=== PATIENT | male | born 1960 | race Caucasian/White ===

== ENCOUNTER 2016-04-15 02:55 | Observation (INO) | payer MEDICARE ==
[2016-04-14] MEDS: ATORVASTATIN 20 MG TAB PO SCH (21:00)
[2016-04-15] VITALS (9 sets, daily range): BP systolic 106–133; BP diastolic 61–86
[~2016-04-15] VITALS: Ht 170.2 cm; Wt 101.5 kg
[~2016-04-15 02:55] MED LIST: /ESCI20TA OR; /GLIP10TAB OR; /INSULEV; /INSULEV SQ; ALPR0.25 OR; ASPI81TA83 OR; BACL-67 PO; CARV6.25 OR; COLA100C2 OR; FURO20TA2 OR; GLUC1000 OR; INSUHUMDS SC; MORPHINE IR PO; MS C15TA5 OR; NOVOLOG100 MG/ML SC; OMEP20TA7 OR; PERC5TAB8 OR; PRAV20TA2 OR; SENN8.6T5 OR; VITA200015 PO; fiber gummies PO
[2016-04-15 03:20] LABS: BASO # 0.1 K/mm3 (0.0-0.2); BASO % 0.8 % (0.0-1.0); EOS # 0.2 K/mm3 (0.0-0.50); EOS % 2.2 % (0.0-3.0); LARGE UNSTAINED CELL # 0.3 K/mm3 (0.0-0.4); LARGE UNSTAINED CELL % 2.4 % (0.0-4.0); LYMPH # 2.7 K/mm3 (1.5-4.5); LYMPH % 26.2 % (24.0-44.0); MEAN CORPUSCULAR HEMOGLOBIN 29.6 pg (27.0-33.0); MEAN CORPUSCULAR HGB CONC 33.8 g/dl (32.0-36.5); MEAN CORPUSCULAR VOLUME 87.6 fl (80.0-96.0); MONO # 0.7 K/mm3 (0.0-0.8); MONO % 6.6 % (0.0-5.0); NEUTROPHILS # 6.4 K/mm3 (1.8-7.7); NEUTROPHILS % 61.8 % (36.0-66.0); PLATELET COUNT, AUTOMATED 242 k/mm3 (150-450); RED CELL DISTRIBUTION WIDTH 13.1 % (11.5-14.5); WHITE BLOOD COUNT 10.3 K/mm3 (4.0-10.0)
[2016-04-15 03:28] LABS: INR 0.93
[2016-04-15] MEDS ORDERED: ISOVUE-370 76% 100ML VIAL (Q9967) As Ordered ONE (03:37)
[2016-04-15 03:43] LABS: ANION GAP 10 MEQ/L (8-16); BLOOD UREA NITROGEN 17 MG/DL (7-18); CALCIUM LEVEL 9.1 MG/DL (8.5-10.1); CARBON DIOXIDE LEVEL 27 MEQ/L (21-32); CHLORIDE LEVEL 102 MEQ/L (98-107); CREATININE FOR GFR 1.02 MG/DL (0.70-1.30); GLOMERULAR FILTRATION RATE > 60.0 (>56); GLUCOSE, FASTING 293 MG/DL (70-105); POTASSIUM SERUM 4.1 MEQ/L (3.5-5.1); SODIUM LEVEL 139 MEQ/L (136-145)
[2016-04-15] MEDS ORDERED: INSUHUMDS SC (04:19)
[2016-04-15] MEDS ORDERED: FURO20TA2 PO (04:19)
[2016-04-15] MEDS ORDERED: ASPI81TAEC PO (04:19)
[2016-04-15] MEDS ORDERED: ADV250INH INH (04:19)
[2016-04-15] MEDS ORDERED: PROA1AER INH (04:19)
[2016-04-15] MEDS ORDERED: INSUDET SC (04:19)
[2016-04-15] MEDS ORDERED: CARV6.25 PO (04:19)
[2016-04-15] MEDS ORDERED: GLIP10TA6 PO (04:19)
[2016-04-15] MEDS ORDERED: BYDU1INJ SC (04:19)
[2016-04-15] MEDS ORDERED: METF1000 PO (04:19)
[2016-04-15] MEDS ORDERED: NAPR500T2 PO (04:19)
[2016-04-15] MEDS ORDERED: OMEP20CA3 PO (04:19)
--- NOTE | 2016-04-15 05:00 | REPUSA ---
HISTORY: Trauma. COMPARISON: None. TECHNIQUE: Multiple thin section helically-acquired axially-displayed and helically acquired coronall y displayed computed tomographic images of the face are obtained from the mandible through the fronta l sinuses, with images obtained at soft tissue and bone window. 2D reformatted images were performed. FINDINGS: Normal bony mineralization. No fractures. Normal orbits. Normal, clear paranasal sinuses. Normal oral and nasal cavities. Normal infratemporal fossa and deep parapharyngeal spaces with normal muscles of mastication. Normal parotid and submandibular glands. IMPRESSION: Normal examination of the face. Thank you for your kind referral of this patient
--- NOTE | 2016-04-15 05:10 | REPUSA ---
CLINICAL HISTORY: Pain. TECHNIQUE: Multiple incremental axial, coronal and oblique images are obtained from the thoracic inle t to the upper abdomen. Intravenous contrast material was administered as per pulmonary embolism prot ocol. COMMENTS: There is excellent opacification of pulmonary arterial system without evidence for pulmonary embolism . Aorta is of normal caliber without evidence for dissection or aneurysm. There is no evidence of pleural or parenchymal mass. There are no pleural effusions. There is no evid ence of hilar or mediastinal lymphadenopathy. The heart and great vessels are within normal limits. Images of the upper abdomen demonstrate no evidence of adrenal mass. The bony structures are free of lytic or blastic lesions. Significant food residue in the distended stomach suggestive of gastroparesis. IMPRESSION: No evidence for pulmonary embolism. Thank you for your kind referral of this patient.
[2016-04-15] MEDS ORDERED: ALBUTEROL 90 MCG/ACT 8GM HFA INHALER INH PRN (05:45)
[2016-04-15] MEDS ORDERED: DEXTROSE 50% 50 ML SYRINGE IV PRN (05:45)
[2016-04-15] MEDS ORDERED: ACETAMINOPHEN TAB 650MG DOSE (2X325MG) PO PRN (05:45)
[2016-04-15] MEDS ORDERED: GLUCAGON FOR INJ 1 MG VIAL (J1610) SC PRN (05:45)
[2016-04-15] MEDS ORDERED: GLUCOSE 4 GM CHEW TABLET PO PRN (05:45)
[2016-04-15] MEDS ORDERED: ONDANSETRON 4 MG TAB (S0181) PO PRN (05:45)
[2016-04-15] MEDS ORDERED: IPRATROPIUM 0.5MG/ALBUTEROL 2.5MG INH SOL UD 3ML (DUONEB)(J7620) NEB PRN (06:00)
--- NOTE | 2016-04-15 06:28 | HPE ---
DATE OF ADMISSION: 04/15/2016 PRIMARY CARE PROVIDER: Ramila Stewart. CHIEF COMPLAINT: Chest pressure and syncope. HISTORY OF PRESENT ILLNESS: This is a 55-year-old male patient with underlying medical history of chronic obstructive pulmonary disease (COPD), insulin dependent type 2 diabetes, gastroesophageal reflux disease (GERD), dyslipidemia, obesity, hypertension, history of herniated disc, osteoarthritis, chronic back pain and also obstructive sleep apnea not on CPAP as per patient because he lost some weight, he therefore does not need CPAP anymore, presented around 1:30 a.m. The patient was trying to get up to go to the bathroom, reported having left sided chest pain, pressure and subsequently syncopized on the floor, was found by his . As per , patient was syncopized for about 30 seconds, looked pale and reported lightheadedness and a little bit shaky but no tonic colonic movement, no tongue biting, no fecal or bowel incontinence. Finger stick at the time is 178 as per . Patient reported the chest discomfort at its worse 10 out of 10, non-radiating, relief was relaxation, no exacerbating factor. Went away in about 30 minutes. Subsequently EMS arrived and given the patient 325 mg of aspirin and some Zofran. Patient also reported nausea and vomiting, nonbloody, nonbilious for two episodes, given some Zofran and presented to the emergency room. In the emergency room around 4 a.m. in the morning, patient had another episode, was given some morphine. EKG was done at the time with no significant change and patient was given some morphine and subsequently the pain improved as well lasting about 20-15 minutes in the emergency room. Patient denies any fevers, chills, coughing, shortness of breath. Denies any abdominal pain, diarrhea, constipation. Denies any vision change. Denies any neurological deficits. Patient reported many years ago, patient had a similar episode and the workup has been negative. Denies history of seizures or stroke. ALLERGIES: Patient reported anaphylaxis to BEE VENOM, ERYTHROMYCIN with hives, FENTANYL with hives and PREGABALIN with itching. PAST MEDICAL HISTORY: Chronic obstructive pulmonary disease (COPD). Obstructive sleep apnea. Type 2 insulin dependent diabetes. Gastroesophageal reflux disease (GERD). Dyslipidemia. Hypertension. Degenerative disc disease. Osteoarthritis. PAST SURGICAL HISTORY: Bilateral wrist surgery. Bilateral elbow surgery. Morphine pump as per patient, back pain pump like possibly morphine was installed and removed. SOCIAL HISTORY: Patient quit smoking 9 years ago, 1 pack per day smoking history for 15 years. Drinks alcoholic beverages twice a month. Denies any elicit drug use. FAMILY HISTORY: Noncontributory. REVIEW OF SYSTEMS: 11 point review of system negative except for those mentioned in HPI. HOME MEDICATION: - glipizide 10 mg by mouth twice daily - Humalog insulin pre-meals via scale - metformin 1000 mg by mouth twice daily - Naproxen 500 mg by mouth twice daily - Bydureon 2 mg subcutaneous once a week - Pro Air inhalation every 4 hours as needed - aspirin 81 mg by mouth daily - Coreg 6.25 mg by mouth twice daily - Lasix 20 mg by mouth daily - Levemir insulin 75 units subcutaneous twice daily - omeprazole 20 mg by mouth daily - Advair discus 250/50 mcg inhalation twice daily PHYSICAL EXAMINATION: Vital signs: Blood pressure 133/77, pulse 93, respiration 18, temperature 97.2, pulse ox 96% on room air. General: Patient obese, alert and oriented times three, no acute distress. HEENT: Normocephalic, atraumatic. Pulmonary: Bilateral clear to auscultation. Minimal expiratory wheeze. Cardiac: Regular rate and rhythm, normal S1, S2. Abdomen: Soft, nontender, obese, positive bowel sounds. Extremities: No edema bilateral lower extremity. Neurologic: Cranial nerves II-XII grossly intact. Right upper extremity is slightly weaker than the left, as per patient has been chronic. Equal strength bilateral lower extremities. Sensation to light touch bilateral upper and lower intact. EKG sinus rhythm at 77. Right bundle branch block. WBC 10.3, hemoglobin and hematocrit 17.3/15.3, platelets 242. Chemistry: Sodium 139, potassium 4.1 chloride 102, bicarbonate 27, BUN 17, creatinine 1.02. Cardiac enzymes are negative times one. B natriuretic peptide 11. CT angio negative for pulmonary embolism (PE). CT head within normal limits. No acute intracranial pathology. CT maxillofacial: No fractures detected. ASSESSMENT AND PLAN: This is a 55-year-old male patient with underlying medical history of chronic obstructive pulmonary disease (COPD), insulin dependent diabetes type 2, gastroesophageal reflux disease (GERD), dyslipidemia, hypertension, degenerative disc disease, obstructive sleep apnea, admitted for chest pain and syncope. PROBLEMS: 1. Chest pain. EKG is appreciated. Telemetry monitoring. Continue aspirin, statin and beta blockers. Trend cardiac enzymes. Serial EKGs. 2. Syncope. Will follow orthostatic vital signs, echocardiograms, physical therapy, telemetry monitoring, neuro checks, MRI of the brain. Trend cardiac enzymes. CT angio negative for pulmonary embolism (PE). 3. Insulin dependent type 2 diabetes. Continue insulin Levemir along with mealtime protocol, holding oral meds. Adjust as needed. Followup A1c. 4. Chronic obstructive pulmonary disease (COPD). Continue home medication, nebulizer treatment as needed. 5. Gastroesophageal reflux disease, continue PPI. 6. Dyslipidemia, continue statin. Followup lipid panel. 7. Hypertension, continue home medication. Monitor blood pressure. 8. Degenerative disc disease. Will give pain medication as needed. Outpatient followup, physical therapy, deep venous thrombosis (DVT) prophylaxis, heparin subcutaneous. DISPOSITION PLANNING: Pending further work for syncope and chest pain.
[2016-04-15] MEDS ORDERED: HumaLOG INSULIN (NovoLOG) PER UNIT SC SCH ×2 (07:30→21:00)
--- NOTE | 2016-04-15 08:16 | REP ---
Portable chest x-ray: Single view. History: Chest pain. Comparison chest x-ray November 28, 2014. Findings: EKG monitoring electrodes overlie the chest. Right hemidiaphragm remains somewhat elevated. Lungs are otherwise well inflated and clear. Pleural angles are sharp. Pulmonary vasculature is not increased. Heart size is normal. Impression: No active disease. Signed by Rusty Mckee MD 04/15/2016 08:07 A
[2016-04-15] MEDS ORDERED: HEPARIN SOD (PORCINE) 5000 UNITS/ML VIAL As Ordered ONE ×2 (08:28→13:32)
[2016-04-15] MEDS ORDERED: ONDANSETRON 4 MG TAB (S0181) As Ordered ONE (08:28)
--- NOTE | 2016-04-15 08:39 | ECGEPIP ---
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
--- NOTE | 2016-04-15 08:39 | ECGEPIP ---
Stationary ECG Study 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
[2016-04-15] MEDS: HEPARIN SOD (PORCINE) 5000 UNITS/ML VIAL SC SCH ×3 (08:40→21:10)
[2016-04-15 08:52] LABS: T UPTAKE 34 % (33-40); THYROXINE (T4) 7.7 UG/DL (4.5-12.0)
[2016-04-15] MEDS ORDERED: CARVedilol 6.25 MG TAB As Ordered ONE (09:47)
[2016-04-15] MEDS ORDERED: OMEPRAZOLE 20 MG CAP As Ordered ONE (09:47)
[2016-04-15] MEDS ORDERED: FUROSEMIDE 20 MG TAB As Ordered ONE (09:48)
[2016-04-15] MEDS: ASPIRIN 81 MG ENTERIC TAB PO SCH (09:50)
[2016-04-15] MEDS: SENOKOT S TAB PO SCH ×2 (09:50→21:10)
[2016-04-15] MEDS: CARVedilol 6.25 MG TAB PO SCH ×2 (09:51→21:10)
[2016-04-15] MEDS: OMEPRAZOLE 20 MG CAP PO SCH (09:51)
[2016-04-15] MEDS: FUROSEMIDE 20 MG TAB PO SCH (09:51)
[2016-04-15] MEDS ORDERED: LEVEMIR (INSULIN DETEMIR) 1 UNITS/0.01ML As Ordered ONE (09:56)
[2016-04-15] MEDS ORDERED: HumaLOG INSULIN (NovoLOG) PER UNIT As Ordered ONE ×2 (09:56→13:32)
[2016-04-15] MEDS: HumaLOG INSULIN (NovoLOG) PER UNIT SC SCH ×3 (09:59→17:12)
[2016-04-15] MEDS: ADVAIR DISKUS 250/50 INH PWD INH SCH ×2 (09:59→21:29)
[2016-04-15] MEDS: LEVEMIR (INSULIN DETEMIR) 1 UNITS/0.01ML SC SCH ×2 (09:59→21:11)
[2016-04-15] MEDS ORDERED: ALPRAZolam 0.25 MG TAB PO ONE (10:45)
[2016-04-15] MEDS ORDERED: ALPRAZolam 0.25 MG TAB As Ordered ONE (11:36)
--- NOTE | 2016-04-15 14:01 | REP ---
MRI BRAIN WITHOUT CONTRAST: 04/15/2016 CLINICAL HISTORY: Evaluate for CVA. COMPARISON: CT brain 04/15/2016. TECHNIQUE: Noncontrast T1, T2, FLAIR, gradient echo, diffusion-weighted images with ADC mapping axial sequences and a T1 sagittal sequence performed. FINDINGS: Lateral ventricles are midline symmetric and without displacement. The third and fourth ventricles are unremarkable. The basal ganglia are symmetric and normal. I see no periventricular, deep central or subcortical white matter hyperintense foci of significance in either hemisphere. Cortical stripe is preserved. There is no vascular territory infarct, intracranial hemorrhage, mass or mass effect. The diffusion images and ADC mapping sequence show no evidence of acute ischemia or restricted water diffusion. Brainstem and cerebellum are unremarkable. Seventh/eighth cranial nerve complexes symmetric and normal. Some minor bilateral mastoid air cell opacification that may reflect some mild mastoiditis. The maxillary sinuses and sphenoids are clear. There is some minor ethmoid sinus mucosal thickening. Frontal sinuses clear. Corpus callosum, optic chiasm and pituitary were unremarkable. There is no cerebellar tonsillar ectopia on the sagittal images. IMPRESSION: 1. No MR evidence of acute infarct, hemorrhage, mass or mass effect. 2. No ventriculomegaly, atrophy or posterior fossa abnormality. 3. Midline structures unremarkable with only minor ethmoid sinus mucosal thickening. Signed by Albert Lo MD 04/15/2016 04:45 P
--- NOTE | 2016-04-15 14:18 | REP ---
MR ANGIOGRAM BRAIN WITHOUT CONTRAST: 04/15/2016 COMPARISON: MRI brain, CT brain today. CLINICAL HISTORY: Possible CVA. TECHNIQUE: 3D [id number] gradient-echo imaging with MIP reformatting and rotational display of the volume reconstructions about the horizontal and longitudinal axis of the brain. All source images are reviewed. FINDINGS. There is fairly symmetric supply of the vertebral arteries to form the basilar artery. No basilar stenosis or aneurysm. The basilar tip gives rise to the right and left posterior cerebral arteries without stenosis or aneurysm and symmetric supply to the posterior fossa. The right internal carotid at the skull base to the carotid siphon was without stenosis or aneurysm. I see no significant stenosis of the cavernous carotid, and the supraclinoid carotid is intact. The M1 segment is unremarkable. The A1 segment is diminutive on the right compared to the left, that left A1 segment essentially supplies both anterior cerebral arteries. The right M2 segments and trifurcation vessels are grossly intact with no stenosis or aneurysm. The left internal carotid at the skull base to the carotid siphon was also unremarkable. I do not see any significant stenosis in the cavernous portion, and the supraclinoid internal carotid is grossly intact. The A1 segment is asymmetrically larger on the left and providing most supply for both anterior cerebral arteries. The M1 segment and the M2 segments with trifurcation vessels grossly intact. Source images confirm these findings and show no evidence of aneurysm. There is no vascular lesion. IMPRESSION: 1. Dominant left A1 segment supplying both anterior cerebral arteries with very diminutive right A1 segment. 2. The M1 and M2 segments, internal carotids, and the posterior circulation are all unremarkable. Nothing acute. Signed by Albert Lo MD 04/15/2016 04:45 P
--- NOTE | 2016-04-15 14:23 | REP ---
MR ANGIOGRAM OF THE CAROTIDS WITHOUT AND WITH CONTRAST: 04/15/2016 CLINICAL HISTORY: Possible CVA. TECHNIQUE: 2D [id number] axial images with coronal 3D [id number] images performed after infusion of 25 mL of ProHance. MIP reformatting and rotational display of the carotid and vertebral arteries performed along the long axis of the neck. All source images are reviewed. FINDINGS: There were no comparison studies. The origin of the right internal carotid from the innominate artery is seen without significant stenosis. The common carotid on the right side of the neck is without significant stenosis or aneurysm. Less than that 30% stenosis with smooth slight narrowing at the bulb and proximal ICA on the right side. The course of the internal carotid in the neck is tortuous in its proximal to midportion and then unremarkable to the skull base and carotid siphon. The left common carotid artery shows no stenosis in the neck. Its origin is poorly depicted on these images. There is quite tortuous left internal carotid with minimal stenosis at its origin. Its mid to distal course is also slightly tortuous at the skull base to the carotid siphon unremarkable. No definite significant stenosis in the neck. The bilateral vertebral arteries are fairly symmetric in the neck and their origins from the respective subclavian arteries. Fairly symmetric contribution to the basilar artery is noted but better seen on the MRA of the brain. IMPRESSION: 1. Both carotids demonstrate minimal stenosis at the bulb and proximal ICAs with tortuosity of the course of the mid ICA on the right and the proximal and mid ICA on the left. However, there is no hemodynamically significant lesion or stenosis. 2. Symmetric supply of vertebral arteries to form the basilar artery. Signed by Albert Lo MD 04/15/2016 04:46 P
--- NOTE | 2016-04-15 16:40 | EDDOCDS ---
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 Pt has noted bloody nose, 18 gauge IV to left forearm, last blood pressure 141/93, blood glucose 203. Pt received 4 of zofran wit relief and 324 of aspirin. Suicide/Homicide risk assessment- the patient denies having any suicidal and/or homicidal ideations and does not present with any other emotional, behavioral or mental health complaints. 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 Transition of care: patient was not received from another setting of care. Care prior to arrival: See EMS report. Medications administered prior to arrival: ASA, NTG, IV initiated. Glucose check. 203 Oxygen administered by EMS. 02:58 Acuity: ESTRELLA Level 2 sls1 02:58 Method Of Arrival: Ambulance sls1 03:15 Adult Sepsis Screening: The patient does not have new or worsening altered mentation. ko2 Patient's respiratory rate is less than 22. Systolic blood pressure is greater than 100. Patient has a qSOFA score of 0- Negative Sepsis Screen. Triage Assessment: 03:05 General: Appears uncomfortable, Behavior is appropriate for age, cooperative. Pain: sls1 Denies pain. Pt Declines HIV testing. The patient is triaged at the bedside. See Assessment in Nurses Notes section of ED record. Neurological: Level of Consciousness is awake, alert. Neurological: Reports dizziness. EENT: bloody nose. Cardiovascular: Rhythm is sinus rhythm No ectopy. Chest pain is denied. Respiratory: Airway is patent Respiratory effort is even, unlabored, Respiratory pattern is regular, symmetrical. GI: Reports nausea, vomiting. Derm: diaphoretic. Historical: - Allergies: Bees; Erythromycin; Lyrica; - Home Meds: 1. Advair Diskus 250-50 mcg/dose Inhl dsdv 1 puff 2 times per day 2. aspirin 81 mg Oral tab once daily 3. carvedilol 6.25 mg oral tab 1 tab 2 times per day 4. Fiber Gummies (with chromium) 2-100 gram-mcg oral chew 5. furosemide 20 mg Oral tab 1 tab once daily 6. glipizide 10 mg Oral tab 1 tab 2 times per day 7. metformin 1,000 mg Oral tab 1 tab 2 times per day 8. Levemir 100 unit/mL subcutaneous soln Unknown after meals 9. Invokana 300 mg oral tab 1 tab once daily 10. Lantus 100 unit/mL Sub-Q soln 75 unit twice a day 11. omeprazole 20 mg Oral cpDR 1 cap once daily 12. pravastatin 20 mg oral tab 1 tab once daily 13. ProAir HFA 90 mcg/actuation inhalation HFAA 2 puffs every 4 hours 14. Vitamin D Oral 2000 unit daily - PMHx: COPD; Diabetes - NIDDM: controlled; GERD; Hypercholesterolemia; Hypertension; - PSHx: Bilateral Wrists; BIlateral Shoulders; morphine pump insertion and removal; - Social history: Smoking status: Patient states former smoker of tobacco. No barriers to communication noted, The patient speaks fluent [place], Speaks appropriately for age. - Family history: Not pertinent. - : The pt / caregiver states he / she is not on anticoagulants. Home medication list is obtained from the patient. - Exposure Risk Screening:: None identified. Screenin:15 Screening information is obtained from the patient. Fall risk: No risks identified. ko2 Assistance ADL's: requires no assistance with activities of daily living. Abuse/DV Screen: The patient / caregiver reports he/she is: not in a situation that causes fear, pain or injury. Nutritional screening: No deficits noted. Advance Directives: Currently, there is no health care proxy. There is no active DNR order. There is no living will. There is no Power of Paper Grader. home support is adequate. Assessment: 03:14 General: Appears in no apparent distress, Behavior is appropriate for age, cooperative. ko2 Pain: Denies pain. Neurological: Level of Consciousness is awake, alert, Oriented to person, place, time, Pupils are PERRLA. Cardiovascular: Heart tones S1 S2 present Rhythm is sinus rhythm. Respiratory: Airway is patent Respiratory effort is even, unlabored, Respiratory pattern is regular, symmetrical. GI: Abdomen is obese, Bowel sounds present X 4 quads. Derm: Skin is normal. 03:40 General: pt having chest pressure again and dizziness. Dr Martínez notified and new orders ko2 obtained. Pt states the pain is like an elephant sitting on his chest. . 04:38 General: Appears in no apparent distress, Behavior is appropriate for age, cooperative. ko2 Neurological: Level of Consciousness is awake, alert, Oriented to person, place, time. Cardiovascular: Rhythm is sinus rhythm No ectopy. Respiratory: Airway is patent Respiratory effort is even, unlabored, Respiratory pattern is regular, symmetrical. Derm: Skin is normal. 06:07 General: Appears in no apparent distress, comfortable, Behavior is appropriate for age, ko2 cooperative. Neurological: Level of Consciousness is awake, alert, Oriented to person, place, time. Respiratory: Airway is patent Respiratory effort is even, unlabored, Respiratory pattern is regular, symmetrical. Derm: Skin is normal. 07:15 General: Appears in no apparent distress, comfortable, Behavior is appropriate for age, ead cooperative. Neurological: Level of Consciousness is awake, alert, Oriented to person, place, time. Cardiovascular: Rhythm is sinus rhythm No ectopy. Respiratory: Airway is patent Respiratory effort is even, unlabored. Derm: Skin is pink, warm & dry. 08:15 General: Appears in no apparent distress, comfortable, Behavior is appropriate for age, ead cooperative. Pain: Denies pain. Neurological: Level of Consciousness is awake, alert, Oriented to person, place, time. Cardiovascular: Rhythm is sinus rhythm No ectopy. Respiratory: Airway is patent Respiratory effort is even, unlabored. Derm: Skin is pink, warm & dry. Vital Signs: 03:05 BP 133 / 75; Pulse 93; Resp 18; Temp 97.2; Pulse Ox 96% on R/A; Weight 96.16 kg (R); sls1 Height 5 ft. 7 in. (170.18 cm); Pain 0/10; 03:15 BP 151 / 95 (auto/); ko2 03:15 Pulse 87 MON; Pulse Ox 96% ; ko2 03:29 Pulse 81 MON; Pulse Ox 94% ; ko2 03:30 BP 166 / 96 (auto/); ko2 03:42 BP 166 / 98 (auto/); ko2 03:42 Pulse 88 MON; Pulse Ox 96% ; ko2 03:45 BP 166 / 100 (auto/); ko2 03:45 Pulse 81 MON; Pulse Ox 96% ; ko2 03:49 Pulse 78 MON; Pulse Ox 96% ; ko2 04:07 BP 145 / 78 (auto/); ko2 04:21 Pulse 84 MON; Pulse Ox 96% ; ko2 04:22 BP 138 / 77 (auto/); ko2 04:36 Pulse 80 MON; Pulse Ox 95% ; ko2 04:37 BP 133 / 75 (auto/); ko2 04:52 Pulse 79 MON; Pulse Ox 95% ; mlc 04:52 BP 133 / 75 (auto/); mlc 05:07 BP 138 / 85 (auto/); mlc 05:07 Pulse 79 MON; Pulse Ox 94% ; mlc 05:19 Pulse 74 MON; Pulse Ox 94% ; mlc 05:21 Pulse 73 MON; Pulse Ox 94% ; ko2 05:22 BP 140 / 90 (auto/); ko2 05:36 Pulse 78 MON; Pulse Ox 96% ; ko2 05:37 BP 140 / 95 (auto/); ko2 05:52 BP 128 / 72 (auto/); ko2 05:52 Pulse 85 MON; Pulse Ox 95% ; ko2 07:37 BP 119 / 68 (auto/); ead 07:37 Pulse 83 MON; Pulse Ox 95% ; ead 03:05 Body Mass Index 33.20 (96.16 kg, 170.18 cm) [facility] Vitals: 03:05 Glucose Measurement D-stick done by EMS. Log In Time N/A - ambulance arrival. [facility] ED Course: 02:56 Patient visited by Miracle Pineda PCA. adrian 02:56 Laura Caballero,FRANCINE is Primary Nurse. adrian 02:56 Patient moved to Waiting adrian 02:56 Patient moved to 1 adrian 02:57 Marya Martínez MD is Attending Physician. fg 02:57 Patient visited by Marya Martínez MD. fg 03:02 Triage Initiated [facility] 03:05 EKG done. (by ED staff). Reviewed by Marya Martínez MD. adrian 03:06 Patient visited by Miracle Pineda PCA. adrian 03:07 Patient visited by Dyna Freire RN. [facility] 03:09 Pt greeted and oriented to ED. Patient advised of names of staff involved in care, adrian location of call hankins, wait times and NPO status. Patient has correct armband on for positive identification. Placed in gown. Bed in low position. Call light in reach. Side rails up X2. personnel monitor on. Pulse ox on. NIBP on. 03:13 B-Type Natiuretic Peptide Sent. ko2 03:14 Basic Metabolic Profile Sent. ko2 03:14 CBC with Diff Sent. ko2 03:14 Cardiac Injury Profile Sent. ko2 03:14 Prothrombin Time Profile\E\INR Sent. ko2 03:14 Troponin Sent. ko2 03:16 Maintain field IV. Dressing intact. Good blood return noted. Site clean & dry. Gauge & ko2 site: 18 Gauge Left forearm. 03:44 Patient visited by Miracle Pineda, STORAGE ARCHITECT. adrian 03:52 EKG done. (by ED staff). Reviewed by Marya Martínez MD. mdr 03:53 Patient visited by Shola Aaron, SHAWANDA. mdr 03:54 [facility] Payment Agreement was scanned into [employer] and attached to record. pm4 04:40 Patient visited by Laura Caballero RN. ko2 05:05 CT Head Without Contrast Returned. EDMS 05:05 CT Maxilofacial W/out Contrast Returned. EDMS 05:16 Jeanne Garza is Hospitalizing Provider. fg 05:51 CT Chest Angio R/O PE Returned. EDMS 06:07 The patient / caregiver is instructed regarding the plan of care and ED course. ko2 07:54 Chary Montiel,RN is Primary Nurse. ead 08:15 Patient moved to 19 ead 08:15 Report given to FRANCINE Dave. ead 08:57 EKG-ADULT Returned. EDMS 08:57 EKG-ADULT Returned. EDMS 09:01 portable chest Returned. EDMS 12:36 Primary Nurse role handed off by Laura Caballero,FRANCINE [facility] 14:18 MRI Brain without Contrast Returned. EDMS 15:16 MRA BRAIN W/O CONTRAST Returned. EDMS 15:16 MRA CAROTID W/O FOL WITH Returned. EDMS Administered Medications: 03:02 Not Given (pt already administered by EMS): Aspirin Chewable Tablet 324 mg PO once ko2 03:47 Drug: morphine 2 mg [morphine 2 mg/mL intravenous cartridge (1 mL)] Route: IVP; Site: ko2 left forearm; Order Results: Lab Order: B-Type Natiuretic Peptide; SPEC'M 04/15/16 03:11 Test: BRAIN NATRIURETIC PEPTIDE; Value: 11.0; Range: <100; Units: PG/ML; Status: F Lab Order: Basic Metabolic Profile; 04/15/16 03:11 Test: GLUCOSE, FASTING; Value: 293; Range: 70-105; Abnormal: Above high normal; Units: MG/DL; Status: F Test: BLOOD UREA NITROGEN; Value: 17; Range: 7-18; Units: MG/DL; Status: F Test: CREATININE FOR GFR; Value: 1.02; Range: 0.70-1.30; Units: MG/DL; Status: F Test: GLOMERULAR FILTRATION RATE; Value: > 60.0; Range: >56; Status: F Test: SODIUM LEVEL; Value: 139; Range: 136-145; Units: MEQ/L; Status: F Test: POTASSIUM SERUM; Value: 4.1; Range: 3.5-5.1; Units: MEQ/L; Status: F Test: CHLORIDE LEVEL; Value: 102; Range: 98-107; Units: MEQ/L; Status: F Test: CARBON DIOXIDE LEVEL; Value: 27; Range: 21-32; Units: MEQ/L; Status: F Test: ANION GAP; Value: 10; Range: 8-16; Units: MEQ/L; Status: F Test: CALCIUM LEVEL; Value: 9.1; Range: 8.5-10.1; Units: MG/DL; Status: F Test Note: ; Units are mL/min/1.73 m2 Chronic Kidney Disease Staging per NKF: Stage I & II GFR >=60 Normal to Mildly Decreased Stage III GFR 30-59 Moderately Decreased Stage IV GFR 15-29 Severely Decreased Stage V GFR <15 Very Little GFR Left ESRD GFR <15 on [facility] MANAGER Lab Order: CBC with Diff; 04/15/16 03:11 Test: WHITE BLOOD COUNT; Value: 10.3; Range: 4.0-10.0; Abnormal: Above high normal; Units: K/mm3; Status: F Test: RED BLOOD COUNT; Value: 5.86; Range: 4.30-6.10; Units: M/mm3; Status: F Test: HEMOGLOBIN; Value: 17.3; Range: 14.0-18.0; Units: g/dl; Status: F Test: HEMATOCRIT; Value: 51.3; Range: 42.0-52.0; Units: %; Status: F Test: MEAN CORPUSCULAR VOLUME; Value: 87.6; Range: 80.0-96.0; Units: fl; Status: F Test: MEAN CORPUSCULAR HEMOGLOBIN; Value: 29.6; Range: 27.0-33.0; Units: pg; Status: F Test: MEAN CORPUSCULAR HGB CONC; Value: 33.8; Range: 32.0-36.5; Units: g/dl; Status: F Test: RED CELL DISTRIBUTION WIDTH; Value: 13.1; Range: 11.5-14.5; Units: %; Status: F Test: PLATELET COUNT, AUTOMATED; Value: 242; Range: 150-450; Units: k/mm3; Status: F Test: NEUTROPHILS %; Value: 61.8; Range: 36.0-66.0; Units: %; Status: F Test: LYMPH %; Value: 26.2; Range: 24.0-44.0; Units: %; Status: F Test: MONO %; Value: 6.6; Range: 0.0-5.0; Abnormal: Above high normal; Units: %; Status: F Test: EOS %; Value: 2.2; Range: 0.0-3.0; Units: %; Status: F Test: BASO %; Value: 0.8; Range: 0.0-1.0; Units: %; Status: F Test: LARGE UNSTAINED CELL %; Value: 2.4; Range: 0.0-4.0; Units: %; Status: F Test: NEUTROPHILS #; Value: 6.4; Range: 1.8-7.7; Units: K/mm3; Status: F Test: LYMPH #; Value: 2.7; Range: 1.5-4.5; Units: K/mm3; Status: F Test: MONO #; Value: 0.7; Range: 0.0-0.8; Units: K/mm3; Status: F Test: EOS #; Value: 0.2; Range: 0.0-0.50; Units: K/mm3; Status: F Test: BASO #; Value: 0.1; Range: 0.0-0.2; Units: K/mm3; Status: F Test: LARGE UNSTAINED CELL #; Value: 0.3; Range: 0.0-0.4; Units: K/mm3; Status: F Lab Order: Cardiac Injury Profile; [facility] 04/15/16 03:11 Test: CPK CREATINE PHOSPHOKINASE; Value: 100; Range: 39-308; Units: U/L; Status: F Test: CK-MB VALUE MASS; Value: 1.0; Range: 0.0-3.6; Units: NG/ML; Status: F Test: MB/CK RELATIVE INDEX; Value: 1.00; Range: < OR =4; Status: F Test Note: ; DIAGNOSIS CRITERIA MMB ng/ml Relative Index (RI) NON-AMI < or = 5 N/A [place]ALL [place]ONE > 5 < or = 4 AMI > 5 > 4 Lab Order: Prothrombin Time Profile\E\INR; [facility]04/15/16 03:11 Test: PROTHROMBIN TIME; Value: 12.6; Range: 12.3-14.5; Units: SECONDS; Status: F Test: INR; Value: 0.93; Status: F Test Note: ; THERAPUTIC HUMAN INR VALUES INDICATIONS NORMAL RANGES PROPHYLAXIS/TREATMENT OF: VENOUS THROMBOSIS 2.0-3.0 PULMONARY EMBOLISM 2.0-3.0 PREVENTION OF SYSTEMIC EMBOLISM FROM: TISSUE HEART VALVES 2.0-3.0 ACUTE MYOCARDIAL INFARCTION 2.0-3.0 VALVULAR HEART DISEASE 2.0-3.0 ATRIAL FIBRILLATION 2.0-3.0 MECHANICAL VALVES(HIGH RISK) 2.5-3.5 RECURRENT MYOCARDIAL INFARCTION 2.5-3.5 Lab Order: Troponin; 04/15/16 03:11 Test: TROPONIN I; Value: < 0.02; Range: < 0.10; Units: NG/ML; Status: F Test Note: ; Troponin I Reference Interval for [employer] LOCI: 99th Percentile= 0.00-0.045 ng/ml Risk Stratification: <= 0.10 ng/ml Decreased Risk for Adverse Clinical Events. 0.10-1.50 ng/ml Increased Risk for Adverse Clinical Events. Evaluation of additional criterion and/or repeat testing in 2-6 hours is suggested to rule out myocardial damage. >= 1.50 ng/ml Indicative of Myocardial Injury. Lab Order: CARDIAC MARKER PANEL; [facility] 04/15/16 08:09 Test: CPK CREATINE PHOSPHOKINASE; Value: 74; Range: 39-308; Units: U/L; Status: F Test: CK-MB VALUE MASS; Value: 1.0; Range: 0.0-3.6; Units: NG/ML; Status: F Test: MB/CK RELATIVE INDEX; Value: 1.35; Range: < OR =4; Status: F Test: TROPONIN I; Value: < 0.02; Range: < 0.10; Units: NG/ML; Status: F Test Note: ; DIAGNOSIS CRITERIA MMB ng/ml Relative Index (RI) NON-AMI < or = 5 N/A [place]ONE > 5 < or = 4 AMI > 5 > 4 Lab Order: CARDIAC MARKER PANEL; [facility] 04/15/16 13:15 Test: CPK CREATINE PHOSPHOKINASE; Value: 75; Range: 39-308; Units: U/L; Status: F Test: CK-MB VALUE MASS; Value: 1.0; Range: 0.0-3.6; Units: NG/ML; Status: F Test: MB/CK RELATIVE INDEX; Value: 1.33; Range: < OR =4; Status: F Test: TROPONIN I; Value: < 0.02; Range: < 0.10; Units: NG/ML; Status: F Test Note: ; DIAGNOSIS CRITERIA MMB ng/ml Relative Index (RI) NON-AMI < or = 5 N/A CR[place]ALL [place]ONE > 5 < or = 4 AMI > 5 > 4 Lab Order: THYROID PROFILE; [facility] 04/15/16 08:09 Test: T UPTAKE; Value: 34; Range: 33-40; Units: %; Status: F Test: THYROXINE (T4); Value: 7.7; Range: 4.5-12.0; Units: UG/DL; Status: F Test: FREE THYROXINE INDEX; Value: 2.6; Range: 1.4-3.8; Units: %; Status: F Test: THYROID STIMULATING HORMONE; Value: 0.958; Range: 0.358-3.740; Units: uIU/ML; Status: F Lab Order: HEMOGLOBIN A1C; [facility] 04/15/16 06:57 Test: HEMOGLOBIN A1c; Value: 10.6; Range: 4.5-6.2; Abnormal: Above high normal; Units: %; Status: F Test: ESTIMATED AVERAGE GLUCOSE; Value: 258; Range: 60-110; Abnormal: Above high normal; Units: MG/DL; Status: F Lab Order: Fingerstick Blood Sugar; SPEC'M 04/15/16 08:38 Test: BEDSIDE GLUCOSE; Value: 218; Range: 70-105; Abnormal: Above high normal; Units: MG/DL; Status: F Lab Order: Fingerstick Blood Sugar; SPEC'M 04/15/16 13:28 Test: BEDSIDE GLUCOSE; Value: 123; Range: 70-105; Abnormal: Above high normal; Units: MG/DL; Status: F Radiology Order: portable chest Test: portable chest REASON FOR EXAMINATION: Chest Pain; Portable chest x-ray: Single view.; ; History: Chest pain.; ; Comparison chest x-ray November 28, 2014.; ; Findings: EKG monitoring electrodes overlie the chest. Right hemidiaphragm; remains somewhat elevated. Lungs are otherwise well inflated and clear. Pleural; angles are sharp. Pulmonary vasculature is not increased. Heart size is normal.; ; Impression:; ; No active disease.; ; ; Signed by; Rusty Mckee MD 04/15/2016 08:07 A; Radiology Order: EKG-ADULT Test: EKG-ADULT REASON FOR EXAMINATION: Chest Pain; Stationary ECG Study; [facility] - ED; ; Test Date: 2016-04-15; Pat Name: JIAN ORNELAS Department:; Room: -; Gender: M Commercial Assistant: alvaro; : 1960 Requested By: MARYA Joel; Order Number: [id number] Reading MD: Wanda Marshall; Measurements; Intervals Steele; Rate: 86 P: 38; NM: 140 QRS: 28; QRSD: 138 T: 10; QT: 372; QTc: 446; Interpretive Statements; SINUS RHYTHM; RIGHT BUNDLE BRANCH BLOCK; INCREASED RATE 08/07/14; Electronically Signed On 04-15-2016 8:38:47 EST by Wanda Marshall; Radiology Order: CT Head Without Contrast Test: CT Head Without Contrast REASON FOR EXAMINATION: Syncope; ; CLINICAL HISTORY: Head trauma.; TECHNIQUE: Multiple axial brain CT scan sections were obtained from base to vertex without contrast a; dministration.; COMMENTS:; There is no evidence of skull fracture.; The study shows normal configuration of sella turcica. There are no intra or extra-axial collections.; There is no mass effect or midline shift. There is no evidence of hematoma formation. No hydrocephal; us is present. No abnormal calcifications are noted.; No significant abnormalities are seen either in the posterior fossa or supratentorial compartment.; The sinuses and mastoid air cells are patent.; IMPRESSION:; No evidence of acute intracranial pathology. No intracranial hemorrhage or skull fracture.; Thank you for your kind referral of this patient.; ; Radiology Order: CT Maxilofacial W/out Contrast Test: CT Maxilofacial W/out Contrast REASON FOR EXAMINATION: nasal pain after fall; ; HISTORY: Trauma.; COMPARISON: None.; TECHNIQUE: Multiple thin section helically-acquired axially-displayed and helically acquired coronall; y displayed computed tomographic images of the face are obtained from the mandible through the fronta; l sinuses, with images obtained at soft tissue and bone window. 2D reformatted images were performed.; ; FINDINGS:; Normal bony mineralization. No fractures.; Normal orbits.; Normal, clear paranasal sinuses.; Normal oral and nasal cavities.; Normal infratemporal fossa and deep parapharyngeal spaces with normal muscles of mastication. Normal; parotid and submandibular glands.; IMPRESSION:; Normal examination of the face.; Thank you for your kind referral of this patient; ; Radiology Order: CT Chest Angio R/O PE Test: CT Chest Angio R/O PE REASON FOR EXAMINATION: Chest Pain; ; CLINICAL HISTORY: Pain.; TECHNIQUE: Multiple incremental axial, coronal and oblique images are obtained from the thoracic inle; t to the upper abdomen. Intravenous contrast material was administered as per pulmonary embolism prot; ocol.; COMMENTS:; There is excellent opacification of pulmonary arterial system without evidence for pulmonary embolism; . Aorta is of normal caliber without evidence for dissection or aneurysm.; There is no evidence of pleural or parenchymal mass. There are no pleural effusions. There is no evid; ence of hilar or mediastinal lymphadenopathy. The heart and great vessels are within normal limits.; Images of the upper abdomen demonstrate no evidence of adrenal mass.; The bony structures are free of lytic or blastic lesions.; Significant food residue in the distended stomach suggestive of gastroparesis.; IMPRESSION:; No evidence for pulmonary embolism.; Thank you for your kind referral of this patient.; ; Radiology Order: EKG-ADULT Test: EKG-ADULT REASON FOR EXAMINATION: Chest Pain; Stationary ECG Study; [facility] - ED; ; Test Date: 2016-04-15; Pat Name: JIAN ORNELAS Department:; Room: -; Gender: M Commercial Assistant: ; : 1960 Requested By: MARYA Joel; Order Number: [id number] Reading MD: Wanda Marshall; Measurements; Intervals Steele; Rate: 77 P: 25; NM: 155 QRS: 26; QRSD: 146 T: -2; QT: 393; QTc: 447; Interpretive Statements; SINUS RHYTHM; RIGHT BUNDLE BRANCH BLOCK; DECREASED RATE 04/15/16 03:06; Electronically Signed On 04-15-2016 8:39:25 EST by Wanda Marshall; Radiology Order: MRI Brain without Contrast Test: MRI Brain without Contrast REASON FOR EXAMINATION: r/o cva; MRI BRAIN WITHOUT CONTRAST: 04/15/2016; ; CLINICAL HISTORY: Evaluate for CVA.; ; COMPARISON: CT brain 04/15/2016.; ; TECHNIQUE: Noncontrast T1, T2, FLAIR, gradient echo, diffusion-weighted images; with ADC mapping axial sequences and a T1 sagittal sequence performed.; ; FINDINGS: Lateral ventricles are midline symmetric and without displacement.; The third and fourth ventricles are unremarkable. The basal ganglia are; symmetric and normal. I see no periventricular, deep central or subcortical white; matter hyperintense foci of significance in either hemisphere. Cortical stripe; is preserved. There is no vascular territory infarct, intracranial hemorrhage,; mass or mass effect. The diffusion images and ADC mapping sequence show no; evidence of acute ischemia or restricted water diffusion. Brainstem and; cerebellum are unremarkable. Seventh/eighth cranial nerve complexes symmetric; and normal. Some minor bilateral mastoid air cell opacification that may reflect; some mild mastoiditis. The maxillary sinuses and sphenoids are clear. There is; some minor ethmoid sinus mucosal thickening. Frontal sinuses clear. Corpus; callosum, optic chiasm and pituitary were unremarkable. There is no cerebellar; tonsillar ectopia on the sagittal images.; ; IMPRESSION:; 1. No MR evidence of acute infarct, hemorrhage, mass or mass effect.; 2. No ventriculomegaly, atrophy or posterior fossa abnormality.; 3. Midline structures unremarkable with only minor ethmoid sinus mucosal; thickening.; ; ; ; ; Unreviewed; Radiology Order: MRA BRAIN W/O CONTRAST Test: MRA BRAIN W/O CONTRAST REASON FOR EXAMINATION: r/o cva; MR ANGIOGRAM BRAIN WITHOUT CONTRAST: 04/15/2016; ; COMPARISON: MRI brain, CT brain today.; ; CLINICAL HISTORY: Possible CVA.; ; TECHNIQUE: 3D [id number] gradient-echo imaging with MIP reformatting and; rotational display of the volume reconstructions about the horizontal and; longitudinal axis of the brain. All source images are reviewed.; ; FINDINGS. There is fairly symmetric supply of the vertebral arteries to form the; basilar artery. No basilar stenosis or aneurysm. The basilar tip gives rise to; the right and left posterior cerebral arteries without stenosis or aneurysm and; symmetric supply to the posterior fossa. The right internal carotid at the skull; base to the carotid siphon was without stenosis or aneurysm. I see no; significant stenosis of the cavernous carotid, and the supraclinoid carotid is; intact. The M1 segment is unremarkable. The A1 segment is diminutive on the; right compared to the left, that left A1 segment essentially supplies both; anterior cerebral arteries. The right M2 segments and trifurcation vessels are; grossly intact with no stenosis or aneurysm.; ; The left internal carotid at the skull base to the carotid siphon was also; unremarkable. I do not see any significant stenosis in the cavernous portion,; and the supraclinoid internal carotid is grossly intact. The A1 segment is; asymmetrically larger on the left and providing most supply for both anterior; cerebral arteries. The M1 segment and the M2 segments with trifurcation vessels; grossly intact.; ; Source images confirm these findings and show no evidence of aneurysm. There is; no vascular lesion.; ; IMPRESSION:; 1. Dominant left A1 segment supplying both anterior cerebral arteries with very; diminutive right A1 segment.; 2. The M1 and M2 segments, internal carotids, and the posterior circulation are; all unremarkable. Nothing acute.; ; ; ; ; Unreviewed; Radiology Order: MRA CAROTID W/O FOL WITH Test: MRA CAROTID W/O FOL WITH REASON FOR EXAMINATION: r/o cva; MR ANGIOGRAM OF THE CAROTIDS WITHOUT AND WITH CONTRAST: 04/15/2016; ; CLINICAL HISTORY: Possible CVA.; ; TECHNIQUE: 2D [id number] axial images with coronal 3D [id number] images; performed after infusion of 25 mL of ProHance. MIP reformatting and rotational; display of the carotid and vertebral arteries performed along the long axis of; the neck. All source images are reviewed.; ; FINDINGS: There were no comparison studies. The origin of the right internal; carotid from the innominate artery is seen without significant stenosis. The; common carotid on the right side of the neck is without significant stenosis or; aneurysm. Less than that 30% stenosis with smooth slight narrowing at the bulb; and proximal ICA on the right side. The course of the internal carotid in the; neck is tortuous in its proximal to midportion and then unremarkable to the skull; base and carotid siphon.; ; The left common carotid artery shows no stenosis in the neck. Its origin is; poorly depicted on these images. There is quite tortuous left internal carotid; with minimal stenosis at its origin. Its mid to distal course is also slightly; tortuous at the skull base to the carotid siphon unremarkable. No definite; significant stenosis in the neck.; ; The bilateral vertebral arteries are fairly symmetric in the neck and their; origins from the respective subclavian arteries. Fairly symmetric contribution; to the basilar artery is noted but better seen on the MRA of the brain.; ; IMPRESSION:; 1. Both carotids demonstrate minimal stenosis at the bulb and proximal ICAs with; tortuosity of the course of the mid ICA on the right and the proximal and mid ICA; on the left. However, there is no hemodynamically significant lesion or; stenosis.; 2. Symmetric supply of vertebral arteries to form the basilar artery.; ; ; ; ; ; ; ; ; Unreviewed; Outcome: 05:16 Decision to Hospitalize by Provider. fg 16:39 Patient left the ED. [facility] Signatures: Dispatcher Med[employer] EDDee Dee Luna, RN RN Miracle Sanchez, STORAGE ARCHITECT STORAGE ARCHITECT Dyan Guaman, RN RN sls1 Chary Montiel,RN RN Radha King,RN RN Laura ZaidiRN RN ko2 Marya Martínez MD MD fg Shola Aaron, STORAGE ARCHITECT STORAGE ARCHITECT mdr Mukund Wing, Reg Reg pm4 MTDD
--- NOTE | 2016-04-15 16:40 | EDDOCDS ---
Physician Documentation [facility] Name: Jian Ornelas Age: 55 yrs Sex: Male : 1960 Arrival Date: 04/15/2016 Time: 02:55 Bed 19 Private MD: Disposition: 04/15/16 05:16 Hospitalization ordered by Jeanne Garza for Inpatient Admission. Preliminary diagnosis are Syncope and collapse, Chest pain, unspecified. - Bed requested for PCU. - Status is Inpatient Admission. [facility] - Condition is Stable. - Problem is new. - Symptoms have improved. Historical: - Allergies: Bees; Erythromycin; Lyrica; - Home Meds: 1. Advair Diskus 250-50 mcg/dose Inhl dsdv 1 puff 2 times per day 2. aspirin 81 mg Oral tab once daily 3. carvedilol 6.25 mg oral tab 1 tab 2 times per day 4. Fiber Gummies (with chromium) 2-100 gram-mcg oral chew 5. furosemide 20 mg Oral tab 1 tab once daily 6. glipizide 10 mg Oral tab 1 tab 2 times per day 7. metformin 1,000 mg Oral tab 1 tab 2 times per day 8. Levemir 100 unit/mL subcutaneous soln Unknown after meals 9. Invokana 300 mg oral tab 1 tab once daily 10. Lantus 100 unit/mL Sub-Q soln 75 unit twice a day 11. omeprazole 20 mg Oral cpDR 1 cap once daily 12. pravastatin 20 mg oral tab 1 tab once daily 13. ProAir HFA 90 mcg/actuation inhalation HFAA 2 puffs every 4 hours 14. Vitamin D Oral 2000 unit daily - PMHx: COPD; Diabetes - NIDDM: controlled; GERD; Hypercholesterolemia; Hypertension; - PSHx: Bilateral Wrists; BIlateral Shoulders; morphine pump insertion and removal; - Social history: Smoking status: Patient states former smoker of tobacco. No barriers to communication noted, The patient speaks fluent [place], Speaks appropriately for age. - Family history: Not pertinent. - : The pt / caregiver states he / she is not on anticoagulants. Home medication list is obtained from the patient. - Exposure Risk Screening:: None identified. Vital Signs: 04/15 03:05 BP 133 / 75; Pulse 93; Resp 18; Temp 97.2; Pulse Ox 96% on R/A; Weight 96.16 kg / 212 sls1 lbs (R); Height 5 ft. 7 in. (170.18 cm); Pain 0/10; 03:15 BP 151 / 95 (auto/); ko2 03:15 Pulse 87 MON; Pulse Ox 96% ; ko2 03:29 Pulse 81 MON; Pulse Ox 94% ; ko2 03:30 BP 166 / 96 (auto/); ko2 03:42 BP 166 / 98 (auto/); ko2 03:42 Pulse 88 MON; Pulse Ox 96% ; ko2 03:45 BP 166 / 100 (auto/); ko2 03:45 Pulse 81 MON; Pulse Ox 96% ; ko2 03:49 Pulse 78 MON; Pulse Ox 96% ; ko2 04:07 BP 145 / 78 (auto/); ko2 04:21 Pulse 84 MON; Pulse Ox 96% ; ko2 04:22 BP 138 / 77 (auto/); ko2 04:36 Pulse 80 MON; Pulse Ox 95% ; ko2 04:37 BP 133 / 75 (auto/); ko2 04:52 Pulse 79 MON; Pulse Ox 95% ; mlc 04:52 BP 133 / 75 (auto/); mlc 05:07 BP 138 / 85 (auto/); mlc 05:07 Pulse 79 MON; Pulse Ox 94% ; mlc 05:19 Pulse 74 MON; Pulse Ox 94% ; mlc 05:21 Pulse 73 MON; Pulse Ox 94% ; ko2 05:22 BP 140 / 90 (auto/); ko2 05:36 Pulse 78 MON; Pulse Ox 96% ; ko2 05:37 BP 140 / 95 (auto/); ko2 05:52 BP 128 / 72 (auto/); ko2 05:52 Pulse 85 MON; Pulse Ox 95% ; ko2 07:37 BP 119 / 68 (auto/); ead 07:37 Pulse 83 MON; Pulse Ox 95% ; ead 03:05 Body Mass Index 33.20 (96.16 kg, 170.18 cm) [facility] MDM: 02:58 Aspirin Chewable Tablet 324 mg PO once ordered. fg 02:58 Classroom Technology Technician/Pulse Ox/q 30 min VS ordered. fg 02:58 IV Saline Lock ordered. fg 02:58 Rhythm Strip to chart ordered. fg 02:58 Undress patient appropriately for examination ordered. fg 02:58 B-Type Natiuretic Peptide Ordered. EDMS 02:58 Basic Metabolic Profile Ordered. EDMS 02:58 CBC with Diff Ordered. EDMS 02:58 Cardiac Injury Profile Ordered. EDMS 02:58 Prothrombin Time Profile\E\INR Ordered. EDMS 02:59 Troponin Ordered. EDMS 02:59 portable chest Ordered. EDMS 02:59 ECG WITH READING ER PHYS+CARDIAG ordered. EDMS 03:32 CT Head Without Contrast Ordered. EDMS 03:32 CT Maxilofacial W/out Contrast Ordered. EDMS 03:32 CT Chest Angio R/O PE Ordered. EDMS 03:33 BED REQUEST+ADM ordered. EDMS 03:42 morphine 2 mg IVP once ordered. fg 03:42 ECG WITH READING ER PHYS+CARDIAG ordered. EDMS 03:48 Financial registration complete. pm4 03:54 [facility] [place] Agreement was scanned into [employer] and attached to record. pm4 05:46 CARDIAC MARKER PANEL Ordered. EDMS 05:46 CARDIAC MARKER PANEL Ordered. EDMS 05:46 THYROID PROFILE Ordered. EDMS 05:47 HEMOGLOBIN A1C Ordered. EDMS 05:51 Admission / Observation Status ordered. EDMS 05:51 ECHOCARD,DOPPLER/COLOR FLOW ordered. EDMS 05:51 CONSISTENT CARBOHYDRATES ordered. EDMS 05:51 MRI Brain without Contrast Ordered. EDMS 05:51 MRA BRAIN W/O CONTRAST Ordered. EDMS 05:51 MRA CAROTID W/O FOL WITH Ordered. EDMS 05:53 PHYSICAL THERAPY EVAL & TREAT ordered. EDMS 08:49 Fingerstick Blood Sugar Ordered. EDMS 13:37 Fingerstick Blood Sugar Ordered. EDMS Administered Medications: 03:02 Not Given (pt already administered by EMS): Aspirin Chewable Tablet 324 mg PO once ko2 03:47 Drug: morphine 2 mg [morphine 2 mg/mL intravenous cartridge (1 mL)] Route: IVP; Site: ko2 left forearm; Signatures: Dispatcher MedHost EDDee Dee Luna RN RN mcp Strong, Shannon, RN RN sls1 Laura Caballero RN RN ko2 Juan Hernandez RN RN [facility] Marcelina Martínez MD MD Mukund Wing, Reg Reg pm4 The chart was reviewed and I authenticate all verbal orders and agree with the evaluation and treatment provided.Attachments: 03:54 [facility] Payment Agreement pm4 MTDD
[2016-04-15] MEDS: ATORVASTATIN 20 MG TAB PO SCH (21:10)
[2016-04-16 02:08] VITALS: BP 119/72
--- NOTE | 2016-04-16 03:27 | ECHO ---
DATE OF PROCEDURE: 04/15/2016 REFERRING PROVIDER: Dr. Garza AGE: 55 REASON FOR ECHOCARDIOGRAM: Syncope. 2D MEASUREMENT: IVS: 1.3 cm LV: 3.4 cm LVPW: 1.3 cm LA: 3.4 cm Aorta: 3.3 cm IVC: 2.0 cm DOPPLER MEASUREMENTS: Peak velocity across the aortic valve: 0.92 m/s Peak velocity across the LVOT: 0.79 m/s Mitral E: 1.42, Mitral A: 0.66, with a ratio of 0.6. 2D COMMENTS: 1. Mildly increased left ventricular wall thickness with normal left ventricular size and a normal global left ventricular systolic function. The estimated global left ventricular systolic ejection fraction is estimated at 60% to 65%. 2. Normal left atrium. Normal right atrium and right ventricle. 3. The atrial septum appeared to be normal without evidence of defect or shunt. 4. Normal aortic root. 5. No pericardial effusion noted in limited views. 6. The aortic valve, mitral valve, and tricuspid valve appeared to be normal. The pulmonic valve and proximal pulmonary artery branches were not well visualized. 7. The inferior vena cava was borderline enlarged at 2.0 cm. DOPPLER: It detects trace aortic regurgitation and trace mitral regurgitation as well as trace tricuspid regurgitation. The estimated pulmonary artery systolic pressure was normal. Abnormal relaxation pattern was noted across the mitral valve leaflets as well as the mitral valve annulus consistent with delayed relaxation. IMPRESSION: 1. Normal global left ventricular systolic function with mild concentric left ventricular hypertrophy. There were features of left ventricular diastolic dysfunction manifested by abnormal relaxation, grade 1. 2. Trace aortic regurgitation. 3. Trace mitral regurgitation. 4. Trace tricuspid regurgitation. Not mentioned above, the study was typically limited due to poor acoustic window. 5. No echocardiographic findings noted that could explain the syncopal episode.
[2016-04-16 05:05] VITALS: BP 118/58
[2016-04-16] MEDS: HEPARIN SOD (PORCINE) 5000 UNITS/ML VIAL SC SCH ×2 (05:39→13:30)
[2016-04-16 05:57] LABS: MEAN CORPUSCULAR HEMOGLOBIN 29.6 pg (27.0-33.0); MEAN CORPUSCULAR HGB CONC 34.1 g/dl (32.0-36.5); RED CELL DISTRIBUTION WIDTH 13.2 % (11.5-14.5)
[2016-04-16 06:05] LABS: ANION GAP 8 MEQ/L (8-16); BLOOD UREA NITROGEN 15 MG/DL (7-18); CALCIUM LEVEL 9.5 MG/DL (8.5-10.1); CARBON DIOXIDE LEVEL 30 MEQ/L (21-32); CHLORIDE LEVEL 101 MEQ/L (98-107); CHOLESTEROL LEVEL 162 MG/DL (<200); CREATININE FOR GFR 0.97 MG/DL (0.70-1.30); GLOMERULAR FILTRATION RATE > 60.0 (>56); GLUCOSE, FASTING 182 MG/DL (70-105); MAGNESIUM LEVEL 1.9 MG/DL (1.8-2.4); POTASSIUM SERUM 4.3 MEQ/L (3.5-5.1); SODIUM LEVEL 139 MEQ/L (136-145); TRIGLYCERIDES LEVEL 229 MG/DL (<150)
[2016-04-16] MEDS: ADVAIR DISKUS 250/50 INH PWD INH SCH (07:07)
[2016-04-16] MEDS ORDERED: ATOR1TAB21 PO (07:29)
[2016-04-16 08:00] VITALS: BP 119/73
[2016-04-16 08:02] VITALS: BP 124/68
[2016-04-16 08:04] VITALS: BP 108/64
[2016-04-16 08:06] VITALS: BP 117/70
[2016-04-16] MEDS: ASPIRIN 81 MG ENTERIC TAB PO SCH (08:52)
[2016-04-16] MEDS: CARVedilol 6.25 MG TAB PO SCH (08:52)
[2016-04-16] MEDS: HumaLOG INSULIN (NovoLOG) PER UNIT SC SCH ×2 (08:52→13:30)
[2016-04-16] MEDS: OMEPRAZOLE 20 MG CAP PO SCH (08:53)
[2016-04-16] MEDS: SENOKOT S TAB PO SCH (08:53)
[2016-04-16] MEDS: LEVEMIR (INSULIN DETEMIR) 1 UNITS/0.01ML SC SCH (08:53)
[2016-04-16] MEDS: FUROSEMIDE 20 MG TAB PO SCH (08:53)
--- NOTE | 2016-04-16 15:13 | DSES ---
DATE OF ADMISSION: 04/15/2016 DATE OF DISCHARGE: 04/16/2016. PRIMARY CARE PROVIDER: Dr. Stewart CONSULTANTS: None. PROCEDURES: None. COMPLICATIONS: None. ADMISSION/DISCHARGE DIAGNOSES: 1. Chest pain, atypical in nature, myocardial infarction ruled out. 2. Syncope, felt to be orthostatic, resolved. 3. Diabetes. 4. Chronic obstructive pulmonary disease (COPD). 5. Gastroesophageal reflux disease (GERD). 6. Dyslipidemia. 7. Hypertension. 8. Degenerative disc disease. BRIEF HOSPITAL COURSE: Mr. Ornelas is a pleasant 55-year-old gentleman that follows with Dr. Ramila Stewart. He presented to the emergency department with worsening chest discomfort, one-time episode of syncope while returning to the bathroom early in the morning hours to go to bed. Subsequently had syncopized. Per his , felt that he had been down for approximately 30 seconds. He did look pale and complained of being lightheaded and dizzy. Had not bit his tongue. No bladder or bowel incontinence. No seizure activity observed. At any rate, emergency medical services (EMS) was notified. The patient was given 325 mg of aspirin, given a dose of Zofran, and brought to the emergency department for further evaluation. EKG done at that time was relatively unremarkable. His chest discomfort, which he described as vague, non radiating had lasted for about 15-20 minutes and had dissipated. He has not had any further issues. Overnight , he did not demonstrate any findings on telemetry and in the morning was felt to be back to his baseline. He ambulated well. He did not have any hemodynamic compromise. Orthostatics were negative, and tolerated his meals and felt to be safe for discharge, but will need followup with cardiology for stress testing as an outpatient. For further information regarding laboratories and diagnostics, please refer to the history and physical. PHYSICAL EXAMINATION This morning temperature is 96.6, pulse 76, respiratory rate 18, blood pressure 119/73, SpO2 is 95% on room air. GENERAL: The patient appears to be in no acute distress. Is alert and oriented. HEENT: Unremarkable. LUNGS: Clear. HEART: Regular rate and rhythm. ABDOMEN: Soft. EXTREMITIES: No edema or calf tenderness. LABORATORY DATA White count is 10, hemoglobin 16.6, platelets 256. Sodium 139, potassium 4.3, chloride 101, bicarbonate 30, anion gap 8, BUN is 15, creatinine 0.97, glucose 182, troponins less than 0.02 times three. Lipid panel shows triglycerides 229, cholesterol 162, LDL is 59.2 and HDL is 57, TSH 0.958. Discharge condition is good. DISPOSITION: Discharge to home. DISCHARGE MEDICATIONS: - Lipitor 20 mg daily - albuterol inhaler as directed - aspirin 81 mg daily - Carvedilol 6.25 mg twice a day - Bydureon 2 mg injection subcutaneously weekly - Lasix 20 mg daily - glipizide 10 mg twice a day - Levemir 75 mg twice a day - Humalog sliding scale dosed before meals - metformin 1000 mg twice a day - naproxen 500 mg twice a day as needed - omeprazole 20 mg daily - Advair Diskus 250/50 mcg inhaler one inhalation twice a day DISCHARGE INSTRUCTIONS: Discharge to home. Follow up with Dr. Stewart in a week. Will need to followup with cardiology and stress testing through Dr. Méndez's office on 04/28/2016. Activity as tolerated. Low-sodium diet. Return to emergency department should symptoms worsen or progress. He voices understanding. Discharge took approximately 35 minutes. JENNIFER
[2016-04-16] MEDS ORDERED: LEVEMIR (INSULIN DETEMIR) 1 UNITS/0.01ML SC SCH (21:00)
--- NOTE | 2016-04-17 17:40 | EDDOCDS ---
Physician Documentation [facility] Name: Jian Ornelas Age: 55 yrs Sex: Male : 1960 Arrival Date: 04/15/2016 Time: 02:55 Bed 19 Private MD: Disposition: 04/15/16 05:16 Hospitalization ordered by Jeanne Garza for Inpatient Admission. Preliminary diagnosis are Syncope and collapse, Chest pain, unspecified. - Bed requested for PCU. - Status is Inpatient Admission. [facility] - Condition is Stable. - Problem is new. - Symptoms have improved. Historical: - Allergies: Bees; Erythromycin; Lyrica; - Home Meds: 1. Advair Diskus 250-50 mcg/dose Inhl dsdv 1 puff 2 times per day 2. aspirin 81 mg Oral tab once daily 3. carvedilol 6.25 mg oral tab 1 tab 2 times per day 4. Fiber Gummies (with chromium) 2-100 gram-mcg oral chew 5. furosemide 20 mg Oral tab 1 tab once daily 6. glipizide 10 mg Oral tab 1 tab 2 times per day 7. metformin 1,000 mg Oral tab 1 tab 2 times per day 8. Levemir 100 unit/mL subcutaneous soln Unknown after meals 9. Invokana 300 mg oral tab 1 tab once daily 10. Lantus 100 unit/mL Sub-Q soln 75 unit twice a day 11. omeprazole 20 mg Oral cpDR 1 cap once daily 12. pravastatin 20 mg oral tab 1 tab once daily 13. ProAir HFA 90 mcg/actuation inhalation HFAA 2 puffs every 4 hours 14. Vitamin D Oral 2000 unit daily - PMHx: COPD; Diabetes - NIDDM: controlled; GERD; Hypercholesterolemia; Hypertension; - PSHx: Bilateral Wrists; BIlateral Shoulders; morphine pump insertion and removal; - Social history: Smoking status: Patient states former smoker of tobacco. No barriers to communication noted, The patient speaks fluent [place], Speaks appropriately for age. - Family history: Not pertinent. - : The pt / caregiver states he / she is not on anticoagulants. Home medication list is obtained from the patient. - Exposure Risk Screening:: None identified. Vital Signs: 04/15 03:05 BP 133 / 75; Pulse 93; Resp 18; Temp 97.2; Pulse Ox 96% on R/A; Weight 96.16 kg / 212 sls1 lbs (R); Height 5 ft. 7 in. (170.18 cm); Pain 0/10; 03:15 BP 151 / 95 (auto/); ko2 03:15 Pulse 87 MON; Pulse Ox 96% ; ko2 03:29 Pulse 81 MON; Pulse Ox 94% ; ko2 03:30 BP 166 / 96 (auto/); ko2 03:42 BP 166 / 98 (auto/); ko2 03:42 Pulse 88 MON; Pulse Ox 96% ; ko2 03:45 BP 166 / 100 (auto/); ko2 03:45 Pulse 81 MON; Pulse Ox 96% ; ko2 03:49 Pulse 78 MON; Pulse Ox 96% ; ko2 04:07 BP 145 / 78 (auto/); ko2 04:21 Pulse 84 MON; Pulse Ox 96% ; ko2 04:22 BP 138 / 77 (auto/); ko2 04:36 Pulse 80 MON; Pulse Ox 95% ; ko2 04:37 BP 133 / 75 (auto/); ko2 04:52 Pulse 79 MON; Pulse Ox 95% ; mlc 04:52 BP 133 / 75 (auto/); mlc 05:07 BP 138 / 85 (auto/); mlc 05:07 Pulse 79 MON; Pulse Ox 94% ; mlc 05:19 Pulse 74 MON; Pulse Ox 94% ; mlc 05:21 Pulse 73 MON; Pulse Ox 94% ; ko2 05:22 BP 140 / 90 (auto/); ko2 05:36 Pulse 78 MON; Pulse Ox 96% ; ko2 05:37 BP 140 / 95 (auto/); ko2 05:52 BP 128 / 72 (auto/); ko2 05:52 Pulse 85 MON; Pulse Ox 95% ; ko2 07:37 BP 119 / 68 (auto/); ead 07:37 Pulse 83 MON; Pulse Ox 95% ; ead 03:05 Body Mass Index 33.20 (96.16 kg, 170.18 cm) [facility] MDM: 02:58 Aspirin Chewable Tablet 324 mg PO once ordered. fg 02:58 Cytogeneticist/Pulse Ox/q 30 min VS ordered. fg 02:58 IV Saline Lock ordered. fg 02:58 Rhythm Strip to chart ordered. fg 02:58 Undress patient appropriately for examination ordered. fg 02:58 B-Type Natiuretic Peptide Ordered. EDMS 02:58 Basic Metabolic Profile Ordered. EDMS 02:58 CBC with Diff Ordered. EDMS 02:58 Cardiac Injury Profile Ordered. EDMS 02:58 Prothrombin Time Profile\E\INR Ordered. EDMS 02:59 Troponin Ordered. EDMS 02:59 portable chest Ordered. EDMS 02:59 ECG WITH READING ER PHYS+CARDIAG ordered. EDMS 03:32 CT Head Without Contrast Ordered. EDMS 03:32 CT Maxilofacial W/out Contrast Ordered. EDMS 03:32 CT Chest Angio R/O PE Ordered. EDMS 03:33 BED REQUEST+ADM ordered. EDMS 03:42 morphine 2 mg IVP once ordered. fg 03:42 ECG WITH READING ER PHYS+CARDIAG ordered. EDMS 03:48 Financial registration complete. pm4 03:54 [facility] Agreement was scanned into [employer] and attached to record. pm4 05:46 CARDIAC MARKER PANEL Ordered. EDMS 05:46 CARDIAC MARKER PANEL Ordered. EDMS 05:46 THYROID PROFILE Ordered. EDMS 05:47 HEMOGLOBIN A1C Ordered. EDMS 05:51 Admission / Observation Status ordered. EDMS 05:51 ECHOCARD,DOPPLER/COLOR FLOW ordered. EDMS 05:51 CONSISTENT CARBOHYDRATES ordered. EDMS 05:51 MRI Brain without Contrast Ordered. EDMS 05:51 MRA BRAIN W/O CONTRAST Ordered. EDMS 05:51 MRA CAROTID W/O FOL WITH Ordered. EDMS 05:53 PHYSICAL THERAPY EVAL & TREAT ordered. EDMS 08:49 Fingerstick Blood Sugar Ordered. EDMS 13:37 Fingerstick Blood Sugar Ordered. EDMS 02/02 12:46 T-Sheet-- Draft Copy was scanned into [employer] and attached to record. gb 12:46 ECG/EKG was scanned into [employer] and attached to record. gb 12:47 PCR was scanned into [employer] and attached to record. gb Administered Medications: 04/15 03:02 Not Given (pt already administered by EMS): Aspirin Chewable Tablet 324 mg PO once ko2 03:47 Drug: morphine 2 mg [morphine 2 mg/mL intravenous cartridge (1 mL)] Route: IVP; Site: ko2 left forearm; Signatures: Dispatcher [employer] EDMS Dee Dee Judd RN RN mcp Yulissa Ceja, Sourav Reg gb Dyan Freire RN RN sls1 Laura Caballero RN RN ko2 Juan Hernandez RN RN mts Marcelina Martínez MD MD Mukund Wing, Reg Reg pm4 The chart was reviewed and I authenticate all verbal orders and agree with the evaluation and treatment provided.Attachments: 03:54 [facility] Payment Agreement pm4 04/16 12:46 T-Sheet-- Draft Copy gb 12:46 ECG/EKG gb Chart Complete MTDD
--- NOTE | 2016-04-17 17:40 | EDDOCDS ---
Nurse's Notes [facility] Name: Jian Ornelas Age: 55 yrs Sex: Male : 1960 Arrival Date: 04/15/2016 Time: 02:55 Bed 19 Private MD: Diagnosis: Syncope and collapse;Chest pain, unspecified Presentation: 04/15 02:58 Presenting complaint: EMS states: chest pressure when coming out of bathroom, per sls1 pt grabbed chest and had syncopal episode, reports nausea vomiting, pt had one nitro captain cannery tender which took pain away. Pt has noted bloody nose, 18 gauge IV to left forearm, last blood pressure 141/93, blood glucose 203. Pt received 4 of zofran wit relief and 324 of aspirin. Suicide/Homicide risk assessment- the patient denies having any suicidal and/or homicidal ideations and does not present with any other emotional, behavioral or mental health complaints. Status: Patient is not a public service administrator or dependent. Transition of care: patient was not received from another setting of care. Care prior to arrival: See EMS report. Medications administered prior to arrival: ASA, NTG, IV initiated. Glucose check. 203 Oxygen administered by EMS. 02:58 Acuity: ESTRELLA Level 2 sls1 02:58 Method Of Arrival: Ambulance sls1 03:15 Adult Sepsis Screening: The patient does not have new or worsening altered mentation. ko2 Patient's respiratory rate is less than 22. Systolic blood pressure is greater than 100. Patient has a qSOFA score of 0- Negative Sepsis Screen. Triage Assessment: 03:05 General: Appears uncomfortable, Behavior is appropriate for age, cooperative. Pain: sls1 Denies pain. Pt Declines HIV testing. The patient is triaged at the bedside. See Assessment in Nurses Notes section of ED record. Neurological: Level of Consciousness is awake, alert. Neurological: Reports dizziness. EENT: bloody nose. Cardiovascular: Rhythm is sinus rhythm No ectopy. Chest pain is denied. Respiratory: Airway is patent Respiratory effort is even, unlabored, Respiratory pattern is regular, symmetrical. GI: Reports nausea, vomiting. Derm: diaphoretic. Historical: - Allergies: Bees; Erythromycin; Lyrica; - Home Meds: 1. Advair Diskus 250-50 mcg/dose Inhl dsdv 1 puff 2 times per day 2. aspirin 81 mg Oral tab once daily 3. carvedilol 6.25 mg oral tab 1 tab 2 times per day 4. Fiber Gummies (with chromium) 2-100 gram-mcg oral chew 5. furosemide 20 mg Oral tab 1 tab once daily 6. glipizide 10 mg Oral tab 1 tab 2 times per day 7. metformin 1,000 mg Oral tab 1 tab 2 times per day 8. Levemir 100 unit/mL subcutaneous soln Unknown after meals 9. Invokana 300 mg oral tab 1 tab once daily 10. Lantus 100 unit/mL Sub-Q soln 75 unit twice a day 11. omeprazole 20 mg Oral cpDR 1 cap once daily 12. pravastatin 20 mg oral tab 1 tab once daily 13. ProAir HFA 90 mcg/actuation inhalation HFAA 2 puffs every 4 hours 14. Vitamin D Oral 2000 unit daily - PMHx: COPD; Diabetes - NIDDM: controlled; GERD; Hypercholesterolemia; Hypertension; - PSHx: Bilateral Wrists; BIlateral Shoulders; morphine pump insertion and removal; - Social history: Smoking status: Patient states former smoker of tobacco. No barriers to communication noted, The patient speaks fluent Setswana, Speaks appropriately for age. - Family history: Not pertinent. - : The pt / caregiver states he / she is not on anticoagulants. Home medication list is obtained from the patient. - Exposure Risk Screening:: None identified. Screenin:15 Screening information is obtained from the patient. Fall risk: No risks identified. ko2 Assistance ADL's: requires no assistance with activities of daily living. Abuse/DV Screen: The patient / caregiver reports he/she is: not in a situation that causes fear, pain or injury. Nutritional screening: No deficits noted. Advance Directives: Currently, there is no health care proxy. There is no active DNR order. There is no living will. There is no Power of Call Manager. home support is adequate. Assessment: 03:14 General: Appears in no apparent distress, Behavior is appropriate for age, cooperative. ko2 Pain: Denies pain. Neurological: Level of Consciousness is awake, alert, Oriented to person, place, time, Pupils are PERRLA. Cardiovascular: Heart tones S1 S2 present Rhythm is sinus rhythm. Respiratory: Airway is patent Respiratory effort is even, unlabored, Respiratory pattern is regular, symmetrical. GI: Abdomen is obese, Bowel sounds present X 4 quads. Derm: Skin is normal. 03:40 General: pt having chest pressure again and dizziness. Dr Martínez notified and new orders ko2 obtained. Pt states the pain is like an elephant sitting on his chest. . 04:38 General: Appears in no apparent distress, Behavior is appropriate for age, cooperative. ko2 Neurological: Level of Consciousness is awake, alert, Oriented to person, place, time. Cardiovascular: Rhythm is sinus rhythm No ectopy. Respiratory: Airway is patent Respiratory effort is even, unlabored, Respiratory pattern is regular, symmetrical. Derm: Skin is normal. 06:07 General: Appears in no apparent distress, comfortable, Behavior is appropriate for age, ko2 cooperative. Neurological: Level of Consciousness is awake, alert, Oriented to person, place, time. Respiratory: Airway is patent Respiratory effort is even, unlabored, Respiratory pattern is regular, symmetrical. Derm: Skin is normal. 07:15 General: Appears in no apparent distress, comfortable, Behavior is appropriate for age, ead cooperative. Neurological: Level of Consciousness is awake, alert, Oriented to person, place, time. Cardiovascular: Rhythm is sinus rhythm No ectopy. Respiratory: Airway is patent Respiratory effort is even, unlabored. Derm: Skin is pink, warm & dry. 08:15 General: Appears in no apparent distress, comfortable, Behavior is appropriate for age, ead cooperative. Pain: Denies pain. Neurological: Level of Consciousness is awake, alert, Oriented to person, place, time. Cardiovascular: Rhythm is sinus rhythm No ectopy. Respiratory: Airway is patent Respiratory effort is even, unlabored. Derm: Skin is pink, warm & dry. Vital Signs: 03:05 BP 133 / 75; Pulse 93; Resp 18; Temp 97.2; Pulse Ox 96% on R/A; Weight 96.16 kg (R); sls1 Height 5 ft. 7 in. (170.18 cm); Pain 0/10; 03:15 BP 151 / 95 (auto/); ko2 03:15 Pulse 87 MON; Pulse Ox 96% ; ko2 03:29 Pulse 81 MON; Pulse Ox 94% ; ko2 03:30 BP 166 / 96 (auto/); ko2 03:42 BP 166 / 98 (auto/); ko2 03:42 Pulse 88 MON; Pulse Ox 96% ; ko2 03:45 BP 166 / 100 (auto/); ko2 03:45 Pulse 81 MON; Pulse Ox 96% ; ko2 03:49 Pulse 78 MON; Pulse Ox 96% ; ko2 04:07 BP 145 / 78 (auto/); ko2 04:21 Pulse 84 MON; Pulse Ox 96% ; ko2 04:22 BP 138 / 77 (auto/); ko2 04:36 Pulse 80 MON; Pulse Ox 95% ; ko2 04:37 BP 133 / 75 (auto/); ko2 04:52 Pulse 79 MON; Pulse Ox 95% ; mlc 04:52 BP 133 / 75 (auto/); mlc 05:07 BP 138 / 85 (auto/); mlc 05:07 Pulse 79 MON; Pulse Ox 94% ; mlc 05:19 Pulse 74 MON; Pulse Ox 94% ; mlc 05:21 Pulse 73 MON; Pulse Ox 94% ; ko2 05:22 BP 140 / 90 (auto/); ko2 05:36 Pulse 78 MON; Pulse Ox 96% ; ko2 05:37 BP 140 / 95 (auto/); ko2 05:52 BP 128 / 72 (auto/); ko2 05:52 Pulse 85 MON; Pulse Ox 95% ; ko2 07:37 BP 119 / 68 (auto/); ead 07:37 Pulse 83 MON; Pulse Ox 95% ; ead 03:05 Body Mass Index 33.20 (96.16 kg, 170.18 cm) [facility] Vitals: 03:05 Glucose Measurement D-stick done by EMS. Log In Time N/A - ambulance arrival. [facility] ED Course: 02:56 Patient visited by Miracle Pineda PCA. adrian 02:56 Laura Caballero,FRANCINE is Primary Nurse. adrian 02:56 Patient moved to Waiting adrian 02:56 Patient moved to 1 adrian 02:57 Marya Martínez MD is Attending Physician. fg 02:57 Patient visited by Marya Mratínez MD. fg 03:02 Triage Initiated [facility] 03:05 EKG done. (by ED staff). Reviewed by Marya Martínez MD. adrian 03:06 Patient visited by Miracle Pineda PCA. adrian 03:07 Patient visited by Dyan Freire RN. [facility] 03:09 Pt greeted and oriented to ED. Patient advised of names of staff involved in care, adrian location of call hankins, wait times and NPO status. Patient has correct armband on for positive identification. Placed in gown. Bed in low position. Call light in reach. Side rails up X2. child monitor on. Pulse ox on. NIBP on. 03:13 B-Type Natiuretic Peptide Sent. ko2 03:14 Basic Metabolic Profile Sent. ko2 03:14 CBC with Diff Sent. ko2 03:14 Cardiac Injury Profile Sent. ko2 03:14 Prothrombin Time Profile\E\INR Sent. ko2 03:14 Troponin Sent. ko2 03:16 Maintain field IV. Dressing intact. Good blood return noted. Site clean & dry. Gauge & ko2 site: 18 Gauge Left forearm. 03:44 Patient visited by Miracle Pineda, APPLICATION SECURITY ENGINEER. adrian 03:52 EKG done. (by ED staff). Reviewed by Marya Martínez MD. mdr 03:53 Patient visited by Shola Aaron, SHAWANDA. mdr 03:54 [facility] Payment Agreement was scanned into [employer] and attached to record. pm4 04:40 Patient visited by Laura Caballero,FRANCINE. ko2 05:05 CT Head Without Contrast Returned. EDMS 05:05 CT Maxilofacial W/out Contrast Returned. EDMS 05:16 Jeanne Garza is Hospitalizing Provider. fg 05:51 CT Chest Angio R/O PE Returned. EDMS 06:07 The patient / caregiver is instructed regarding the plan of care and ED course. ko2 07:54 Chary Montiel,RN is Primary Nurse. ead 08:15 Patient moved to 19 ead 08:15 Report given to FRANCINE Dave. ead 08:57 EKG-ADULT Returned. EDMS 08:57 EKG-ADULT Returned. EDMS 09:01 portable chest Returned. EDMS 12:36 Primary Nurse role handed off by Laura Caballero,FRANCINE [facility] 14:18 MRI Brain without Contrast Returned. EDMS 15:16 MRA BRAIN W/O CONTRAST Returned. EDMS 15:16 MRA CAROTID W/O FOL WITH Returned. EDMS 04/16 12:46 T-Sheet-- Draft Copy was scanned into [employer] and attached to record. gb 12:46 ECG/EKG was scanned into [employer] and attached to record. gb 12:47 PCR was scanned into [employer] and attached to record. gb Administered Medications: 04/15 03:02 Not Given (pt already administered by EMS): Aspirin Chewable Tablet 324 mg PO once ko2 03:47 Drug: morphine 2 mg [morphine 2 mg/mL intravenous cartridge (1 mL)] Route: IVP; Site: ko2 left forearm; Order Results: Lab Order: B-Type Natiuretic Peptide; SPEC'04/15/16 03:11 Test: BRAIN NATRIURETIC PEPTIDE; Value: 11.0; Range: <100; Units: PG/ML; Status: F Lab Order: Basic Metabolic Profile; SPEC04/15/16 03:11 Test: GLUCOSE, FASTING; Value: 293; Range: 70-105; Abnormal: Above high normal; Units: MG/DL; Status: F Test: BLOOD UREA NITROGEN; Value: 17; Range: 7-18; Units: MG/DL; Status: F Test: CREATININE FOR GFR; Value: 1.02; Range: 0.70-1.30; Units: MG/DL; Status: F Test: GLOMERULAR FILTRATION RATE; Value: > 60.0; Range: >56; Status: F Test: SODIUM LEVEL; Value: 139; Range: 136-145; Units: MEQ/L; Status: F Test: POTASSIUM SERUM; Value: 4.1; Range: 3.5-5.1; Units: MEQ/L; Status: F Test: CHLORIDE LEVEL; Value: 102; Range: 98-107; Units: MEQ/L; Status: F Test: CARBON DIOXIDE LEVEL; Value: 27; Range: 21-32; Units: MEQ/L; Status: F Test: ANION GAP; Value: 10; Range: 8-16; Units: MEQ/L; Status: F Test: CALCIUM LEVEL; Value: 9.1; Range: 8.5-10.1; Units: MG/DL; Status: F Test Note: ; Units are mL/min/1.73 m2 Chronic Kidney Disease Staging per NKF: Stage I & II GFR >=60 Normal to Mildly Decreased Stage III GFR 30-59 Moderately Decreased Stage IV GFR 15-29 Severely Decreased Stage V GFR <15 Very Little GFR Left ESRD GFR <15 on TOP PRECIPITATOR OPERATOR Lab Order: CBC with Diff; SPEC04/15/16 03:11 Test: WHITE BLOOD COUNT; Value: 10.3; Range: 4.0-10.0; Abnormal: Above high normal; Units: K/mm3; Status: F Test: RED BLOOD COUNT; Value: 5.86; Range: 4.30-6.10; Units: M/mm3; Status: F Test: HEMOGLOBIN; Value: 17.3; Range: 14.0-18.0; Units: g/dl; Status: F Test: HEMATOCRIT; Value: 51.3; Range: 42.0-52.0; Units: %; Status: F Test: MEAN CORPUSCULAR VOLUME; Value: 87.6; Range: 80.0-96.0; Units: fl; Status: F Test: MEAN CORPUSCULAR HEMOGLOBIN; Value: 29.6; Range: 27.0-33.0; Units: pg; Status: F Test: MEAN CORPUSCULAR HGB CONC; Value: 33.8; Range: 32.0-36.5; Units: g/dl; Status: F Test: RED CELL DISTRIBUTION WIDTH; Value: 13.1; Range: 11.5-14.5; Units: %; Status: F Test: PLATELET COUNT, AUTOMATED; Value: 242; Range: 150-450; Units: k/mm3; Status: F Test: NEUTROPHILS %; Value: 61.8; Range: 36.0-66.0; Units: %; Status: F Test: LYMPH %; Value: 26.2; Range: 24.0-44.0; Units: %; Status: F Test: MONO %; Value: 6.6; Range: 0.0-5.0; Abnormal: Above high normal; Units: %; Status: F Test: EOS %; Value: 2.2; Range: 0.0-3.0; Units: %; Status: F Test: BASO %; Value: 0.8; Range: 0.0-1.0; Units: %; Status: F Test: LARGE UNSTAINED CELL %; Value: 2.4; Range: 0.0-4.0; Units: %; Status: F Test: NEUTROPHILS #; Value: 6.4; Range: 1.8-7.7; Units: K/mm3; Status: F Test: LYMPH #; Value: 2.7; Range: 1.5-4.5; Units: K/mm3; Status: F Test: MONO #; Value: 0.7; Range: 0.0-0.8; Units: K/mm3; Status: F Test: EOS #; Value: 0.2; Range: 0.0-0.50; Units: K/mm3; Status: F Test: BASO #; Value: 0.1; Range: 0.0-0.2; Units: K/mm3; Status: F Test: LARGE UNSTAINED CELL #; Value: 0.3; Range: 0.0-0.4; Units: K/mm3; Status: F Lab Order: Cardiac Injury Profile; 04/15/16 03:11 Test: CPK CREATINE PHOSPHOKINASE; Value: 100; Range: 39-308; Units: U/L; Status: F Test: CK-MB VALUE MASS; Value: 1.0; Range: 0.0-3.6; Units: NG/ML; Status: F Test: MB/CK RELATIVE INDEX; Value: 1.00; Range: < OR =4; Status: F Test Note: ; DIAGNOSIS CRITERIA MMB ng/ml Relative Index (RI) NON-AMI < or = 5 N/A [place]ALL [place]ONE > 5 < or = 4 AMI > 5 > 4 Lab Order: Prothrombin Time Profile\E\INR; 04/15/16 03:11 Test: PROTHROMBIN TIME; Value: 12.6; Range: 12.3-14.5; Units: SECONDS; Status: F Test: INR; Value: 0.93; Status: F Test Note: ; THERAPUTIC HUMAN INR VALUES INDICATIONS NORMAL RANGES PROPHYLAXIS/TREATMENT OF: VENOUS THROMBOSIS 2.0-3.0 PULMONARY EMBOLISM 2.0-3.0 PREVENTION OF SYSTEMIC EMBOLISM FROM: TISSUE HEART VALVES 2.0-3.0 ACUTE MYOCARDIAL INFARCTION 2.0-3.0 VALVULAR HEART DISEASE 2.0-3.0 ATRIAL FIBRILLATION 2.0-3.0 MECHANICAL VALVES(HIGH RISK) 2.5-3.5 RECURRENT MYOCARDIAL INFARCTION 2.5-3.5 Lab Order: Troponin; 04/15/16 03:11 Test: TROPONIN I; Value: < 0.02; Range: < 0.10; Units: NG/ML; Status: F Test Note: ; Troponin I Reference Interval for [facility] LOCI: 99th Percentile= 0.00-0.045 ng/ml Risk Stratification: <= 0.10 ng/ml Decreased Risk for Adverse Clinical Events. 0.10-1.50 ng/ml Increased Risk for Adverse Clinical Events. Evaluation of additional criterion and/or repeat testing in 2-6 hours is suggested to rule out myocardial damage. >= 1.50 ng/ml Indicative of Myocardial Injury. Lab Order: CARDIAC MARKER PANEL; [facility] 04/15/16 08:09 Test: CPK CREATINE PHOSPHOKINASE; Value: 74; Range: 39-308; Units: U/L; Status: F Test: CK-MB VALUE MASS; Value: 1.0; Range: 0.0-3.6; Units: NG/ML; Status: F Test: MB/CK RELATIVE INDEX; Value: 1.35; Range: < OR =4; Status: F Test: TROPONIN I; Value: < 0.02; Range: < 0.10; Units: NG/ML; Status: F Test Note: ; DIAGNOSIS CRITERIA MMB ng/ml Relative Index (RI) NON-AMI < or = 5 N/A [place]ALL [place]ONE > 5 < or = 4 AMI > 5 > 4 Lab Order: CARDIAC MARKER PANEL; [facility] 04/15/16 13:15 Test: CPK CREATINE PHOSPHOKINASE; Value: 75; Range: 39-308; Units: U/L; Status: F Test: CK-MB VALUE MASS; Value: 1.0; Range: 0.0-3.6; Units: NG/ML; Status: F Test: MB/CK RELATIVE INDEX; Value: 1.33; Range: < OR =4; Status: F Test: TROPONIN I; Value: < 0.02; Range: < 0.10; Units: NG/ML; Status: F Test Note: ; DIAGNOSIS CRITERIA MMB ng/ml Relative Index (RI) NON-AMI < or = 5 N/A CRANDALL ZONE > 5 < or = 4 AMI > 5 > 4 Lab Order: THYROID PROFILE; [facility] 04/15/16 08:09 Test: T UPTAKE; Value: 34; Range: 33-40; Units: %; Status: F Test: THYROXINE (T4); Value: 7.7; Range: 4.5-12.0; Units: UG/DL; Status: F Test: FREE THYROXINE INDEX; Value: 2.6; Range: 1.4-3.8; Units: %; Status: F Test: THYROID STIMULATING HORMONE; Value: 0.958; Range: 0.358-3.740; Units: uIU/ML; Status: F Lab Order: HEMOGLOBIN A1C; SPEC' 04/15/16 06:57 Test: HEMOGLOBIN A1c; Value: 10.6; Range: 4.5-6.2; Abnormal: Above high normal; Units: %; Status: F Test: ESTIMATED AVERAGE GLUCOSE; Value: 258; Range: 60-110; Abnormal: Above high normal; Units: MG/DL; Status: F Lab Order: Fingerstick Blood Sugar; SPEC'04/15/16 08:38 Test: BEDSIDE GLUCOSE; Value: 218; Range: 70-105; Abnormal: Above high normal; Units: MG/DL; Status: F Lab Order: Fingerstick Blood Sugar; SPEC'04/15/16 13:28 Test: BEDSIDE GLUCOSE; Value: 123; Range: 70-105; Abnormal: Above high normal; Units: MG/DL; Status: F Radiology Order: portable chest Test: portable chest REASON FOR EXAMINATION: Chest Pain; Portable chest x-ray: Single view.; ; History: Chest pain.; ; Comparison chest x-ray November 28, 2014.; ; Findings: EKG monitoring electrodes overlie the chest. Right hemidiaphragm; remains somewhat elevated. Lungs are otherwise well inflated and clear. Pleural; angles are sharp. Pulmonary vasculature is not increased. Heart size is normal.; ; Impression:; ; No active disease.; ; ; Signed by; Rusty Mckee MD 04/15/2016 08:07 A; Radiology Order: EKG-ADULT Test: EKG-ADULT REASON FOR EXAMINATION: Chest Pain; Stationary ECG Study; [facility] - ED; ; Test Date: 2016-04-15; Pat Name: JIAN ORNELAS Department:; Room: -; Gender: M Thiokol Operator: alvaro; : 1960 Requested By: MARYA Joel; Order Number: [id number] Reading MD: Wanda Marshall; Measurements; Intervals [place]; Rate: 86 P: 38; TN: 140 QRS: 28; QRSD: 138 T: 10; QT: 372; QTc: 446; Interpretive Statements; SINUS RHYTHM; RIGHT BUNDLE BRANCH BLOCK; INCREASED RATE 08/07/14; Electronically Signed On 04-15-2016 8:38:47 EST by Wanda Marshall; Radiology Order: CT Head Without Contrast Test: CT Head Without Contrast REASON FOR EXAMINATION: Syncope; ; CLINICAL HISTORY: Head trauma.; TECHNIQUE: Multiple axial brain CT scan sections were obtained from base to vertex without contrast a; dministration.; COMMENTS:; There is no evidence of skull fracture.; The study shows normal configuration of sella turcica. There are no intra or extra-axial collections.; There is no mass effect or midline shift. There is no evidence of hematoma formation. No hydrocephal; us is present. No abnormal calcifications are noted.; No significant abnormalities are seen either in the posterior fossa or supratentorial compartment.; The sinuses and mastoid air cells are patent.; IMPRESSION:; No evidence of acute intracranial pathology. No intracranial hemorrhage or skull fracture.; Thank you for your kind referral of this patient.; ; Radiology Order: CT Maxilofacial W/out Contrast Test: CT Maxilofacial W/out Contrast REASON FOR EXAMINATION: nasal pain after fall; ; HISTORY: Trauma.; COMPARISON: None.; TECHNIQUE: Multiple thin section helically-acquired axially-displayed and helically acquired coronall; y displayed computed tomographic images of the face are obtained from the mandible through the fronta; l sinuses, with images obtained at soft tissue and bone window. 2D reformatted images were performed.; ; FINDINGS:; Normal bony mineralization. No fractures.; Normal orbits.; Normal, clear paranasal sinuses.; Normal oral and nasal cavities.; Normal infratemporal fossa and deep parapharyngeal spaces with normal muscles of mastication. Normal; parotid and submandibular glands.; IMPRESSION:; Normal examination of the face.; Thank you for your kind referral of this patient; ; Radiology Order: CT Chest Angio R/O PE Test: CT Chest Angio R/O PE REASON FOR EXAMINATION: Chest Pain; ; CLINICAL HISTORY: Pain.; TECHNIQUE: Multiple incremental axial, coronal and oblique images are obtained from the thoracic inle; t to the upper abdomen. Intravenous contrast material was administered as per pulmonary embolism prot; ocol.; COMMENTS:; There is excellent opacification of pulmonary arterial system without evidence for pulmonary embolism; . Aorta is of normal caliber without evidence for dissection or aneurysm.; There is no evidence of pleural or parenchymal mass. There are no pleural effusions. There is no evid; ence of hilar or mediastinal lymphadenopathy. The heart and great vessels are within normal limits.; Images of the upper abdomen demonstrate no evidence of adrenal mass.; The bony structures are free of lytic or blastic lesions.; Significant food residue in the distended stomach suggestive of gastroparesis.; IMPRESSION:; No evidence for pulmonary embolism.; Thank you for your kind referral of this patient.; ; Radiology Order: EKG-ADULT Test: EKG-ADULT REASON FOR EXAMINATION: Chest Pain; Stationary ECG Study; [facility] - ED; ; Test Date: 2016-04-15; Pat Name: JIAN ORNELAS Department:; Room: -; Gender: M Thiokol Operator: mr; : 1960 Requested By: MARYA Joel; Order Number: [id number] Reading MD: Wanda Marshall; Measurements; Intervals [place]; Rate: 77 P: 25; TN: 155 QRS: 26; QRSD: 146 T: -2; QT: 393; QTc: 447; Interpretive Statements; SINUS RHYTHM; RIGHT BUNDLE BRANCH BLOCK; DECREASED RATE 04/15/16 03:06; Electronically Signed On 04-15-2016 8:39:25 EST by Wanda Marshall; Radiology Order: MRI Brain without Contrast Test: MRI Brain without Contrast REASON FOR EXAMINATION: r/o cva; MRI BRAIN WITHOUT CONTRAST: 04/15/2016; ; CLINICAL HISTORY: Evaluate for CVA.; ; COMPARISON: CT brain 04/15/2016.; ; TECHNIQUE: Noncontrast T1, T2, FLAIR, gradient echo, diffusion-weighted images; with ADC mapping axial sequences and a T1 sagittal sequence performed.; ; FINDINGS: Lateral ventricles are midline symmetric and without displacement.; The third and fourth ventricles are unremarkable. The basal ganglia are; symmetric and normal. I see no periventricular, deep central or subcortical white; matter hyperintense foci of significance in either hemisphere. Cortical stripe; is preserved. There is no vascular territory infarct, intracranial hemorrhage,; mass or mass effect. The diffusion images and ADC mapping sequence show no; evidence of acute ischemia or restricted water diffusion. Brainstem and; cerebellum are unremarkable. Seventh/eighth cranial nerve complexes symmetric; and normal. Some minor bilateral mastoid air cell opacification that may reflect; some mild mastoiditis. The maxillary sinuses and sphenoids are clear. There is; some minor ethmoid sinus mucosal thickening. Frontal sinuses clear. Corpus; callosum, optic chiasm and pituitary were unremarkable. There is no cerebellar; tonsillar ectopia on the sagittal images.; ; IMPRESSION:; 1. No MR evidence of acute infarct, hemorrhage, mass or mass effect.; 2. No ventriculomegaly, atrophy or posterior fossa abnormality.; 3. Midline structures unremarkable with only minor ethmoid sinus mucosal; thickening.; ; ; ; ; Unreviewed; Radiology Order: MRA BRAIN W/O CONTRAST Test: MRA BRAIN W/O CONTRAST REASON FOR EXAMINATION: r/o cva; MR ANGIOGRAM BRAIN WITHOUT CONTRAST: 04/15/2016; ; COMPARISON: MRI brain, CT brain today.; ; CLINICAL HISTORY: Possible CVA.; ; TECHNIQUE: 3D [id number] gradient-echo imaging with MIP reformatting and; rotational display of the volume reconstructions about the horizontal and; longitudinal axis of the brain. All source images are reviewed.; ; FINDINGS. There is fairly symmetric supply of the vertebral arteries to form the; basilar artery. No basilar stenosis or aneurysm. The basilar tip gives rise to; the right and left posterior cerebral arteries without stenosis or aneurysm and; symmetric supply to the posterior fossa. The right internal carotid at the skull; base to the carotid siphon was without stenosis or aneurysm. I see no; significant stenosis of the cavernous carotid, and the supraclinoid carotid is; intact. The M1 segment is unremarkable. The A1 segment is diminutive on the; right compared to the left, that left A1 segment essentially supplies both; anterior cerebral arteries. The right M2 segments and trifurcation vessels are; grossly intact with no stenosis or aneurysm.; ; The left internal carotid at the skull base to the carotid siphon was also; unremarkable. I do not see any significant stenosis in the cavernous portion,; and the supraclinoid internal carotid is grossly intact. The A1 segment is; asymmetrically larger on the left and providing most supply for both anterior; cerebral arteries. The M1 segment and the M2 segments with trifurcation vessels; grossly intact.; ; Source images confirm these findings and show no evidence of aneurysm. There is; no vascular lesion.; ; IMPRESSION:; 1. Dominant left A1 segment supplying both anterior cerebral arteries with very; diminutive right A1 segment.; 2. The M1 and M2 segments, internal carotids, and the posterior circulation are; all unremarkable. Nothing acute.; ; ; ; ; Unreviewed; Radiology Order: MRA CAROTID W/O FOL WITH Test: MRA CAROTID W/O FOL WITH REASON FOR EXAMINATION: r/o cva; MR ANGIOGRAM OF THE CAROTIDS WITHOUT AND WITH CONTRAST: 04/15/2016; ; CLINICAL HISTORY: Possible CVA.; ; TECHNIQUE: 2D uhda-cs-whkoux axial images with coronal 3D cmio-ib-cpfpoi images; performed after infusion of 25 mL of ProHance. MIP reformatting and rotational; display of the carotid and vertebral arteries performed along the long axis of; the neck. All source images are reviewed.; ; FINDINGS: There were no comparison studies. The origin of the right internal; carotid from the innominate artery is seen without significant stenosis. The; common carotid on the right side of the neck is without significant stenosis or; aneurysm. Less than that 30% stenosis with smooth slight narrowing at the bulb; and proximal ICA on the right side. The course of the internal carotid in the; neck is tortuous in its proximal to midportion and then unremarkable to the skull; base and carotid siphon.; ; The left common carotid artery shows no stenosis in the neck. Its origin is; poorly depicted on these images. There is quite tortuous left internal carotid; with minimal stenosis at its origin. Its mid to distal course is also slightly; tortuous at the skull base to the carotid siphon unremarkable. No definite; significant stenosis in the neck.; ; The bilateral vertebral arteries are fairly symmetric in the neck and their; origins from the respective subclavian arteries. Fairly symmetric contribution; to the basilar artery is noted but better seen on the MRA of the brain.; ; IMPRESSION:; 1. Both carotids demonstrate minimal stenosis at the bulb and proximal ICAs with; tortuosity of the course of the mid ICA on the right and the proximal and mid ICA; on the left. However, there is no hemodynamically significant lesion or; stenosis.; 2. Symmetric supply of vertebral arteries to form the basilar artery.; ; ; ; ; ; ; ; ; Unreviewed; Outcome: 05:16 Decision to Hospitalize by Provider. fg 16:39 Patient left the ED. [facility] Signatures: Dispatcher [employer] EDDee Dee Luna, RN RN [facility] Yulissa Ceja, Reg Reg gb Miracle Pineda, APPLICATION SECURITY ENGINEER APPLICATION SECURITY ENGINEER Dyan Guaman RN RN sls1 Chary MontielRN RN Radha King RN RN mlc Ogden, Kari, RN RN ko2 Marya Martínez MD MD fg Rick, Mitchell, APPLICATION SECURITY ENGINEER APPLICATION SECURITY ENGINEER Mukund Clark, Reg Reg pm4 Chart Complete MTDD
--- NOTE | 2016-04-17 17:40 | EDDOCDS ---
Physician Documentation [facility] Name: Jian Ornelas Age: 55 yrs Sex: Male : 1960 Arrival Date: 04/15/2016 Time: 02:55 Bed 19 Private MD: Disposition: 04/15/16 05:16 Hospitalization ordered by Jeanne Garza for Inpatient Admission. Preliminary diagnosis are Syncope and collapse, Chest pain, unspecified. - Bed requested for PCU. - Status is Inpatient Admission. [facility] - Condition is Stable. - Problem is new. - Symptoms have improved. Historical: - Allergies: Bees; Erythromycin; Lyrica; - Home Meds: 1. Advair Diskus 250-50 mcg/dose Inhl dsdv 1 puff 2 times per day 2. aspirin 81 mg Oral tab once daily 3. carvedilol 6.25 mg oral tab 1 tab 2 times per day 4. Fiber Gummies (with chromium) 2-100 gram-mcg oral chew 5. furosemide 20 mg Oral tab 1 tab once daily 6. glipizide 10 mg Oral tab 1 tab 2 times per day 7. metformin 1,000 mg Oral tab 1 tab 2 times per day 8. Levemir 100 unit/mL subcutaneous soln Unknown after meals 9. Invokana 300 mg oral tab 1 tab once daily 10. Lantus 100 unit/mL Sub-Q soln 75 unit twice a day 11. omeprazole 20 mg Oral cpDR 1 cap once daily 12. pravastatin 20 mg oral tab 1 tab once daily 13. ProAir HFA 90 mcg/actuation inhalation HFAA 2 puffs every 4 hours 14. Vitamin D Oral 2000 unit daily - PMHx: COPD; Diabetes - NIDDM: controlled; GERD; Hypercholesterolemia; Hypertension; - PSHx: Bilateral Wrists; BIlateral Shoulders; morphine pump insertion and removal; - Social history: Smoking status: Patient states former smoker of tobacco. No barriers to communication noted, The patient speaks fluent Guamanian, Speaks appropriately for age. - Family history: Not pertinent. - : The pt / caregiver states he / she is not on anticoagulants. Home medication list is obtained from the patient. - Exposure Risk Screening:: None identified. Vital Signs: 04/15 03:05 BP 133 / 75; Pulse 93; Resp 18; Temp 97.2; Pulse Ox 96% on R/A; Weight 96.16 kg / 212 sls1 lbs (R); Height 5 ft. 7 in. (170.18 cm); Pain 0/10; 03:15 BP 151 / 95 (auto/); ko2 03:15 Pulse 87 MON; Pulse Ox 96% ; ko2 03:29 Pulse 81 MON; Pulse Ox 94% ; ko2 03:30 BP 166 / 96 (auto/); ko2 03:42 BP 166 / 98 (auto/); ko2 03:42 Pulse 88 MON; Pulse Ox 96% ; ko2 03:45 BP 166 / 100 (auto/); ko2 03:45 Pulse 81 MON; Pulse Ox 96% ; ko2 03:49 Pulse 78 MON; Pulse Ox 96% ; ko2 04:07 BP 145 / 78 (auto/); ko2 04:21 Pulse 84 MON; Pulse Ox 96% ; ko2 04:22 BP 138 / 77 (auto/); ko2 04:36 Pulse 80 MON; Pulse Ox 95% ; ko2 04:37 BP 133 / 75 (auto/); ko2 04:52 Pulse 79 MON; Pulse Ox 95% ; mlc 04:52 BP 133 / 75 (auto/); mlc 05:07 BP 138 / 85 (auto/); mlc 05:07 Pulse 79 MON; Pulse Ox 94% ; mlc 05:19 Pulse 74 MON; Pulse Ox 94% ; mlc 05:21 Pulse 73 MON; Pulse Ox 94% ; ko2 05:22 BP 140 / 90 (auto/); ko2 05:36 Pulse 78 MON; Pulse Ox 96% ; ko2 05:37 BP 140 / 95 (auto/); ko2 05:52 BP 128 / 72 (auto/); ko2 05:52 Pulse 85 MON; Pulse Ox 95% ; ko2 07:37 BP 119 / 68 (auto/); ead 07:37 Pulse 83 MON; Pulse Ox 95% ; ead 03:05 Body Mass Index 33.20 (96.16 kg, 170.18 cm) [facility] MDM: 02:58 Aspirin Chewable Tablet 324 mg PO once ordered. fg 02:58 Senior Outside Sales Representative/Pulse Ox/q 30 min VS ordered. fg 02:58 IV Saline Lock ordered. fg 02:58 Rhythm Strip to chart ordered. fg 02:58 Undress patient appropriately for examination ordered. fg 02:58 B-Type Natiuretic Peptide Ordered. EDMS 02:58 Basic Metabolic Profile Ordered. EDMS 02:58 CBC with Diff Ordered. EDMS 02:58 Cardiac Injury Profile Ordered. EDMS 02:58 Prothrombin Time Profile\E\INR Ordered. EDMS 02:59 Troponin Ordered. EDMS 02:59 portable chest Ordered. EDMS 02:59 ECG WITH READING ER PHYS+CARDIAG ordered. EDMS 03:32 CT Head Without Contrast Ordered. EDMS 03:32 CT Maxilofacial W/out Contrast Ordered. EDMS 03:32 CT Chest Angio R/O PE Ordered. EDMS 03:33 BED REQUEST+ADM ordered. EDMS 03:42 morphine 2 mg IVP once ordered. fg 03:42 ECG WITH READING ER PHYS+CARDIAG ordered. EDMS 03:48 Financial registration complete. pm4 03:54 [facility] [place] was scanned into [employer] and attached to record. pm4 05:46 CARDIAC MARKER PANEL Ordered. EDMS 05:46 CARDIAC MARKER PANEL Ordered. EDMS 05:46 THYROID PROFILE Ordered. EDMS 05:47 HEMOGLOBIN A1C Ordered. EDMS 05:51 Admission / Observation Status ordered. EDMS 05:51 ECHOCARD,DOPPLER/COLOR FLOW ordered. EDMS 05:51 CONSISTENT CARBOHYDRATES ordered. EDMS 05:51 MRI Brain without Contrast Ordered. EDMS 05:51 MRA BRAIN W/O CONTRAST Ordered. EDMS 05:51 MRA CAROTID W/O FOL WITH Ordered. EDMS 05:53 PHYSICAL THERAPY EVAL & TREAT ordered. EDMS 08:49 Fingerstick Blood Sugar Ordered. EDMS 13:37 Fingerstick Blood Sugar Ordered. EDMS 02/02 12:46 T-Sheet-- Draft Copy was scanned into [employer] and attached to record. gb 12:46 ECG/EKG was scanned into [employer] and attached to record. gb 12:47 PCR was scanned into [employer] and attached to record. gb Administered Medications: 04/15 03:02 Not Given (pt already administered by EMS): Aspirin Chewable Tablet 324 mg PO once ko2 03:47 Drug: morphine 2 mg [morphine 2 mg/mL intravenous cartridge (1 mL)] Route: IVP; Site: ko2 left forearm; Signatures: Dispatcher [employer] EDMS Dee Dee Judd RN RN mcp Yulissa Ceja, Sourav Reg gb Dyan Freire RN RN sls1 Laura Caballero RN RN ko2 Juan Hernandez RN RN mts Marcleina Martínez MD MD Mukund Wing, Reg Reg pm4 The chart was reviewed and I authenticate all verbal orders and agree with the evaluation and treatment provided.Attachments: 03:54 [facility] [place] Agreement pm4 04/16 12:46 T-Sheet-- Draft Copy gb 12:46 ECG/EKG gb Chart Complete MTDD
== END 2016-04-16 14:28 | disposition home or self-care (01) ==
LOC: M ED 02:55 → M ED INP 05:45 → INTOOBSV 05:45 → M PCU 17:00
PROVIDERS: ADMIT Hospitalist; ATTEND Hospitalist
DX: R07.89 Other chest pain (principal); R55 Syncope and collapse; E11.9 Type 2 diabetes mellitus without complications; J44.9 Chronic obstructive pulmonary disease, unspecified; K21.9 Gastro-esophageal reflux disease without esophagitis; E78.5 Hyperlipidemia, unspecified; I10 Essential (primary) hypertension; M51.9 Unspecified thoracic, thoracolumbar and lumbosacral intervertebral disc disorder; E66.9 Obesity, unspecified; M19.90 Unspecified osteoarthritis, unspecified site; G47.33 Obstructive sleep apnea (adult) (pediatric); R11.2 Nausea with vomiting, unspecified; I45.10 Unspecified right bundle-branch block; Z87.891 Personal history of nicotine dependence; Z79.899 Other long term (current) drug therapy; Z79.4 Long term (current) use of insulin; Z79.1 Long term (current) use of non-steroidal anti-inflammatories (NSAID); Z79.82 Long term (current) use of aspirin; Z79.51 Long term (current) use of inhaled steroids; Z88.1 Allergy status to other antibiotic agents; Z88.8 Allergy status to other drugs, medicaments and biological substances; Z91.030 Bee allergy status
CPT/HCPCS: 36415; 70450; 70486; 70544; 70549; 70551; 71010; 71275; 80048; 80061; 82550; 82553; 83036; 83735; 83880; 84436; 84443; 84479; 84484; 85025; 85027; 85610; 93005; 93041; 93306; 94640; 96372; 96374; 97161; 99284; A9576; G0378; Q9967

== ENCOUNTER → 2016-06-03 | Outpatient (CLI) | payer MEDICARE ==
[~2016-06-03] MED LIST changes: +ADV250INH INH; +ASPI81TAEC PO; +ATOR1TAB21 PO; +BYDU1INJ SC; +CARV6.25 PO; +FURO20TA2 PO; +GLIP10TA6 PO; +INSUDET SC; +METF1000 PO; +NAPR500T2 PO; +OMEP20CA3 PO; +PROA1AER INH
[2016-06-03 17:10] LABS: ANION GAP 9 MEQ/L (8-16); BLOOD UREA NITROGEN 18 MG/DL (7-18); CALCIUM LEVEL 10.1 MG/DL (8.5-10.1); CARBON DIOXIDE LEVEL 28 MEQ/L (21-32); CHLORIDE LEVEL 100 MEQ/L (98-107); CREATININE FOR GFR 0.97 MG/DL (0.70-1.30); GLOMERULAR FILTRATION RATE > 60.0 (>56); GLUCOSE, FASTING 357 MG/DL (70-105); POTASSIUM SERUM 4.4 MEQ/L (3.5-5.1); SODIUM LEVEL 137 MEQ/L (136-145)
== END ==
LOC: M WUC 15:12
PROVIDERS: ATTEND Physician Assistant Medical
DX: E11.65 Type 2 diabetes mellitus with hyperglycemia (principal)

== ENCOUNTER → 2016-07-13 | Outpatient (CLI) | payer MEDICARE ==
[2016-07-13 13:26] LABS: ANION GAP 9 MEQ/L (8-16); BLOOD UREA NITROGEN 15 MG/DL (7-18); CALCIUM LEVEL 8.7 MG/DL (8.5-10.1); CARBON DIOXIDE LEVEL 25 MEQ/L (21-32); CHLORIDE LEVEL 106 MEQ/L (98-107); CREATININE FOR GFR 0.86 MG/DL (0.70-1.30); GLOMERULAR FILTRATION RATE > 60.0 (>56); GLUCOSE, FASTING 287 MG/DL (70-105); POTASSIUM SERUM 4.1 MEQ/L (3.5-5.1); SODIUM LEVEL 140 MEQ/L (136-145)
== END ==
LOC: M WUC 11:23
PROVIDERS: ATTEND Physician Assistant Medical
DX: E11.65 Type 2 diabetes mellitus with hyperglycemia (principal)

== ENCOUNTER 2016-08-08 14:49 | Emergency (ER) | payer MEDICARE ==
[~2016-08-08] VITALS: Ht 170.2 cm; Wt 99.8 kg
[2016-08-08] MEDS ORDERED: PLAV75TA38 PO (15:03)
[2016-08-08] MEDS ORDERED: LORazepam 2 MG/ML VIAL (J2060) IV STA ×2 (15:42→19:23)
[2016-08-08] MEDS ORDERED: HYDROmorphone HCL 1 MG/ML SYRINGE (J1170) IV ONE (15:45)
[2016-08-08] MEDS ORDERED: ASPIRIN 81 MG CHEW TABLET PO ONE (15:45)
[2016-08-08 16:10] LABS: BASO % 0.6 % (0.0-1.0); EOS # 0.1 K/mm3 (0.0-0.50); EOS % 1.4 % (0.0-3.0); LARGE UNSTAINED CELL # 0.2 K/mm3 (0.0-0.4); LARGE UNSTAINED CELL % 2.3 % (0.0-4.0); LYMPH % 22.9 % (24.0-44.0); MEAN CORPUSCULAR HEMOGLOBIN 29.9 pg (27.0-33.0); MEAN CORPUSCULAR HGB CONC 33.7 g/dl (32.0-36.5); MEAN CORPUSCULAR VOLUME 88.8 fl (80.0-96.0); MONO # 0.6 K/mm3 (0.0-0.8); MONO % 7.7 % (0.0-5.0); NEUTROPHILS # 5.3 K/mm3 (1.8-7.7); NEUTROPHILS % 65.1 % (36.0-66.0); PLATELET COUNT, AUTOMATED 235 k/mm3 (150-450); RED CELL DISTRIBUTION WIDTH 13.1 % (11.5-14.5); WHITE BLOOD COUNT 8.2 K/mm3 (4.0-10.0)
[2016-08-08 16:23] LABS: ALBUMIN/GLOBULIN RATIO 1.25 (1.00-1.93); ALKALINE PHOSPHATASE 100 U/L (45-117); ALT/SGPT 44 U/L (12-78); ANION GAP 8 MEQ/L (8-16); AST/SGOT 22 U/L (15-37); BILIRUBIN,DIRECT 0.2 MG/DL (0.0-0.2); BILIRUBIN,TOTAL 0.7 MG/DL (0.2-1.0); BLOOD UREA NITROGEN 11 MG/DL (7-18); CALCIUM LEVEL 8.7 MG/DL (8.5-10.1); CARBON DIOXIDE LEVEL 25 MEQ/L (21-32); CHLORIDE LEVEL 108 MEQ/L (98-107); GLOMERULAR FILTRATION RATE > 60.0 (>56); POTASSIUM SERUM 4.7 MEQ/L (3.5-5.1); SODIUM LEVEL 141 MEQ/L (136-145); TOTAL PROTEIN 7.2 GM/DL (6.4-8.2)
[2016-08-08 16:28] LABS: GLUCOSE, FASTING 410 MG/DL (70-105)
[2016-08-08] MEDS ORDERED: ISOVUE-370 76% 100ML VIAL (Q9967) As Ordered ONE (16:34)
--- NOTE | 2016-08-08 16:52 | REP ---
Clinical: Chest pain . Comparison: 04/15/2016 . Findings: The mediastinum and cardiac silhouette are stable and within normal limits for portable technique. The lung franklin are clear without acute consolidation, effusion, or pneumothorax. Skeletal structures are intact. Impression: Normal portable chest x-ray Signed by Buzz Lovett MD 08/08/2016 04:43 P
--- NOTE | 2016-08-08 17:10 | REP ---
Clinical: Neck pain. Technique: Axial noncontrast images from the skull base to the thoracic inlet with coronal and sagittal re-formations. Findings: Mild reversal of normal lordosis is appreciated with advanced degenerative disc osteophyte complexes noted at the C5-6, C6-7, and C7-T1 levels. Findings include osteophytosis, endplate sclerosis/irregularity, and disc space narrowing as well as uncovertebral hypertrophy primarily noted at the C6-7 level bilaterally and right C5-6 level. There is significant canal stenosis at the C5-6, C6-7, and C7-T1 levels narrowed to 6 mm. No evidence for acute fracture / compression injury or subluxation. Spinal canal is patent. Spinous processes are intact. Paravertebral soft tissues are normal. Impression: Degenerative changes as described above. No evidence for acute fracture / compression injury or subluxation. Signed by Buzz Lovett MD 08/08/2016 05:02 P
--- NOTE | 2016-08-08 17:14 | REP ---
Clinical: Acute chest pain. Technique: Axial contrast enhanced images from the thoracic inlet to the upper abdomen using 100 ml Isovue 370 intravenous contrast material with coronal and sagittal re-formations. Findings: Suboptimal enhancement of the pulmonary arteries is appreciated. No obvious pulmonary emboli are identified. The thoracic aorta is normal and without aneurysm or dissection. The heart demonstrates atherosclerotic changes to the coronary arteries, but is normal in size and there is no evidence for pericardial effusion. The bilateral lung franklin are relatively clear with suggestions for mild chronic changes and no evidence of consolidation, effusion, or pneumothorax. No pulmonary nodule or mass lesion identified. The tracheobronchial tree is patent. No obvious adenopathy. Impression: No evidence for pulmonary embolus. No acute pleuroparenchymal or mediastinal process. Signed by Buzz Lovett MD 08/08/2016 05:06 P
[2016-08-08] MEDS ORDERED: MORPHINE 4 MG/ML 1ML SYRINGE IV ONE (17:15)
[2016-08-08] MEDS ORDERED: MORPHINE 2 MG/ML 1ML SYRINGE IV ONE (19:30)
--- NOTE | 2016-08-08 21:30 | REPUSA ---
MRI of the thoracic spine without contrast Clinical statement: leg weakness. Technique: Multiecho multiplanar MRI images of the thoracic spine were obtained without administratio n of contrast. No comparison is available. Findings: The thoracic vertebral bodies are in satisfactory position and alignment. No fractures or d islocations are demonstrated. The bone marrow appears unremarkable. Central disc protrusion at C7/T1 is again noted better described on the MRI of the cervical spine. Intervertebral disc spaces are oth erwise well maintained. There is no evidence of disc herniation or protrusion. The neural foramen are patent. The facet joints are intact. The surrounding soft tissues are within normal limits. Impression: No focal abnormality demonstrated within the thoracic spine.
--- NOTE | 2016-08-08 21:30 | REPUSA ---
MRI cervical spine without contrast Clinical statement: leg numbness. Technique: Multiecho multiplanar MRI images of the cervical spine were obtained without administratio n of contrast. No comparison is available. Findings: The cervical vertebral bodies are in satisfactory position and alignment. No fractures or d islocations are demonstrated. Normal heterogeneous bone marrow signal is noted. No osseous tumors are seen. The visualized portions of the posterior fossa are unremarkable. The cervical cranial junction is intact. The intervertebral disc spaces and heights are well-maintained. The facet joints are inta ct without evidence of subluxation. The cervical spinal cord demonstrates normal signal and contour. The surrounding soft tissues are within normal limits. At C4/C5, there is a central disc protrusion measuring 0.5 x 1.4 cm. This causes central canal steno sis measuring 9 mm in AP diameter. There is moderate bilateral neural foraminal narrowing. At C5/C6, there is a right paracentral disc protrusion measuring 0.6 x 1.7 cm. This causes central c anal stenosis measuring 8 mm in AP diameter. There is moderate bilateral neural foraminal narrowing. At C6/C7, there is a broad central disc protrusion measuring 0.3 x 1.2 cm. This causes central canal stenosis measuring 9 mm in AP diameter.There is moderate bilateral neural foraminal narrowing. At C7/T1, there is a disc bulge with central disc protrusion measuring 0.4 x 0.9 cm. This causes mode rate central canal stenosis measuring 8 mm in AP diameter. Moderate bilateral neural foraminal narrow ing is noted. Impression: Disk protrusions at C4/C5, C5/C6, C6/C7, and C7/T1 as described. This causes varying degr ees of central canal stenosis and moderately severe bilateral neural foraminal narrowing at each of these levels.
--- NOTE | 2016-08-08 21:50 | REPUSA ---
MRI of the lumbar spine without contrast Clinical statement: leg numbness. Technique: Multiecho multiplanar MRI images of the lumbar spine were obtained without administration of contrast. No comparison is available. Findings: The lumbar vertebral bodies are in satisfactory position and alignment. No fractures or dis locations are demonstrated. Normal heterogeneous bone marrow signal is noted. No osseous tumors are s een. The intervertebral disc heights are well maintained and demonstrate normal signal. The filum ter minale and conus medullaris appear unremarkable. The spinal cord demonstrates normal signal and conto ur. The surrounding soft tissues are within normal limits. At L1/L2, there is a broad disc bulge appreciated. There is no evidence of disc herniation or central canal stenosis. The neural foramen are patent. At L2/L3, there is a broad disc bulge appreciated. There is no evidence of disc herniation or central canal stenosis. The neural foramen are patent. At L3/L4, there is a broad disc bulge appreciated, with minimal central disc protrusion. There is no evidence of disc herniation or central canal stenosis. The neural foramen are patent. At L4/L5, there is a broad disc bulge appreciated, with minimal central disc protrusion. There is no evidence of disc herniation or central canal stenosis. The neural foramen are patent. At L5/S1, there is a small disc bulge noted. There is no evidence of disc herniation or central canal stenosis. The neural foramen are patent. Impression: Mild disc bulging at all lumbar vertebral levels as described. No evidence of central can al stenosis or significant neural foraminal narrowing.
--- NOTE | 2016-08-08 23:00 | REPUSA ---
CT of the head Clinical history: Unable to left lower extremity. Technique: Multiple axial CT images were obtained through the head without administration of contrast . Comparison: 04/15/2016. Findings: The ventricles and sulci are symmetric bilaterally. There is new hyperdense material seen i n the right anterior lateral aspect of the Josie in the quadrigemminal cistern, extending to the right lateral aspect of the brainstem, consistent with subarachnoid hemorrhage. Small amount of subdural h emorrhage is seen in the parietal lobes bilaterally. There is no midline shift, mass effect, or extra -axial fluid collection. The osseous structures are unremarkable. The visualized paranasal sinuses an d mastoid air cells are clear. Impression: Acute subarachnoid hemorrhage surrounding the right lateral Josie and extending around the brainstem. Small amount of subdural blood seen in the parietal lobes bilaterally. Cerebral angiogram would be helpful to delineate the source of this bleeding. No evidence of mass effect or herniation at this time. ER physician and Neurosurgeon were notified of these findings at 10:55 PM on 08/08/2016.
[2016-08-08 23:40] VITALS: BP 147/72
[2016-08-08 23:41] LABS: INR 1.05
--- NOTE | 2016-08-09 09:22 | ECGEPIP ---
Stationary ECG Study [facility] - ED Test Date: 2016-08-08 Pat Name: JULIANNE AUGUSTINE Department: Room: - Gender: M Instrumentation Fitter: jamshid : 1960 Requested By: Wanda Marshall Order Number: [id number] Reading MD: Miguel Ángel Sevilla Measurements Intervals [place] Rate: 81 P: 52 MT: 147 QRS: 38 QRSD: 136 T: -2 QT: 382 QTc: 444 Interpretive Statements SINUS RHYTHM RIGHT BUNDLE BRANCH BLOCK SIMILAR TO 04/15/16 Electronically Signed On 08-09-2016 9:22:36 EDT by Miguel Ángel Sevilla
== END 2016-08-08 23:44 | disposition short-term general hospital (02) ==
LOC: M ED 16:40
DX: M54.2 Cervicalgia (principal); I60.5 Nontraumatic subarachnoid hemorrhage from vertebral artery; M51.26 Other intervertebral disc displacement, lumbar region; I51.9 Heart disease, unspecified; E11.9 Type 2 diabetes mellitus without complications; Z95.5 Presence of coronary angioplasty implant and graft; Z79.82 Long term (current) use of aspirin; Z79.4 Long term (current) use of insulin; Z79.84 Long term (current) use of oral hypoglycemic drugs; Z79.899 Other long term (current) drug therapy; Z91.030 Bee allergy status; Z88.1 Allergy status to other antibiotic agents; Z88.5 Allergy status to narcotic agent; Z88.6 Allergy status to analgesic agent
CPT/HCPCS: 70450; 71010; 71275; 72125; 72141; 72146; 72148; 80048; 80076; 82550; 82553; 83690; 83880; 84484; 85025; 85576; 85610; 85730; 93005; 93041; 94760; 96374; 96375; 96376; 99285; J1170; J2060; Q9967

== ENCOUNTER 2016-08-26 11:11 | Inpatient (IN) | payer MEDICARE ==
[~2016-08-26] VITALS: Ht 170.2 cm; Wt 95.4 kg
[~2016-08-26 11:11] MED LIST changes: +PLAV75TA38 PO
[2016-08-26 13:16] VITALS: BP 157/91
[2016-08-26] MEDS ORDERED: ANALGESIC BALM CRM 120 GM TOP PRN (13:45)
[2016-08-26] MEDS ORDERED: traMADol 50 MG TAB PO PRN (13:45)
[2016-08-26] MEDS ORDERED: GLIP5TAB8 PO (14:00)
[2016-08-26] MEDS ORDERED: AMLO2.5T PO (14:00)
[2016-08-26] MEDS ORDERED: ATOR1TAB21 PO (14:00)
[2016-08-26] MEDS ORDERED: OMEP40CA2 PO (14:00)
[2016-08-26] MEDS ORDERED: METF500T PO (14:00)
[2016-08-26] MEDS ORDERED: CARV12.5 PO (14:25)
[2016-08-26] MEDS ORDERED: OXYC-517 PO (14:25)
[2016-08-26] MEDS ORDERED: AMPI2INJ2 IV (14:25)
[2016-08-26] MEDS ORDERED: VANC1VLAD IV (14:25)
[2016-08-26] MEDS ORDERED: CEFT2INJ4 IV (14:25)
[2016-08-26] MEDS ORDERED: ACET-654 PO (14:25)
[2016-08-26] MEDS ORDERED: ACETAMINOPHEN 325 MG TAB PO PRN (14:30)
[2016-08-26] MEDS ORDERED: MOM 30ML SUSPENSION UDC PO PRN (14:30)
[2016-08-26] MEDS ORDERED: VANCOMYCIN HCL 1,000 MG, VIAL MATE ADAPTER 1 EACH in D5W 250 ML IV SCH (14:30)
[2016-08-26] MEDS ORDERED: FLEET ENEMA PR PRN (14:30)
[2016-08-26] MEDS ORDERED: MAALOX 30 ML SUSP *UDC PO PRN (14:30)
[2016-08-26] MEDS ORDERED: FLOM5CAP PO (14:31)
[2016-08-26] MEDS ORDERED: DOCU100C PO (14:31)
[2016-08-26] MEDS ORDERED: BISA10SU5 PR (14:31)
[2016-08-26] MEDS ORDERED: LISI-542 PO (14:31)
[2016-08-26] MEDS ORDERED: KEPP500T6 PO (14:31)
[2016-08-26] MEDS ORDERED: CYMB1CAP4 PO (14:31)
[2016-08-26] MEDS ORDERED: CALC500C16 PO (14:31)
[2016-08-26] MEDS ORDERED: SENN8.6T10 PO (14:31)
[2016-08-26] MEDS ORDERED: GLUCOSE 4 GM CHEW TABLET PO PRN (15:00)
[2016-08-26] MEDS ORDERED: GLUCAGON FOR INJ 1 MG VIAL (J1610) SC PRN (15:00)
[2016-08-26] MEDS ORDERED: DEXTROSE 50% 50 ML SYRINGE IV PRN (15:00)
[2016-08-26] MEDS: HYDROmorphone 2 MG TAB PO PRN ×2 (15:29→21:39)
[2016-08-26] MEDS: AMPICILLIN SOD 2 GM in D5W MINI-BAG PLUS 100 ML IV SCH ×2 (16:24→20:32)
--- NOTE | 2016-08-26 16:52 | PMRNOTEPD ---
PMR Note Patient med for rehabilitation of multiple anterocerebral nontraumatic bleeds/ cerebrovascular accident with principally left hemiparesis and some sensorium changes. H&P has been dictated and his job #[id number]. SARIKA TORRES MD Aug 26, 2016 16:52
[2016-08-26] MEDS: cefTRIAXone SOD 2 GM in D5W MINI-BAG PLUS 50 ML IV SCH (17:06)
[2016-08-26] MEDS: SODIUM CHLORIDE 0.9% INJ 10 ML SYR IV SCH (17:06)
[2016-08-26] MEDS: HumaLOG INSULIN (NovoLOG) PER UNIT SC SCH ×2 (17:06→21:00)
[2016-08-26] MEDS: metFORMIN (GLUCOPHAGE) 500 MG TAB PO SCH (17:06)
[2016-08-26 21:00] VITALS: BP 148/77
[2016-08-26] MEDS ORDERED: LEVEMIR (INSULIN DETEMIR) 1 UNITS/0.01ML SC SCH (21:00)
[2016-08-26] MEDS: VANCOMYCIN HCL 1,000 MG, VIAL MATE ADAPTER 1 EACH in D5W 250 ML IV SCH ×2 (21:35→22:23)
[2016-08-26] MEDS: DOCUSATE SODIUM 100 MG CAP PO SCH (21:36)
[2016-08-26] MEDS: TAMSULOSIN 0.4 MG CAP PO SCH (21:36)
[2016-08-26] MEDS: CARVedilol 12.5 MG TAB PO SCH (21:37)
--- NOTE | 2016-08-26 21:58 | PHACANCOPD ---
PHARMACY VANCOMYCIN DOSING Pt Demographics Demographics Patient Age:56 , Weight: 100.2 , Gender: male Adjusted Body Weight Vancomycin Vancomycin Load Y/N: No Load Dose Date Time Vancomycin Load Dose: Date: Time: Vancomycin Dose Date: 08/26/16. Current Vancomycin Dose: [2GM IV Q12H (21:00 THRU 09/04/16)] Intermittent Dosing?: No Labs Creatinine Clearance Date:08/26/16. CRCL >60ml/min Assessment and Plan Maintaining Current Dose?: Yes Reason for dose change: No Dose Change Pharmacist Note Pharmacist Note Date: 08/26/16. Pharm.D. note: 56YO MALE, 100.2KG in WEIGHT TRANSFERRED BACK TO [facility] WITH Hx BACTERIAL MENINGITIS. HIS ABX INCLUDED: AMPICILLIN 2GM IV Q4H (16:00), ROCEPHIN 2GM IV Q12H (18:00) AND VANCO 2GM IV Q12H. IT IS NOTED THAT HE WAS NOT GIVEN HIS VANCO PRIOR TO TRANSFER BACK TO [facility]. A RANDOM VANCO LEVEL WAS ORDERED AND REPORTED 9.4 mcg/ml WE WILL; THEREFORE, CONTINUE WITH VANCO 2GM IV Q12H STARTING AT 21:00 THIS EVENING AND THRU 09/04/16 PER THE ADMITTING MEDICAL NOTE. SARIKA PORRAS PHARMACY Aug 26, 2016 21:58
[2016-08-27] MEDS: AMPICILLIN SOD 2 GM in D5W MINI-BAG PLUS 100 ML IV SCH ×6 (00:22→20:28)
[2016-08-27] MEDS: cefTRIAXone SOD 2 GM in D5W MINI-BAG PLUS 50 ML IV SCH ×2 (05:48→17:13)
[2016-08-27] MEDS: SODIUM CHLORIDE 0.9% INJ 10 ML SYR IV SCH ×2 (05:49→17:14)
[2016-08-27 06:00] VITALS: BP 152/92
[2016-08-27 06:36] LABS: ALBUMIN/GLOBULIN RATIO 0.94 (1.00-1.93); ALKALINE PHOSPHATASE 93 U/L (45-117); ALT/SGPT 33 U/L (12-78); ANION GAP 6 MEQ/L (8-16); AST/SGOT 15 U/L (15-37); BILIRUBIN,TOTAL 0.4 MG/DL (0.2-1.0); BLOOD UREA NITROGEN 5 MG/DL (7-18); CALCIUM LEVEL 8.6 MG/DL (8.5-10.1); CARBON DIOXIDE LEVEL 30 MEQ/L (21-32); CHLORIDE LEVEL 105 MEQ/L (98-107); CREATININE FOR GFR 0.54 MG/DL (0.70-1.30); GLOMERULAR FILTRATION RATE > 60.0 (>56); GLUCOSE, FASTING 62 MG/DL (70-105); POTASSIUM SERUM 3.3 MEQ/L (3.5-5.1); SODIUM LEVEL 141 MEQ/L (136-145); TOTAL PROTEIN 6.2 GM/DL (6.4-8.2)
[2016-08-27 06:48] LABS: BASO % 0.4 % (0.0-1.0); EOS # 0.3 K/mm3 (0.0-0.50); EOS % 3.4 % (0.0-3.0); LARGE UNSTAINED CELL # 0.2 K/mm3 (0.0-0.4); LARGE UNSTAINED CELL % 2.3 % (0.0-4.0); LYMPH # 1.9 K/mm3 (1.5-4.5); LYMPH % 20.1 % (24.0-44.0); MEAN CORPUSCULAR HEMOGLOBIN 29.9 pg (27.0-33.0); MEAN CORPUSCULAR HGB CONC 33.4 g/dl (32.0-36.5); MEAN CORPUSCULAR VOLUME 89.5 fl (80.0-96.0); MONO # 0.7 K/mm3 (0.0-0.8); MONO % 7.6 % (0.0-5.0); NEUTROPHILS # 6.3 K/mm3 (1.8-7.7); NEUTROPHILS % 66.2 % (36.0-66.0); PLATELET COUNT, AUTOMATED 374 k/mm3 (150-450); RED CELL DISTRIBUTION WIDTH 13.3 % (11.5-14.5); WHITE BLOOD COUNT 9.6 K/mm3 (4.0-10.0)
[2016-08-27] MEDS: HumaLOG INSULIN (NovoLOG) PER UNIT SC SCH ×4 (07:30→21:00)
[2016-08-27] MEDS: PANTOPRAZOLE 40MG TAB (PROTONIX) PO SCH (08:12)
[2016-08-27] MEDS: DOCUSATE SODIUM 100 MG CAP PO SCH ×2 (08:12→21:35)
[2016-08-27] MEDS: CARVedilol 12.5 MG TAB PO SCH ×2 (08:13→21:36)
[2016-08-27] MEDS: metFORMIN (GLUCOPHAGE) 500 MG TAB PO SCH ×2 (08:14→17:14)
[2016-08-27] MEDS: ENOXAPARIN 40 MG/0.4 ML SYRINGE (J1650) SC SCH (08:15)
[2016-08-27] MEDS: VANCOMYCIN HCL 1,000 MG, VIAL MATE ADAPTER 1 EACH in D5W 250 ML IV SCH ×4 (08:15→22:27)
[2016-08-27] MEDS: HYDROmorphone 2 MG TAB PO PRN ×3 (09:11→22:27)
--- NOTE | 2016-08-27 11:10 | CR.PDOC ---
[facility] Consultation Consultation CONSULTATION REPORT FOR: Dr Wilson REASON FOR CONSULTATION: Medical Management DATE OF VISIT: 08/27/16 ATTENDING: Dr. Aj Rush PCP: Dr Narayan Stewart HPI: 56year oldM with a past medical history significant for Subarachnoid hemorrhage who was transferred from [facility] to the care of EDMUND Chance . [facility] admission H&P not available for review at this time. Records from [facility] are reviewed. Pt presented to [facility] ED 08/08/16 and was found to have subarachnoid hemorrhage and was transferred to [facility] for further management. Pt with residual left hemiparesis, states he is gaining strength in his LUE, still with weakness of LLE. His hospitalization was complicated by DKA and LP 08/21 indicating bacterial meningitis. Pt treated with IV Vancomycin, Rocephin, ampicillin. Denies any fevers, chills, weakness, fatigue, Headache, Chest Pain, Shortness of breath, cough, palpitations, abdominal pain, N/V/D or changes in bowel or bladder habits. PMHx: Subarachnoid hemorrhage 08/08/16- [facility]. Non traumatic in setting of dual antiplatelet agents. Residual left hemiparesis. CT head rt frontal, occipital, temporal lobe SAH. CTA head so stenosis, dissection, AVM, aneurysm. CTA neck no stenosis, dissection. MRI Brain SAH cerebral convexity and prepontine region EEG no epileptiform activity. Bacterial meningitis LP 08/21/16 HTN CAD/S/P PCI BPH/urinary retention Insomnia IDDM H/O DKA. GERD Hiatal hernia Diabetic neuropathy Hypertension COPD History of pulmonary nodules LLL. Follows with pulmonary, Dr. Monroy. 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 PE: GEN: 56yoM, appears stated age. Well-nourished, well developed. No acute distress. Alert and oriented x 3. Pleasant, interactive. HEENT: Normocephalic, atraumatic. Pupils are equal, round, and reactive to light. Extraocular movements are intact. No nystagmus appreciated. Sclera are nonicteric. Conjunctiva without injection. Nose midline. Nasal turbinates without bogginess. EACs both patent BL. TMs both visualized and reyes with good cone of light, no bulging or erythema. No facial asymmetry. Moist mucous membranes. Pharynx pink and moist, no cobblestoning. Neck supple, trachea midline. No lymphadenopathy or thyromegaly appreciated. CHEST: Regular rate and rhythm, +S1, +S2 LUNGS: Clear to auscultation bilaterally. No wheezes, rales, or rhonchi. Breathing appears symmetric and easy. Patient is speaking in full sentences. No accessory muscle use. ABD: Round, soft, non-tender, non-distended. +Bowel sounds throughout. No rebound or guarding. No costovertebral angle tenderness. EXT: Pulses 2+ bilaterally dorsalis pedis and radial. No lower extremity edema appreciated. SKIN: [place], dry, warm. Capillary refill <2sec. rash noted across anterior chest. NEURO: Alert and oriented x 3. Cranial nerves III-XII are intact. Left sided weakness, LE>UE. A&P: 56year oldM with a past medical history significant for Subarachnoid hemorrhage who was transferred from [facility] to the care of Dr Wilson, ARU 08/26/16. 1. Patient is admitted to ARU under the care of Dr. Wilson. Subarachnoid hemorrhage PT/OT/speech therapy as per ARU DVT prophylaxis as per ARU Pain control as per ARU Bowel care as per ARU 2. bacterial meningitis. ID/Dr Novoa consulted. Pt continues with IV Vanco/ Rocephin/Ampicillin. PICC in place. 3. BPH/urinary retention. Singh catheter removed. Flomax. 4. IDDM. Metformin 500mg BID, Levemir 35 u HS, SSI. CC diet. BS noted to be 62 this AM. Levemir to be reduced to 25 units, discussed with ARU attending. 5. GERD/hiatal hernia. Protonix. 6. Insomnia. Trazodone. 7. Hypertension. Coreg 12.5 mg BID. 8. Chronic back pain/chronic pain. Consider pain management if needed. 9. Hypokalemia. Supplement x 1 ordered. Add mag level to labs. Recheck CMP in AM. Thank you for your consultation. We will continue to follow along with you. Vital Signs/I&O Vital Signs Date Time Temp Pulse Resp B/P (MAP) Pulse Ox O2 Delivery O2 Flow Rate FiO2 08/27/16 09:41 18 08/27/16 08:13 71 152/92 08/27/16 06:00 98.8 97 Room Air I&O- Last 24 Hours up to 6 AM 08/27/16 06:00 Intake Total 1790 ml Output Total 3575 ml Balance -1785 ml Laboratory Data Labs 24H Laboratory Tests 2 08/26/16 15:10: Random Vancomycin Level 9.4 08/26/16 16:23: Urine Appearance CLEAR, Urine Color YELLOW, Urine pH 7.0, Urine Specific [place] 1.010, Urine Protein NEGATIVE, Urine Glucose (UA) 2+H, Urine Ketones NEGATIVE, Urine Urobilinogen 0.2, Urine Bilirubin NEGATIVE, Urine Leukocyte Esterase NEGATIVE, Urine Blood NEGATIVE, Urine Nitrite NEGATIVE, Urine WBC (Auto ) 3, Urine RBC (Auto) 6H, Urine Hyaline Casts (Auto) 0, Urine Bacteria (Auto) 1+ H, Urine Squamous Epithelial Cells 0, Urine Mucus (Auto) SMALL, Urine Sperm ( Auto) 08/26/16 16:32: Bedside Glucose (Misc Panel) 138H 08/26/16 20:37: Bedside Glucose (Misc Panel) 186H 08/27/16 06:00: White Blood Count 9.6, Red Blood Count 4.46, Hemoglobin 13.3L, Hematocrit 39.9L , Mean Corpuscular Volume 89.5, Mean Corpuscular Hemoglobin 29.9, Mean Corpuscular Hemoglobin Concent 33.4, Red Cell Distribution Width 13.3, Platelet Count 374, Neutrophils (%) (Auto) 66.2H, Lymphocytes (%) (Auto) 20.1L, Monocytes (%) (Auto) 7.6H, Eosinophils (%) (Auto) 3.4H, Basophils (%) (Auto) 0.4 , Neutrophils # (Auto) 6.3, Lymphocytes # (Auto) 1.9, Monocytes # (Auto) 0.7, Eosinophils # (Auto) 0.3, Basophils # (Auto) 0.0, Large Unclassified Cells % 2.3 , Large Unclassified Cells # 0.2, Anion Gap 6L, Glomerular Filtration Rate > 60.0, Blood Urea Nitrogen 5L, Creatinine 0.54L, Sodium Level 141, Potassium Level 3.3L, Chloride Level 105, Carbon Dioxide Level 30, Calcium Level 8.6, Aspartate Amino Transf (AST/SGOT) 15, Alanine Aminotransferase (ALT/SGPT) 33, Alkaline Phosphatase 93, Total Bilirubin 0.4, Total Protein 6.2L, Albumin 3.0L, Albumin/Globulin Ratio 0.94L CBC/BMP Laboratory Tests 08/27/16 06:00 Red Blood Count 4.46, Mean Corpuscular Volume 89.5, Mean Corpuscular Hemoglobin 29.9, Mean Corpuscular Hemoglobin Concent 33.4, Red Cell Distribution Width 13.3 , Neutrophils (%) (Auto) 66.2 H, Lymphocytes (%) (Auto) 20.1 L, Monocytes (%) ( Auto) 7.6 H, Eosinophils (%) (Auto) 3.4 H, Basophils (%) (Auto) 0.4, Neutrophils # (Auto) 6.3, Lymphocytes # (Auto) 1.9, Monocytes # (Auto) 0.7, Eosinophils # (Auto) 0.3, Basophils # (Auto) 0.0, Calcium Level 8.6, Aspartate Amino Transf (AST/SGOT) 15, Alanine Aminotransferase (ALT/SGPT) 33, Alkaline Phosphatase 93, Total Bilirubin 0.4, Total Protein 6.2 L, Albumin 3.0 L Allergies Coded Allergies: Bee Venom (Verified Allergy, Severe, ANAPHYLAXIS, 02/01/15) Erythromycin (Unverified Allergy, Mild, HIVES, 06/14/12) Fentanyl (Unverified Allergy, Mild, HIVES, 06/14/12) Pregabalin (Verified Allergy, Unknown, ITCHING, 02/01/15) Home Medications Scheduled Amlodipine Besylate (Amlodipine Besylate) 2.5 Mg Tab, 2.5 MG PO DAILY, (Reported ) HOME MED Ampicillin Sodium (Ampicillin Sodium) 2 Gm Inj, 2 GM IV Q4H, (Reported) STARTED AT [facility] Aspirin (Aspirin EC) 81 Mg Tabec, 81 MG PO DAILY, (Reported) HOME MED Atorvastatin Calcium (Atorvastatin Calcium) 20 Mg Tab, 20 MG PO QHS, (Reported) HOME MED Carvedilol (Carvedilol) 12.5 Mg Tab, 12.5 MG PO BID, (Reported) HOME MED - DOSE CHANGED AT [facility] WAS 6.25MG BID Ceftriaxone Sodium (Ceftriaxone/Dextrose 2-2.22 gm-%) 1 Inj Inj, 1 DOSE IV Q12H, (Reported) STARTED AT [facility] Clopidogrel Bisulfate (Plavix) 75 Mg Tab, 75 MG PO DAILY, (Reported) HOME MED Docusate Sodium (Docusate Sodium) 100 Mg Cap, 100 MG PO BID, (Reported) Duloxetine HCl (Cymbalta) 20 Mg Cap, 20 MG PO BID, (Reported) STARTED AT [facility] Exenatide (Bydureon) 2 Mg Inj, 2 MG SC 1XWK, (Reported) TUESDAYS Glipizide (Glipizide) 5 Mg Tab, 10 MG PO BID, (Reported) HOME MED Insulin Detemir (Levemir) 1 Units/0.01 Ml Susp, 60 UNITS SC BID, (Reported) HOME MED Insulin Human Lispro (Humalog) 1 Units/0.01 Ml Inj, 1 DOSE SC AC, (Reported) PER SLIDING SCALE Levetiracetam (Keppra) 500 Mg Tab, 500 MG PO BID, (Reported) STARTED AT [facility] Lisinopril (Lisinopril) 5 Mg Tab, 5 MG PO DAILY, (Reported) STARTED AT [facility] Metformin Hydrochloride (Metformin HCl) 500 Mg Tab, 500 MG PO BID, (Reported) HOME MED-DOSE CHANGED AT [facility] WAS 1000MG BID Omeprazole (Omeprazole) 40 Mg Cap, 40 MG PO DAILY, (Reported) HOME MED Salmeterol/Fluticasone (Advair Diskus 250-50 Mcg/Dose) 14 Puff/Inhaler Aerp, 1 PUFF INH BID, (Reported) HOME MED Tamsulosin Hydrochloride (Flomax) 0.4 Mg Cap, 0.4 MG PO QHS, (Reported) Vancomycin HCl (Vancomycin HCl) 1,000 Mg Soln, 2,000 MG IV Q12H, (Reported) STARTED AT [facility] Scheduled PRN Acetaminophen (Acetaminophen) 325 Mg Tab, 650 MG PO Q4H PRN for PAIN, (Reported) Albuterol Sulfate (Proair Hfa) 108 Mcg/Act Aer, 2 PUFF INH Q4H PRN for SHORTNESS OF BREATH, (Reported) Bisacodyl (Bisac-Evac) 10 Mg Sup, 10 MG ME DAILY PRN for CONSTIPATION, (Reported ) STARTED AT [facility] Calcium Carbonate (Calcium Carbonate) 500 Mg Chw, 500 MG PO TID PRN for HEARTBURN, (Reported) Naproxen (Naproxen) 500 Mg Tab, 500 MG PO BID PRN for PAIN, (Reported) Oxycodone HCl (Oxycodone HCl) 5 Mg Tab, 5 MG PO Q6H PRN for PAIN, (Reported) STARTED AT [facility] Senna (Senna Lax) 8.6 Mg Tab, 2 TAB PO QHS PRN for CONSTIPATION, (Reported) [place] Aug 27, 2016 11:10
[2016-08-27] MEDS: POLYVINYL ALCOHOL OPHTH SOLN 15 ML(LIQUITEARS) OU SCH ×4 (11:29→21:00)
[2016-08-27] MEDS ORDERED: POTASSIUM CHLORIDE 10 MEQ SR TABLET PO ONE (13:00)
[2016-08-27 14:58] VITALS: BP 159/69
--- NOTE | 2016-08-27 16:12 | IPNPDOC ---
[employer] Progress Note DATE OF SERVICE: 08/27/16 DATE OF ADMISSION: Aug 26, 2016 at 12:42 INPATIENT REHABILITATION ADMISSION DAY: #2 SUBJECTIVE: Patient is a 56-year-old white male with Bilateral CVAs from nontraumatic subdural hematoma and subarachnoid hemorrhages with bilateral hemiparesis denser on the left than the right. Patient with some of his chronic pain but overall no complaints except for troubles maintaining sleep last night. ALLERGIES: See Below MEDICATIONS: Reviewed, see below. OBJECTIVE: VITAL SIGNS: Please see below. PHYSICAL EXAMINATION: GENERAL: Somewhat overweight middle-age white male who is alert and oriented 4. Speech is clear coherent and appropriate with no dysarthria. Affect is pleasant and cooperative and fairly upbeat. Patient with mild weakness in the right upper and lower extremity and left upper extremity with [id number] weakness in the left lower extremity. PICC line intact in the left arm. HEENT: Very mild left facial droop. Patient is normocephalic/atraumatic. Extraocular ocular motions are intact with pupils equal round reactive to light and accommodation. Patient of some blurring in the left eye looking at distance as he its tired. CARDIOVASCULAR: Regular rate and rhythm with normal S1-S2 without S3-S4 murmurs or rubs. 2 out 4 bilateral radial pulses. LUNGS: All franklin clear to auscultation without any wheezes, rales or rhonchi. ABDOMEN: Obese, benign with no palpable tenderness and normal bowel sounds are appreciated in all quadrants. NEUROLOGICAL: As noted above. SKIN: Grossly intact. LABORATORY DATA: Reviewed. Please see below. MICROBIOLOGY: Please see below. IMAGING: No new imaging here. DVT prophylaxis ordered?: Patient continues on Lovenox. Also using TOMMIE hose. ASSESSMENT AND PLAN: 1. Rehabilitation of bilateral subarachnoid and Right of dural hematoma/CVAs: Patient starting evaluation today which was reviewed in team rounds. Speech therapy reports patient cleared for dysphagia, dysarthria and cognitive. Physical and occupational therapy note number of of deficits that need to be addressed. At this time anticipated length of stay is approximately 14 days with target discharge of September 08. 2. Hypokalemia: We'll go ahead and start patient on some K-Tabs and follow his electrolytes as potassium was 3.3 today. 3. Diabetes: Long-acting Levemir dosage to be reduced to 25 units as this morning's fasting blood sugar was 62. Medicine will help adjust agents medications going forward and there support in making this change is appreciated. TIME SPENT: Chart Review, examination and documentation require greater than 25 minutes. Allergies Coded Allergies: Bee Venom (Verified Allergy, Severe, ANAPHYLAXIS, 02/01/15) Erythromycin (Unverified Allergy, Mild, HIVES, 06/14/12) Fentanyl (Unverified Allergy, Mild, HIVES, 06/14/12) Pregabalin (Verified Allergy, Unknown, ITCHING, 02/01/15) Vital Signs Vital Signs Date Time Temp Pulse Resp B/P (MAP) Pulse Ox O2 Delivery O2 Flow Rate FiO2 08/27/16 15:58 18 08/27/16 14:58 98.5 87 159/69 (99) 98 Room Air Laboratory Data CBC/BMP Laboratory Tests 08/27/16 06:00 Red Blood Count 4.46, Mean Corpuscular Volume 89.5, Mean Corpuscular Hemoglobin 29.9, Mean Corpuscular Hemoglobin Concent 33.4, Red Cell Distribution Width 13.3 , Neutrophils (%) (Auto) 66.2 H, Lymphocytes (%) (Auto) 20.1 L, Monocytes (%) ( Auto) 7.6 H, Eosinophils (%) (Auto) 3.4 H, Basophils (%) (Auto) 0.4, Neutrophils # (Auto) 6.3, Lymphocytes # (Auto) 1.9, Monocytes # (Auto) 0.7, Eosinophils # (Auto) 0.3, Basophils # (Auto) 0.0, Calcium Level 8.6, Aspartate Amino Transf (AST/SGOT) 15, Alanine Aminotransferase (ALT/SGPT) 33, Alkaline Phosphatase 93, Total Bilirubin 0.4, Total Protein 6.2 L, Albumin 3.0 L Labs 24H Laboratory Tests 2 08/26/16 16:23: Urine Appearance CLEAR, Urine Color YELLOW, Urine pH 7.0, Urine Specific [place] 1.010, Urine Protein NEGATIVE, Urine Glucose (UA) 2+H, Urine Ketones NEGATIVE, Urine Urobilinogen 0.2, Urine Bilirubin NEGATIVE, Urine Leukocyte Esterase NEGATIVE, Urine Blood NEGATIVE, Urine Nitrite NEGATIVE, Urine WBC (Auto ) 3, Urine RBC (Auto) 6H, Urine Hyaline Casts (Auto) 0, Urine Bacteria (Auto) 1+ H, Urine Squamous Epithelial Cells 0, Urine Mucus (Auto) SMALL, Urine Sperm ( Auto) 08/26/16 16:32: Bedside Glucose (Misc Panel) 138H 08/26/16 20:37: Bedside Glucose (Misc Panel) 186H 08/27/16 06:00: White Blood Count 9.6, Red Blood Count 4.46, Hemoglobin 13.3L, Hematocrit 39.9L , Mean Corpuscular Volume 89.5, Mean Corpuscular Hemoglobin 29.9, Mean Corpuscular Hemoglobin Concent 33.4, Red Cell Distribution Width 13.3, Platelet Count 374, Neutrophils (%) (Auto) 66.2H, Lymphocytes (%) (Auto) 20.1L, Monocytes (%) (Auto) 7.6H, Eosinophils (%) (Auto) 3.4H, Basophils (%) (Auto) 0.4 , Neutrophils # (Auto) 6.3, Lymphocytes # (Auto) 1.9, Monocytes # (Auto) 0.7, Eosinophils # (Auto) 0.3, Basophils # (Auto) 0.0, Large Unclassified Cells % 2.3 , Large Unclassified Cells # 0.2, Anion Gap 6L, Glomerular Filtration Rate > 60.0, Blood Urea Nitrogen 5L, Creatinine 0.54L, Sodium Level 141, Potassium Level 3.3L, Chloride Level 105, Carbon Dioxide Level 30, Calcium Level 8.6, Aspartate Amino Transf (AST/SGOT) 15, Alanine Aminotransferase (ALT/SGPT) 33, Alkaline Phosphatase 93, Total Bilirubin 0.4, Total Protein 6.2L, Albumin 3.0L, Magnesium Level 2.0, Albumin/Globulin Ratio 0.94L 08/27/16 11:28: Bedside Glucose (Misc Panel) 238H Current Medications Current Medications Current Medications Acetaminophen (Tylenol Tab) 325 mg Q6HP PRN PO MILD PAIN OR FEVER Last administered on 08/27/16 05:51; Start 08/26/16 at 14:30; Stop 09/25/16 at 14:29 Al Hydrox/Mg Hydrox/Simethicone (Mylanta) 30 ml Q4HP PRN PO DYSPEPSIA; Start at 14:30; Stop 09/25/16 at 14:29 Ampicillin Sodium 2 gm/Dextrose 100 ml @ 200 mls/hr Q4H IV Last administered on 08/27/16 15:57; Start 08/26/16 at 16:00; Stop 09/04/16 at 15:59 Artificial Tears (Akwa Tears) 2 drop QID OU Last administered on 08/27/16 15: 57; Start 08/27/16 at 09:00; Stop 09/26/16 at 08:59 Carvedilol (COReg) 12.5 mg BID PO Last administered on 08/27/16 08:13; Start 08/26/16 at 21:00; Stop 09/25/16 at 20:59 Ceftriaxone Sodium 2 gm/ Dextrose 50 ml @ 100 mls/hr Q12H IV Last administered on 08/27/16 05:48; Start 08/26/16 at 18:00; Stop 09/04/16 at 17:59 Dextrose (Dextrose 50%) 25 ml ASDIRECTED PRN IV SEE LABEL COMMENTS; Start 08/26 at 15:00; Stop 09/25/16 at 14:59 Docusate Sodium (Colace) 100 mg BID PO Last administered on 08/27/16 08:12; Start 08/26/16 at 21:00; Stop 09/25/16 at 20:59 Enoxaparin Sodium (Lovenox) 40 mg DAILY SC Last administered on 08/27/16 08:15 ; Start 08/27/16 at 09:00; Stop 09/01/16 at 08:59 Glucagon (Glucagon) 1 mg ASDIRECTED PRN SC SEE LABEL COMMENTS; Start 08/26/16 at 15:00; Stop 09/25/16 at 14:59 Glucose (Glucose) 16 GM ASDIRECTED PRN PO SEE LABEL COMMENTS; Start 08/26/16 at 15:00; Stop 09/25/16 at 14:59 Heparin Sodium (Heparin (Flush)) 200 units ASDIRECTED PRN IV SEE LABEL COMMENTS ; Start 08/26/16 at 16:45; Stop 09/25/16 at 16:44 Heparin Sodium (Heparin (Flush)) 200 units PICC IV Last administered on 05:49; Start 08/26/16 at 18:00; Stop 09/25/16 at 17:59 Home Med (Med Rec Complete!) ASDIRECTED XX ; Start 08/26/16 at 14:45; Stop at 14:45; Status DC Hydromorphone HCl (Dilaudid) 2 mg Q4HP PRN PO MODERATE/SEVERE PAIN (PS 5-10) Last administered on 08/27/16 15:58; Start 08/26/16 at 15:00; Stop 09/02/16 at 14:59 Insulin Detemir (Levemir Insulin) 25 units QHS SC ; Start 08/27/16 at 21:00; Stop 09/26/16 at 20:59 Insulin Detemir (Levemir Insulin) 35 units QHS SC Last administered on 21:35; Start 08/26/16 at 21:00; Stop 08/27/16 at 15:50; Status DC Insulin Human Lispro (HumaLOG INSULIN) See Protocol Table AC SC Last administered on 08/27/16 12:10; Start 08/26/16 at 17:30; Stop 09/25/16 at 17:29 Insulin Human Lispro (HumaLOG INSULIN) See Protocol Table QHS SC ; Start at 21:00; Stop 09/25/16 at 20:59 Magnesium Hydroxide (Milk Of Magnesia) 30 ml DAILYPRN PRN PO CONSTIPATION; Start 08/26/16 at 14:30; Stop 09/25/16 at 14:29 Menthol/Methyl Salicylate (Bengay Cream) APPLY QIDP PRN TOP Right leg & knee; Start 08/26/16 at 13:45; Stop 09/25/16 at 13:44; Status Cancel Metformin HCl (Glucophage) 500 mg BID@ PO Last administered on 08/27/16 08:14; Start 08/26/16 at 18:00; Stop 09/25/16 at 17:59 Pantoprazole Sodium (Protonix) 40 mg DAILY PO Last administered on 08/27/16 08 :12; Start 08/27/16 at 09:00; Stop 09/26/16 at 08:59 Potassium Chloride (Micro-K Extencaps) 10 meq DAILY PO ; Start 08/28/16 at 09:00 ; Stop 08/31/16 at 08:59 Sodium Biphosphate/ Sodium Phosphate (Fleet Enema) 1 ea DAILYPRN PRN LA CONSTIPATION; Start 08/26/16 at 14:30; Stop 09/25/16 at 14:29 Sodium Chloride (Saline Lock Flush) 10 ml ASDIRECTED PRN IV SEE LABEL COMMENTS ; Start 08/26/16 at 16:45; Stop 09/25/16 at 16:44 Sodium Chloride (Saline Lock Flush) 10 ml PICC IV Last administered on 05:49; Start 08/26/16 at 18:00; Stop 09/25/16 at 17:59 Tamsulosin HCl (Flomax) 0.4 mg QHS PO Last administered on 08/26/16 21:36; Start 08/26/16 at 21:00; Stop 09/25/16 at 20:59 Tramadol HCl (Ultram) 50 mg Q6HP PRN PO PAIN; Start 08/26/16 at 13:45; Stop at 13:44; Status Cancel Trazodone HCl (Desyrel) 50 mg QHS PRN PO NOT ASLEEP BY 2350; Start 08/27/16 at 21:00; Stop 09/26/16 at 20:59 Trazodone HCl (Desyrel) 100 mg QHS PO ; Start 08/27/16 at 21:00; Stop 09/26/16 at 20:59 Vancomycin HCl 1000 mg/IV Miscellaneous Supplies 1 each/ Dextrose 270 ml @ 540 mls/hr Q12H IV ; Start 08/26/16 at 14:30; Stop 08/26/16 at 16:59; Status DC Vancomycin HCl 1000 mg/IV Miscellaneous Supplies 1 each/ Dextrose 270 ml @ 540 mls/hr Q12H IV Last administered on 08/27/16 08:15; Start 08/26/16 at 21:00; Stop 09/04/16 at 20:59 Vancomycin HCl 1000 mg/IV Miscellaneous Supplies 1 each/ Dextrose 270 ml @ 540 mls/hr Q12H IV Last administered on 08/27/16 09:11; Start 08/26/16 at 22:00; Stop 09/04/16 at 21:59 SARIKA TORRES MD Aug 27, 2016 16:12
--- NOTE | 2016-08-27 16:18 | PMRHPE ---
DATE OF ADMISSION: 08/26/2016 CHIEF COMPLAINT: 1. 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 2. Radiculopathy secondary to cervical and lumbar multiple root compressions. 3. Type 2 diabetes mellitus, poorly controlled with recent diabetic ketoacidosis event at [facility] ([facility]). Patient was seen at [facility] on 08/09/2016 for neck and chest pain and was evaluated and then transferred to [facility] with non-traumatic subarachnoid hemorrhage. During this time, he had developed left arm and leg weakness and numbness. Patient initially stabilized, transferred to the rehabilitation unit, then developed diabetic ketoacidosis and transferred to intensive care unit, and was evaluated with lumbar puncture on 08/21/2016, which did grow no bacteria, viruses, fungi, or acid-fast bacilli, and several of these tests were cancelled but did have 4 white blood cells, and patient was then started on intravenous (IV) ampicillin, vancomycin, and ceftriaxone, or Rocephin. He has since stabilized, and patient did want him to be close to home for his rehabilitation, and he is being transferred now for trial of neurorehabilitation of his central nervous system (BLENDER LABORER) bleeds and hemiparesis. Patient had recently had cardiac stents placed and had been on dual therapy to prevent clotting of them before developing the BLENDER LABORER bleeds. PAST MEDICAL HISTORY: As noted above, along with osteoarthritis, chronic obstructive pulmonary disease (COPD), depression, hyperlipidemia, hypertension, chronic neck and low back pain. PAST SURGICAL HISTORY: Includes coronary artery stent placement in May 2016, bilateral ulnar nerve transpositions, bilateral carpal tunnel releases. Also status post intrathecal morphine pump implantation, which then was removed. ALLERGIES: Patient is allergic to bee stings, ERYTHROMYCIN, and LYRICA, and then tried of a fentanyl patch, patient had marked skin reaction to it; however, this , per the patient, was the outer edge of the patch and not the central patch that was most involved, which has suggested that it may have been the glue versus the Fentanyl, with only the normal redness and mild pruritus under the central part of the patch. FAMILY HISTORY: Includes cancer and dementia in the patient's father. SOCIAL HISTORY: Patient is and has three children. Occasional alcohol consumption. Has stopped smoking. No elicit drugs. Has a GED. He lives in a 2-story home and requires about three steps to get into the home. He does have a downstairs bedroom and bathroom, though his main bedroom and bathroom are upstairs. 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 MEDICATIONS: On admission: - ampicillin 2 grams IV every 4 hours - Rocephin/ceftriaxone 2 grams IV every 12 hours - vancomycin 2 grams every 12 hours - Tylenol 325 mg every 6 hours for mild pain or fever - Mylanta 30 mL by mouth every 4 hours for dyspepsia - Coreg 12.5 mg twice a day for hypertension - Lovenox 40 mg subcutaneous daily for deep vein thrombosis (DVT) prevention - Detemir insulin 35 units subcutaneous at bedtime - Patient is on insulin sliding scale for before meals and at bedtime. With that he is also on now dextrose, glucose, and Glucagon for hypoglycemia reactions. - Patient also on metformin 500 mg twice a day with meals. - milk of magnesia for constipation - Protonix 40 mg daily for stomach protection from gastroesophageal reflux disease (GERD). - tamsulosin hydrochloride 0.4 mg at bedtime for benign prostatic hypertrophy (BPH) and urinary retention - Fleet's enema per rectum as needed daily for constipation REVIEW OF SYSTEMS: Negative HEENT. Negative neck. Negative pulmonary. Negative cardiac at this time. Negative GI at this time. Had problems with some constipation but now having regular bowel movements. Neurologically, left hemiparesis with decreased sensorium and marked weakness in the left lower extremity, making balance and ambulation difficult. Musculoskeletal: Radicular pain from the neck down into the upper extremities and back into the lower extremities with arthritis in the knees, elbows, hands, wrists, ankles, and feet. Mood: No complaints at this time. PHYSICAL EXAMINATION: Patient is a somewhat overweight middle-aged white male who is alert, well oriented, pleasant, and cooperative, lying on his left side in bed with Singh catheter in place and a peripherally inserted central catheter (PICC) line in his left arm. VITAL SIGNS: Patient's temperature is 98.9, blood pressure 157/91, pulse 80, respirations 18, and pulse oximetry 97% on room air. HEENT: Normocephalic, atraumatic with a very mild left facial droop. No dysarthria of speech. Tongue midline. Pupils are equal, round, and reactive to light and accommodation. Extraocular motions are grossly intact. NECK: Supple with some tender points. LUNGS: Clear in all franklin to auscultation. CORONARY: Shows regular rate and rhythm with normal S1, S2 without S3, S4, murmurs, or rubs. 2/4 bilateral radial pulses. Good warmth in both the upper and lower extremities, both right and left, is seen. ABDOMEN: Mildly obese. Bowel sounds are present in all four quadrants. No palpable tenderness or masses were felt. Some tympani in the abdomen in places. Patient is a circumcised adult male with normal genitalia and a Singh catheter in place. EXTREMITIES: With functional passive range of motion of the right and left upper and lower extremities. Patient with good strength in the left upper extremity, full strength in the right upper and lower extremities, and poor to fair strength in the left lower extremity. Light touch and vibration are intact in bilateral upper extremities and slightly diminished in the left lower extremity and very slightly diminished in the distal right lower extremity. Tone is within normal limits in bilateral upper and lower extremities. Patient with 1/4 knee jerk, trace ankle jerks. Downgoing toes on plantar stimulation. 2/4 biceps and brachial radialis and 1/4 triceps on deep tendon reflexes. Patient not set up to test balance. He is alert and oriented times four. Speech is clear, coherent, and appropriate. Affect is very pleasant and cooperative. Memory is good. LABORATORY/X-RAY DATA: Extensive amount in the 127-page discharge packet patient was sent with is too numerous to insert here; however, most important note is the August 21 lumbar puncture with basically just 4 white blood cells seen and no organisms and no organisms culturing out as of 5 days post taking the sample. CT scans have shown the initial bleeds and then the extension of the bleeds bilaterally but no hydrocephalus. ASSESSMENT AND PLAN: 1. Rehabilitation of multiple central nervous system (BLENDER LABORER) insults, including nontraumatic subdural and subarachnoid hemorrhage/cerebrovascular accident. Patient with left hemiparesis, decreased sensation and balance, and thereby decrease in activities of daily living (ADLs), mobility and overall function. Has been willing and participating in therapy and is likely to benefit from acute intensive neurorehabilitation, and we will proceed with a program of physical/occupational therapy, and I will go ahead and get speech, cognitive, but more importantly, swallowing assessments. To start with, the patient will be on thickened liquids and consistent-carbohydrate diet. This will advance as evaluations are completed. Patient will be watched closely by rehabilitation nursing and myself due to the complications he has had previously when he started his trial of neurorehabilitation at [facility] on August 14. 2. Possible bacterial meningitis. I will consult with Dr. Marycruz Novoa and have her review the current treatment regimen, which is scheduled to go to September 04. We will make adjustments accordingly. 3. Diabetes mellitus with recent diabetic ketoacidosis (DKA) episode. Medicine service has been consulted to assist with management of this patient for this problem along with his atherosclerotic cardiovascular disease, including hypertension, hyperlipidemia, and coronary artery disease status post stent placements 3 months ago. Will go ahead and continue him with antilipids and antihypertensive medication and proceed with the Lovenox to manage the risk of clot developing, DVT, or blockage of the stents. Patient also, besides being a consistent-carbohydrate diet, is also on metformin to reduce insulin resistance as well as long-acting insulin 35 units at bedtime and insulin sliding scale before meals and at bedtime. 4. Chronic pain syndrome with cervical and lumbar radiculopathies and compressions. Patient is felt to be a candidate for possible neurosurgical intervention based on records accompanying him once he is rehabilitated from his cerebrovascular accident (CVA) and medically stable. For now, will try and avoid too much use of pain medications. I will order some hydromorphone 2 mg for breakthrough pain and use icing but try and get patient up and active. He may require a good stretching program along with icing to help with his pain management. He does have a history of difficulty with sleep, very consistent with myofascial pain syndrome, which I do feel is part of his overall condition, and he may be a candidate for treatment with a stage III and IV sleep facilitating medication, such as trazodone or a tricyclic antidepressant; however, considerations of his other medications and cardiopulmonary status will be reviewed at those times. POSTADMISSION PHYSICAL EVALUATION: Patient is more energetic, pleasant, and speech is clearer and very appropriate beyond what was anticipated, and his level of pain behavior is mild and seems to be reasonable at this time. He should be able to work through this to proceed with acute intensive rehabilitation of 3 hours of therapy per day. I do feel he has a good prognosis for transitioning to regaining more strength and mobility skills using his left lower extremity so he can return to home with his . I estimate his length of stay at approximately 10 to 14 days based on the current level of left lower extremity weakness. The patient will be reviewed in team rounds tomorrow to further advance care of planning. TIME SPENT ON CHART REVIEW, HISTORY AND PHYSICAL, AND DOCUMENTATION: Greater than 70 minutes. JENNIFER
--- NOTE | 2016-08-27 17:13 | CR ---
DATE OF CONSULTATION: 08/26/2016 Asked to consult by Dr. Wilson from physical medicine and rehabilitation (PMR) for followup on antibiotics on this patient with possible meningitis. The patient is a 56-year-old gentleman who was transferred from [facility] for rehabilitation after he had a subarachnoid hemorrhage. He came to [facility] on August 08, and he was transferred to [facility] for subarachnoid bleed. The patient has severe left upper and lower extremity weakness. He had a prepontine subarachnoid hemorrhage, but cerebral angiography did not show evidence of an aneurysm or arteriovenous (AV) malformation MRI of his cervical spine showed severe osteoarthritis, mostly at C5, C6, C7, and T1. The patient complained of severe neck stiffness. He was treated with Keppra for seizure prophylaxis. The patient on August 13 was being evaluated for rehabilitation, then developed nausea, vomiting, and abdominal pain from lack of bowel movement. He has an obstruction , which was treated with laxative. His white count continues to worsen, and therefore lumbar puncture was obtained and was consistent with possible partially-treated meningitis. He had a white cell count in the cerebrospinal fluid (CSF) of 253 white cells, 69% neutrophils. Red blood cell count was 426, glucose 106, and total protein was 106. CSF encephalitis/meningitis panel was negative. Blood cultures were negative. The patient had a peripherally inserted central catheter (PICC) placed, and that he was started on broad-spectrum antibiotic, including intravenous (IV) vancomycin, ampicillin, and ceftriaxone. This was the recommendation of infectious disease. The report was written by Dr. Jhonny Alonzo, who is infectious disease fellow. End of treatment was planned for September 04. PAST MEDICAL HISTORY: Significant for: 1. Cervical and lumbar radiculopathy with degenerative disc disease. 2. Carpal tunnel syndrome bilaterally. 3. Spinal stenosis. 4. Right ulnar neuropathy. 5. Dysthymia. 6. Persistent severe somatic complaints. 7. Subarachnoid hemorrhage. 8. Chronic obstructive pulmonary disease (COPD). 9. Type 2 diabetes. 10. Hyperlipidemia. 11. Essential hypertension. 12. Coronary artery disease. 13. Urinary retention. Has a Singh catheter since this bleed. 14. Chronic pain syndrome. ALLERGIES: ERYTHROMYCIN, bee venom, FENTANYL, and PREGABALIN. MEDICATIONS: - Protonix 40 mg by mouth daily - Lovenox 40 mg subcutaneous daily - vancomycin 1 gram IV every 12 hours - ceftriaxone 2 grams IV every 12 hours - ampicillin 2 grams IV every 4 hours - Coreg 12.5 mg by mouth twice a day - Flomax 0.4 mg by mouth at bedtime - Levemir 35 units subcutaneous at bedtime - insulin Lispro sliding scale - metformin 500 mg by mouth twice a day - Dilaudid as needed for headache - Fleet enema as needed for constipation - Tylenol as needed for fever LABORATORY DATA: Urinalysis had 3 white cells, 6 red cells. No CBC was done today. A head CT done on August 08 before his transfer showed acute subarachnoid hemorrhage surrounding the right lateral tanya and on and extending around the brain stem. PHYSICAL EXAMINATION: Healthy-looking gentleman, obese in no acute distress. Temperature is 98.9, pulse 80, respirations 18, blood pressure 157/91, oxygen saturation 97% on room air. HEART: Normal S1, S2 with no murmurs, rubs, or gallops. LUNGS: Clear. No wheezes, rales, or rhonchi. ABDOMEN: Obese, soft, nontender. EXTREMITIES: No clubbing, cyanosis, or edema. No calf tenderness. He has a Singh catheter in place. He has streak of stool on his thighs. NEUROLOGIC: Upper extremity strength is normal. Left lower extremity strength limited. Abduction of the thigh with significant weakness. IMPRESSION: This is a 56 gentleman who was admitted for rehabilitation after subarachnoid hemorrhage. He has persistent left lower extremity paresis. He received a lumbar puncture due to persistent leukocytosis and was diagnosed with partially-treated bacterial meningitis, even though cultures and polymerase chain reaction (PCR) were all negative. He was started on IV vancomycin, ampicillin, and Rocephin on August 22, and end of therapy would be September 04. I am not totally convinced that the patient had meningitis PLAN We will continue with the plan of treatment that was recommended by Jia , especially that he did not have antibiotic prior to the lumbar puncture, and his PCR tests were all negative. Will review the literature on cerebrospinal fluid (CSF) findings after subarachnoid hemorrhage. JENNIFER
[2016-08-27 21:00] VITALS: BP 153/74
[2016-08-27] MEDS ORDERED: traZODone 50 MG TAB PO PRN (21:00)
[2016-08-27] MEDS: TAMSULOSIN 0.4 MG CAP PO SCH (21:36)
[2016-08-27] MEDS: LEVEMIR (INSULIN DETEMIR) 1 UNITS/0.01ML SC SCH (21:37)
[2016-08-27] MEDS: traZODone 100 MG TAB PO SCH (22:27)
[2016-08-28] MEDS: AMPICILLIN SOD 2 GM in D5W MINI-BAG PLUS 100 ML IV SCH ×4 (00:12→12:46)
[2016-08-28] MEDS: SODIUM CHLORIDE 0.9% INJ 10 ML SYR IV SCH ×2 (05:34→17:35)
[2016-08-28] MEDS: cefTRIAXone SOD 2 GM in D5W MINI-BAG PLUS 50 ML IV SCH ×2 (05:34→17:35)
[2016-08-28 06:00] VITALS: BP 144/71
[2016-08-28 06:03] LABS: BASO % 0.5 % (0.0-1.0); EOS # 0.3 K/mm3 (0.0-0.50); LARGE UNSTAINED CELL # 0.2 K/mm3 (0.0-0.4); LARGE UNSTAINED CELL % 1.8 % (0.0-4.0); LYMPH # 1.8 K/mm3 (1.5-4.5); LYMPH % 18.3 % (24.0-44.0); MEAN CORPUSCULAR HEMOGLOBIN 29.8 pg (27.0-33.0); MEAN CORPUSCULAR VOLUME 90.4 fl (80.0-96.0); MONO # 0.7 K/mm3 (0.0-0.8); MONO % 7.6 % (0.0-5.0); NEUTROPHILS % 68.8 % (36.0-66.0); PLATELET COUNT, AUTOMATED 319 k/mm3 (150-450); RED CELL DISTRIBUTION WIDTH 13.6 % (11.5-14.5); WHITE BLOOD COUNT 8.8 K/mm3 (4.0-10.0)
[2016-08-28 06:22] LABS: ALBUMIN 2.8 GM/DL (3.2-5.2); ALBUMIN/GLOBULIN RATIO 0.78 (1.00-1.93); ALKALINE PHOSPHATASE 86 U/L (45-117); ALT/SGPT 31 U/L (12-78); ANION GAP 6 MEQ/L (8-16); AST/SGOT 13 U/L (15-37); BILIRUBIN,TOTAL 0.4 MG/DL (0.2-1.0); BLOOD UREA NITROGEN 7 MG/DL (7-18); CALCIUM LEVEL 8.5 MG/DL (8.5-10.1); CARBON DIOXIDE LEVEL 29 MEQ/L (21-32); CHLORIDE LEVEL 105 MEQ/L (98-107); CREATININE FOR GFR 0.63 MG/DL (0.70-1.30); GLOMERULAR FILTRATION RATE > 60.0 (>56); GLUCOSE, FASTING 149 MG/DL (70-105); POTASSIUM SERUM 3.5 MEQ/L (3.5-5.1); SODIUM LEVEL 140 MEQ/L (136-145); TOTAL PROTEIN 6.4 GM/DL (6.4-8.2)
[2016-08-28] MEDS: DOCUSATE SODIUM 100 MG CAP PO SCH ×2 (08:14→20:33)
[2016-08-28] MEDS: metFORMIN (GLUCOPHAGE) 500 MG TAB PO SCH ×2 (08:14→17:36)
[2016-08-28] MEDS: POTASSIUM CHLORIDE 10 MEQ SR TABLET PO SCH (08:14)
[2016-08-28] MEDS: ENOXAPARIN 40 MG/0.4 ML SYRINGE (J1650) SC SCH (08:14)
[2016-08-28] MEDS: HumaLOG INSULIN (NovoLOG) PER UNIT SC SCH ×4 (08:14→21:00)
[2016-08-28] MEDS: CARVedilol 12.5 MG TAB PO SCH ×2 (08:15→20:34)
[2016-08-28] MEDS: PANTOPRAZOLE 40MG TAB (PROTONIX) PO SCH (08:15)
[2016-08-28] MEDS: VANCOMYCIN HCL 1,000 MG, VIAL MATE ADAPTER 1 EACH in D5W 250 ML IV SCH ×4 (08:52→21:38)
[2016-08-28] MEDS: POLYVINYL ALCOHOL OPHTH SOLN 15 ML(LIQUITEARS) OU SCH ×4 (09:00→20:36)
[2016-08-28] MEDS: SODIUM CHLORIDE 0.9% INJ 10 ML SYR IV PRN ×4 (09:58→22:16)
--- NOTE | 2016-08-28 12:34 | IPNPDOC ---
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 Patient with some of his chronic pain but overall no complaints except for left eye aching and blurring with looking at near to intermediate distances as the day goes on. No troubles maintaining sleep last night. ALLERGIES: See Below MEDICATIONS: Reviewed, see below. OBJECTIVE: VITAL SIGNS: Please see below. PHYSICAL EXAMINATION: GENERAL: Somewhat overweight middle-age white male who is alert and oriented 4. Speech is clear coherent and appropriate with no dysarthria. Affect is pleasant and cooperative and fairly upbeat. Patient with mild weakness in the right upper and lower extremity and left upper extremity with [id number] weakness in the left lower extremity. PICC line intact in the left arm. HEENT: Very mild left facial droop. Patient is normocephalic/atraumatic. Extraocular ocular motions are intact with pupils equal round reactive to light and accommodation and pupils 3mm diameter. Patient of some blurring in the left eye looking at distance as he its tired. CARDIOVASCULAR: Regular rate and rhythm with normal S1-S2. 2 out 4 bilateral radial pulses. LUNGS: All franklin clear to auscultation without any wheezes, rales or rhonchi. ABDOMEN: Obese, benign with no palpable tenderness and normal bowel sounds are appreciated in all quadrants. NEUROLOGICAL: As noted above. SKIN: Grossly intact. LABORATORY DATA: Reviewed. Please see below. MICROBIOLOGY: Please see below. IMAGING: No new imaging here. DVT prophylaxis ordered?: Patient continues on Lovenox. Also using TOMMIE hose. ASSESSMENT AND PLAN: 1. Rehabilitation of bilateral subarachnoid and Right of dural hematoma/CVAs: Patient starting evaluation today which was reviewed in team rounds. Speech therapy reports patient cleared for dysphagia, dysarthria and cognitive. Patient engaging in therapies well and making some initial progress. 2. Hypokalemia: Patient has been started on some K-Tabs and follow his electrolytes as potassium was 3.5 today. Will need to follow. 3. Diabetes: Long-acting Levemir dosage to be reduced to 25 units. Medicine Manager Surgical will help adjust agents medications going forward. AM fasting blood sugar 149 today is good change from 62 yesterday. Will watch BS's through the day. 4. Bacterial meningitis: Patient seen by Dr. Novoa who feels the diagnosis of meningitis is questionable based on prior labs but notes that research supports patient not being contagious after 24 hours on antibiotics so infection precautions will be altered accordingly. 5. Urinary retention: I believe this is related to having bilateral cerebral damage combined with benign prostatic hypertrophy. I will try and have patient stood to avoid and if unable to void intermittent cath as post void residuals or R4 times a day caffeine or yielding volumes around 800 to a 1,000 cc's as patient is on lots of IV fluids as generating no push. If this is not improving consideration of a trial of Urecholine will be considered. TIME SPENT: Chart Review, examination and documentation require greater than 25 minutes. Allergies Coded Allergies: Bee Venom (Verified Allergy, Severe, ANAPHYLAXIS, 02/01/15) Erythromycin (Unverified Allergy, Mild, HIVES, 06/14/12) Fentanyl (Unverified Allergy, Mild, HIVES, 06/14/12) Pregabalin (Verified Allergy, Unknown, ITCHING, 02/01/15) Vital Signs Vital Signs Date Time Temp Pulse Resp B/P (MAP) Pulse Ox O2 Delivery O2 Flow Rate FiO2 08/28/16 08:15 70 144/71 08/28/16 06:00 98.6 18 96 Room Air Laboratory Data CBC/BMP Laboratory Tests 08/28/16 05:40 Red Blood Count 4.32, Mean Corpuscular Volume 90.4, Mean Corpuscular Hemoglobin 29.8, Mean Corpuscular Hemoglobin Concent 33.0, Red Cell Distribution Width 13.6 , Neutrophils (%) (Auto) 68.8 H, Lymphocytes (%) (Auto) 18.3 L, Monocytes (%) ( Auto) 7.6 H, Eosinophils (%) (Auto) 3.0, Basophils (%) (Auto) 0.5, Neutrophils # (Auto) 6.0, Lymphocytes # (Auto) 1.8, Monocytes # (Auto) 0.7, Eosinophils # ( Auto) 0.3, Basophils # (Auto) 0.0, Calcium Level 8.5, Aspartate Amino Transf ( AST/SGOT) 13 L, Alanine Aminotransferase (ALT/SGPT) 31, Alkaline Phosphatase 86 , Total Bilirubin 0.4, Total Protein 6.4, Albumin 2.8 L Labs 24H Laboratory Tests 2 08/27/16 17:07: Bedside Glucose (Misc Panel) 195H 08/27/16 20:24: Bedside Glucose (Misc Panel) 239H 08/28/16 05:40: White Blood Count 8.8, Red Blood Count 4.32, Hemoglobin 12.9L, Hematocrit 39.1L , Mean Corpuscular Volume 90.4, Mean Corpuscular Hemoglobin 29.8, Mean Corpuscular Hemoglobin Concent 33.0, Red Cell Distribution Width 13.6, Platelet Count 319, Neutrophils (%) (Auto) 68.8H, Lymphocytes (%) (Auto) 18.3L, Monocytes (%) (Auto) 7.6H, Eosinophils (%) (Auto) 3.0, Basophils (%) (Auto) 0.5 , Neutrophils # (Auto) 6.0, Lymphocytes # (Auto) 1.8, Monocytes # (Auto) 0.7, Eosinophils # (Auto) 0.3, Basophils # (Auto) 0.0, Large Unclassified Cells % 1.8 , Large Unclassified Cells # 0.2, Anion Gap 6L, Glomerular Filtration Rate > 60.0, Blood Urea Nitrogen 7, Creatinine 0.63L, Sodium Level 140, Potassium Level 3.5, Chloride Level 105, Carbon Dioxide Level 29, Calcium Level 8.5, Aspartate Amino Transf (AST/SGOT) 13L, Alanine Aminotransferase (ALT/SGPT) 31, Alkaline Phosphatase 86, Total Bilirubin 0.4, Total Protein 6.4, Albumin 2.8L, Albumin/Globulin Ratio 0.78L 08/28/16 11:16: Bedside Glucose (Misc Panel) 271H Current Medications Current Medications Current Medications Acetaminophen (Tylenol Tab) 325 mg Q6HP PRN PO MILD PAIN OR FEVER Last administered on 08/27/16t 05:51; Start 08/26/16 at 14:30; Stop 09/25/16 at 14:29 Al Hydrox/Mg Hydrox/Simethicone (Mylanta) 30 ml Q4HP PRN PO DYSPEPSIA; Start at 14:30; Stop 09/25/16 at 14:29 Ampicillin Sodium 2 gm/Dextrose 100 ml @ 200 mls/hr Q4H IV Last administered on 08/28/16 08:14; Start 08/26/16 at 16:00; Stop 09/04/16 at 15:59 Artificial Tears (Akwa Tears) 2 drop QID OU Last administered on 08/27/16 15: 57; Start 08/27/16 at 09:00; Stop 09/26/16 at 08:59 Carvedilol (COReg) 12.5 mg BID PO Last administered on 08/28/16 08:15; Start 08/26/16 at 21:00; Stop 09/25/16 at 20:59 Ceftriaxone Sodium 2 gm/ Dextrose 50 ml @ 100 mls/hr Q12H IV Last administered on 08/28/16 05:34; Start 08/26/16 at 18:00; Stop 09/04/16 at 17:59 Dextrose (Dextrose 50%) 25 ml ASDIRECTED PRN IV SEE LABEL COMMENTS; Start 08/26 at 15:00; Stop 09/25/16 at 14:59 Docusate Sodium (Colace) 100 mg BID PO Last administered on 08/28/16 08:14; Start 08/26/16 at 21:00; Stop 09/25/16 at 20:59 Enoxaparin Sodium (Lovenox) 40 mg DAILY SC Last administered on 08/28/16 08:14 ; Start 08/27/16 at 09:00; Stop 09/01/16 at 08:59 Glucagon (Glucagon) 1 mg ASDIRECTED PRN SC SEE LABEL COMMENTS; Start 08/26/16 at 15:00; Stop 09/25/16 at 14:59 Glucose (Glucose) 16 GM ASDIRECTED PRN PO SEE LABEL COMMENTS; Start 08/26/16 at 15:00; Stop 09/25/16 at 14:59 Heparin Sodium (Heparin (Flush)) 200 units ASDIRECTED PRN IV SEE LABEL COMMENTS Last administered on 08/28/16 09:58; Start 08/26/16 at 16:45; Stop at 16:44 Heparin Sodium (Heparin (Flush)) 200 units PICC IV Last administered on 05:34; Start 08/26/16 at 18:00; Stop 09/25/16 at 17:59 Home Med (Med Rec Complete!) ASDIRECTED XX ; Start 08/26/16 at 14:45; Stop at 14:45; Status DC Hydromorphone HCl (Dilaudid) 2 mg Q4HP PRN PO MODERATE/SEVERE PAIN (PS 5-10) Last administered on 08/27/16 22:27; Start 08/26/16 at 15:00; Stop 09/02/16 at 14:59 Insulin Detemir (Levemir Insulin) 25 units QHS SC Last administered on 21:37; Start 08/27/16 at 21:00; Stop 09/26/16 at 20:59 Insulin Detemir (Levemir Insulin) 35 units QHS SC Last administered on 21:35; Start 08/26/16 at 21:00; Stop 08/27/16 at 15:50; Status DC Insulin Human Lispro (HumaLOG INSULIN) See Protocol Table AC SC Last administered on 08/28/16 08:14; Start 08/26/16 at 17:30; Stop 09/25/16 at 17:29 Insulin Human Lispro (HumaLOG INSULIN) See Protocol Table QHS SC ; Start at 21:00; Stop 09/25/16 at 20:59 Magnesium Hydroxide (Milk Of Magnesia) 30 ml DAILYPRN PRN PO CONSTIPATION; Start 08/26/16 at 14:30; Stop 09/25/16 at 14:29 Menthol/Methyl Salicylate (Bengay Cream) APPLY QIDP PRN TOP Right leg & knee; Start 08/26/16 at 13:45; Stop 09/25/16 at 13:44; Status Cancel Metformin HCl (Glucophage) 500 mg BID@08,18 PO Last administered on 08/28/16 08:14; Start 08/26/16 at 18:00; Stop 09/25/16 at 17:59 Pantoprazole Sodium (Protonix) 40 mg DAILY PO Last administered on 08/28/16 08 :15; Start 08/27/16 at 09:00; Stop 09/26/16 at 08:59 Potassium Chloride (Micro-K Extencaps) 10 meq DAILY PO Last administered on 08:14; Start 08/28/16 at 09:00; Stop 08/31/16 at 08:59 Sodium Biphosphate/ Sodium Phosphate (Fleet Enema) 1 ea DAILYPRN PRN RI CONSTIPATION; Start 08/26/16 at 14:30; Stop 09/25/16 at 14:29 Sodium Chloride (Saline Lock Flush) 10 ml ASDIRECTED PRN IV SEE LABEL COMMENTS Last administered on 08/28/16 09:58; Start 08/26/16 at 16:45; Stop 09/25/16 at 16:44 Sodium Chloride (Saline Lock Flush) 10 ml PICC IV Last administered on 05:34; Start 08/26/16 at 18:00; Stop 09/25/16 at 17:59 Tamsulosin HCl (Flomax) 0.4 mg QHS PO Last administered on 08/27/16 21:36; Start 08/26/16 at 21:00; Stop 08/28/16 at 09:24; Status DC Tamsulosin HCl (Flomax) 0.8 mg QHS PO ; Start 08/28/16 at 21:00; Stop 09/27/16 at 20:59 Tramadol HCl (Ultram) 50 mg Q6HP PRN PO PAIN; Start 08/26/16 at 13:45; Stop at 13:44; Status Cancel Trazodone HCl (Desyrel) 50 mg QHS PRN PO NOT ASLEEP BY 2350; Start 08/27/16 at 21:00; Stop 09/26/16 at 20:59 Trazodone HCl (Desyrel) 100 mg QHS PO Last administered on 08/27/16 22:27; Start 08/27/16 at 21:00; Stop 09/26/16 at 20:59 Vancomycin HCl 1000 mg/IV Miscellaneous Supplies 1 each/ Dextrose 270 ml @ 540 mls/hr Q12H IV ; Start 08/26/16 at 14:30; Stop 08/26/16 at 16:59; Status DC Vancomycin HCl 1000 mg/IV Miscellaneous Supplies 1 each/ Dextrose 270 ml @ 540 mls/hr Q12H IV Last administered on 08/28/16 08:52; Start 08/26/16 at 21:00; Stop 09/04/16 at 20:59 Vancomycin HCl 1000 mg/IV Miscellaneous Supplies 1 each/ Dextrose 270 ml @ 540 mls/hr Q12H IV Last administered on 08/28/16t 09:58; Start 08/26/16 at 22:00; Stop 09/04/16 at 21:59 SARIKA TORRES MD Aug 28, 2016 12:34
[2016-08-28] MEDS: HYDROmorphone 2 MG TAB PO PRN ×2 (13:09→21:47)
[2016-08-28 14:00] VITALS: BP 127/60
--- NOTE | 2016-08-28 14:55 | IPNPDOC ---
Date Seen The patient was seen on 08/28/16. Progress Note HPI: 56year oldM with a past medical history significant for Subarachnoid hemorrhage who was transferred from [facility] to the care of EDMUND Chance . Pt presented to [facility] ED 08/08/16 and was found to have subarachnoid hemorrhage and was transferred to [facility] for further management. Pt with residual left hemiparesis, states he is gaining strength in his LUE, still with weakness of LLE. His hospitalization was complicated by DKA and LP 08/21 indicating bacterial meningitis. Pt treated with IV Vancomycin, Rocephin, ampicillin. Pt states he is doing well with therapy and offers no concerns at this time. Denies any fevers, chills, weakness, fatigue, Headache, Chest Pain, Shortness of breath, cough, palpitations, abdominal pain, N/V/D or changes in bowel or bladder habits. PMHx: Subarachnoid hemorrhage 08/08/16- [facility]. Non traumatic in setting of dual antiplatelet agents. Residual left hemiparesis. CT head rt frontal, occipital, temporal lobe SAH. CTA head so stenosis, dissection, AVM, aneurysm. CTA neck no stenosis, dissection. MRI Brain SAH cerebral convexity and prepontine region EEG no epileptiform activity. Bacterial meningitis LP 08/21/16 HTN CAD/S/P PCI BPH/urinary retention Insomnia IDDM H/O DKA. GERD Hiatal hernia Diabetic neuropathy Hypertension COPD History of pulmonary nodules LLL. Follows with pulmonary, Dr. Monroy. H/O Fatty liver Chronic pain/myofascial pain/OA chronic back pain Chronic neck pain/Cervical stenosis PSHX: Intrathecal pump Implant/removal elbow surgery, Rt ulnar neuropathy B/L CTR Cardiac stent PICC LUE ROS: As noted in HPI, otherwise 11pt ROS of systems reviewed and unremarkable. PE: GEN: 56yoM, appears stated age. Well-nourished, well developed. No acute distress. Alert and oriented x 3. Pleasant, interactive. HEENT: Normocephalic, atraumatic. Pupils are equal, round, and reactive to light. Extraocular movements are intact. No nystagmus appreciated. Sclera are nonicteric. Conjunctiva without injection. Nose midline. No facial asymmetry. Moist mucous membranes. Pharynx pink and moist. Neck supple, trachea midline. No lymphadenopathy or thyromegaly appreciated. CHEST: Regular rate and rhythm, +S1, +S2 LUNGS: Clear to auscultation bilaterally. No wheezes, rales, or rhonchi. Breathing appears symmetric and easy. Patient is speaking in full sentences. No accessory muscle use. ABD: Round, soft, non-tender, non-distended. +Bowel sounds throughout. No rebound or guarding. No costovertebral angle tenderness. EXT: Pulses 2+ bilaterally dorsalis pedis and radial. No lower extremity edema appreciated. SKIN: [place], dry, warm. Capillary refill <2sec. rash noted across anterior chest. NEURO: Alert and oriented x 3. Cranial nerves III-XII are intact. Left sided weakness, LE>UE. A&P: 56year oldM with a past medical history significant for Subarachnoid hemorrhage who was transferred from [facility] to the care of Dr Wilson, ARU 08/26/16. 1. Patient is admitted to ARU under the care of Dr. Wilson. Subarachnoid hemorrhage PT/OT/speech therapy as per ARU DVT prophylaxis as per ARU Pain control as per ARU Bowel care as per ARU 2. bacterial meningitis. ID/Dr Novoa consulted. Pt continues with IV Vanco/ Rocephin/Ampicillin. Plan is to continue antibiotic regimen until 09/04/16. PICC in place. 3. BPH/urinary retention. Singh catheter removed. Flomax. 4. IDDM. Metformin 500mg BID, Levemir 35 u HS, SSI. CC diet. Pt was noted with low BS (62). Levemir reduced to 25 units. monitor BS. FBS 149 this AM. 5. GERD/hiatal hernia. Protonix. 6. Insomnia. Trazodone. 7. Hypertension. Coreg 12.5 mg BID. 8. Chronic back pain/chronic pain. Consider pain management if needed. 9. Hypokalemia. Supplement x 1 ordered. Mag level WNL. K WNL. VS, I&O, 24H, Fishbone Vital Signs/I&O Vital Signs Date Time Temp Pulse Resp B/P (MAP) Pulse Ox O2 Delivery O2 Flow Rate FiO2 08/28/16 13:39 20 08/28/16 08:15 70 144/71 08/28/16 06:00 98.6 96 Room Air I&O- Last 24 Hours up to 6 AM 08/28/16 06:00 Intake Total 2290 ml Output Total 3550 ml Balance -1260 ml Laboratory Data 24H LABS Laboratory Tests 2 08/27/16 17:07: Bedside Glucose (Misc Panel) 195H 08/27/16 20:24: Bedside Glucose (Misc Panel) 239H 08/28/16 05:40: White Blood Count 8.8, Red Blood Count 4.32, Hemoglobin 12.9L, Hematocrit 39.1L , Mean Corpuscular Volume 90.4, Mean Corpuscular Hemoglobin 29.8, Mean Corpuscular Hemoglobin Concent 33.0, Red Cell Distribution Width 13.6, Platelet Count 319, Neutrophils (%) (Auto) 68.8H, Lymphocytes (%) (Auto) 18.3L, Monocytes (%) (Auto) 7.6H, Eosinophils (%) (Auto) 3.0, Basophils (%) (Auto) 0.5 , Neutrophils # (Auto) 6.0, Lymphocytes # (Auto) 1.8, Monocytes # (Auto) 0.7, Eosinophils # (Auto) 0.3, Basophils # (Auto) 0.0, Large Unclassified Cells % 1.8 , Large Unclassified Cells # 0.2, Anion Gap 6L, Glomerular Filtration Rate > 60.0, Blood Urea Nitrogen 7, Creatinine 0.63L, Sodium Level 140, Potassium Level 3.5, Chloride Level 105, Carbon Dioxide Level 29, Calcium Level 8.5, Aspartate Amino Transf (AST/SGOT) 13L, Alanine Aminotransferase (ALT/SGPT) 31, Alkaline Phosphatase 86, Total Bilirubin 0.4, Total Protein 6.4, Albumin 2.8L, C -Reactive Protein, Quantitative 0.71H, Albumin/Globulin Ratio 0.78L 08/28/16 11:16: Bedside Glucose (Misc Panel) 271H CBC/BMP Laboratory Tests 08/28/16 05:40 Red Blood Count 4.32, Mean Corpuscular Volume 90.4, Mean Corpuscular Hemoglobin 29.8, Mean Corpuscular Hemoglobin Concent 33.0, Red Cell Distribution Width 13.6 , Neutrophils (%) (Auto) 68.8 H, Lymphocytes (%) (Auto) 18.3 L, Monocytes (%) ( Auto) 7.6 H, Eosinophils (%) (Auto) 3.0, Basophils (%) (Auto) 0.5, Neutrophils # (Auto) 6.0, Lymphocytes # (Auto) 1.8, Monocytes # (Auto) 0.7, Eosinophils # ( Auto) 0.3, Basophils # (Auto) 0.0, Calcium Level 8.5, Aspartate Amino Transf ( AST/SGOT) 13 L, Alanine Aminotransferase (ALT/SGPT) 31, Alkaline Phosphatase 86 , Total Bilirubin 0.4, Total Protein 6.4, Albumin 2.8 L [place] Aug 28, 2016 14:55
[2016-08-28 20:00] VITALS: BP 145/63
[2016-08-28] MEDS: TAMSULOSIN 0.4 MG CAP PO SCH (20:33)
[2016-08-28] MEDS: LEVEMIR (INSULIN DETEMIR) 1 UNITS/0.01ML SC SCH (20:35)
[2016-08-28] MEDS: traZODone 100 MG TAB PO SCH (21:47)
--- NOTE | 2016-08-28 22:12 | IPN ---
DATE: 08/28/2016 SUBJECTIVE: Jian is doing well. He has had some problems with urinary retention and mild headaches, but otherwise no confusion. No neck stiffness. No nausea, vomiting or diarrhea. No abdominal pain. He has been afebrile for the past 48 hours. LABORATORY DATA: White count is 8.8, hemoglobin 12.9, hematocrit 39.1, platelets 319, 68% neutrophils, 18% lymphocytes, 7% monocytes. Sodium 140, potassium 3.5, chloride 105, bicarb 29, BUN 7, creatinine 0.63, glucose 149, calcium 8.5, AST 13, ALT 31, total protein 6.4, albumin 2.8. 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 He had been in [place], drove back, and when he got out from the car, he fell to his knees. He had no fever prior. He has no history of alcoholism. IMPRESSION: 1. Abnormal cerebrospinal fluid (CSF) being treated for partially treated meningitis by [facility] even though cultures have been negative by polymerase chain reaction (PCR). They had him on ampicillin, vancomycin and ceftriaxone. My suspicion is this is not meningitis, and definitely not Listeria as the patient does not have a history of alcoholism or is not immunocompromised. 2. Subarachnoid hemorrhage, doing better with left lower extremity weakness. 3. Urinary retention. The patient had symptoms of benign prostatic hypertrophy (BPH), significant with frequency. Every hour he had to stop to urinate and nocturia about three times at night. The patient is currently being treated with Flomax. PLAN: Discontinue intravenous (IV) ampicillin. Continue vancomycin and ceftriaxone. End of treatment would be September 04 per [facility] consultation.
[2016-08-29] MEDS: cefTRIAXone SOD 2 GM in D5W MINI-BAG PLUS 50 ML IV SCH ×2 (05:44→17:10)
[2016-08-29 06:00] VITALS: BP 134/64
[2016-08-29] MEDS: SODIUM CHLORIDE 0.9% INJ 10 ML SYR IV SCH ×2 (06:21→17:11)
[2016-08-29 06:59] LABS: ALBUMIN 2.9 GM/DL (3.2-5.2); ALBUMIN/GLOBULIN RATIO 0.85 (1.00-1.93); ALKALINE PHOSPHATASE 91 U/L (45-117); ALT/SGPT 28 U/L (12-78); ANION GAP 6 MEQ/L (8-16); AST/SGOT 11 U/L (15-37); BILIRUBIN,TOTAL 0.3 MG/DL (0.2-1.0); BLOOD UREA NITROGEN 11 MG/DL (7-18); CALCIUM LEVEL 8.4 MG/DL (8.5-10.1); CARBON DIOXIDE LEVEL 29 MEQ/L (21-32); CHLORIDE LEVEL 103 MEQ/L (98-107); CREATININE FOR GFR 0.64 MG/DL (0.70-1.30); GLOMERULAR FILTRATION RATE > 60.0 (>56); GLUCOSE, FASTING 197 MG/DL (70-105); POTASSIUM SERUM 3.6 MEQ/L (3.5-5.1); SODIUM LEVEL 138 MEQ/L (136-145); TOTAL PROTEIN 6.3 GM/DL (6.4-8.2)
[2016-08-29 07:43] LABS: MEAN CORPUSCULAR HEMOGLOBIN 29.9 pg (27.0-33.0); MEAN CORPUSCULAR HGB CONC 33.1 g/dl (32.0-36.5); MEAN CORPUSCULAR VOLUME 90.4 fl (80.0-96.0); PLATELET COUNT, AUTOMATED 301 k/mm3 (150-450); RED CELL DISTRIBUTION WIDTH 13.6 % (11.5-14.5)
[2016-08-29] MEDS: metFORMIN (GLUCOPHAGE) 500 MG TAB PO SCH ×2 (08:30→17:10)
[2016-08-29] MEDS: PANTOPRAZOLE 40MG TAB (PROTONIX) PO SCH (08:30)
[2016-08-29] MEDS: DOCUSATE SODIUM 100 MG CAP PO SCH ×2 (08:30→20:21)
[2016-08-29] MEDS: POTASSIUM CHLORIDE 10 MEQ SR TABLET PO SCH (08:30)
[2016-08-29] MEDS: POLYVINYL ALCOHOL OPHTH SOLN 15 ML(LIQUITEARS) OU SCH ×4 (08:31→22:50)
[2016-08-29] MEDS: HYDROmorphone 2 MG TAB PO PRN ×2 (08:31→20:22)
[2016-08-29] MEDS: CARVedilol 12.5 MG TAB PO SCH ×2 (08:32→20:22)
[2016-08-29] MEDS: HumaLOG INSULIN (NovoLOG) PER UNIT SC SCH ×4 (08:32→21:00)
[2016-08-29] MEDS: VANCOMYCIN HCL 1,000 MG, VIAL MATE ADAPTER 1 EACH in D5W 250 ML IV SCH ×4 (08:32→21:51)
[2016-08-29] MEDS: ENOXAPARIN 40 MG/0.4 ML SYRINGE (J1650) SC SCH (08:33)
[2016-08-29 09:33] LABS: EOSINOPHILS 1 % (0-5)
[2016-08-29 09:34] LABS: ANISOCYTOSIS 1+
[2016-08-29] MEDS: SODIUM CHLORIDE 0.9% INJ 10 ML SYR IV PRN ×2 (11:00→22:50)
[2016-08-29 15:38] VITALS: BP 162/89
[2016-08-29 16:30] VITALS: BP 146/71
[2016-08-29 20:00] VITALS: BP 132/62
[2016-08-29] MEDS: TAMSULOSIN 0.4 MG CAP PO SCH (20:21)
[2016-08-29] MEDS: LEVEMIR (INSULIN DETEMIR) 1 UNITS/0.01ML SC SCH (20:23)
[2016-08-29] MEDS: traZODone 100 MG TAB PO SCH (23:14)
[2016-08-30] MEDS: cefTRIAXone SOD 2 GM in D5W MINI-BAG PLUS 50 ML IV SCH ×2 (05:28→17:29)
[2016-08-30] MEDS: SODIUM CHLORIDE 0.9% INJ 10 ML SYR IV SCH ×2 (05:29→17:28)
[2016-08-30 05:35] LABS: BASO % 0.6 % (0.0-1.0); EOS # 0.2 K/mm3 (0.0-0.50); EOS % 2.9 % (0.0-3.0); LARGE UNSTAINED CELL # 0.2 K/mm3 (0.0-0.4); LARGE UNSTAINED CELL % 3.2 % (0.0-4.0); LYMPH # 1.9 K/mm3 (1.5-4.5); LYMPH % 25.6 % (24.0-44.0); MEAN CORPUSCULAR HEMOGLOBIN 29.8 pg (27.0-33.0); MEAN CORPUSCULAR HGB CONC 32.1 g/dl (32.0-36.5); MEAN CORPUSCULAR VOLUME 92.8 fl (80.0-96.0); MONO # 0.6 K/mm3 (0.0-0.8); MONO % 8.1 % (0.0-5.0); NEUTROPHILS # 4.4 K/mm3 (1.8-7.7); NEUTROPHILS % 59.6 % (36.0-66.0); PLATELET COUNT, AUTOMATED 279 k/mm3 (150-450); RED CELL DISTRIBUTION WIDTH 13.4 % (11.5-14.5); WHITE BLOOD COUNT 7.3 K/mm3 (4.0-10.0)
[2016-08-30 05:40] LABS: ALBUMIN 2.9 GM/DL (3.2-5.2); ALBUMIN/GLOBULIN RATIO 0.94 (1.00-1.93); ALKALINE PHOSPHATASE 79 U/L (45-117); ALT/SGPT 31 U/L (12-78); ANION GAP 5 MEQ/L (8-16); AST/SGOT 8 U/L (15-37); BILIRUBIN,TOTAL 0.4 MG/DL (0.2-1.0); BLOOD UREA NITROGEN 9 MG/DL (7-18); CALCIUM LEVEL 8.8 MG/DL (8.5-10.1); CARBON DIOXIDE LEVEL 30 MEQ/L (21-32); CHLORIDE LEVEL 106 MEQ/L (98-107); CREATININE FOR GFR 0.62 MG/DL (0.70-1.30); GLOMERULAR FILTRATION RATE > 60.0 (>56); GLUCOSE, FASTING 184 MG/DL (70-105); POTASSIUM SERUM 3.7 MEQ/L (3.5-5.1); SODIUM LEVEL 141 MEQ/L (136-145)
[2016-08-30 06:00] VITALS: BP 142/85
[2016-08-30] MEDS: metFORMIN (GLUCOPHAGE) 500 MG TAB PO SCH ×2 (07:43→17:15)
[2016-08-30] MEDS: HumaLOG INSULIN (NovoLOG) PER UNIT SC SCH ×4 (07:44→20:48)
[2016-08-30] MEDS: DOCUSATE SODIUM 100 MG CAP PO SCH ×2 (10:04→21:00)
[2016-08-30] MEDS: HYDROmorphone 2 MG TAB PO PRN ×2 (10:04→21:33)
[2016-08-30] MEDS: POTASSIUM CHLORIDE 10 MEQ SR TABLET PO SCH (10:05)
[2016-08-30] MEDS: PANTOPRAZOLE 40MG TAB (PROTONIX) PO SCH (10:05)
[2016-08-30] MEDS: ENOXAPARIN 40 MG/0.4 ML SYRINGE (J1650) SC SCH (10:07)
[2016-08-30] MEDS: VANCOMYCIN HCL 1,000 MG, VIAL MATE ADAPTER 1 EACH in D5W 250 ML IV SCH ×4 (10:07→22:29)
[2016-08-30] MEDS: POLYVINYL ALCOHOL OPHTH SOLN 15 ML(LIQUITEARS) OU SCH ×4 (10:08→21:02)
[2016-08-30] MEDS: CARVedilol 12.5 MG TAB PO SCH ×2 (10:11→20:58)
[2016-08-30] MEDS: SODIUM CHLORIDE 0.9% INJ 10 ML SYR IV PRN ×2 (12:37→22:29)
[2016-08-30 14:00] VITALS: BP 125/92
[2016-08-30 20:00] VITALS: BP 132/63
[2016-08-30] MEDS: TAMSULOSIN 0.4 MG CAP PO SCH (20:58)
[2016-08-30] MEDS: traZODone 100 MG TAB PO SCH (20:58)
[2016-08-30] MEDS: LEVEMIR (INSULIN DETEMIR) 1 UNITS/0.01ML SC SCH (20:59)
[2016-08-31 06:00] VITALS: BP 151/90
[2016-08-31] MEDS: cefTRIAXone SOD 2 GM in D5W MINI-BAG PLUS 50 ML IV SCH ×2 (06:00→18:03)
[2016-08-31] MEDS: SODIUM CHLORIDE 0.9% INJ 10 ML SYR IV SCH ×2 (06:01→18:03)
[2016-08-31 06:25] LABS: BASO # 0.1 K/mm3 (0.0-0.2); BASO % 0.9 % (0.0-1.0); EOS # 0.2 K/mm3 (0.0-0.50); EOS % 2.1 % (0.0-3.0); LARGE UNSTAINED CELL # 0.2 K/mm3 (0.0-0.4); LARGE UNSTAINED CELL % 2.4 % (0.0-4.0); LYMPH # 1.5 K/mm3 (1.5-4.5); LYMPH % 19.3 % (24.0-44.0); MEAN CORPUSCULAR HEMOGLOBIN 30.2 pg (27.0-33.0); MEAN CORPUSCULAR VOLUME 91.6 fl (80.0-96.0); MONO # 0.6 K/mm3 (0.0-0.8); MONO % 8.3 % (0.0-5.0); NEUTROPHILS # 4.8 K/mm3 (1.8-7.7); NEUTROPHILS % 67.1 % (36.0-66.0); PLATELET COUNT, AUTOMATED 272 k/mm3 (150-450); RED CELL DISTRIBUTION WIDTH 13.7 % (11.5-14.5); WHITE BLOOD COUNT 7.2 K/mm3 (4.0-10.0)
[2016-08-31 06:49] LABS: ALBUMIN 3.1 GM/DL (3.2-5.2); ALBUMIN/GLOBULIN RATIO 0.84 (1.00-1.93); ALKALINE PHOSPHATASE 86 U/L (45-117); ALT/SGPT 29 U/L (12-78); ANION GAP 6 MEQ/L (8-16); AST/SGOT 11 U/L (15-37); BILIRUBIN,TOTAL 0.4 MG/DL (0.2-1.0); BLOOD UREA NITROGEN 10 MG/DL (7-18); CARBON DIOXIDE LEVEL 28 MEQ/L (21-32); CHLORIDE LEVEL 103 MEQ/L (98-107); CREATININE FOR GFR 0.65 MG/DL (0.70-1.30); GLOMERULAR FILTRATION RATE > 60.0 (>56); GLUCOSE, FASTING 229 MG/DL (70-105); POTASSIUM SERUM 3.7 MEQ/L (3.5-5.1); SODIUM LEVEL 137 MEQ/L (136-145); TOTAL PROTEIN 6.8 GM/DL (6.4-8.2)
[2016-08-31] MEDS: HumaLOG INSULIN (NovoLOG) PER UNIT SC SCH ×4 (07:48→21:20)
[2016-08-31] MEDS: metFORMIN (GLUCOPHAGE) 500 MG TAB PO SCH ×2 (07:48→18:03)
[2016-08-31] MEDS: HYDROmorphone 2 MG TAB PO PRN ×2 (07:48→22:17)
--- NOTE | 2016-08-31 09:11 | IPNPDOC ---
Date Seen The patient was seen on 08/31/16. Progress Note HPI: 56year oldM with a past medical history significant for Subarachnoid hemorrhage who was transferred from [facility] to the care of EDMUND Chance . Pt presented to [facility] ED 08/08/16 and was found to have subarachnoid hemorrhage and was transferred to [facility] for further management. Pt with residual left hemiparesis, Pt is gaining strength in his LUE, still with weakness of LLE. His hospitalization was complicated by DKA and LP 08/21 indicating bacterial meningitis. Pt treated with IV Vancomycin, Rocephin, ampicillin. Pt states he is doing well with therapy and offers no concerns at this time. Denies any fevers, chills, weakness, fatigue, Headache, Chest Pain, Shortness of breath, cough, palpitations, abdominal pain, N/V/D or changes in bowel or bladder habits. PMHx: Subarachnoid hemorrhage 08/08/16- [facility]. Non traumatic in setting of dual antiplatelet agents. Residual left hemiparesis. CT head rt frontal, occipital, temporal lobe SAH. CTA head so stenosis, dissection, AVM, aneurysm. CTA neck no stenosis, dissection. MRI Brain SAH cerebral convexity and prepontine region EEG no epileptiform activity. Bacterial meningitis LP 08/21/16 HTN CAD/S/P PCI BPH/urinary retention Insomnia IDDM H/O DKA. GERD Hiatal hernia Diabetic neuropathy Hypertension COPD History of pulmonary nodules LLL. Follows with pulmonary, Dr. Monroy. H/O Fatty liver Chronic pain/myofascial pain/OA chronic back pain Chronic neck pain/Cervical stenosis PSHX: Intrathecal pump Implant/removal elbow surgery, Rt ulnar neuropathy B/L CTR Cardiac stent PICC LUE ROS: As noted in HPI, otherwise 11pt ROS of systems reviewed and unremarkable. PE: GEN: 56yoM, appears stated age. Well-nourished, well developed. No acute distress. Alert and oriented x 3. Pleasant, interactive. HEENT: Normocephalic, atraumatic. Sclera are nonicteric. Conjunctiva without injection. Nose midline. No facial asymmetry. Moist mucous membranes. Neck supple, trachea midline. No lymphadenopathy or thyromegaly appreciated. CHEST: Regular rate and rhythm, +S1, +S2 LUNGS: Clear to auscultation bilaterally. No wheezes, rales, or rhonchi. Breathing appears symmetric and easy. Patient is speaking in full sentences. No accessory muscle use. ABD: Round, soft, non-tender, non-distended. +Bowel sounds throughout. No rebound or guarding. No costovertebral angle tenderness. EXT: No lower extremity edema appreciated. SKIN: [place], dry, warm. NEURO: Alert and oriented x 3. Cranial nerves III-XII are intact. Left sided weakness, LE>UE. Item Value Date Time Sodium Level 137 MEQ/L 08/31/16 05 Potassium Level 3.7 MEQ/L 08/31/16 05 Chloride Level 103 MEQ/L 08/31/16 05 Carbon Dioxide Level 28 MEQ/L 08/31/16 05 Anion Gap 6 MEQ/L L 08/31/16 05 Blood Urea Nitrogen 10 MG/DL 08/31/16 05 Creatinine 0.65 MG/DL L 08/31/16557 Glomerular Filtration Rate > 60.0 08/31/16557 Fasting Glucose 229 MG/DL H 08/31/16 05 Aspartate Amino Transf (AST/SGOT) 11 U/L L 08/31/16 05 Alanine Aminotransferase (ALT/SGPT) 29 U/L 08/31/16 05 White Blood Count 7.2 K/mm3 08/31/16557 Red Blood Count 4.39 M/mm3 08/31/16 05 Hemoglobin 13.3 g/dl L 08/31/16 05 Hematocrit 40.2 % L 08/31/16 05 Mean Corpuscular Volume 91.6 fl 08/31/16557 Mean Corpuscular Hemoglobin 30.2 pg 08/31/16557 Mean Corpuscular Hemoglobin Concent 33.0 g/dl 08/31/16557 Red Cell Distribution Width 13.7 % 08/31/16 05 Platelet Count 272 k/mm3 08/31/16 05 A&P: 56year oldM with a past medical history significant for Subarachnoid hemorrhage who was transferred from [facility] to the care of Dr Wilson, MELVINU 08/26/16. 1. Patient is admitted to ARU under the care of Dr. Wilson. Subarachnoid hemorrhage PT/OT/speech therapy as per ARU DVT prophylaxis as per ARU Pain control as per ARU Bowel care as per ARU 2. bacterial meningitis. ID/Dr Novoa consulted. Appreciate assistance. Ampicillin discontinued as per ID. Pt continues with IV Vanco/Rocephin. Vanco dosing as per Clinical Pharm. Plan is to continue antibiotic regimen until . PICC in place. 3. BPH/urinary retention. Flomax. 4. IDDM. Metformin 500mg BID, Levemir 35 u HS, SSI. CC diet. Pt was noted with low BS (62). Levemir reduced to 25 units. monitor BS. FBS 207 this AM. 5. GERD/hiatal hernia. Protonix. 6. Insomnia. Trazodone. 7. Hypertension. Coreg 12.5 mg BID. 8. Chronic back pain/chronic pain. Consider pain management if needed. 9. Hypokalemia. Supplement x 1. Mag level WNL. K WNL. VS, I&O, 24H, Fishbone Vital Signs/I&O Vital Signs Date Time Temp Pulse Resp B/P (MAP) Pulse Ox O2 Delivery O2 Flow Rate FiO2 08/31/16 07:48 18 08/31/16 06:00 99.5 82 151/90 (110) 97 Room Air I&O- Last 24 Hours up to 6 AM 08/31/16 06:00 Intake Total 1340 ml Output Total 7100 ml Balance -5760 ml Laboratory Data 24H LABS Laboratory Tests 2 08/30/16 11:41: Bedside Glucose (Misc Panel) 216H 08/30/16 17:04: Bedside Glucose (Misc Panel) 235H 08/30/16 20:42: Bedside Glucose (Misc Panel) 232H 08/31/16 05:58: White Blood Count 7.2, Red Blood Count 4.39, Hemoglobin 13.3L, Hematocrit 40.2L , Mean Corpuscular Volume 91.6, Mean Corpuscular Hemoglobin 30.2, Mean Corpuscular Hemoglobin Concent 33.0, Red Cell Distribution Width 13.7, Platelet Count 272, Neutrophils (%) (Auto) 67.1H, Lymphocytes (%) (Auto) 19.3L, Monocytes (%) (Auto) 8.3H, Eosinophils (%) (Auto) 2.1, Basophils (%) (Auto) 0.9 , Neutrophils # (Auto) 4.8, Lymphocytes # (Auto) 1.5, Monocytes # (Auto) 0.6, Eosinophils # (Auto) 0.2, Basophils # (Auto) 0.1, Large Unclassified Cells % 2.4 , Large Unclassified Cells # 0.2, Anion Gap 6L, Glomerular Filtration Rate > 60.0, Blood Urea Nitrogen 10, Creatinine 0.65L, Sodium Level 137, Potassium Level 3.7, Chloride Level 103, Carbon Dioxide Level 28, Calcium Level 9.0, Aspartate Amino Transf (AST/SGOT) 11L, Alanine Aminotransferase (ALT/SGPT) 29, Alkaline Phosphatase 86, Total Bilirubin 0.4, Total Protein 6.8, Albumin 3.1L, Albumin/Globulin Ratio 0.84L 08/31/16 06:00: Bedside Glucose (Misc Panel) 207H CBC/BMP Laboratory Tests 08/31/16 05:58 Red Blood Count 4.39, Mean Corpuscular Volume 91.6, Mean Corpuscular Hemoglobin 30.2, Mean Corpuscular Hemoglobin Concent 33.0, Red Cell Distribution Width 13.7 , Neutrophils (%) (Auto) 67.1 H, Lymphocytes (%) (Auto) 19.3 L, Monocytes (%) ( Auto) 8.3 H, Eosinophils (%) (Auto) 2.1, Basophils (%) (Auto) 0.9, Neutrophils # (Auto) 4.8, Lymphocytes # (Auto) 1.5, Monocytes # (Auto) 0.6, Eosinophils # ( Auto) 0.2, Basophils # (Auto) 0.1, Calcium Level 9.0, Aspartate Amino Transf ( AST/SGOT) 11 L, Alanine Aminotransferase (ALT/SGPT) 29, Alkaline Phosphatase 86 , Total Bilirubin 0.4, Total Protein 6.8, Albumin 3.1 L [place] Aug 31, 2016 09:11
[2016-08-31] MEDS: DOCUSATE SODIUM 100 MG CAP PO SCH ×2 (09:33→21:00)
[2016-08-31] MEDS: CARVedilol 12.5 MG TAB PO SCH ×2 (09:33→21:20)
[2016-08-31] MEDS: VANCOMYCIN HCL 1,000 MG, VIAL MATE ADAPTER 1 EACH in D5W 250 ML IV SCH ×4 (09:34→22:16)
[2016-08-31] MEDS: PANTOPRAZOLE 40MG TAB (PROTONIX) PO SCH (09:34)
[2016-08-31] MEDS: ENOXAPARIN 40 MG/0.4 ML SYRINGE (J1650) SC SCH (09:34)
[2016-08-31] MEDS: POLYVINYL ALCOHOL OPHTH SOLN 15 ML(LIQUITEARS) OU SCH ×4 (09:35→21:21)
[2016-08-31] MEDS: METAMUCIL (PSYLLIUM) PACKET PO SCH (09:48)
--- NOTE | 2016-08-31 10:11 | IPNPDOC ---
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 Patient with some of his chronic pain but overall no complaints except for left eye aching and blurring with looking at near to intermediate distances as the day goes on. No troubles maintaining sleep last night. Some spontaneous urinary voids when having BM's. Frequent BM's yesterday becoming loose. ALLERGIES: See Below MEDICATIONS: Reviewed, see below. OBJECTIVE: VITAL SIGNS: Please see below. PHYSICAL EXAMINATION: GENERAL: Somewhat overweight middle-age white male who is alert and oriented 4. Speech is clear coherent and appropriate with no dysarthria. Affect is pleasant and cooperative and fairly upbeat. Patient with mild weakness in the right upper and lower extremity and left upper extremity with [id number] weakness in the left lower extremity. PICC line intact in the left arm. HEENT: Very mild left facial droop. Patient is normocephalic/atraumatic. Extraocular ocular motions are intact with pupils equal round reactive to light and accommodation and pupils 4mm diameter. CARDIOVASCULAR: Regular rate and rhythm with normal S1-S2. 2 out 4 bilateral radial pulses. LUNGS: All franklin clear to auscultation without any wheezes, rales or rhonchi. ABDOMEN: Obese, benign with no palpable tenderness and normal to mild increase in frequency of bowel sounds are appreciated in all quadrants. NEUROLOGICAL: As noted above. SKIN: Grossly intact. LABORATORY DATA: Reviewed. Please see below. MICROBIOLOGY: Please see below. IMAGING: No new imaging here. DVT prophylaxis ordered?: Patient continues on Lovenox. Also using TOMMIE hose. ASSESSMENT AND PLAN: 1. Rehabilitation of bilateral subarachnoid and Right of dural hematoma/CVAs: Team Rounds Today reports patient is participating well in PT/OT and making progress on pace to reach D/C to home with homecare goals on 09/08/18. His main limiter is the coordination of the right quadraceps and we will proceed with the Functional Electrical Stimulation as it is enhancing the patient's activation of this muscle. He will likely need (Tub Bench, Commode, W/C Ramp, W/ C, and Straight Cath. Kits) for discharge. 2. Hypokalemia: Patient has been started on some K-Tabs and follow his electrolytes as potassium was 3.7 today. Will need to follow with stopping of daily 10 MEq of KCl. 3. Diabetes: Long-acting Levemir dosage was reduced to 25 units. No low Blood Sugars since, but a number of readings in the 200's. 4. Bacterial meningitis: Patient seen by Dr. Novoa who feels the diagnosis of meningitis is questionable based on prior labs but notes that research supports patient not being contagious after 24 hours on antibiotics so infection precautions will be altered accordingly. 5. Urinary retention: I believe this is related to having bilateral cerebral damage combined with benign prostatic hypertrophy. I will try and have patient stood to avoid and if unable to void intermittent cath as post void residuals or 4 times a day urinary catheterizing. As patient nearly having diarrhea urecholine is likely to worsen this at present. I will try some increase fiber for the bowel and continue with standing to void and IC. TIME SPENT: Chart Review, examination and documentation require greater than 35 minutes. Allergies Coded Allergies: Bee Venom (Verified Allergy, Severe, ANAPHYLAXIS, 02/01/15) Erythromycin (Unverified Allergy, Mild, HIVES, 06/14/12) Fentanyl (Unverified Allergy, Mild, HIVES, 06/14/12) Pregabalin (Verified Allergy, Unknown, ITCHING, 02/01/15) Vital Signs Vital Signs Date Time Temp Pulse Resp B/P (MAP) Pulse Ox O2 Delivery O2 Flow Rate FiO2 08/31/16 09:33 82 151/90 08/31/16 08:20 18 08/31/16 06:00 99.5 97 Room Air Laboratory Data CBC/BMP Laboratory Tests 08/31/16 05:58 Red Blood Count 4.39, Mean Corpuscular Volume 91.6, Mean Corpuscular Hemoglobin 30.2, Mean Corpuscular Hemoglobin Concent 33.0, Red Cell Distribution Width 13.7 , Neutrophils (%) (Auto) 67.1 H, Lymphocytes (%) (Auto) 19.3 L, Monocytes (%) ( Auto) 8.3 H, Eosinophils (%) (Auto) 2.1, Basophils (%) (Auto) 0.9, Neutrophils # (Auto) 4.8, Lymphocytes # (Auto) 1.5, Monocytes # (Auto) 0.6, Eosinophils # ( Auto) 0.2, Basophils # (Auto) 0.1, Calcium Level 9.0, Aspartate Amino Transf ( AST/SGOT) 11 L, Alanine Aminotransferase (ALT/SGPT) 29, Alkaline Phosphatase 86 , Total Bilirubin 0.4, Total Protein 6.8, Albumin 3.1 L Labs 24H Laboratory Tests 2 08/30/16 11:41: Bedside Glucose (Misc Panel) 216H 08/30/16 17:04: Bedside Glucose (Misc Panel) 235H 08/30/16 20:42: Bedside Glucose (Misc Panel) 232H 08/31/16 05:58: White Blood Count 7.2, Red Blood Count 4.39, Hemoglobin 13.3L, Hematocrit 40.2L , Mean Corpuscular Volume 91.6, Mean Corpuscular Hemoglobin 30.2, Mean Corpuscular Hemoglobin Concent 33.0, Red Cell Distribution Width 13.7, Platelet Count 272, Neutrophils (%) (Auto) 67.1H, Lymphocytes (%) (Auto) 19.3L, Monocytes (%) (Auto) 8.3H, Eosinophils (%) (Auto) 2.1, Basophils (%) (Auto) 0.9 , Neutrophils # (Auto) 4.8, Lymphocytes # (Auto) 1.5, Monocytes # (Auto) 0.6, Eosinophils # (Auto) 0.2, Basophils # (Auto) 0.1, Large Unclassified Cells % 2.4 , Large Unclassified Cells # 0.2, Anion Gap 6L, Glomerular Filtration Rate > 60.0, Blood Urea Nitrogen 10, Creatinine 0.65L, Sodium Level 137, Potassium Level 3.7, Chloride Level 103, Carbon Dioxide Level 28, Calcium Level 9.0, Aspartate Amino Transf (AST/SGOT) 11L, Alanine Aminotransferase (ALT/SGPT) 29, Alkaline Phosphatase 86, Total Bilirubin 0.4, Total Protein 6.8, Albumin 3.1L, Albumin/Globulin Ratio 0.84L 08/31/16 06:00: Bedside Glucose (Misc Panel) 207H Current Medications Current Medications Current Medications Acetaminophen (Tylenol Tab) 325 mg Q6HP PRN PO MILD PAIN OR FEVER Last administered on 08/27/16t 05:51; Start 08/26/16 at 14:30; Stop 09/25/16 at 14:29 Al Hydrox/Mg Hydrox/Simethicone (Mylanta) 30 ml Q4HP PRN PO DYSPEPSIA; Start at 14:30; Stop 09/25/16 at 14:29 Ampicillin Sodium 2 gm/Dextrose 100 ml @ 200 mls/hr Q4H IV Last administered on 08/28/16 12:46; Start 08/26/16 at 16:00; Stop 08/28/16 at 12:52; Status DC Artificial Tears (Akwa Tears) 2 drop QID OU Last administered on 08/31/16 09: 35; Start 08/27/16 at 09:00; Stop 09/26/16 at 08:59 Calcium Polycarbophil (Fiber Con) 1 ea BID PO ; Start 08/31/16 at 09:00; Stop at 08:59 Carvedilol (COReg) 12.5 mg BID PO Last administered on 08/31/16 09:33; Start 08/26/16 at 21:00; Stop 09/25/16 at 20:59 Ceftriaxone Sodium 2 gm/ Dextrose 50 ml @ 100 mls/hr Q12H IV Last administered on 08/31/16 06:00; Start 08/26/16 at 18:00; Stop 09/04/16 at 17:59 Dextrose (Dextrose 50%) 25 ml ASDIRECTED PRN IV SEE LABEL COMMENTS; Start 08/26 at 15:00; Stop 09/25/16 at 14:59 Docusate Sodium (Colace) 100 mg BID PO Last administered on 08/30/16 10:04; Start 08/26/16 at 21:00; Stop 09/25/16 at 20:59 Enoxaparin Sodium (Lovenox) 40 mg DAILY SC Last administered on 08/31/16 09:34 ; Start 08/27/16 at 09:00; Stop 09/09/16 at 12:00 Glucagon (Glucagon) 1 mg ASDIRECTED PRN SC SEE LABEL COMMENTS; Start 08/26/16 at 15:00; Stop 09/25/16 at 14:59 Glucose (Glucose) 16 GM ASDIRECTED PRN PO SEE LABEL COMMENTS; Start 08/26/16 at 15:00; Stop 09/25/16 at 14:59 Heparin Sodium (Heparin (Flush)) 200 units ASDIRECTED PRN IV SEE LABEL COMMENTS Last administered on 08/30/16 22:29; Start 08/26/16 at 16:45; Stop at 16:44 Heparin Sodium (Heparin (Flush)) 200 units PICC IV Last administered on 06:01; Start 08/26/16 at 18:00; Stop 09/25/16 at 17:59 Home Med (Med Rec Complete!) ASDIRECTED XX ; Start 08/26/16 at 14:45; Stop at 14:45; Status DC Hydromorphone HCl (Dilaudid) 2 mg Q4HP PRN PO MODERATE/SEVERE PAIN (PS 5-10) Last administered on 08/31/16 07:48; Start 08/26/16 at 15:00; Stop 09/09/16 at 12:00 Insulin Detemir (Levemir Insulin) 25 units QHS SC Last administered on 20:59; Start 08/27/16 at 21:00; Stop 09/26/16 at 20:59 Insulin Detemir (Levemir Insulin) 35 units QHS SC Last administered on 21:35; Start 08/26/16 at 21:00; Stop 08/27/16 at 15:50; Status DC Insulin Human Lispro (HumaLOG INSULIN) See Protocol Table AC SC Last administered on 08/31/16 07:48; Start 08/26/16 at 17:30; Stop 09/25/16 at 17:29 Insulin Human Lispro (HumaLOG INSULIN) See Protocol Table QHS SC ; Start at 21:00; Stop 09/25/16 at 20:59 Magnesium Hydroxide (Milk Of Magnesia) 30 ml DAILYPRN PRN PO CONSTIPATION; Start 08/26/16 at 14:30; Stop 09/25/16 at 14:29 Menthol/Methyl Salicylate (Bengay Cream) APPLY QIDP PRN TOP Right leg & knee; Start 08/26/16 at 13:45; Stop 09/25/16 at 13:44; Status Cancel Metformin HCl (Glucophage) 500 mg BID@18 PO Last administered on 08/31/16 07:48; Start 08/26/16 at 18:00; Stop 09/25/16 at 17:59 Pantoprazole Sodium (Protonix) 40 mg DAILY PO Last administered on 08/31/16 09 :34; Start 08/27/16 at 09:00; Stop 09/26/16 at 08:59 Potassium Chloride (Micro-K Extencaps) 10 meq DAILY PO Last administered on 10:05; Start 08/28/16 at 09:00; Stop 08/31/16 at 08:59; Status DC Psyllium Hydrophilic Mucilloid (Metamucil) 1 pkt DAILY PO Last administered on 08/31/16 09:48; Start 08/31/16 at 09:00; Stop 09/30/16 at 08:59 Sodium Biphosphate/ Sodium Phosphate (Fleet Enema) 1 ea DAILYPRN PRN MA CONSTIPATION; Start 08/26/16 at 14:30; Stop 09/25/16 at 14:29 Sodium Chloride (Saline Lock Flush) 10 ml ASDIRECTED PRN IV SEE LABEL COMMENTS Last administered on 08/30/16 22:29; Start 08/26/16 at 16:45; Stop 09/25/16 at 16:44 Sodium Chloride (Saline Lock Flush) 10 ml PICC IV Last administered on 06:01; Start 08/26/16 at 18:00; Stop 09/25/16 at 17:59 Tamsulosin HCl (Flomax) 0.4 mg QHS PO Last administered on 08/27/16 21:36; Start 08/26/16 at 21:00; Stop 08/28/16 at 09:24; Status DC Tamsulosin HCl (Flomax) 0.8 mg QHS PO Last administered on 08/30/16 20:58; Start 08/28/16 at 21:00; Stop 09/27/16 at 20:59 Tramadol HCl (Ultram) 50 mg Q6HP PRN PO PAIN; Start 08/26/16 at 13:45; Stop at 13:44; Status Cancel Trazodone HCl (Desyrel) 50 mg QHS PRN PO NOT ASLEEP BY 2350; Start 08/27/16 at 21:00; Stop 09/26/16 at 20:59 Trazodone HCl (Desyrel) 100 mg QHS PO Last administered on 08/30/16 20:58; Start 08/27/16 at 21:00; Stop 09/26/16 at 20:59 Vancomycin HCl 1000 mg/IV Miscellaneous Supplies 1 each/ Dextrose 270 ml @ 540 mls/hr Q12H IV ; Start 08/26/16 at 14:30; Stop 08/26/16 at 16:59; Status DC Vancomycin HCl 1000 mg/IV Miscellaneous Supplies 1 each/ Dextrose 270 ml @ 540 mls/hr Q12H IV Last administered on 08/31/16 09:34; Start 08/26/16 at 21:00; Stop 09/04/16 at 20:59 Vancomycin HCl 1000 mg/IV Miscellaneous Supplies 1 each/ Dextrose 270 ml @ 540 mls/hr Q12H IV Last administered on 08/30/16 22:29; Start 08/26/16 at 22:00; Stop 09/04/16 at 21:59 SARIKA TORRES MD Aug 31, 2016 10:11
[2016-08-31] MEDS: FIBER-CON 625 MG TAB PO SCH ×2 (12:05→21:20)
[2016-08-31 14:00] VITALS: BP 147/79
[2016-08-31 20:00] VITALS: BP 139/73
[2016-08-31] MEDS: LEVEMIR (INSULIN DETEMIR) 1 UNITS/0.01ML SC SCH (21:19)
[2016-08-31] MEDS: TAMSULOSIN 0.4 MG CAP PO SCH (21:20)
[2016-08-31] MEDS: traZODone 100 MG TAB PO SCH (22:16)
[2016-08-31] MEDS: SODIUM CHLORIDE 0.9% INJ 10 ML SYR IV PRN (22:17)
[2016-09-01 06:00] VITALS: BP 136/75
[2016-09-01] MEDS: cefTRIAXone SOD 2 GM in D5W MINI-BAG PLUS 50 ML IV SCH ×2 (06:46→17:39)
[2016-09-01] MEDS: SODIUM CHLORIDE 0.9% INJ 10 ML SYR IV SCH ×2 (06:46→17:40)
[2016-09-01 07:05] LABS: BASO % 0.7 % (0.0-1.0); EOS # 0.2 K/mm3 (0.0-0.50); EOS % 2.3 % (0.0-3.0); LARGE UNSTAINED CELL # 0.2 K/mm3 (0.0-0.4); LARGE UNSTAINED CELL % 2.9 % (0.0-4.0); LYMPH # 2.1 K/mm3 (1.5-4.5); LYMPH % 29.1 % (24.0-44.0); MEAN CORPUSCULAR HEMOGLOBIN 29.8 pg (27.0-33.0); MEAN CORPUSCULAR HGB CONC 32.8 g/dl (32.0-36.5); MEAN CORPUSCULAR VOLUME 90.8 fl (80.0-96.0); MONO # 0.5 K/mm3 (0.0-0.8); MONO % 8.2 % (0.0-5.0); NEUTROPHILS # 3.8 K/mm3 (1.8-7.7); NEUTROPHILS % 56.8 % (36.0-66.0); PLATELET COUNT, AUTOMATED 246 k/mm3 (150-450); RED CELL DISTRIBUTION WIDTH 13.6 % (11.5-14.5); WHITE BLOOD COUNT 6.6 K/mm3 (4.0-10.0)
[2016-09-01 07:20] LABS: ALBUMIN 3.2 GM/DL (3.2-5.2); ALBUMIN/GLOBULIN RATIO 0.91 (1.00-1.93); ALKALINE PHOSPHATASE 79 U/L (45-117); ALT/SGPT 31 U/L (12-78); ANION GAP 6 MEQ/L (8-16); AST/SGOT 12 U/L (15-37); BILIRUBIN,TOTAL 0.4 MG/DL (0.2-1.0); BLOOD UREA NITROGEN 7 MG/DL (7-18); CALCIUM LEVEL 8.8 MG/DL (8.5-10.1); CARBON DIOXIDE LEVEL 30 MEQ/L (21-32); CHLORIDE LEVEL 105 MEQ/L (98-107); GLOMERULAR FILTRATION RATE > 60.0 (>56); GLUCOSE, FASTING 151 MG/DL (70-105); POTASSIUM SERUM 3.8 MEQ/L (3.5-5.1); SODIUM LEVEL 141 MEQ/L (136-145); TOTAL PROTEIN 6.7 GM/DL (6.4-8.2)
[2016-09-01] MEDS: VANCOMYCIN HCL 1,000 MG, VIAL MATE ADAPTER 1 EACH in D5W 250 ML IV SCH ×4 (08:10→22:36)
[2016-09-01] MEDS: HumaLOG INSULIN (NovoLOG) PER UNIT SC SCH ×4 (08:10→21:00)
[2016-09-01] MEDS: HYDROmorphone 2 MG TAB PO PRN ×3 (08:10→22:35)
[2016-09-01] MEDS: ENOXAPARIN 40 MG/0.4 ML SYRINGE (J1650) SC SCH (08:11)
[2016-09-01] MEDS: metFORMIN (GLUCOPHAGE) 500 MG TAB PO SCH ×2 (08:11→17:39)
[2016-09-01] MEDS: CARVedilol 12.5 MG TAB PO SCH ×2 (08:11→21:23)
[2016-09-01] MEDS: FIBER-CON 625 MG TAB PO SCH ×2 (08:11→21:22)
[2016-09-01] MEDS: PANTOPRAZOLE 40MG TAB (PROTONIX) PO SCH (08:12)
[2016-09-01] MEDS: METAMUCIL (PSYLLIUM) PACKET PO SCH (08:12)
[2016-09-01] MEDS: DOCUSATE SODIUM 100 MG CAP PO SCH ×2 (08:15→21:22)
[2016-09-01] MEDS: POLYVINYL ALCOHOL OPHTH SOLN 15 ML(LIQUITEARS) OU SCH ×4 (08:17→21:24)
--- NOTE | 2016-09-01 10:36 | IPNPDOC ---
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 Patient with some of his chronic pain but overall no complaints except for left eye aching and blurring with looking at near to intermediate distances as the day goes on. No troubles maintaining sleep last night. Some spontaneous urinary voids when having BM's. ALLERGIES: See Below MEDICATIONS: Reviewed, see below. OBJECTIVE: VITAL SIGNS: Please see below. PHYSICAL EXAMINATION: GENERAL: Somewhat overweight middle-age white male who is alert and oriented 4. Speech is clear coherent and appropriate with no dysarthria. Affect is pleasant and cooperative and fairly upbeat. Patient with mild weakness in the right upper and lower extremity and left upper extremity with aarj-ei-tbdsejza weakness in the left lower extremity. PICC line intact in the left arm. HEENT: Very mild left facial droop. Patient is normocephalic/atraumatic. Extraocular ocular motions are intact with pupils equal round reactive to light and accommodation and pupils 4mm diameter. alternating using patch on one eye then the next. CARDIOVASCULAR: Regular rate and rhythm with normal S1-S2. 2 out 4 bilateral radial pulses. LUNGS: All franklin clear to auscultation without any wheezes, rales or rhonchi. ABDOMEN: Obese, benign with no palpable tenderness and normal to mild increase in frequency of bowel sounds are appreciated in all quadrants. NEUROLOGICAL: As noted above. SKIN: Grossly intact. LABORATORY DATA: Reviewed. Please see below. MICROBIOLOGY: Please see below. IMAGING: No new imaging here. DVT prophylaxis ordered?: Patient continues on Lovenox. Also using TOMMIE hose. ASSESSMENT AND PLAN: 1. Rehabilitation of bilateral subarachnoid and Right of dural hematoma/CVAs: Strength and endurance improving, but problems with awareness and control of the lower extremities. 2. Hypokalemia: Patient has been started on some K-Tabs and follow his electrolytes as potassium was 3.5 today having dropped from 3.7 without supplimental KCl. I will restart daily 10 MEq of KCl. 3. Diabetes: Long-acting Levemir dosage was reduced to 25 units. No low Blood Sugars since, but many number of readings in the 200's. I will increase it to 28 units tonight. 4. Bacterial meningitis: Patient seen by Dr. Novoa who feels the diagnosis of meningitis is questionable based on prior labs but notes that research supports patient not being contagious after 24 hours on antibiotics so infection precautions will be altered accordingly. Patient is to finish antibiotics on in 3 days. 5. Urinary retention: I believe this is related to having bilateral cerebral damage combined with benign prostatic hypertrophy. I will try and have patient stood to avoid and if unable to void intermittent cath as post void residuals or 4 times a day urinary catheterizing. I will try some increase fiber for the bowel and continue with standing to void and IC. Also with no BM in 2 days, I will try Urecholine 10 mg PO QPM. TIME SPENT: Chart Review, examination and documentation require greater than 25 minutes. Allergies Coded Allergies: Bee Venom (Verified Allergy, Severe, ANAPHYLAXIS, 02/01/15) Erythromycin (Unverified Allergy, Mild, HIVES, 06/14/12) Fentanyl (Unverified Allergy, Mild, HIVES, 06/14/12) Pregabalin (Verified Allergy, Unknown, ITCHING, 02/01/15) Vital Signs Vital Signs Date Time Temp Pulse Resp B/P (MAP) Pulse Ox O2 Delivery O2 Flow Rate FiO2 09/01/16 08:40 20 09/01/16 08:11 76 136/75 09/01/16 06:00 98.6 95 Room Air Laboratory Data CBC/BMP Laboratory Tests 09/01/16 06:23 Red Blood Count 4.36, Mean Corpuscular Volume 90.8, Mean Corpuscular Hemoglobin 29.8, Mean Corpuscular Hemoglobin Concent 32.8, Red Cell Distribution Width 13.6 , Neutrophils (%) (Auto) 56.8, Lymphocytes (%) (Auto) 29.1, Monocytes (%) (Auto ) 8.2 H, Eosinophils (%) (Auto) 2.3, Basophils (%) (Auto) 0.7, Neutrophils # ( Auto) 3.8, Lymphocytes # (Auto) 2.1, Monocytes # (Auto) 0.5, Eosinophils # (Auto ) 0.2, Basophils # (Auto) 0.0, Calcium Level 8.8, Aspartate Amino Transf (AST/ SGOT) 12 L, Alanine Aminotransferase (ALT/SGPT) 31, Alkaline Phosphatase 79, Total Bilirubin 0.4, Total Protein 6.7, Albumin 3.2 Labs 24H Laboratory Tests 2 08/31/16 11:33: Bedside Glucose (Misc Panel) 314H 08/31/16 16:25: Bedside Glucose (Misc Panel) 193H 08/31/16 20:38: Bedside Glucose (Misc Panel) 276H 09/01/16 06:23: White Blood Count 6.6, Red Blood Count 4.36, Hemoglobin 13.0L, Hematocrit 39.6L , Mean Corpuscular Volume 90.8, Mean Corpuscular Hemoglobin 29.8, Mean Corpuscular Hemoglobin Concent 32.8, Red Cell Distribution Width 13.6, Platelet Count 246, Neutrophils (%) (Auto) 56.8, Lymphocytes (%) (Auto) 29.1, Monocytes ( %) (Auto) 8.2H, Eosinophils (%) (Auto) 2.3, Basophils (%) (Auto) 0.7, Neutrophils # (Auto) 3.8, Lymphocytes # (Auto) 2.1, Monocytes # (Auto) 0.5, Eosinophils # (Auto) 0.2, Basophils # (Auto) 0.0, Large Unclassified Cells % 2.9 , Large Unclassified Cells # 0.2, Anion Gap 6L, Glomerular Filtration Rate > 60.0, Blood Urea Nitrogen 7, Creatinine 0.60L, Sodium Level 141, Potassium Level 3.8, Chloride Level 105, Carbon Dioxide Level 30, Calcium Level 8.8, Aspartate Amino Transf (AST/SGOT) 12L, Alanine Aminotransferase (ALT/SGPT) 31, Alkaline Phosphatase 79, Total Bilirubin 0.4, Total Protein 6.7, Albumin 3.2, Albumin/Globulin Ratio 0.91L Current Medications Current Medications Current Medications Acetaminophen (Tylenol Tab) 325 mg Q6HP PRN PO MILD PAIN OR FEVER Last administered on 08/27/16t 05:51; Start 08/26/16 at 14:30; Stop 09/25/16 at 14:29 Al Hydrox/Mg Hydrox/Simethicone (Mylanta) 30 ml Q4HP PRN PO DYSPEPSIA; Start at 14:30; Stop 09/25/16 at 14:29 Ampicillin Sodium 2 gm/Dextrose 100 ml @ 200 mls/hr Q4H IV Last administered on 08/28/16 12:46; Start 08/26/16 at 16:00; Stop 08/28/16 at 12:52; Status DC Artificial Tears (Akwa Tears) 2 drop QID OU Last administered on 09/01/16 08: 17; Start 08/27/16 at 09:00; Stop 09/26/16 at 08:59 Calcium Polycarbophil (Fiber Con) 1 ea BID PO Last administered on 09/01/16 08 :11; Start 08/31/16 at 09:00; Stop 09/30/16 at 08:59 Carvedilol (COReg) 12.5 mg BID PO Last administered on 09/01/16 08:11; Start 08/26/16 at 21:00; Stop 09/25/16 at 20:59 Ceftriaxone Sodium 2 gm/ Dextrose 50 ml @ 100 mls/hr Q12H IV Last administered on 09/01/16 06:46; Start 08/26/16 at 18:00; Stop 09/04/16 at 17:59 Dextrose (Dextrose 50%) 25 ml ASDIRECTED PRN IV SEE LABEL COMMENTS; Start 08/26 at 15:00; Stop 09/25/16 at 14:59 Docusate Sodium (Colace) 100 mg BID PO Last administered on 09/01/16 08:15; Start 08/26/16 at 21:00; Stop 09/25/16 at 20:59 Enoxaparin Sodium (Lovenox) 40 mg DAILY SC Last administered on 09/01/16 08:11 ; Start 08/27/16 at 09:00; Stop 09/09/16 at 12:00 Glucagon (Glucagon) 1 mg ASDIRECTED PRN SC SEE LABEL COMMENTS; Start 08/26/16 at 15:00; Stop 09/25/16 at 14:59 Glucose (Glucose) 16 GM ASDIRECTED PRN PO SEE LABEL COMMENTS; Start 08/26/16 at 15:00; Stop 09/25/16 at 14:59 Heparin Sodium (Heparin (Flush)) 200 units ASDIRECTED PRN IV SEE LABEL COMMENTS Last administered on 08/31/16 22:17; Start 08/26/16 at 16:45; Stop at 16:44 Heparin Sodium (Heparin (Flush)) 200 units PICC IV Last administered on 06:46; Start 08/26/16 at 18:00; Stop 09/25/16 at 17:59 Home Med (Med Rec Complete!) ASDIRECTED XX ; Start 08/26/16 at 14:45; Stop at 14:45; Status DC Hydromorphone HCl (Dilaudid) 2 mg Q4HP PRN PO MODERATE/SEVERE PAIN (PS 5-10) Last administered on 09/01/16 08:10; Start 08/26/16 at 15:00; Stop 09/09/16 at 12:00 Insulin Detemir (Levemir Insulin) 25 units QHS SC Last administered on 21:19; Start 08/27/16 at 21:00; Stop 09/26/16 at 20:59 Insulin Detemir (Levemir Insulin) 35 units QHS SC Last administered on 21:35; Start 08/26/16 at 21:00; Stop 08/27/16 at 15:50; Status DC Insulin Human Lispro (HumaLOG INSULIN) See Protocol Table AC SC Last administered on 09/01/16 08:10; Start 08/26/16 at 17:30; Stop 09/25/16 at 17:29 Insulin Human Lispro (HumaLOG INSULIN) See Protocol Table QHS SC Last administered on 08/31/16 21:20; Start 08/26/16 at 21:00; Stop 09/25/16 at 20:59 Magnesium Hydroxide (Milk Of Magnesia) 30 ml DAILYPRN PRN PO CONSTIPATION; Start 08/26/16 at 14:30; Stop 09/25/16 at 14:29 Menthol/Methyl Salicylate (Bengay Cream) APPLY QIDP PRN TOP Right leg & knee; Start 08/26/16 at 13:45; Stop 09/25/16 at 13:44; Status Cancel Metformin HCl (Glucophage) 500 mg BID@08,18 PO Last administered on 09/01/16 08:11; Start 08/26/16 at 18:00; Stop 09/25/16 at 17:59 Pantoprazole Sodium (Protonix) 40 mg DAILY PO Last administered on 09/01/16 08 :12; Start 08/27/16 at 09:00; Stop 09/26/16 at 08:59 Potassium Chloride (Micro-K Extencaps) 10 meq DAILY PO Last administered on 10:05; Start 08/28/16 at 09:00; Stop 08/31/16 at 08:59; Status DC Psyllium Hydrophilic Mucilloid (Metamucil) 1 pkt DAILY PO Last administered on 08/31/16 09:48; Start 08/31/16 at 09:00; Stop 09/01/16 at 09:37; Status DC Sodium Biphosphate/ Sodium Phosphate (Fleet Enema) 1 ea DAILYPRN PRN NM CONSTIPATION; Start 08/26/16 at 14:30; Stop 09/25/16 at 14:29 Sodium Chloride (Saline Lock Flush) 10 ml ASDIRECTED PRN IV SEE LABEL COMMENTS Last administered on 08/31/16 22:17; Start 08/26/16 at 16:45; Stop 09/25/16 at 16:44 Sodium Chloride (Saline Lock Flush) 10 ml PICC IV Last administered on 06:46; Start 08/26/16 at 18:00; Stop 09/25/16 at 17:59 Tamsulosin HCl (Flomax) 0.4 mg QHS PO Last administered on 08/27/16 21:36; Start 08/26/16 at 21:00; Stop 08/28/16 at 09:24; Status DC Tamsulosin HCl (Flomax) 0.8 mg QHS PO Last administered on 08/31/16 21:20; Start 08/28/16 at 21:00; Stop 09/27/16 at 20:59 Tramadol HCl (Ultram) 50 mg Q6HP PRN PO PAIN; Start 08/26/16 at 13:45; Stop at 13:44; Status Cancel Trazodone HCl (Desyrel) 50 mg QHS PRN PO NOT ASLEEP BY 2350; Start 08/27/16 at 21:00; Stop 09/26/16 at 20:59 Trazodone HCl (Desyrel) 100 mg QHS PO Last administered on 08/31/16 22:16; Start 08/27/16 at 21:00; Stop 09/26/16 at 20:59 Vancomycin HCl 1000 mg/IV Miscellaneous Supplies 1 each/ Dextrose 270 ml @ 540 mls/hr Q12H IV ; Start 08/26/16 at 14:30; Stop 08/26/16 at 16:59; Status DC Vancomycin HCl 1000 mg/IV Miscellaneous Supplies 1 each/ Dextrose 270 ml @ 540 mls/hr Q12H IV Last administered on 09/01/16 08:10; Start 08/26/16 at 21:00; Stop 09/04/16 at 20:59 Vancomycin HCl 1000 mg/IV Miscellaneous Supplies 1 each/ Dextrose 270 ml @ 540 mls/hr Q12H IV Last administered on 09/01/16 09:19; Start 08/26/16 at 22:00; Stop 09/04/16 at 21:59 SARIKA TORRES MD Sep 01, 2016 10:36
--- NOTE | 2016-09-01 11:05 | IPNPDOC ---
Date Seen The patient was seen on 09/01/16. Progress Note HPI: 56year oldM with a past medical history significant for Subarachnoid hemorrhage who was transferred from [facility] to the care of EDMUND Chance . Pt presented to [facility] ED 08/08/16 and was found to have subarachnoid hemorrhage and was transferred to [facility] for further management. Pt with residual left hemiparesis, Pt is gaining strength in his LUE, still with weakness of LLE. His hospitalization was complicated by DKA and LP 08/21 indicating bacterial meningitis. Pt was treated with IV Vancomycin, Rocephin, ampicillin. Pt states he is doing well with therapy and offers no concerns at this time. Denies any fevers, chills, weakness, fatigue, Headache, Chest Pain, Shortness of breath, cough, palpitations, abdominal pain, N/V/D or changes in bowel or bladder habits. PMHx: Subarachnoid hemorrhage 08/08/16- [facility]. Non traumatic in setting of dual antiplatelet agents. Residual left hemiparesis. CT head rt frontal, occipital, temporal lobe SAH. CTA head so stenosis, dissection, AVM, aneurysm. CTA neck no stenosis, dissection. MRI Brain SAH cerebral convexity and prepontine region EEG no epileptiform activity. Bacterial meningitis LP 08/21/16 HTN CAD/S/P PCI BPH/urinary retention Insomnia IDDM H/O DKA. GERD Hiatal hernia Diabetic neuropathy Hypertension COPD History of pulmonary nodules LLL. Follows with pulmonary, Dr. Monroy. H/O Fatty liver Chronic pain/myofascial pain/OA chronic back pain Chronic neck pain/Cervical stenosis PSHX: Intrathecal pump Implant/removal elbow surgery, Rt ulnar neuropathy B/L CTR Cardiac stent PICC LUE ROS: As noted in HPI, otherwise 11pt ROS of systems reviewed and unremarkable. PE: GEN: 56yoM, appears stated age. Well-nourished, well developed. No acute distress. Alert and oriented x 3. Pleasant, interactive. HEENT: Normocephalic, atraumatic. Sclera are nonicteric. Conjunctiva without injection. Nose midline. No facial asymmetry. Moist mucous membranes. Neck supple, trachea midline. No lymphadenopathy or thyromegaly appreciated. CHEST: Regular rate and rhythm, +S1, +S2 LUNGS: Clear to auscultation bilaterally. No wheezes, rales, or rhonchi. Breathing appears symmetric and easy. Patient is speaking in full sentences. No accessory muscle use. ABD: Round, soft, non-tender, non-distended. +Bowel sounds throughout. No rebound or guarding. No costovertebral angle tenderness. EXT: No lower extremity edema appreciated. SKIN: [place], dry, warm. NEURO: Alert and oriented x 3. Cranial nerves III-XII are intact. Left sided weakness, LE>UE. A&P: 56year oldM with a past medical history significant for Subarachnoid hemorrhage who was transferred from [facility] to the care of Dr Wilson, ARU 08/26/16. 1. Patient is admitted to ARU under the care of Dr. Wilson. Subarachnoid hemorrhage PT/OT/speech therapy as per ARU DVT prophylaxis as per ARU Pain control as per ARU Bowel care as per ARU 2. bacterial meningitis. ID/Dr Novoa consulted. Appreciate assistance. Ampicillin discontinued as per ID. Pt continues with IV Vanco/Rocephin. Vanco dosing as per Clinical Pharm. Plan is to continue antibiotic regimen until . PICC in place. 3. BPH/urinary retention. Flomax. 4. IDDM. Metformin 500mg BID, Levemir 35 u HS, SSI. CC diet. Pt was noted with low BS (62). Levemir reduced to 25 units with no further hypoglycemia. Levemir increased to 28 units beginning tonight as per ARU attending. Monitor BS 5. GERD/hiatal hernia. Protonix. 6. Insomnia. Trazodone. 7. Hypertension. Coreg 12.5 mg BID. 8. Chronic back pain/chronic pain. Consider pain management if needed. 9. Hypokalemia. Cont with supplement. Mag level WNL. K WNL. Item Value Date Time Sodium Level 141 MEQ/L 09/01/16 0623 Potassium Level 3.8 MEQ/L 09/01/16 0623 Chloride Level 105 MEQ/L 09/01/16 0623 Carbon Dioxide Level 30 MEQ/L 09/01/16 0623 Anion Gap 6 MEQ/L L 09/01/16 0623 Blood Urea Nitrogen 7 MG/DL 09/01/16 0623 Creatinine 0.60 MG/DL L 09/01/16 0623 Glomerular Filtration Rate > 60.0 09/01/16 0623 Fasting Glucose 151 MG/DL H 09/01/16 0623 Calcium Level 8.8 MG/DL 09/01/16 0623 Total Bilirubin 0.4 MG/DL 09/01/16 0623 Aspartate Amino Transf (AST/SGOT) 12 U/L L 09/01/16 0623 Alanine Aminotransferase (ALT/SGPT) 31 U/L 09/01/16 0623 Alkaline Phosphatase 79 U/L 09/01/16 0623 Total Protein 6.7 GM/DL 09/01/16 0623 Albumin 3.2 GM/DL 09/01/16 0623 Albumin/Globulin Ratio 0.91 L 09/01/16 0623 White Blood Count 6.6 K/mm3 09/01/16 0623 Red Blood Count 4.36 M/mm3 09/01/16 0623 Hemoglobin 13.0 g/dl L 09/01/16 0623 Hematocrit 39.6 % L 09/01/16 0623 Mean Corpuscular Volume 90.8 fl 09/01/16 0623 Mean Corpuscular Hemoglobin 29.8 pg 09/01/16 0623 Mean Corpuscular Hemoglobin Concent 32.8 g/dl 09/01/16 0623 Red Cell Distribution Width 13.6 % 09/01/16 0623 Platelet Count 246 k/mm3 09/01/16 0623 VS, I&O, 24H, [facility] Vital Signs/I&O Vital Signs Date Time Temp Pulse Resp B/P (MAP) Pulse Ox O2 Delivery O2 Flow Rate FiO2 09/01/16 08:40 20 09/01/16 08:11 76 136/75 09/01/16 06:00 98.6 95 Room Air I&O- Last 24 Hours up to 6 AM 09/01/16 06:00 Intake Total 1250 ml Output Total 4000 ml Balance -2750 ml Laboratory Data 24H LABS Laboratory Tests 2 08/31/16 11:33: Bedside Glucose (Misc Panel) 314H 08/31/16 16:25: Bedside Glucose (Misc Panel) 193H 08/31/16 20:38: Bedside Glucose (Misc Panel) 276H 09/01/16 06:23: White Blood Count 6.6, Red Blood Count 4.36, Hemoglobin 13.0L, Hematocrit 39.6L , Mean Corpuscular Volume 90.8, Mean Corpuscular Hemoglobin 29.8, Mean Corpuscular Hemoglobin Concent 32.8, Red Cell Distribution Width 13.6, Platelet Count 246, Neutrophils (%) (Auto) 56.8, Lymphocytes (%) (Auto) 29.1, Monocytes ( %) (Auto) 8.2H, Eosinophils (%) (Auto) 2.3, Basophils (%) (Auto) 0.7, Neutrophils # (Auto) 3.8, Lymphocytes # (Auto) 2.1, Monocytes # (Auto) 0.5, Eosinophils # (Auto) 0.2, Basophils # (Auto) 0.0, Large Unclassified Cells % 2.9 , Large Unclassified Cells # 0.2, Anion Gap 6L, Glomerular Filtration Rate > 60.0, Blood Urea Nitrogen 7, Creatinine 0.60L, Sodium Level 141, Potassium Level 3.8, Chloride Level 105, Carbon Dioxide Level 30, Calcium Level 8.8, Aspartate Amino Transf (AST/SGOT) 12L, Alanine Aminotransferase (ALT/SGPT) 31, Alkaline Phosphatase 79, Total Bilirubin 0.4, Total Protein 6.7, Albumin 3.2, Albumin/Globulin Ratio 0.91L CBC/BMP Laboratory Tests 09/01/16 06:23 Red Blood Count 4.36, Mean Corpuscular Volume 90.8, Mean Corpuscular Hemoglobin 29.8, Mean Corpuscular Hemoglobin Concent 32.8, Red Cell Distribution Width 13.6 , Neutrophils (%) (Auto) 56.8, Lymphocytes (%) (Auto) 29.1, Monocytes (%) (Auto ) 8.2 H, Eosinophils (%) (Auto) 2.3, Basophils (%) (Auto) 0.7, Neutrophils # ( Auto) 3.8, Lymphocytes # (Auto) 2.1, Monocytes # (Auto) 0.5, Eosinophils # (Auto ) 0.2, Basophils # (Auto) 0.0, Calcium Level 8.8, Aspartate Amino Transf (AST/ SGOT) 12 L, Alanine Aminotransferase (ALT/SGPT) 31, Alkaline Phosphatase 79, Total Bilirubin 0.4, Total Protein 6.7, Albumin 3.2 [place] Sep 01, 2016 11:05
[2016-09-01] MEDS: POTASSIUM CHLORIDE 10 MEQ SR TABLET PO SCH (12:12)
[2016-09-01 14:00] VITALS: BP 163/79
[2016-09-01 19:41] VITALS: BP 153/81
[2016-09-01] MEDS: BETHANECHOL 10 MG TAB PO SCH (21:22)
[2016-09-01] MEDS: TAMSULOSIN 0.4 MG CAP PO SCH (21:22)
[2016-09-01] MEDS: LEVEMIR (INSULIN DETEMIR) 1 UNITS/0.01ML SC SCH (21:23)
[2016-09-01] MEDS: traZODone 100 MG TAB PO SCH (22:34)
[2016-09-01] MEDS: SODIUM CHLORIDE 0.9% INJ 10 ML SYR IV PRN (23:37)
[2016-09-02] MEDS: cefTRIAXone SOD 2 GM in D5W MINI-BAG PLUS 50 ML IV SCH ×2 (06:03→17:06)
[2016-09-02 06:04] VITALS: BP 142/81
[2016-09-02] MEDS: SODIUM CHLORIDE 0.9% INJ 10 ML SYR IV SCH ×2 (06:04→17:06)
[2016-09-02 06:25] LABS: BASO # 0.1 K/mm3 (0.0-0.2); BASO % 1.2 % (0.0-1.0); EOS # 0.2 K/mm3 (0.0-0.50); EOS % 1.9 % (0.0-3.0); LARGE UNSTAINED CELL # 0.2 K/mm3 (0.0-0.4); LARGE UNSTAINED CELL % 2.4 % (0.0-4.0); LYMPH % 24.2 % (24.0-44.0); MEAN CORPUSCULAR HEMOGLOBIN 30.2 pg (27.0-33.0); MEAN CORPUSCULAR HGB CONC 33.4 g/dl (32.0-36.5); MEAN CORPUSCULAR VOLUME 90.5 fl (80.0-96.0); MONO # 0.6 K/mm3 (0.0-0.8); MONO % 7.2 % (0.0-5.0); NEUTROPHILS # 5.3 K/mm3 (1.8-7.7); NEUTROPHILS % 63.1 % (36.0-66.0); PLATELET COUNT, AUTOMATED 235 k/mm3 (150-450); RED CELL DISTRIBUTION WIDTH 13.2 % (11.5-14.5); WHITE BLOOD COUNT 8.3 K/mm3 (4.0-10.0)
[2016-09-02] MEDS: HYDROmorphone 2 MG TAB PO PRN ×4 (06:59→22:01)
[2016-09-02 07:15] LABS: ALBUMIN 3.1 GM/DL (3.2-5.2); ALBUMIN/GLOBULIN RATIO 0.86 (1.00-1.93); ALKALINE PHOSPHATASE 79 U/L (45-117); ALT/SGPT 30 U/L (12-78); ANION GAP 8 MEQ/L (8-16); AST/SGOT 11 U/L (15-37); BILIRUBIN,TOTAL 0.4 MG/DL (0.2-1.0); BLOOD UREA NITROGEN 9 MG/DL (7-18); CARBON DIOXIDE LEVEL 29 MEQ/L (21-32); CHLORIDE LEVEL 104 MEQ/L (98-107); CREATININE FOR GFR 0.63 MG/DL (0.70-1.30); GLOMERULAR FILTRATION RATE > 60.0 (>56); GLUCOSE, FASTING 162 MG/DL (70-105); POTASSIUM SERUM 3.7 MEQ/L (3.5-5.1); SODIUM LEVEL 141 MEQ/L (136-145); TOTAL PROTEIN 6.7 GM/DL (6.4-8.2)
[2016-09-02] MEDS: HumaLOG INSULIN (NovoLOG) PER UNIT SC SCH ×4 (08:43→21:30)
[2016-09-02] MEDS: DOCUSATE SODIUM 100 MG CAP PO SCH ×2 (08:44→21:32)
[2016-09-02] MEDS: PANTOPRAZOLE 40MG TAB (PROTONIX) PO SCH (08:44)
[2016-09-02] MEDS: metFORMIN (GLUCOPHAGE) 500 MG TAB PO SCH ×2 (08:44→17:06)
[2016-09-02] MEDS: ENOXAPARIN 40 MG/0.4 ML SYRINGE (J1650) SC SCH (08:44)
[2016-09-02] MEDS: FIBER-CON 625 MG TAB PO SCH ×2 (08:44→21:31)
[2016-09-02] MEDS: VANCOMYCIN HCL 1,000 MG, VIAL MATE ADAPTER 1 EACH in D5W 250 ML IV SCH ×4 (08:44→22:44)
[2016-09-02] MEDS: CARVedilol 12.5 MG TAB PO SCH ×2 (08:45→21:32)
[2016-09-02] MEDS: POTASSIUM CHLORIDE 10 MEQ SR TABLET PO SCH (08:45)
--- NOTE | 2016-09-02 09:24 | IPNPDOC ---
Date Seen The patient was seen on 09/02/16. Progress Note HPI: 56year oldM with a past medical history significant for Subarachnoid hemorrhage who was transferred from [facility] to the care of EDMUND Chance . Pt presented to [facility] ED 08/08/16 and was found to have subarachnoid hemorrhage and was transferred to [facility] for further management. Pt with residual left hemiparesis, Pt is gaining strength in his LUE, still with weakness of LLE. His hospitalization was complicated by DKA and LP 08/21 indicating bacterial meningitis. Pt was treated with IV Vancomycin, Rocephin, ampicillin. Pt states he is doing well with therapy and offers no concerns at this time. He is OOB to W/C with PT currently. Denies any fevers, chills, weakness, fatigue, Headache, Chest Pain, Shortness of breath, cough, palpitations, abdominal pain, N/V/D or changes in bowel or bladder habits. PMHx: Subarachnoid hemorrhage 08/08/16- [facility]. Non traumatic in setting of dual antiplatelet agents. Residual left hemiparesis. CT head rt frontal, occipital, temporal lobe SAH. CTA head so stenosis, dissection, AVM, aneurysm. CTA neck no stenosis, dissection. MRI Brain SAH cerebral convexity and prepontine region EEG no epileptiform activity. Bacterial meningitis LP 08/21/16 HTN CAD/S/P PCI BPH/urinary retention Insomnia IDDM H/O DKA. GERD Hiatal hernia Diabetic neuropathy Hypertension COPD History of pulmonary nodules LLL. Follows with pulmonary, Dr. Monroy. H/O Fatty liver Chronic pain/myofascial pain/OA chronic back pain Chronic neck pain/Cervical stenosis PSHX: Intrathecal pump Implant/removal elbow surgery, Rt ulnar neuropathy B/L CTR Cardiac stent PICC LUE ROS: As noted in HPI, otherwise 11pt ROS of systems reviewed and unremarkable. PE: GEN: 56yoM, appears stated age. Well-nourished, well developed. No acute distress. Alert and oriented x 3. Pleasant, interactive. HEENT: Normocephalic, atraumatic. Sclera are nonicteric. Conjunctiva without injection. Nose midline. No facial asymmetry. Moist mucous membranes. Neck supple, trachea midline. No lymphadenopathy or thyromegaly appreciated. CHEST: Regular rate and rhythm, +S1, +S2 LUNGS: Clear to auscultation bilaterally. No wheezes, rales, or rhonchi. Breathing appears symmetric and easy. Patient is speaking in full sentences. No accessory muscle use. ABD: Round, soft, non-tender, non-distended. +Bowel sounds throughout. No rebound or guarding. No costovertebral angle tenderness. EXT: No lower extremity edema appreciated. SKIN: [place], dry, warm. NEURO: Alert and oriented x 3. Cranial nerves III-XII are intact. Left sided weakness, LE>UE. A&P: 56year oldM with a past medical history significant for Subarachnoid hemorrhage who was transferred from [facility] to the care of Dr Wilson, ARU 08/26/16. 1. Patient is admitted to ARU under the care of Dr. Wilson. Subarachnoid hemorrhage PT/OT/speech therapy as per ARU DVT prophylaxis as per ARU Pain control as per ARU Bowel care as per ARU 2. bacterial meningitis. ID/Dr Novoa consulted. Appreciate assistance. Ampicillin discontinued as per ID. Pt continues with IV Vanco/Rocephin. Vanco dosing as per Clinical Pharm. Plan is to continue antibiotic regimen until . PICC in place. 3. BPH/urinary retention. Flomax. Self cath as needed. 4. IDDM. Metformin 500mg BID, Levemir 35 u HS, SSI. CC diet. Pt was noted with low BS (62). Levemir reduced to 25 units with no further hypoglycemia. Levemir increased to 28 units beginning 09/01 as per ARU attending. BS this AM 162. Monitor BS 5. GERD/hiatal hernia. Protonix. 6. Insomnia. Trazodone. 7. Hypertension. Coreg 12.5 mg BID. 8. Chronic back pain/chronic pain. Consider pain management if needed. 9. Hypokalemia. Cont with supplement. Mag level WNL. K WNL. VS, I&O, 24H, Fishbone Vital Signs/I&O Vital Signs Date Time Temp Pulse Resp B/P (MAP) Pulse Ox O2 Delivery O2 Flow Rate FiO2 09/02/16 08:45 75 142/81 09/02/16 07:29 18 09/02/16 06:04 99.7 97 Room Air I&O- Last 24 Hours up to 6 AM 09/02/16 06:00 Intake Total 2290 ml Output Total 3425 ml Balance -1135 ml Laboratory Data 24H LABS Laboratory Tests 2 09/01/16 11:51: Bedside Glucose (Misc Panel) 157H 09/01/16 16:27: Bedside Glucose (Misc Panel) 170H 09/01/16 19:33: Bedside Glucose (Misc Panel) 167H 09/02/16 06:11: White Blood Count 8.3, Red Blood Count 4.55, Hemoglobin 13.7L, Hematocrit 41.1L , Mean Corpuscular Volume 90.5, Mean Corpuscular Hemoglobin 30.2, Mean Corpuscular Hemoglobin Concent 33.4, Red Cell Distribution Width 13.2, Platelet Count 235, Neutrophils (%) (Auto) 63.1, Lymphocytes (%) (Auto) 24.2, Monocytes ( %) (Auto) 7.2H, Eosinophils (%) (Auto) 1.9, Basophils (%) (Auto) 1.2H, Neutrophils # (Auto) 5.3, Lymphocytes # (Auto) 2.0, Monocytes # (Auto) 0.6, Eosinophils # (Auto) 0.2, Basophils # (Auto) 0.1, Large Unclassified Cells % 2.4 , Large Unclassified Cells # 0.2, Anion Gap 8, Glomerular Filtration Rate > 60.0 , Blood Urea Nitrogen 9, Creatinine 0.63L, Sodium Level 141, Potassium Level 3.7 , Chloride Level 104, Carbon Dioxide Level 29, Calcium Level 9.0, Aspartate Amino Transf (AST/SGOT) 11L, Alanine Aminotransferase (ALT/SGPT) 30, Alkaline Phosphatase 79, Total Bilirubin 0.4, Total Protein 6.7, Albumin 3.1L, Albumin/ Globulin Ratio 0.86L CBC/BMP Laboratory Tests 09/02/16 06:11 Red Blood Count 4.55, Mean Corpuscular Volume 90.5, Mean Corpuscular Hemoglobin 30.2, Mean Corpuscular Hemoglobin Concent 33.4, Red Cell Distribution Width 13.2 , Neutrophils (%) (Auto) 63.1, Lymphocytes (%) (Auto) 24.2, Monocytes (%) (Auto ) 7.2 H, Eosinophils (%) (Auto) 1.9, Basophils (%) (Auto) 1.2 H, Neutrophils # ( Auto) 5.3, Lymphocytes # (Auto) 2.0, Monocytes # (Auto) 0.6, Eosinophils # (Auto ) 0.2, Basophils # (Auto) 0.1, Calcium Level 9.0, Aspartate Amino Transf (AST/ SGOT) 11 L, Alanine Aminotransferase (ALT/SGPT) 30, Alkaline Phosphatase 79, Total Bilirubin 0.4, Total Protein 6.7, Albumin 3.1 L [place] Sep 02, 2016 09:24
[2016-09-02] MEDS: POLYVINYL ALCOHOL OPHTH SOLN 15 ML(LIQUITEARS) OU SCH ×4 (09:28→21:30)
[2016-09-02] MEDS: SODIUM CHLORIDE 0.9% INJ 10 ML SYR IV PRN ×2 (09:29→23:47)
--- NOTE | 2016-09-02 10:17 | IPNPDOC ---
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 Patient with some of his chronic pain but overall no complaints except for left eye aching and blurring. No troubles maintaining sleep last night. Some one spontaneous urinary void of 400cc then needed intermittant cath yesterday. ALLERGIES: See Below MEDICATIONS: Reviewed, see below. OBJECTIVE: VITAL SIGNS: Please see below. PHYSICAL EXAMINATION: GENERAL: Somewhat overweight middle-age white male who is alert and oriented 4. Speech is clear coherent and appropriate with no dysarthria. Affect is pleasant and cooperative and fairly upbeat. Patient with mild weakness in the right upper and lower extremity and left upper extremity with [id number] weakness in the left lower extremity. PICC line intact in the left arm. HEENT: Patient is normocephalic/atraumatic. Alternating using patch on one eye then the next every 2 hours while awake. CARDIOVASCULAR: Regular rate and rhythm with normal S1-S2. 2 out 4 bilateral radial pulses. LUNGS: All franklin clear to auscultation without any wheezes, rales or rhonchi. ABDOMEN: Obese, benign with no palpable tenderness and normal to mild increase in frequency of bowel sounds are appreciated in all quadrants. NEUROLOGICAL: As noted above. SKIN: Grossly intact. LABORATORY DATA: Reviewed. Please see below. MICROBIOLOGY: Please see below. IMAGING: No new imaging here. DVT prophylaxis ordered?: Patient continues on Lovenox. Also using TOMMIE hose. ASSESSMENT AND PLAN: 1. Rehabilitation of bilateral subarachnoid and Right of dural hematoma/CVAs: Strength and endurance improving, but problems with awareness and control of the lower extremities. 2. Hypokalemia: Patient has been started on some K-Tabs and follow his electrolytes as potassium was 3.7 today. I will monitor patient on daily 10 MEq of KCl. 3. Diabetes: Long-acting Levemir dosage was reduced to 25 units. No low Blood Sugars since, but many number of readings in the 200's. I will increase it to 28 units tonight. 4. Bacterial meningitis: Patient seen by Dr. Novoa who feels the diagnosis of meningitis is questionable based on prior labs but notes that research supports patient not being contagious after 24 hours on antibiotics so infection precautions will be altered accordingly. Patient is to finish antibiotics on in 2 days. 5. Urinary retention: I believe this is related to having bilateral cerebral damage combined with benign prostatic hypertrophy. I will try and have patient stood to avoid and if unable to void intermittent cath as post void residuals or 4 times a day urinary catheterizing. I will try some increase fiber for the bowel and continue with standing to void and IC. Proceeding with Urecholine trial. Hopefully more spontaneous voiding. TIME SPENT: Chart Review, examination and documentation require greater than 25 minutes. Allergies Coded Allergies: Bee Venom (Verified Allergy, Severe, ANAPHYLAXIS, 02/01/15) Erythromycin (Unverified Allergy, Mild, HIVES, 06/14/12) Fentanyl (Unverified Allergy, Mild, HIVES, 06/14/12) Pregabalin (Verified Allergy, Unknown, ITCHING, 02/01/15) Vital Signs Vital Signs Date Time Temp Pulse Resp B/P (MAP) Pulse Ox O2 Delivery O2 Flow Rate FiO2 09/02/16 08:45 75 142/81 09/02/16 07:29 18 09/02/16 06:04 99.7 97 Room Air Laboratory Data CBC/BMP Laboratory Tests 09/02/16 06:11 Red Blood Count 4.55, Mean Corpuscular Volume 90.5, Mean Corpuscular Hemoglobin 30.2, Mean Corpuscular Hemoglobin Concent 33.4, Red Cell Distribution Width 13.2 , Neutrophils (%) (Auto) 63.1, Lymphocytes (%) (Auto) 24.2, Monocytes (%) (Auto ) 7.2 H, Eosinophils (%) (Auto) 1.9, Basophils (%) (Auto) 1.2 H, Neutrophils # ( Auto) 5.3, Lymphocytes # (Auto) 2.0, Monocytes # (Auto) 0.6, Eosinophils # (Auto ) 0.2, Basophils # (Auto) 0.1, Calcium Level 9.0, Aspartate Amino Transf (AST/ SGOT) 11 L, Alanine Aminotransferase (ALT/SGPT) 30, Alkaline Phosphatase 79, Total Bilirubin 0.4, Total Protein 6.7, Albumin 3.1 L Labs 24H Laboratory Tests 2 09/01/16 11:51: Bedside Glucose (Misc Panel) 157H 09/01/16 16:27: Bedside Glucose (Misc Panel) 170H 09/01/16 19:33: Bedside Glucose (Misc Panel) 167H 09/02/16 06:11: White Blood Count 8.3, Red Blood Count 4.55, Hemoglobin 13.7L, Hematocrit 41.1L , Mean Corpuscular Volume 90.5, Mean Corpuscular Hemoglobin 30.2, Mean Corpuscular Hemoglobin Concent 33.4, Red Cell Distribution Width 13.2, Platelet Count 235, Neutrophils (%) (Auto) 63.1, Lymphocytes (%) (Auto) 24.2, Monocytes ( %) (Auto) 7.2H, Eosinophils (%) (Auto) 1.9, Basophils (%) (Auto) 1.2H, Neutrophils # (Auto) 5.3, Lymphocytes # (Auto) 2.0, Monocytes # (Auto) 0.6, Eosinophils # (Auto) 0.2, Basophils # (Auto) 0.1, Large Unclassified Cells % 2.4 , Large Unclassified Cells # 0.2, Anion Gap 8, Glomerular Filtration Rate > 60.0 , Blood Urea Nitrogen 9, Creatinine 0.63L, Sodium Level 141, Potassium Level 3.7 , Chloride Level 104, Carbon Dioxide Level 29, Calcium Level 9.0, Aspartate Amino Transf (AST/SGOT) 11L, Alanine Aminotransferase (ALT/SGPT) 30, Alkaline Phosphatase 79, Total Bilirubin 0.4, Total Protein 6.7, Albumin 3.1L, Albumin/ Globulin Ratio 0.86L Current Medications Current Medications Current Medications Acetaminophen (Tylenol Tab) 325 mg Q6HP PRN PO MILD PAIN OR FEVER Last administered on 08/27/16 05:51; Start 08/26/16 at 14:30; Stop 09/25/16 at 14:29 Al Hydrox/Mg Hydrox/Simethicone (Mylanta) 30 ml Q4HP PRN PO DYSPEPSIA; Start at 14:30; Stop 09/25/16 at 14:29 Ampicillin Sodium 2 gm/Dextrose 100 ml @ 200 mls/hr Q4H IV Last administered on 08/28/16 12:46; Start 08/26/16 at 16:00; Stop 08/28/16 at 12:52; Status DC Artificial Tears (Akwa Tears) 2 drop QID OU Last administered on 09/02/16 09: 28; Start 08/27/16 at 09:00; Stop 09/26/16 at 08:59 Bethanechol Chloride (Urecholine) 10 mg QPM PO Last administered on 09/01/16 21:22; Start 09/01/16 at 21:00; Stop 10/01/16 at 20:59 Calcium Polycarbophil (Fiber Con) 1 ea BID PO Last administered on 09/02/16 08 :44; Start 08/31/16 at 09:00; Stop 09/30/16 at 08:59 Carvedilol (COReg) 12.5 mg BID PO Last administered on 09/02/16 08:45; Start 08/26/16 at 21:00; Stop 09/25/16 at 20:59 Ceftriaxone Sodium 2 gm/ Dextrose 50 ml @ 100 mls/hr Q12H IV Last administered on 09/02/16 06:03; Start 08/26/16 at 18:00; Stop 09/04/16 at 17:59 Dextrose (Dextrose 50%) 25 ml ASDIRECTED PRN IV SEE LABEL COMMENTS; Start 08/26 at 15:00; Stop 09/25/16 at 14:59 Docusate Sodium (Colace) 100 mg BID PO Last administered on 09/02/16 08:44; Start 08/26/16 at 21:00; Stop 09/25/16 at 20:59 Enoxaparin Sodium (Lovenox) 40 mg DAILY SC Last administered on 09/02/16 08:44 ; Start 08/27/16 at 09:00; Stop 09/09/16 at 12:00 Glucagon (Glucagon) 1 mg ASDIRECTED PRN SC SEE LABEL COMMENTS; Start 08/26/16 at 15:00; Stop 09/25/16 at 14:59 Glucose (Glucose) 16 GM ASDIRECTED PRN PO SEE LABEL COMMENTS; Start 08/26/16 at 15:00; Stop 09/25/16 at 14:59 Heparin Sodium (Heparin (Flush)) 200 units ASDIRECTED PRN IV SEE LABEL COMMENTS Last administered on 09/02/16 09:29; Start 08/26/16 at 16:45; Stop at 16:44 Heparin Sodium (Heparin (Flush)) 200 units PICC IV Last administered on 06:04; Start 08/26/16 at 18:00; Stop 09/25/16 at 17:59 Home Med (Med Rec Complete!) ASDIRECTED XX ; Start 08/26/16 at 14:45; Stop at 14:45; Status DC Hydromorphone HCl (Dilaudid) 2 mg Q4HP PRN PO MODERATE/SEVERE PAIN (PS 5-10) Last administered on 09/02/16 06:59; Start 08/26/16 at 15:00; Stop 09/09/16 at 12:00 Insulin Detemir (Levemir Insulin) 25 units QHS SC Last administered on 21:19; Start 08/27/16 at 21:00; Stop 09/01/16 at 10:32; Status DC Insulin Detemir (Levemir Insulin) 28 units QHS SC Last administered on 21:23; Start 09/01/16 at 21:00; Stop 10/01/16 at 20:59 Insulin Detemir (Levemir Insulin) 35 units QHS SC Last administered on 21:35; Start 08/26/16 at 21:00; Stop 08/27/16 at 15:50; Status DC Insulin Human Lispro (HumaLOG INSULIN) See Protocol Table AC SC Last administered on 09/02/16 08:43; Start 08/26/16 at 17:30; Stop 09/25/16 at 17:29 Insulin Human Lispro (HumaLOG INSULIN) See Protocol Table QHS SC Last administered on 08/31/16 21:20; Start 08/26/16 at 21:00; Stop 09/25/16 at 20:59 Magnesium Hydroxide (Milk Of Magnesia) 30 ml DAILYPRN PRN PO CONSTIPATION; Start 08/26/16 at 14:30; Stop 09/25/16 at 14:29 Menthol/Methyl Salicylate (Bengay Cream) APPLY QIDP PRN TOP Right leg & knee; Start 08/26/16 at 13:45; Stop 09/25/16 at 13:44; Status Cancel Metformin HCl (Glucophage) 500 mg BID@08,18 PO Last administered on 09/02/16 08:44; Start 08/26/16 at 18:00; Stop 09/25/16 at 17:59 Pantoprazole Sodium (Protonix) 40 mg DAILY PO Last administered on 09/02/16 08 :44; Start 08/27/16 at 09:00; Stop 09/26/16 at 08:59 Potassium Chloride (Micro-K Extencaps) 10 meq DAILY PO Last administered on 10:05; Start 08/28/16 at 09:00; Stop 08/31/16 at 08:59; Status DC Potassium Chloride (Micro-K Extencaps) 10 meq DAILY PO Last administered on 08:45; Start 09/01/16 at 09:00; Stop 10/01/16 at 08:59 Psyllium Hydrophilic Mucilloid (Metamucil) 1 pkt DAILY PO Last administered on 08/31/16 09:48; Start 08/31/16 at 09:00; Stop 09/01/16 at 09:37; Status DC Sodium Biphosphate/ Sodium Phosphate (Fleet Enema) 1 ea DAILYPRN PRN [place] CONSTIPATION; Start 08/26/16 at 14:30; Stop 09/25/16 at 14:29 Sodium Chloride (Saline Lock Flush) 10 ml ASDIRECTED PRN IV SEE LABEL COMMENTS Last administered on 09/02/16 09:29; Start 08/26/16 at 16:45; Stop 09/25/16 at 16:44 Sodium Chloride (Saline Lock Flush) 10 ml PICC IV Last administered on 06:04; Start 08/26/16 at 18:00; Stop 09/25/16 at 17:59 Tamsulosin HCl (Flomax) 0.4 mg QHS PO Last administered on 08/27/16 21:36; Start 08/26/16 at 21:00; Stop 08/28/16 at 09:24; Status DC Tamsulosin HCl (Flomax) 0.8 mg QHS PO Last administered on 09/01/16 21:22; Start 08/28/16 at 21:00; Stop 09/27/16 at 20:59 Tramadol HCl (Ultram) 50 mg Q6HP PRN PO PAIN; Start 08/26/16 at 13:45; Stop at 13:44; Status Cancel Trazodone HCl (Desyrel) 50 mg QHS PRN PO NOT ASLEEP BY 2350; Start 08/27/16 at 21:00; Stop 09/26/16 at 20:59 Trazodone HCl (Desyrel) 100 mg QHS PO Last administered on 09/01/16 22:34; Start 08/27/16 at 21:00; Stop 09/26/16 at 20:59 Vancomycin HCl 1000 mg/IV Miscellaneous Supplies 1 each/ Dextrose 270 ml @ 540 mls/hr Q12H IV ; Start 08/26/16 at 14:30; Stop 08/26/16 at 16:59; Status DC Vancomycin HCl 1000 mg/IV Miscellaneous Supplies 1 each/ Dextrose 270 ml @ 540 mls/hr Q12H IV Last administered on 09/02/16 08:44; Start 08/26/16 at 21:00; Stop 09/04/16 at 20:59 Vancomycin HCl 1000 mg/IV Miscellaneous Supplies 1 each/ Dextrose 270 ml @ 540 mls/hr Q12H IV Last administered on 09/02/16 09:28; Start 08/26/16 at 22:00; Stop 09/04/16 at 21:59 SARIKA TORRES MD Sep 02, 2016 10:17
[2016-09-02 14:00] VITALS: BP 160/86
[2016-09-02 20:00] VITALS: BP 135/62
[2016-09-02] MEDS: traZODone 100 MG TAB PO SCH (21:30)
[2016-09-02] MEDS: TAMSULOSIN 0.4 MG CAP PO SCH (21:31)
[2016-09-02] MEDS: BETHANECHOL 10 MG TAB PO SCH (21:32)
[2016-09-02] MEDS: LEVEMIR (INSULIN DETEMIR) 1 UNITS/0.01ML SC SCH (21:34)
[2016-09-03] MEDS: cefTRIAXone SOD 2 GM in D5W MINI-BAG PLUS 50 ML IV SCH ×2 (05:53→17:27)
[2016-09-03] MEDS: SODIUM CHLORIDE 0.9% INJ 10 ML SYR IV SCH ×2 (05:53→17:27)
[2016-09-03 06:00] VITALS: BP 125/68
[2016-09-03 06:24] LABS: BASO # 0.1 K/mm3 (0.0-0.2); BASO % 0.8 % (0.0-1.0); EOS # 0.1 K/mm3 (0.0-0.50); EOS % 1.5 % (0.0-3.0); LARGE UNSTAINED CELL # 0.1 K/mm3 (0.0-0.4); LARGE UNSTAINED CELL % 1.9 % (0.0-4.0); LYMPH # 1.9 K/mm3 (1.5-4.5); LYMPH % 24.6 % (24.0-44.0); MEAN CORPUSCULAR HEMOGLOBIN 29.9 pg (27.0-33.0); MEAN CORPUSCULAR HGB CONC 33.2 g/dl (32.0-36.5); MEAN CORPUSCULAR VOLUME 90.3 fl (80.0-96.0); MONO # 0.5 K/mm3 (0.0-0.8); MONO % 7.1 % (0.0-5.0); NEUTROPHILS # 4.6 K/mm3 (1.8-7.7); PLATELET COUNT, AUTOMATED 220 k/mm3 (150-450); RED CELL DISTRIBUTION WIDTH 13.4 % (11.5-14.5); WHITE BLOOD COUNT 7.1 K/mm3 (4.0-10.0)
[2016-09-03 06:35] LABS: ALBUMIN 3.2 GM/DL (3.2-5.2); ALBUMIN/GLOBULIN RATIO 0.89 (1.00-1.93); ALKALINE PHOSPHATASE 78 U/L (45-117); ALT/SGPT 26 U/L (12-78); ANION GAP 6 MEQ/L (8-16); AST/SGOT 11 U/L (15-37); BILIRUBIN,TOTAL 0.5 MG/DL (0.2-1.0); BLOOD UREA NITROGEN 10 MG/DL (7-18); CALCIUM LEVEL 8.8 MG/DL (8.5-10.1); CARBON DIOXIDE LEVEL 31 MEQ/L (21-32); CHLORIDE LEVEL 104 MEQ/L (98-107); CREATININE FOR GFR 0.64 MG/DL (0.70-1.30); GLOMERULAR FILTRATION RATE > 60.0 (>56); GLUCOSE, FASTING 189 MG/DL (70-105); POTASSIUM SERUM 3.8 MEQ/L (3.5-5.1); SODIUM LEVEL 141 MEQ/L (136-145); TOTAL PROTEIN 6.8 GM/DL (6.4-8.2)
[2016-09-03] MEDS: HumaLOG INSULIN (NovoLOG) PER UNIT SC SCH ×4 (07:41→20:30)
[2016-09-03] MEDS: HYDROmorphone 2 MG TAB PO PRN ×3 (07:42→21:53)
[2016-09-03] MEDS: metFORMIN (GLUCOPHAGE) 500 MG TAB PO SCH ×2 (07:42→17:26)
[2016-09-03] MEDS: ENOXAPARIN 40 MG/0.4 ML SYRINGE (J1650) SC SCH (09:07)
[2016-09-03] MEDS: VANCOMYCIN HCL 1,000 MG, VIAL MATE ADAPTER 1 EACH in D5W 250 ML IV SCH ×4 (09:08→21:57)
[2016-09-03] MEDS: POLYVINYL ALCOHOL OPHTH SOLN 15 ML(LIQUITEARS) OU SCH ×4 (09:10→20:32)
[2016-09-03] MEDS: DOCUSATE SODIUM 100 MG CAP PO SCH ×2 (09:13→20:31)
[2016-09-03] MEDS: CARVedilol 12.5 MG TAB PO SCH ×2 (09:13→20:31)
[2016-09-03] MEDS: PANTOPRAZOLE 40MG TAB (PROTONIX) PO SCH (09:14)
[2016-09-03] MEDS: FIBER-CON 625 MG TAB PO SCH ×2 (09:14→20:32)
[2016-09-03] MEDS: POTASSIUM CHLORIDE 10 MEQ SR TABLET PO SCH (09:15)
--- NOTE | 2016-09-03 09:57 | IPNPDOC ---
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 Patient with some of his chronic pain but overall no complaints except for left eye aching and blurring. No troubles maintaining sleep last night. Some one spontaneous urinary void of 400cc then needed intermittant cath yesterday. ALLERGIES: See Below MEDICATIONS: Reviewed, see below. OBJECTIVE: VITAL SIGNS: Please see below. PHYSICAL EXAMINATION: GENERAL: Somewhat overweight middle-age white male who is alert and oriented 4. Speech is clear coherent and appropriate with no dysarthria. Affect is pleasant and cooperative and fairly upbeat. Patient with mild weakness in the right upper and lower extremity and left upper extremity with [id number] weakness in the left lower extremity. PICC line intact in the left arm. HEENT: Patient is normocephalic/atraumatic. Alternating using patch on one eye then the next every 2 hours while awake. CARDIOVASCULAR: Regular rate and rhythm with normal S1-S2. 2 out 4 bilateral radial pulses. LUNGS: All franklin clear to auscultation without any wheezes, rales or rhonchi. ABDOMEN: Obese, benign with no palpable tenderness and normal to mild increase in frequency of bowel sounds are appreciated in all quadrants. NEUROLOGICAL: As noted above with increasing left lower extremity strength leading to increased gaiting and stability. SKIN: Grossly intact. LABORATORY DATA: Reviewed. Please see below. MICROBIOLOGY: Please see below. IMAGING: No new imaging here. DVT prophylaxis ordered?: Patient continues on Lovenox. Also using TOMMIE hose. ASSESSMENT AND PLAN: 1. Rehabilitation of bilateral subarachnoid and Right subdural hematoma/CVAs: Strength and endurance improving, but problems with awareness and control of the lower extremities. Rehab. Team Rounds: Good effort and improving left motor in U&LE's. Endurance is improving and patient on pace to meet D/C goals on about 09/08/16 for D/C to home with family and Home-care. Patient will likely need Tube Bench and Front Wheeled Walker at D/C to home. 2. Hypokalemia: Patient has been started on some K-Tabs and follow his electrolytes as potassium was 3.8 today. I will monitor patient on daily 10 MEq of KCl. 3. Diabetes: Long-acting Levemir dosage 28 units nightly with Blood Sugars running in the 100's without sub 100 levels. 4. Bacterial meningitis: Patient seen by Dr. Novoa who feels the diagnosis of meningitis is questionable based on prior labs but notes that research supports patient not being contagious after 24 hours on antibiotics so infection precautions will be altered accordingly. Patient is to finish antibiotics on in 1 days. 5. Urinary retention: I believe this is related to having bilateral cerebral damage combined with benign prostatic hypertrophy. I will try and have patient stood to avoid and if unable to void intermittent cath as post void residuals or 4 times a day urinary catheterizing. I will try some increase fiber for the bowel and continue with standing to void and IC. Proceeding with Urecholine trial. Hopefully more spontaneous voiding. As of today not working and may need to increase dosage by going to BID if not better by tomorrow. TIME SPENT: Chart Review, examination and documentation require greater than 25 minutes. Allergies Coded Allergies: Bee Venom (Verified Allergy, Severe, ANAPHYLAXIS, 02/01/15) Erythromycin (Unverified Allergy, Mild, HIVES, 06/14/12) Fentanyl (Unverified Allergy, Mild, HIVES, 06/14/12) Pregabalin (Verified Allergy, Unknown, ITCHING, 02/01/15) Vital Signs Vital Signs Date Time Temp Pulse Resp B/P (MAP) Pulse Ox O2 Delivery O2 Flow Rate FiO2 09/03/16 09:13 80 140/86 09/03/16 09:06 18 09/03/16 06:00 98.1 95 Room Air Laboratory Data CBC/BMP Laboratory Tests 09/03/16 05:50 Red Blood Count 4.54, Mean Corpuscular Volume 90.3, Mean Corpuscular Hemoglobin 29.9, Mean Corpuscular Hemoglobin Concent 33.2, Red Cell Distribution Width 13.4 , Neutrophils (%) (Auto) 64.0, Lymphocytes (%) (Auto) 24.6, Monocytes (%) (Auto ) 7.1 H, Eosinophils (%) (Auto) 1.5, Basophils (%) (Auto) 0.8, Neutrophils # ( Auto) 4.6, Lymphocytes # (Auto) 1.9, Monocytes # (Auto) 0.5, Eosinophils # (Auto ) 0.1, Basophils # (Auto) 0.1, Calcium Level 8.8, Aspartate Amino Transf (AST/ SGOT) 11 L, Alanine Aminotransferase (ALT/SGPT) 26, Alkaline Phosphatase 78, Total Bilirubin 0.5, Total Protein 6.8, Albumin 3.2 Labs 24H Laboratory Tests 2 09/02/16 12:07: Bedside Glucose (Misc Panel) 144H 09/02/16 16:27: Bedside Glucose (Misc Panel) 166H 09/02/16 19:50: Bedside Glucose (Misc Panel) 176H 09/03/16 05:50: White Blood Count 7.1, Red Blood Count 4.54, Hemoglobin 13.6L, Hematocrit 41.0L , Mean Corpuscular Volume 90.3, Mean Corpuscular Hemoglobin 29.9, Mean Corpuscular Hemoglobin Concent 33.2, Red Cell Distribution Width 13.4, Platelet Count 220, Neutrophils (%) (Auto) 64.0, Lymphocytes (%) (Auto) 24.6, Monocytes ( %) (Auto) 7.1H, Eosinophils (%) (Auto) 1.5, Basophils (%) (Auto) 0.8, Neutrophils # (Auto) 4.6, Lymphocytes # (Auto) 1.9, Monocytes # (Auto) 0.5, Eosinophils # (Auto) 0.1, Basophils # (Auto) 0.1, Large Unclassified Cells % 1.9 , Large Unclassified Cells # 0.1, Anion Gap 6L, Glomerular Filtration Rate > 60.0, Blood Urea Nitrogen 10, Creatinine 0.64L, Sodium Level 141, Potassium Level 3.8, Chloride Level 104, Carbon Dioxide Level 31, Calcium Level 8.8, Aspartate Amino Transf (AST/SGOT) 11L, Alanine Aminotransferase (ALT/SGPT) 26, Alkaline Phosphatase 78, Total Bilirubin 0.5, Total Protein 6.8, Albumin 3.2, Albumin/Globulin Ratio 0.89L Current Medications Current Medications Current Medications Acetaminophen (Tylenol Tab) 325 mg Q6HP PRN PO MILD PAIN OR FEVER Last administered on 08/27/16t 05:51; Start 08/26/16 at 14:30; Stop 09/25/16 at 14:29 Al Hydrox/Mg Hydrox/Simethicone (Mylanta) 30 ml Q4HP PRN PO DYSPEPSIA; Start at 14:30; Stop 09/25/16 at 14:29 Ampicillin Sodium 2 gm/Dextrose 100 ml @ 200 mls/hr Q4H IV Last administered on 08/28/16 12:46; Start 08/26/16 at 16:00; Stop 08/28/16 at 12:52; Status DC Artificial Tears (Akwa Tears) 2 drop QID OU Last administered on 09/03/16 09: 10; Start 08/27/16 at 09:00; Stop 09/26/16 at 08:59 Bethanechol Chloride (Urecholine) 10 mg QPM PO Last administered on 09/02/16 21:32; Start 09/01/16 at 21:00; Stop 10/01/16 at 20:59 Calcium Polycarbophil (Fiber Con) 1 ea BID PO Last administered on 09/03/16 09 :14; Start 08/31/16 at 09:00; Stop 09/30/16 at 08:59 Carvedilol (COReg) 12.5 mg BID PO Last administered on 09/03/16 09:13; Start 08/26/16 at 21:00; Stop 09/25/16 at 20:59 Ceftriaxone Sodium 2 gm/ Dextrose 50 ml @ 100 mls/hr Q12H IV Last administered on 09/03/16 05:53; Start 08/26/16 at 18:00; Stop 09/04/16 at 17:59 Dextrose (Dextrose 50%) 25 ml ASDIRECTED PRN IV SEE LABEL COMMENTS; Start 08/26 at 15:00; Stop 09/25/16 at 14:59 Docusate Sodium (Colace) 100 mg BID PO Last administered on 09/03/16 09:13; Start 08/26/16 at 21:00; Stop 09/25/16 at 20:59 Enoxaparin Sodium (Lovenox) 40 mg DAILY SC Last administered on 09/03/16 09:07 ; Start 08/27/16 at 09:00; Stop 09/09/16 at 12:00 Glucagon (Glucagon) 1 mg ASDIRECTED PRN SC SEE LABEL COMMENTS; Start 08/26/16 at 15:00; Stop 09/25/16 at 14:59 Glucose (Glucose) 16 GM ASDIRECTED PRN PO SEE LABEL COMMENTS; Start 08/26/16 at 15:00; Stop 09/25/16 at 14:59 Heparin Sodium (Heparin (Flush)) 200 units ASDIRECTED PRN IV SEE LABEL COMMENTS Last administered on 09/02/16 23:47; Start 08/26/16 at 16:45; Stop at 16:44 Heparin Sodium (Heparin (Flush)) 200 units PICC IV Last administered on 05:53; Start 08/26/16 at 18:00; Stop 09/25/16 at 17:59 Home Med (Med Rec Complete!) ASDIRECTED XX ; Start 08/26/16 at 14:45; Stop at 14:45; Status DC Hydromorphone HCl (Dilaudid) 2 mg Q4HP PRN PO MODERATE/SEVERE PAIN (PS 5-10) Last administered on 09/03/16 07:42; Start 08/26/16 at 15:00; Stop 09/09/16 at 12:00 Insulin Detemir (Levemir Insulin) 25 units QHS SC Last administered on 21:19; Start 08/27/16 at 21:00; Stop 09/01/16 at 10:32; Status DC Insulin Detemir (Levemir Insulin) 28 units QHS SC Last administered on 21:34; Start 09/01/16 at 21:00; Stop 10/01/16 at 20:59 Insulin Detemir (Levemir Insulin) 35 units QHS SC Last administered on 21:35; Start 08/26/16 at 21:00; Stop 08/27/16 at 15:50; Status DC Insulin Human Lispro (HumaLOG INSULIN) See Protocol Table AC SC Last administered on 09/03/16 07:41; Start 08/26/16 at 17:30; Stop 09/25/16 at 17:29 Insulin Human Lispro (HumaLOG INSULIN) See Protocol Table QHS SC Last administered on 08/31/16 21:20; Start 08/26/16 at 21:00; Stop 09/25/16 at 20:59 Magnesium Hydroxide (Milk Of Magnesia) 30 ml DAILYPRN PRN PO CONSTIPATION; Start 08/26/16 at 14:30; Stop 09/25/16 at 14:29 Menthol/Methyl Salicylate (Bengay Cream) APPLY QIDP PRN TOP Right leg & knee; Start 08/26/16 at 13:45; Stop 09/25/16 at 13:44; Status Cancel Metformin HCl (Glucophage) 500 mg BID@,18 PO Last administered on 09/03/16 07:42; Start 08/26/16 at 18:00; Stop 09/25/16 at 17:59 Pantoprazole Sodium (Protonix) 40 mg DAILY PO Last administered on 09/03/16 09 :14; Start 08/27/16 at 09:00; Stop 09/26/16 at 08:59 Potassium Chloride (Micro-K Extencaps) 10 meq DAILY PO Last administered on 10:05; Start 08/28/16 at 09:00; Stop 08/31/16 at 08:59; Status DC Potassium Chloride (Micro-K Extencaps) 10 meq DAILY PO Last administered on 09:15; Start 09/01/16 at 09:00; Stop 10/01/16 at 08:59 Psyllium Hydrophilic Mucilloid (Metamucil) 1 pkt DAILY PO Last administered on 08/31/16 09:48; Start 08/31/16 at 09:00; Stop 09/01/16 at 09:37; Status DC Sodium Biphosphate/ Sodium Phosphate (Fleet Enema) 1 ea DAILYPRN PRN [place] CONSTIPATION; Start 08/26/16 at 14:30; Stop 09/25/16 at 14:29 Sodium Chloride (Saline Lock Flush) 10 ml ASDIRECTED PRN IV SEE LABEL COMMENTS Last administered on 09/02/16 23:47; Start 08/26/16 at 16:45; Stop 09/25/16 at 16:44 Sodium Chloride (Saline Lock Flush) 10 ml PICC IV Last administered on 05:53; Start 08/26/16 at 18:00; Stop 09/25/16 at 17:59 Tamsulosin HCl (Flomax) 0.4 mg QHS PO Last administered on 08/27/16 21:36; Start 08/26/16 at 21:00; Stop 08/28/16 at 09:24; Status DC Tamsulosin HCl (Flomax) 0.8 mg QHS PO Last administered on 09/02/16 21:31; Start 08/28/16 at 21:00; Stop 09/27/16 at 20:59 Tramadol HCl (Ultram) 50 mg Q6HP PRN PO PAIN; Start 08/26/16 at 13:45; Stop at 13:44; Status Cancel Trazodone HCl (Desyrel) 50 mg QHS PRN PO NOT ASLEEP BY 2350; Start 08/27/16 at 21:00; Stop 09/26/16 at 20:59 Trazodone HCl (Desyrel) 100 mg QHS PO Last administered on 09/02/16 21:30; Start 08/27/16 at 21:00; Stop 09/26/16 at 20:59 Vancomycin HCl 1000 mg/IV Miscellaneous Supplies 1 each/ Dextrose 270 ml @ 540 mls/hr Q12H IV ; Start 08/26/16 at 14:30; Stop 08/26/16 at 16:59; Status DC Vancomycin HCl 1000 mg/IV Miscellaneous Supplies 1 each/ Dextrose 270 ml @ 540 mls/hr Q12H IV Last administered on 09/03/16 09:08; Start 08/26/16 at 21:00; Stop 09/04/16 at 20:59 Vancomycin HCl 1000 mg/IV Miscellaneous Supplies 1 each/ Dextrose 270 ml @ 540 mls/hr Q12H IV Last administered on 09/02/16 22:44; Start 08/26/16 at 22:00; Stop 09/04/16 at 21:59 SARIKA TORRES MD Sep 03, 2016 09:57
[2016-09-03] MEDS: SODIUM CHLORIDE 0.9% INJ 10 ML SYR IV PRN ×2 (12:10→23:04)
--- NOTE | 2016-09-03 12:57 | IPNPDOC ---
Date Seen The patient was seen on 09/03/16. Progress Note HPI: 56year oldM with a past medical history significant for Subarachnoid hemorrhage who was transferred from [facility] to the care of EDMUND Chance . Pt presented to [facility] ED 08/08/16 and was found to have subarachnoid hemorrhage and was transferred to [facility] for further management. Pt with residual left hemiparesis, Pt is gaining strength in his LUE, still with weakness of LLE. His hospitalization was complicated by DKA and LP 08/21 indicating bacterial meningitis. Pt was treated with IV Vancomycin, Rocephin, ampicillin. Pt states he is doing well with therapy and offers no concerns at this time. He is in bed resting. Denies any fevers, chills, weakness, fatigue, Headache, Chest Pain, Shortness of breath, cough, palpitations, abdominal pain, N/V/D or changes in bowel or bladder habits. PMHx: Subarachnoid hemorrhage 08/08/16- [facility]. Non traumatic in setting of dual antiplatelet agents. Residual left hemiparesis. CT head rt frontal, occipital, temporal lobe SAH. CTA head so stenosis, dissection, AVM, aneurysm. CTA neck no stenosis, dissection. MRI Brain SAH cerebral convexity and prepontine region EEG no epileptiform activity. Bacterial meningitis LP 08/21/16 HTN CAD/S/P PCI BPH/urinary retention Insomnia IDDM H/O DKA. GERD Hiatal hernia Diabetic neuropathy Hypertension COPD History of pulmonary nodules LLL. Follows with pulmonary, Dr. Monroy. H/O Fatty liver Chronic pain/myofascial pain/OA chronic back pain Chronic neck pain/Cervical stenosis PSHX: Intrathecal pump Implant/removal elbow surgery, Rt ulnar neuropathy B/L CTR Cardiac stent PICC LUE ROS: As noted in HPI, otherwise 11pt ROS of systems reviewed and unremarkable. PE: GEN: 56yoM, appears stated age. Well-nourished, well developed. No acute distress. Alert and oriented x 3. Pleasant, interactive. HEENT: Normocephalic, atraumatic. Sclera are nonicteric. Conjunctiva without injection. Nose midline. No facial asymmetry. Moist mucous membranes. Neck supple, trachea midline. No lymphadenopathy or thyromegaly appreciated. CHEST: Regular rate and rhythm, +S1, +S2 LUNGS: Clear to auscultation bilaterally. No wheezes, rales, or rhonchi. Breathing appears symmetric and easy. Patient is speaking in full sentences. No accessory muscle use. ABD: Round, soft, non-tender, non-distended. +Bowel sounds throughout. No rebound or guarding. No costovertebral angle tenderness. EXT: No lower extremity edema appreciated. SKIN: Stites, dry, warm. NEURO: Alert and oriented x 3. Cranial nerves III-XII are intact. Left sided weakness, LE>UE. A&P: 56year oldM with a past medical history significant for Subarachnoid hemorrhage who was transferred from [facility] to the care of Dr Wilson, ARU 08/26/16. 1. Patient is admitted to ARU under the care of Dr. Wilson. Subarachnoid hemorrhage PT/OT/speech therapy as per ARU DVT prophylaxis as per ARU Pain control as per ARU Bowel care as per ARU 2. bacterial meningitis. ID/Dr Novoa consulted. Appreciate assistance. Ampicillin discontinued as per ID. Pt continues with IV Vanco/Rocephin. Vanco dosing as per Clinical Pharm. Plan is to continue antibiotic regimen until . PICC in place. 3. BPH/urinary retention. Flomax. Self cath as needed. Urecholine as per attending. 4. IDDM. Metformin 500mg BID, Levemir 35 u HS, SSI. CC diet. Pt was noted with low BS (62). Levemir reduced to 25 units with no further hypoglycemia. Levemir increased to 28 units beginning 09/01 as per ARU attending. BS this AM 189. Monitor BS 5. GERD/hiatal hernia. Protonix. 6. Insomnia. Trazodone. 7. Hypertension. Coreg 12.5 mg BID. 8. Chronic back pain/chronic pain. Consider pain management if needed. 9. Hypokalemia. Cont with supplement. Mag level WNL. K WNL. VS, I&O, 24H, Fishbone Vital Signs/I&O Vital Signs Date Time Temp Pulse Resp B/P (MAP) Pulse Ox O2 Delivery O2 Flow Rate FiO2 09/03/16 09:13 80 140/86 09/03/16 09:06 18 09/03/16 06:00 98.1 95 Room Air I&O- Last 24 Hours up to 6 AM 09/03/16 05:59 Intake Total 2720 ml Output Total 7400 ml Balance -4680 ml Laboratory Data 24H LABS Laboratory Tests 2 09/02/16 16:27: Bedside Glucose (Misc Panel) 166H 09/02/16 19:50: Bedside Glucose (Misc Panel) 176H 09/03/16 05:50: White Blood Count 7.1, Red Blood Count 4.54, Hemoglobin 13.6L, Hematocrit 41.0L , Mean Corpuscular Volume 90.3, Mean Corpuscular Hemoglobin 29.9, Mean Corpuscular Hemoglobin Concent 33.2, Red Cell Distribution Width 13.4, Platelet Count 220, Neutrophils (%) (Auto) 64.0, Lymphocytes (%) (Auto) 24.6, Monocytes ( %) (Auto) 7.1H, Eosinophils (%) (Auto) 1.5, Basophils (%) (Auto) 0.8, Neutrophils # (Auto) 4.6, Lymphocytes # (Auto) 1.9, Monocytes # (Auto) 0.5, Eosinophils # (Auto) 0.1, Basophils # (Auto) 0.1, Large Unclassified Cells % 1.9 , Large Unclassified Cells # 0.1, Anion Gap 6L, Glomerular Filtration Rate > 60.0, Blood Urea Nitrogen 10, Creatinine 0.64L, Sodium Level 141, Potassium Level 3.8, Chloride Level 104, Carbon Dioxide Level 31, Calcium Level 8.8, Aspartate Amino Transf (AST/SGOT) 11L, Alanine Aminotransferase (ALT/SGPT) 26, Alkaline Phosphatase 78, Total Bilirubin 0.5, Total Protein 6.8, Albumin 3.2, Albumin/Globulin Ratio 0.89L 09/03/16 11:27: Bedside Glucose (Misc Panel) 191H CBC/BMP Laboratory Tests 09/03/16 05:50 Red Blood Count 4.54, Mean Corpuscular Volume 90.3, Mean Corpuscular Hemoglobin 29.9, Mean Corpuscular Hemoglobin Concent 33.2, Red Cell Distribution Width 13.4 , Neutrophils (%) (Auto) 64.0, Lymphocytes (%) (Auto) 24.6, Monocytes (%) (Auto ) 7.1 H, Eosinophils (%) (Auto) 1.5, Basophils (%) (Auto) 0.8, Neutrophils # ( Auto) 4.6, Lymphocytes # (Auto) 1.9, Monocytes # (Auto) 0.5, Eosinophils # (Auto ) 0.1, Basophils # (Auto) 0.1, Calcium Level 8.8, Aspartate Amino Transf (AST/ SGOT) 11 L, Alanine Aminotransferase (ALT/SGPT) 26, Alkaline Phosphatase 78, Total Bilirubin 0.5, Total Protein 6.8, Albumin 3.2 [place] Sep 03, 2016 12:57
[2016-09-03 14:00] VITALS: BP 135/75
[2016-09-03 20:01] VITALS: BP 131/79
[2016-09-03] MEDS: LEVEMIR (INSULIN DETEMIR) 1 UNITS/0.01ML SC SCH (20:30)
[2016-09-03] MEDS: traZODone 100 MG TAB PO SCH (20:31)
[2016-09-03] MEDS: BETHANECHOL 10 MG TAB PO SCH (20:31)
[2016-09-03] MEDS: TAMSULOSIN 0.4 MG CAP PO SCH (20:32)
[2016-09-04] MEDS: cefTRIAXone SOD 2 GM in D5W MINI-BAG PLUS 50 ML IV SCH (05:22)
[2016-09-04 05:28] VITALS: BP 117/74
[2016-09-04] MEDS: SODIUM CHLORIDE 0.9% INJ 10 ML SYR IV SCH (06:37)
[2016-09-04] MEDS: HumaLOG INSULIN (NovoLOG) PER UNIT SC SCH ×4 (07:34→21:00)
[2016-09-04] MEDS: POLYVINYL ALCOHOL OPHTH SOLN 15 ML(LIQUITEARS) OU SCH ×4 (07:34→20:20)
[2016-09-04] MEDS: ENOXAPARIN 40 MG/0.4 ML SYRINGE (J1650) SC SCH (07:34)
[2016-09-04] MEDS: metFORMIN (GLUCOPHAGE) 500 MG TAB PO SCH ×2 (07:35→17:06)
[2016-09-04] MEDS: FIBER-CON 625 MG TAB PO SCH ×2 (07:35→20:19)
[2016-09-04] MEDS: DOCUSATE SODIUM 100 MG CAP PO SCH ×2 (07:35→20:19)
[2016-09-04] MEDS: POTASSIUM CHLORIDE 10 MEQ SR TABLET PO SCH (07:35)
[2016-09-04] MEDS: PANTOPRAZOLE 40MG TAB (PROTONIX) PO SCH (07:35)
[2016-09-04] MEDS: CARVedilol 12.5 MG TAB PO SCH ×2 (07:35→20:20)
[2016-09-04] MEDS: HYDROmorphone 2 MG TAB PO PRN ×3 (07:36→20:38)
[2016-09-04] MEDS: VANCOMYCIN HCL 1,000 MG, VIAL MATE ADAPTER 1 EACH in D5W 250 ML IV SCH ×2 (08:32→09:25)
[2016-09-04] MEDS: BETHANECHOL 10 MG TAB PO SCH ×2 (09:25→20:19)
--- NOTE | 2016-09-04 11:32 | IPNPDOC ---
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 Patient with some of his chronic pain but overall no complaints except for left eye aching and blurring and left leg aching after long walks. BM this morning but only some urinary dribbling. ALLERGIES: See Below MEDICATIONS: Reviewed, see below. OBJECTIVE: VITAL SIGNS: Please see below. PHYSICAL EXAMINATION: GENERAL: Somewhat overweight middle-age white male who is alert and oriented 4. Speech is clear coherent and appropriate with no dysarthria. Affect is pleasant and cooperative and fairly upbeat. Patient with mild weakness in the right upper and lower extremity and left upper extremity with [id number] weakness in the left lower extremity. PICC line removed from the left arm. HEENT: Patient is normocephalic/atraumatic. Alternating using patch on one eye then the next every 2 hours while awake. CARDIOVASCULAR: Regular rate and rhythm with normal S1-S2. 2 out 4 bilateral radial pulses. LUNGS: All franklin clear to auscultation without any wheezes, rales or rhonchi. ABDOMEN: Obese, benign with no palpable tenderness and normal to mild increase in frequency of bowel sounds are appreciated in all quadrants. NEUROLOGICAL: As noted above with increasing left lower extremity strength leading to increased gaiting and stability. SKIN: Grossly intact. LABORATORY DATA: Reviewed. Please see below. MICROBIOLOGY: Please see below. IMAGING: No new imaging here. DVT prophylaxis ordered?: Patient continues on Lovenox. Also using TOMMIE hose. ASSESSMENT AND PLAN: 1. Rehabilitation of bilateral subarachnoid and Right subdural hematoma/CVAs: Strength and endurance improving, but problems with awareness and control of the lower extremities. On target for discharge to home with family next week. 2. Hypokalemia: Patient has been started on some K-Tabs and follow his electrolytes as potassium was 3.8 yesterday. I will monitor patient on daily 10 MEq of KCl. 3. Diabetes: Long-acting Levemir dosage 28 units nightly with Blood Sugars running in the 100's without sub 100 levels. 4. Bacterial meningitis: Patient seen by Dr. Novoa who feels the diagnosis of meningitis is questionable based on prior labs but notes that research supports patient not being contagious after 24 hours on antibiotics so infection precautions will be altered accordingly. Patient has finished antibiotics today : 09/04/16. 5. Urinary retention: I believe this is related to having bilateral cerebral damage combined with benign prostatic hypertrophy. I will try and have patient stood to avoid and if unable to void intermittent cath as post void residuals or 4 times a day urinary catheterizing. I will try some increase fiber for the bowel and continue with standing to void and IC. Proceeding with Urecholine trial now to 10mg bid. Hopefully more spontaneous voiding. As of today not working and may need to increase dosage by going to BID if not better by tomorrow. TIME SPENT: Chart Review, examination and documentation require greater than 25 minutes. Allergies Coded Allergies: Bee Venom (Verified Allergy, Severe, ANAPHYLAXIS, 02/01/15) Erythromycin (Unverified Allergy, Mild, HIVES, 06/14/12) Fentanyl (Unverified Allergy, Mild, HIVES, 06/14/12) Pregabalin (Verified Allergy, Unknown, ITCHING, 02/01/15) Vital Signs Vital Signs Date Time Temp Pulse Resp B/P (MAP) Pulse Ox O2 Delivery O2 Flow Rate FiO2 09/04/16 08:06 20 09/04/16 07:35 84 117/74 09/04/16 05:28 98.5 94 Room Air Laboratory Data Labs 24H Laboratory Tests 2 09/03/16 11:27: Bedside Glucose (Misc Panel) 191H 09/03/16 16:42: Bedside Glucose (Misc Panel) 196H 09/03/16 20:07: Bedside Glucose (Misc Panel) 220H 09/04/16 06:21: Bedside Glucose (Misc Panel) 152H Current Medications Current Medications Current Medications Acetaminophen (Tylenol Tab) 325 mg Q6HP PRN PO MILD PAIN OR FEVER Last administered on 08/27/16t 05:51; Start 08/26/16 at 14:30; Stop 09/25/16 at 14:29 Al Hydrox/Mg Hydrox/Simethicone (Mylanta) 30 ml Q4HP PRN PO DYSPEPSIA; Start at 14:30; Stop 09/25/16 at 14:29 Ampicillin Sodium 2 gm/Dextrose 100 ml @ 200 mls/hr Q4H IV Last administered on 08/28/16 12:46; Start 08/26/16 at 16:00; Stop 08/28/16 at 12:52; Status DC Artificial Tears (Akwa Tears) 2 drop QID OU Last administered on 09/04/16 07: 34; Start 08/27/16 at 09:00; Stop 09/26/16 at 08:59 Bethanechol Chloride (Urecholine) 10 mg BID PO Last administered on 09/04/16 09:25; Start 09/04/16 at 09:00; Stop 10/01/16 at 20:59 Bethanechol Chloride (Urecholine) 10 mg QPM PO Last administered on 09/03/16 20:31; Start 09/01/16 at 21:00; Stop 09/04/16 at 08:16; Status DC Calcium Polycarbophil (Fiber Con) 1 ea BID PO Last administered on 09/04/16 07 :35; Start 08/31/16 at 09:00; Stop 09/30/16 at 08:59 Carvedilol (COReg) 12.5 mg BID PO Last administered on 09/04/16 07:35; Start 08/26/16 at 21:00; Stop 09/25/16 at 20:59 Ceftriaxone Sodium 2 gm/ Dextrose 50 ml @ 100 mls/hr Q12H IV Last administered on 09/04/16 05:22; Start 08/26/16 at 18:00; Stop 09/04/16 at 17:59 Dextrose (Dextrose 50%) 25 ml ASDIRECTED PRN IV SEE LABEL COMMENTS; Start 08/26 at 15:00; Stop 09/25/16 at 14:59 Docusate Sodium (Colace) 100 mg BID PO Last administered on 09/04/16 07:35; Start 08/26/16 at 21:00; Stop 09/25/16 at 20:59 Enoxaparin Sodium (Lovenox) 40 mg DAILY SC Last administered on 09/04/16 07:34 ; Start 08/27/16 at 09:00; Stop 09/09/16 at 12:00 Glucagon (Glucagon) 1 mg ASDIRECTED PRN SC SEE LABEL COMMENTS; Start 08/26/16 at 15:00; Stop 09/25/16 at 14:59 Glucose (Glucose) 16 GM ASDIRECTED PRN PO SEE LABEL COMMENTS; Start 08/26/16 at 15:00; Stop 09/25/16 at 14:59 Heparin Sodium (Heparin (Flush)) 200 units ASDIRECTED PRN IV SEE LABEL COMMENTS Last administered on 09/03/16 23:03; Start 08/26/16 at 16:45; Stop at 16:44 Heparin Sodium (Heparin (Flush)) 200 units PICC IV Last administered on 06:36; Start 08/26/16 at 18:00; Stop 09/25/16 at 17:59 Home Med (Med Rec Complete!) ASDIRECTED XX ; Start 08/26/16 at 14:45; Stop at 14:45; Status DC Hydromorphone HCl (Dilaudid) 2 mg Q4HP PRN PO MODERATE/SEVERE PAIN (PS 5-10) Last administered on 09/04/16 07:36; Start 08/26/16 at 15:00; Stop 09/09/16 at 12:00 Insulin Detemir (Levemir Insulin) 25 units QHS SC Last administered on 21:19; Start 08/27/16 at 21:00; Stop 09/01/16 at 10:32; Status DC Insulin Detemir (Levemir Insulin) 28 units QHS SC Last administered on 20:30; Start 09/01/16 at 21:00; Stop 10/01/16 at 20:59 Insulin Detemir (Levemir Insulin) 35 units QHS SC Last administered on 21:35; Start 08/26/16 at 21:00; Stop 08/27/16 at 15:50; Status DC Insulin Human Lispro (HumaLOG INSULIN) See Protocol Table AC SC Last administered on 09/04/16 07:34; Start 08/26/16 at 17:30; Stop 09/25/16 at 17:29 Insulin Human Lispro (HumaLOG INSULIN) See Protocol Table QHS SC Last administered on 08/31/16 21:20; Start 08/26/16 at 21:00; Stop 09/25/16 at 20:59 Magnesium Hydroxide (Milk Of Magnesia) 30 ml DAILYPRN PRN PO CONSTIPATION Last administered on 09/03/16 17:26; Start 08/26/16 at 14:30; Stop 09/25/16 at 14:29 Menthol/Methyl Salicylate (Bengay Cream) APPLY QIDP PRN TOP Right leg & knee; Start 08/26/16 at 13:45; Stop 09/25/16 at 13:44; Status Cancel Metformin HCl (Glucophage) 500 mg BID@18 PO Last administered on 09/04/16 07:35; Start 08/26/16 at 18:00; Stop 09/25/16 at 17:59 Pantoprazole Sodium (Protonix) 40 mg DAILY PO Last administered on 09/04/16 07 :35; Start 08/27/16 at 09:00; Stop 09/26/16 at 08:59 Potassium Chloride (Micro-K Extencaps) 10 meq DAILY PO Last administered on 10:05; Start 08/28/16 at 09:00; Stop 08/31/16 at 08:59; Status DC Potassium Chloride (Micro-K Extencaps) 10 meq DAILY PO Last administered on 07:35; Start 09/01/16 at 09:00; Stop 10/01/16 at 08:59 Psyllium Hydrophilic Mucilloid (Metamucil) 1 pkt DAILY PO Last administered on 08/31/16 09:48; Start 08/31/16 at 09:00; Stop 09/01/16 at 09:37; Status DC Sodium Biphosphate/ Sodium Phosphate (Fleet Enema) 1 ea DAILYPRN PRN ME CONSTIPATION; Start 08/26/16 at 14:30; Stop 09/25/16 at 14:29 Sodium Chloride (Saline Lock Flush) 10 ml ASDIRECTED PRN IV SEE LABEL COMMENTS Last administered on 09/03/16 23:04; Start 08/26/16 at 16:45; Stop 09/25/16 at 16:44 Sodium Chloride (Saline Lock Flush) 10 ml PICC IV Last administered on 06:37; Start 08/26/16 at 18:00; Stop 09/25/16 at 17:59 Tamsulosin HCl (Flomax) 0.4 mg QHS PO Last administered on 08/27/16 21:36; Start 08/26/16 at 21:00; Stop 08/28/16 at 09:24; Status DC Tamsulosin HCl (Flomax) 0.8 mg QHS PO Last administered on 09/03/16 20:32; Start 08/28/16 at 21:00; Stop 09/27/16 at 20:59 Tramadol HCl (Ultram) 50 mg Q6HP PRN PO PAIN; Start 08/26/16 at 13:45; Stop at 13:44; Status Cancel Trazodone HCl (Desyrel) 50 mg QHS PRN PO NOT ASLEEP BY 2350; Start 08/27/16 at 21:00; Stop 09/26/16 at 20:59 Trazodone HCl (Desyrel) 100 mg QHS PO Last administered on 09/03/16 20:31; Start 08/27/16 at 21:00; Stop 09/26/16 at 20:59 Vancomycin HCl 1000 mg/IV Miscellaneous Supplies 1 each/ Dextrose 270 ml @ 540 mls/hr Q12H IV ; Start 08/26/16 at 14:30; Stop 08/26/16 at 16:59; Status DC Vancomycin HCl 1000 mg/IV Miscellaneous Supplies 1 each/ Dextrose 270 ml @ 540 mls/hr Q12H IV Last administered on 09/04/16 08:32; Start 08/26/16 at 21:00; Stop 09/04/16 at 09:19; Status DC Vancomycin HCl 1000 mg/IV Miscellaneous Supplies 1 each/ Dextrose 270 ml @ 540 mls/hr Q12H IV Last administered on 09/04/16 09:25; Start 08/26/16 at 22:00; Stop 09/04/16 at 11:15; Status DC SARIKA TORRES MD Sep 04, 2016 11:32
[2016-09-04 14:00] VITALS: BP 145/71
[2016-09-04 20:00] VITALS: BP 157/81
[2016-09-04] MEDS: TAMSULOSIN 0.4 MG CAP PO SCH (20:19)
[2016-09-04] MEDS: LEVEMIR (INSULIN DETEMIR) 1 UNITS/0.01ML SC SCH (20:20)
[2016-09-04] MEDS: traZODone 100 MG TAB PO SCH (21:43)
[2016-09-05 06:00] VITALS: BP 125/60
[2016-09-05] MEDS: HYDROmorphone 2 MG TAB PO PRN ×3 (06:32→20:53)
[2016-09-05 07:38] LABS: ALBUMIN 3.4 GM/DL (3.2-5.2); ALKALINE PHOSPHATASE 80 U/L (45-117); ALT/SGPT 31 U/L (12-78); ANION GAP 8 MEQ/L (8-16); AST/SGOT 15 U/L (15-37); BILIRUBIN,TOTAL 0.5 MG/DL (0.2-1.0); BLOOD UREA NITROGEN 13 MG/DL (7-18); CALCIUM LEVEL 9.2 MG/DL (8.5-10.1); CARBON DIOXIDE LEVEL 28 MEQ/L (21-32); CHLORIDE LEVEL 104 MEQ/L (98-107); CREATININE FOR GFR 0.69 MG/DL (0.70-1.30); GLOMERULAR FILTRATION RATE > 60.0 (>56); GLUCOSE, FASTING 178 MG/DL (70-105); MAGNESIUM LEVEL 1.8 MG/DL (1.8-2.4); POTASSIUM SERUM 4.2 MEQ/L (3.5-5.1); SODIUM LEVEL 140 MEQ/L (136-145); TOTAL PROTEIN 6.8 GM/DL (6.4-8.2)
[2016-09-05] MEDS: HumaLOG INSULIN (NovoLOG) PER UNIT SC SCH ×4 (08:26→21:00)
[2016-09-05] MEDS: ENOXAPARIN 40 MG/0.4 ML SYRINGE (J1650) SC SCH (08:27)
[2016-09-05] MEDS: metFORMIN (GLUCOPHAGE) 500 MG TAB PO SCH ×2 (08:28→17:54)
[2016-09-05] MEDS: FIBER-CON 625 MG TAB PO SCH ×2 (08:28→20:52)
[2016-09-05] MEDS: BETHANECHOL 10 MG TAB PO SCH ×2 (08:28→20:52)
[2016-09-05] MEDS: CARVedilol 12.5 MG TAB PO SCH ×2 (08:28→20:52)
[2016-09-05] MEDS: POTASSIUM CHLORIDE 10 MEQ SR TABLET PO SCH (08:28)
[2016-09-05] MEDS: DOCUSATE SODIUM 100 MG CAP PO SCH ×2 (08:29→20:52)
[2016-09-05] MEDS: POLYVINYL ALCOHOL OPHTH SOLN 15 ML(LIQUITEARS) OU SCH ×4 (08:29→20:53)
[2016-09-05] MEDS: PANTOPRAZOLE 40MG TAB (PROTONIX) PO SCH (08:29)
[2016-09-05 14:15] VITALS: BP 125/76
[2016-09-05 20:00] VITALS: BP 142/80
[2016-09-05] MEDS: TAMSULOSIN 0.4 MG CAP PO SCH (20:52)
[2016-09-05] MEDS: LEVEMIR (INSULIN DETEMIR) 1 UNITS/0.01ML SC SCH (20:53)
[2016-09-05] MEDS: traZODone 100 MG TAB PO SCH (22:19)
[2016-09-06 06:00] VITALS: BP 119/69
[2016-09-06] MEDS: HumaLOG INSULIN (NovoLOG) PER UNIT SC SCH ×4 (08:28→21:00)
[2016-09-06] MEDS: metFORMIN (GLUCOPHAGE) 500 MG TAB PO SCH ×2 (08:29→17:55)
[2016-09-06] MEDS: PANTOPRAZOLE 40MG TAB (PROTONIX) PO SCH (08:29)
[2016-09-06] MEDS: CARVedilol 12.5 MG TAB PO SCH ×2 (08:29→20:01)
[2016-09-06] MEDS: BETHANECHOL 10 MG TAB PO SCH ×2 (08:29→20:01)
[2016-09-06] MEDS: HYDROmorphone 2 MG TAB PO PRN ×2 (08:29→20:00)
[2016-09-06] MEDS: FIBER-CON 625 MG TAB PO SCH ×2 (08:29→20:01)
[2016-09-06] MEDS: DOCUSATE SODIUM 100 MG CAP PO SCH ×2 (08:30→20:01)
[2016-09-06] MEDS: ENOXAPARIN 40 MG/0.4 ML SYRINGE (J1650) SC SCH (08:30)
[2016-09-06] MEDS: POLYVINYL ALCOHOL OPHTH SOLN 15 ML(LIQUITEARS) OU SCH ×4 (08:31→22:19)
[2016-09-06] MEDS: POTASSIUM CHLORIDE 10 MEQ SR TABLET PO SCH (08:33)
[2016-09-06 14:00] VITALS: BP 129/75
[2016-09-06 20:00] VITALS: BP 122/68
[2016-09-06] MEDS: TAMSULOSIN 0.4 MG CAP PO SCH (20:01)
[2016-09-06] MEDS: LEVEMIR (INSULIN DETEMIR) 1 UNITS/0.01ML SC SCH (21:00)
[2016-09-06] MEDS: traZODone 100 MG TAB PO SCH (22:16)
[2016-09-07] MEDS: HYDROmorphone 2 MG TAB PO PRN ×3 (06:22→21:16)
[2016-09-07] MEDS: HumaLOG INSULIN (NovoLOG) PER UNIT SC SCH ×4 (07:52→21:00)
[2016-09-07] MEDS: ENOXAPARIN 40 MG/0.4 ML SYRINGE (J1650) SC SCH (07:52)
[2016-09-07] MEDS: DOCUSATE SODIUM 100 MG CAP PO SCH ×2 (07:53→21:13)
[2016-09-07] MEDS: PANTOPRAZOLE 40MG TAB (PROTONIX) PO SCH (07:53)
[2016-09-07] MEDS: FIBER-CON 625 MG TAB PO SCH ×2 (07:53→21:13)
[2016-09-07] MEDS: POTASSIUM CHLORIDE 10 MEQ SR TABLET PO SCH (07:53)
[2016-09-07] MEDS: POLYVINYL ALCOHOL OPHTH SOLN 15 ML(LIQUITEARS) OU SCH ×4 (07:54→21:20)
[2016-09-07] MEDS: BETHANECHOL 10 MG TAB PO SCH ×2 (07:54→21:13)
[2016-09-07] MEDS: metFORMIN (GLUCOPHAGE) 500 MG TAB PO SCH ×2 (07:54→17:28)
[2016-09-07] MEDS: CARVedilol 12.5 MG TAB PO SCH ×2 (07:54→21:14)
--- NOTE | 2016-09-07 10:16 | IPNPDOC ---
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 Patient with some of his chronic pain but overall no complaints except for left eye aching and blurring and left leg aching and some cramping relieved by pyriformis stretching. ALLERGIES: See Below MEDICATIONS: Reviewed, see below. OBJECTIVE: VITAL SIGNS: Please see below. PHYSICAL EXAMINATION: GENERAL: Somewhat overweight middle-age white male who is alert and oriented 4. Speech is clear coherent and appropriate with no dysarthria. Affect is pleasant and cooperative and fairly upbeat. Patient with mild weakness in the right upper and lower extremity and left upper extremity with [id number] weakness in the left lower extremity. HEENT: Patient is normocephalic/atraumatic. Alternating using patch on one eye then the next every 2 hours while awake. CARDIOVASCULAR: Regular rate and rhythm with normal S1-S2. 2 out 4 bilateral radial pulses. LUNGS: All franklin clear to auscultation without any wheezes, rales or rhonchi. ABDOMEN: Obese, benign with no palpable tenderness and normal to mild increase in frequency of bowel sounds are appreciated in all quadrants. NEUROLOGICAL: As noted above with increasing left lower extremity strength leading to increased gaiting and stability. SKIN: Grossly intact. LABORATORY DATA: Reviewed. Please see below. MICROBIOLOGY: Please see below. IMAGING: No new imaging here. DVT prophylaxis ordered?: Patient continues on Lovenox. Also using TOMMIE hose. ASSESSMENT AND PLAN: 1. Rehabilitation of bilateral subarachnoid and Right subdural hematoma/CVAs: Strength and endurance improving, but problems with awareness and control of the lower extremities. On target for discharge to home with family next week. Rehab. Team Rounds: Patient has continued to do well and is reaching his discharge goals today for adaptive mobility using a wheelchair principally but at times front wheeled walker with support of his left ankle dorsiflexion. Patient will require home care nursing, physical and occupational therapies to track his electrolytes as well as diabetes and complete a 2 week continuation of Lovenox therapy until he is gaiting more and progression of his ADL's/ Mobility. Patient be discharged to home tomorrow. 2. Hypokalemia: Patient has been started on some K-Tabs and follow his electrolytes as potassium was 4.2 Wednesday. I will monitor patient on daily 10 MEq of KCl. 3. Diabetes: Long-acting Levemir dosage 28 units nightly with Blood Sugars running in the 100's without sub 100 levels. 4. Bacterial meningitis: Patient seen by Dr. Novoa who feels the diagnosis of meningitis is questionable based on prior labs but notes that research supports patient not being contagious after 24 hours on antibiotics so infection precautions will be altered accordingly. Patient has finished antibiotics today : 09/04/16 and been afebrile since. 5. Urinary retention: I believe this is related to having bilateral cerebral damage combined with benign prostatic hypertrophy. I will try and have patient stood to avoid and if unable to void intermittent cath as post void residuals or 4 times a day urinary catheterizing. I will try some increase fiber for the bowel and continue with standing to void and IC. Proceeding with Urecholine trial now to 10mg bid. Yesterday patient had two spontaneous voids for 380 cc' s. Continue with Urecholine 10 mg BID. TIME SPENT: Chart Review, examination and documentation require greater than 35 minutes. Allergies Coded Allergies: Bee Venom (Verified Allergy, Severe, ANAPHYLAXIS, 02/01/15) Erythromycin (Unverified Allergy, Mild, HIVES, 06/14/12) Fentanyl (Unverified Allergy, Mild, HIVES, 06/14/12) Pregabalin (Verified Allergy, Unknown, ITCHING, 02/01/15) Vital Signs Vital Signs Date Time Temp Pulse Resp B/P (MAP) Pulse Ox O2 Delivery O2 Flow Rate FiO2 09/07/16 07:54 76 122/68 09/07/16 07:20 20 09/07/16 06:22 98 Room Air 09/06/16 20:00 98.3 Laboratory Data Labs 24H Laboratory Tests 2 09/06/16 11:33: Bedside Glucose (Misc Panel) 159H 09/06/16 16:34: Bedside Glucose (Misc Panel) 167H 09/06/16 20:53: Bedside Glucose (Misc Panel) 178H 09/07/16 06:51: Bedside Glucose (Misc Panel) 174H Current Medications Current Medications Current Medications Acetaminophen (Tylenol Tab) 325 mg Q6HP PRN PO MILD PAIN OR FEVER Last administered on 08/27/16 05:51; Start 08/26/16 at 14:30; Stop 09/25/16 at 14:29 Al Hydrox/Mg Hydrox/Simethicone (Mylanta) 30 ml Q4HP PRN PO DYSPEPSIA; Start at 14:30; Stop 09/25/16 at 14:29 Ampicillin Sodium 2 gm/Dextrose 100 ml @ 200 mls/hr Q4H IV Last administered on 08/28/16 12:46; Start 08/26/16 at 16:00; Stop 08/28/16 at 12:52; Status DC Artificial Tears (Akwa Tears) 2 drop QID OU Last administered on 09/07/16 07: 54; Start 08/27/16 at 09:00; Stop 09/26/16 at 08:59 Bethanechol Chloride (Urecholine) 10 mg BID PO Last administered on 09/07/16 07:54; Start 09/04/16 at 09:00; Stop 10/01/16 at 20:59 Bethanechol Chloride (Urecholine) 10 mg QPM PO Last administered on 09/03/16 20:31; Start 09/01/16 at 21:00; Stop 09/04/16 at 08:16; Status DC Calcium Polycarbophil (Fiber Con) 1 ea BID PO Last administered on 09/07/16 07 :53; Start 08/31/16 at 09:00; Stop 09/30/16 at 08:59 Carvedilol (COReg) 12.5 mg BID PO Last administered on 09/07/16 07:54; Start 08/26/16 at 21:00; Stop 09/25/16 at 20:59 Ceftriaxone Sodium 2 gm/ Dextrose 50 ml @ 100 mls/hr Q12H IV Last administered on 09/04/16 05:22; Start 08/26/16 at 18:00; Stop 09/04/16 at 17:59 ; Status DC Dextrose (Dextrose 50%) 25 ml ASDIRECTED PRN IV SEE LABEL COMMENTS; Start 08/26 at 15:00; Stop 09/25/16 at 14:59 Docusate Sodium (Colace) 100 mg BID PO Last administered on 09/07/16 07:53; Start 08/26/16 at 21:00; Stop 09/25/16 at 20:59 Enoxaparin Sodium (Lovenox) 40 mg DAILY SC Last administered on 09/07/16 07:52 ; Start 08/27/16 at 09:00; Stop 09/11/16 at 23:55 Glucagon (Glucagon) 1 mg ASDIRECTED PRN SC SEE LABEL COMMENTS; Start 08/26/16 at 15:00; Stop 09/25/16 at 14:59 Glucose (Glucose) 16 GM ASDIRECTED PRN PO SEE LABEL COMMENTS; Start 08/26/16 at 15:00; Stop 09/25/16 at 14:59 Heparin Sodium (Heparin (Flush)) 200 units ASDIRECTED PRN IV SEE LABEL COMMENTS Last administered on 09/03/16 23:03; Start 08/26/16 at 16:45; Stop at 12:23; Status DC Heparin Sodium (Heparin (Flush)) 200 units PICC IV Last administered on 06:36; Start 08/26/16 at 18:00; Stop 09/04/16 at 12:23; Status DC Home Med (Med Rec Complete!) ASDIRECTED XX ; Start 08/26/16 at 14:45; Stop at 14:45; Status DC Hydromorphone HCl (Dilaudid) 2 mg Q4HP PRN PO MODERATE/SEVERE PAIN (PS 5-10) Last administered on 09/07/16 06:22; Start 08/26/16 at 15:00; Stop 09/11/16 at 23:55 Insulin Detemir (Levemir Insulin) 25 units QHS SC Last administered on 21:19; Start 08/27/16 at 21:00; Stop 09/01/16 at 10:32; Status DC Insulin Detemir (Levemir Insulin) 28 units QHS SC Last administered on 21:00; Start 09/01/16 at 21:00; Stop 10/01/16 at 20:59 Insulin Detemir (Levemir Insulin) 35 units QHS SC Last administered on 21:35; Start 08/26/16 at 21:00; Stop 08/27/16 at 15:50; Status DC Insulin Human Lispro (HumaLOG INSULIN) See Protocol Table AC SC Last administered on 09/07/16 07:52; Start 08/26/16 at 17:30; Stop 09/25/16 at 17:29 Insulin Human Lispro (HumaLOG INSULIN) See Protocol Table QHS SC Last administered on 08/31/16 21:20; Start 08/26/16 at 21:00; Stop 09/25/16 at 20:59 Magnesium Hydroxide (Milk Of Magnesia) 30 ml DAILYPRN PRN PO CONSTIPATION Last administered on 09/03/16 17:26; Start 08/26/16 at 14:30; Stop 09/25/16 at 14:29 Menthol/Methyl Salicylate (Bengay Cream) APPLY QIDP PRN TOP Right leg & knee; Start 08/26/16 at 13:45; Stop 09/25/16 at 13:44; Status Cancel Metformin HCl (Glucophage) 500 mg BID@,18 PO Last administered on 09/07/16 07:54; Start 08/26/16 at 18:00; Stop 09/25/16 at 17:59 Pantoprazole Sodium (Protonix) 40 mg DAILY PO Last administered on 09/07/16 07 :53; Start 08/27/16 at 09:00; Stop 09/26/16 at 08:59 Potassium Chloride (Micro-K Extencaps) 10 meq DAILY PO Last administered on 10:05; Start 08/28/16 at 09:00; Stop 08/31/16 at 08:59; Status DC Potassium Chloride (Micro-K Extencaps) 10 meq DAILY PO Last administered on 07:53; Start 09/01/16 at 09:00; Stop 10/01/16 at 08:59 Psyllium Hydrophilic Mucilloid (Metamucil) 1 pkt DAILY PO Last administered on 08/31/16 09:48; Start 08/31/16 at 09:00; Stop 09/01/16 at 09:37; Status DC Sodium Biphosphate/ Sodium Phosphate (Fleet Enema) 1 ea DAILYPRN PRN LA CONSTIPATION; Start 08/26/16 at 14:30; Stop 09/25/16 at 14:29 Sodium Chloride (Saline Lock Flush) 10 ml ASDIRECTED PRN IV SEE LABEL COMMENTS Last administered on 09/03/16 23:04; Start 08/26/16 at 16:45; Stop 09/04/16 at 12:23; Status DC Sodium Chloride (Saline Lock Flush) 10 ml PICC IV Last administered on 06:37; Start 08/26/16 at 18:00; Stop 09/04/16 at 12:23; Status DC Tamsulosin HCl (Flomax) 0.4 mg QHS PO Last administered on 08/27/16 21:36; Start 08/26/16 at 21:00; Stop 08/28/16 at 09:24; Status DC Tamsulosin HCl (Flomax) 0.8 mg QHS PO Last administered on 09/06/16 20:01; Start 08/28/16 at 21:00; Stop 09/27/16 at 20:59 Tramadol HCl (Ultram) 50 mg Q6HP PRN PO PAIN; Start 08/26/16 at 13:45; Stop at 13:44; Status Cancel Trazodone HCl (Desyrel) 50 mg QHS PRN PO NOT ASLEEP BY 2350; Start 08/27/16 at 21:00; Stop 09/26/16 at 20:59 Trazodone HCl (Desyrel) 100 mg QHS PO Last administered on 09/06/16 22:16; Start 08/27/16 at 21:00; Stop 09/26/16 at 20:59 Vancomycin HCl 1000 mg/IV Miscellaneous Supplies 1 each/ Dextrose 270 ml @ 540 mls/hr Q12H IV ; Start 08/26/16 at 14:30; Stop 08/26/16 at 16:59; Status DC Vancomycin HCl 1000 mg/IV Miscellaneous Supplies 1 each/ Dextrose 270 ml @ 540 mls/hr Q12H IV Last administered on 09/04/16 08:32; Start 08/26/16 at 21:00; Stop 09/04/16 at 09:19; Status DC Vancomycin HCl 1000 mg/IV Miscellaneous Supplies 1 each/ Dextrose 270 ml @ 540 mls/hr Q12H IV Last administered on 09/04/16 09:25; Start 08/26/16 at 22:00; Stop 09/04/16 at 11:15; Status DC SARIKA TORRES MD Sep 07, 2016 10:16
[2016-09-07] MEDS ORDERED: CALCIUM CARBONATE 500 MG CHEW U/D PO PRN (11:45)
[2016-09-07 14:00] VITALS: BP 130/71
[2016-09-07 20:00] VITALS: BP 123/71
[2016-09-07] MEDS: TAMSULOSIN 0.4 MG CAP PO SCH (21:13)
[2016-09-07] MEDS: traZODone 100 MG TAB PO SCH (21:13)
[2016-09-07] MEDS: LEVEMIR (INSULIN DETEMIR) 1 UNITS/0.01ML SC SCH (21:17)
[2016-09-08 05:39] VITALS: BP 115/68
[2016-09-08 07:41] LABS: MEAN CORPUSCULAR HEMOGLOBIN 30.4 pg (27.0-33.0); MEAN CORPUSCULAR HGB CONC 33.5 g/dl (32.0-36.5); MEAN CORPUSCULAR VOLUME 90.7 fl (80.0-96.0); RED CELL DISTRIBUTION WIDTH 13.6 % (11.5-14.5); WHITE BLOOD COUNT 6.4 K/mm3 (4.0-10.0)
[2016-09-08 08:13] VITALS: BP 115/68
[2016-09-08] MEDS: FIBER-CON 625 MG TAB PO SCH (08:13)
[2016-09-08] MEDS: BETHANECHOL 10 MG TAB PO SCH (08:13)
[2016-09-08] MEDS: metFORMIN (GLUCOPHAGE) 500 MG TAB PO SCH (08:13)
[2016-09-08] MEDS: ENOXAPARIN 40 MG/0.4 ML SYRINGE (J1650) SC SCH (08:13)
[2016-09-08] MEDS: POTASSIUM CHLORIDE 10 MEQ SR TABLET PO SCH (08:13)
[2016-09-08] MEDS: CARVedilol 12.5 MG TAB PO SCH (08:13)
[2016-09-08] MEDS: PANTOPRAZOLE 40MG TAB (PROTONIX) PO SCH (08:13)
[2016-09-08] MEDS: DOCUSATE SODIUM 100 MG CAP PO SCH (08:13)
[2016-09-08] MEDS: POLYVINYL ALCOHOL OPHTH SOLN 15 ML(LIQUITEARS) OU SCH ×2 (08:14→12:20)
[2016-09-08] MEDS: HYDROmorphone 2 MG TAB PO PRN ×2 (08:14→13:58)
[2016-09-08] MEDS: HumaLOG INSULIN (NovoLOG) PER UNIT SC SCH ×2 (08:20→12:20)
[2016-09-08] MEDS ORDERED: INSUDET SC (08:30)
[2016-09-08] MEDS ORDERED: DILA2TAB2 PO (08:30)
[2016-09-08] MEDS ORDERED: BETH10TA PO (08:30)
[2016-09-08] MEDS ORDERED: FLOM5CAP PO (08:30)
[2016-09-08] MEDS ORDERED: TRAZ10TA PO (08:30)
[2016-09-08] MEDS ORDERED: LOVE1INJ SC (08:30)
--- NOTE | 2016-09-08 17:27 | PMRDS ---
DATE OF ADMISSION: 08/26/2016 DATE OF DISCHARGE: 09/08/2016 DISCHARGE DIAGNOSIS: Rehabilitation of bilateral hemorrhagic cerebrovascular accidents (CVAs) with subdural and subarachnoid hemorrhages including intraventricular hemorrhage. SECONDARY DIAGNOSES: 1. Radiculopathy secondary to cervical and lumbar root compression. 2. Type 2 diabetes mellitus. 3. Osteoarthritis. 4. Chronic obstructive pulmonary disease (COPD). 5. Atherosclerotic cardiovascular disease with hyperlipidemia and hypertension. PAST SURGICAL HISTORY: Includes: 1. Coronary artery stent in May of 2016. 2. Bilateral nerve transposition. 3. Bilateral carpal tunnel releases. 4. Status post placement and then removal of an intrathecal morphine pump. HISTORY: The patient is a 56-year-old white male who was initially seen at [facility] on 08/09/2016 for neck and chest pain and was found to have nontraumatic subarachnoid hemorrhage and transferred to [facility] for surgical evaluation and options. While down there, the patient was transferred to the rehabilitation unit, developed diabetic ketoacidosis, and transferred to intensive care unit. Lumbar puncture showed some abnormality with no viable cultures and the patient was felt to have possible bacterial meningitis. He was started on a course of ampicillin, vancomycin, and Rocephin. The patient stabilized and was felt to be able to participate again in acute intensive rehabilitation and the patient and family elected transfer to the acute rehabilitation unit at [facility] on 08/26/2016. The patient was started in evaluation and assessment with physical, occupational and speech therapy and did very well, rapidly improving his dysarthria and dysphagia and was discontinued from speech therapy. He has continued working with physical and occupational therapy and has gotten very good return in his left upper extremity which was fairly dense on admission and some return in the left lower extremity, still having problems with footdrop. However, the patient has progressed from being maximum assist transfers and only a few feet of ambulation to functioning well with manual wheelchair for moderate to long distances and being standby to modify assistance in transfers and activities of daily living (ADLs), though ambulation has progressed with front-wheeled walker to about 130 feet. The patient is limited by the left footdrop. When further bracing is applied for the left footdrop, the weakness of the hip flexors and knee flexors prevent the patient from clearly lifting the leg and causes tripping and this will require additional work. Since admission, the patient has had no procedures performed. Diagnostically, the patient has been found to have a mild anemia with current hemoglobin and hematocrit of 13.5 and 40.3%, normal white count. Comprehensive metabolic panel does show mild hypoalbuminemia of 2.9 with normal electrolytes, though the patient has had some low potassium and is on replacement. Today, his potassium is 4.2 and electrolytes are all in the normal range with normal renal function. Diabetes has developed good control, usually running in the 100 range with no drops below or tendency to over the 100s in the last week, except for a level of 202 yesterday and one level of 212 on 09/06/2016. DISCHARGE MEDICATIONS: - Urecholine 10 mg twice a day for urinary retention - Lovenox 40 mg subcutaneous daily for deep vein thrombosis (DVT) prophylaxis until the patient is ambulating more, patient prescribed two weeks of medication - hydromorphone 2 mg, #20 tablets issued to be used maximum one by mouth every six hours as needed for moderate to severe pain - Flomax 0.8 mg by mouth at bedtime - trazodone 100 mg by mouth at bedtime for sleep - Tylenol 650 mg every four hours as needed for pain - ProAir HFA 108 mcg per actuation two puffs every four hours as needed for shortness of breath - aspirin 81 mg enteric-coated by mouth daily for clot prevention - atorvastatin 20 mg by mouth at bedtime for cholesterol control - bisacodyl 10 mg suppository as needed for constipation - calcium carbonate 500 mg three times a day as needed for heartburn - Coreg 12.5 mg by mouth twice a day for hypertension and heart rate - Plavix 75 mg by mouth daily for clot prevention - Colace 100 mg twice a day for bowel program - Cymbalta 20 mg by mouth twice a day for mood and pain control - Exenatide 2 mg injection weekly for diabetes control - Humalog sliding scale before meals and at bedtime - metformin 500 mg by mouth twice a day - naproxen 500 mg tablet by mouth twice a day for pain and arthritis - omeprazole 40 mg by mouth daily for gastroesophageal reflux disease (GERD) protection - Advair Diskus 250/50 one puff twice a day for chronic obstructive pulmonary disease (COPD) - senna 8.6 mg tablet two tablets by mouth at bedtime for bowel program - Detemir has been changed from 60 units twice a day to 28 units daily DISCHARGE PLAN: The patient is discharged to home with to have home care for monitoring electrolytes as well as home care physical therapy (PT) and occupational therapy (OT) to continue working on left hemiparesis, balance, gaiting, and activities of daily living (ADLs). The patient is to self-catheterize for urinary retention. The patient will be using manual wheelchair and has had a ramp placed for access in and out of the home and around the home, and front-wheeled walker to ambulate as tolerated with assistance at this time in a standby nature to try and improve community ambulation and gaiting as well as independence of transfers. The patient will followup with Dr. Stewart on 09/22/2016 at 9:30 a.m. and is to be scheduled within the next four weeks for followup with [facility] Neurosurgery Department. The patient is on a consistent-carbohydrate diet. TIME SPENT ON DISCHARGE: Greater than 35 minutes. CATERINAD
== END 2016-09-08 14:10 | disposition home health service (06) | DRG 57 ==
LOC: M PM&R 12:42
PROVIDERS: ADMIT Physical Medicine & Rehabilitation; ATTEND Physical Medicine & Rehabilitation
DX: I69.022 Dysarthria following nontraumatic subarachnoid hemorrhage (principal); G95.20 Unspecified cord compression; I69.091 Dysphagia following nontraumatic subarachnoid hemorrhage; I25.10 Atherosclerotic heart disease of native coronary artery without angina pectoris; J44.9 Chronic obstructive pulmonary disease, unspecified; M19.90 Unspecified osteoarthritis, unspecified site; E78.5 Hyperlipidemia, unspecified; I10 Essential (primary) hypertension; I70.209 Unspecified atherosclerosis of native arteries of extremities, unspecified extremity; M21.862 Other specified acquired deformities of left lower leg; Z79.899 Other long term (current) drug therapy; Z79.82 Long term (current) use of aspirin; E11.40 Type 2 diabetes mellitus with diabetic neuropathy, unspecified; M54.2 Cervicalgia; M54.5 Low back pain; K21.9 Gastro-esophageal reflux disease without esophagitis; N40.0 Benign prostatic hyperplasia without lower urinary tract symptoms; R91.8 Other nonspecific abnormal finding of lung field; K44.9 Diaphragmatic hernia without obstruction or gangrene; M79.7 Fibromyalgia; Z87.891 Personal history of nicotine dependence; G47.00 Insomnia, unspecified; E87.6 Hypokalemia; Z88.8 Allergy status to other drugs, medicaments and biological substances; Z91.038 Other insect allergy status; Z88.1 Allergy status to other antibiotic agents; Z79.4 Long term (current) use of insulin

== ENCOUNTER → 2016-09-14 | Outpatient (CLI) | payer MEDICARE ==
[~2016-09-14] MED LIST changes: +ACET1TAB17 PO; +AMLO2.5T PO; +AMPI2INJ2 IV; -BACL-67 PO; +BACL1TAB9 PO; +BETH10TA4 PO; +BISA10SU5 PR; +CALC500C16 PO; +CARV12.5 PO; +CEFT2INJ4 IV; +CYMB1CAP4 PO; +DILA2TAB6 PO; +DOCU100C16 PO; +FLOM5CAP PO; +GABA-279 PO; +GLIP5TAB8 PO; +KEPP1TAB PO; +LISI-542 PO; +LOVE1INJ SC; -METF1000 PO; +METF10004 PO; +METF500T13 PO; -NAPR500T2 PO; +NAPR500T3 PO; +OMEP40CA2 PO; +OXYC-517 PO; +PLAV1TAB2 PO; -PLAV75TA38 PO; -PROA1AER INH; +PROAAER10 INH; +SENN1TAB10 PO; +TRAZ10TA PO; +VANC1VLAD IV; +VERA40TA PO
[2016-09-14 19:25] LABS: MEAN CORPUSCULAR HEMOGLOBIN 30.2 pg (27.0-33.0); MEAN CORPUSCULAR HGB CONC 33.3 g/dl (32.0-36.5); MEAN CORPUSCULAR VOLUME 90.6 fl (80.0-96.0); RED CELL DISTRIBUTION WIDTH 13.4 % (11.5-14.5); WHITE BLOOD COUNT 7.9 K/mm3 (4.0-10.0)
[2016-09-14 21:22] LABS: ANION GAP 8 MEQ/L (8-16); BLOOD UREA NITROGEN 11 MG/DL (7-18); CALCIUM LEVEL 9.4 MG/DL (8.5-10.1); CARBON DIOXIDE LEVEL 26 MEQ/L (21-32); CHLORIDE LEVEL 105 MEQ/L (98-107); CREATININE FOR GFR 0.74 MG/DL (0.70-1.30); GLOMERULAR FILTRATION RATE > 60.0 (>56); GLUCOSE, FASTING 224 MG/DL (70-105); POTASSIUM SERUM 4.3 MEQ/L (3.5-5.1); SODIUM LEVEL 139 MEQ/L (136-145)
== END ==
LOC: M WUC 13:58
PROVIDERS: ATTEND Physical Medicine & Rehabilitation
DX: E87.6 Hypokalemia (principal); E11.9 Type 2 diabetes mellitus without complications; I61.9 Nontraumatic intracerebral hemorrhage, unspecified

== ENCOUNTER 2016-10-07 09:42 | Outpatient (RCR) | payer MEDICARE ==
[~2016-10-07 09:42] MED LIST changes: -GABA-279 PO; -VERA40TA PO
[2016-10-11] MEDS ORDERED: INSUDET SC ×2 (13:32→17:20)
[2016-10-11] MEDS ORDERED: TRAZ10TA PO (17:20)
[2016-10-11] MEDS ORDERED: FLOM5CAP PO (17:20)
== END 2016-10-12 ==
LOC: M OT 09:42
PROVIDERS: ATTEND Family Medicine
DX: Z51.89 Encounter for other specified aftercare (principal); I63.9 Cerebral infarction, unspecified
CPT/HCPCS: 97110; 97116; 97162; 97165; G8978; G8979; G8984; G8985

== ENCOUNTER 2016-10-11 13:15 | Inpatient (IN) | payer MEDICARE ==
[~2016-10-11] VITALS: Ht 170.2 cm; Wt 95.7 kg
[2016-10-11] MEDS ORDERED: INSUDET SC ×2 (13:32→17:20)
[2016-10-11 14:11] LABS: BASO % 0.5 % (0.0-1.0); EOS # 0.2 K/mm3 (0.0-0.50); EOS % 2.5 % (0.0-3.0); LARGE UNSTAINED CELL # 0.2 K/mm3 (0.0-0.4); LARGE UNSTAINED CELL % 1.8 % (0.0-4.0); LYMPH # 2.7 K/mm3 (1.5-4.5); LYMPH % 27.3 % (24.0-44.0); MEAN CORPUSCULAR HEMOGLOBIN 30.4 pg (27.0-33.0); MEAN CORPUSCULAR HGB CONC 34.6 g/dl (32.0-36.5); MONO # 0.7 K/mm3 (0.0-0.8); MONO % 7.7 % (0.0-5.0); NEUTROPHILS # 5.5 K/mm3 (1.8-7.7); NEUTROPHILS % 60.2 % (36.0-66.0); PLATELET COUNT, AUTOMATED 230 k/mm3 (150-450); RED CELL DISTRIBUTION WIDTH 13.8 % (11.5-14.5); WHITE BLOOD COUNT 9.1 K/mm3 (4.0-10.0)
[2016-10-11] MEDS ORDERED: LORazepam 2 MG/ML VIAL (J2060) IV STA (14:13)
[2016-10-11] MEDS: HYDROmorphone HCL 1 MG/ML SYRINGE (J1170) IV PRN ×2 (14:13→16:21)
[2016-10-11 14:22] LABS: INR 0.97
[2016-10-11 14:33] LABS: ALBUMIN 3.7 GM/DL (3.2-5.2); ALBUMIN/GLOBULIN RATIO 1.16 (1.00-1.93); ALKALINE PHOSPHATASE 68 U/L (45-117); ALT/SGPT 29 U/L (12-78); ANION GAP 10 MEQ/L (8-16); AST/SGOT 14 U/L (15-37); BILIRUBIN,DIRECT 0.1 MG/DL (0.0-0.2); BILIRUBIN,TOTAL 0.4 MG/DL (0.2-1.0); BLOOD UREA NITROGEN 16 MG/DL (7-18); CALCIUM LEVEL 8.8 MG/DL (8.5-10.1); CARBON DIOXIDE LEVEL 25 MEQ/L (21-32); CHLORIDE LEVEL 109 MEQ/L (98-107); CREATININE FOR GFR 0.81 MG/DL (0.70-1.30); FREE T4 0.84 NG/DL (0.76-1.46); GLOMERULAR FILTRATION RATE > 60.0 (>56); GLUCOSE, FASTING 195 MG/DL (70-105); MAGNESIUM LEVEL 1.8 MG/DL (1.8-2.4); SODIUM LEVEL 144 MEQ/L (136-145); TOTAL PROTEIN 6.9 GM/DL (6.4-8.2)
--- NOTE | 2016-10-11 14:39 | REP ---
REASON: Trauma. COMPARISON: 08/08/2016 TECHNIQUE: 4.5 mm contiguous transaxial sections were obtained from the skull base to the cerebral convexities with thin cuts through the posterior fossa without the administration of intravenous contrast. FINDINGS: The ventricles and sulci are consistent with the patient's age. There are no extra-axial fluid collections. There is no mass effect. The deep cerebral white matter is consistent with the patient's age. The orbital and petrous structures , cerebellopontine angles, and posterior fossa are unremarkable. The sella turcica, cavernous, and paracavernous structures are essentially unremarkable. The visualized portions of the paranasal sinuses and mastoid air cells are clear. Images of the skull base show no gross abnormality. IMPRESSION: Essentially unremarkable CT examination of the brain. The subarachnoid hemorrhage seen previously has completely resolved. Signed by Juancho Fitzgerald DO 10/11/2016 03:13 P
--- NOTE | 2016-10-11 14:52 | REP ---
REASON: Syncopal episode. COMPARISON: 08/08/2016 FINDINGS: The technique utilized in obtaining the radiograph has magnified the cardiac silhouette and accentuated the interstitial markings. The superior mediastinal structures are midline. The cardiac silhouette is unremarkable in size, shape, and position. The diaphragmatic surfaces of the lungs are regular, and the costophrenic angles are clear. The pulmonary franklin are clear. The imaged osseous structures are intact. IMPRESSION: There is no acute cardiopulmonary disease. No change. Signed by Juancho Fitzgerald DO 10/11/2016 03:14 P
[2016-10-11] MEDS ORDERED: TRAZ10TA PO (17:20)
[2016-10-11] MEDS ORDERED: FLOM5CAP PO (17:20)
--- NOTE | 2016-10-11 17:41 | HPEPDOC ---
Medical History and Physical Date of Admission History and Physical PRIMARY CARE PROVIDER: Ramila Stewart ATTENDING: Dr. Anish Wilkerson CHIEF COMPLAINT: Status post fall HISTORY OF PRESENT ILLNESS: This is a 48-year-old male past history of subarachnoid hemorrhage in July 2016 at [facility], prior subarachnoid hemorrhage, history of bacterial meningitis in 08/21/2016, hypertension, CAD status post PCI, COPD, insulin-dependent diabetes mellitus, GERD, hypertension, insomnia, chronic neck and back pain, pulmonary nodules who presents status post fall. Patient was apparently in his wheelchair, going up a ramp when he fell backwards onto his head. After his subarachnoid hemorrhage, patient was noted baseline left lower extremity weakness. Patient also states he had baseline diplopia; however both have progressively worsened since his fall. Patient presents to [facility] complaining of these complaints with MRI notable for a possible tiny subacute infarcts. Dr. Boss was called in the emergency department recommended admission given his significant comorbidities. PAST MEDICAL HISTORY: As per HPI PAST SURGICAL HISTORY: Intrathecal pump Implant/removal, elbow surgery, Rt ulnar neuropathy, B/L CTR, Cardiac stent, PICC LUE SOCIAL HISTORY: History of tobacco abuse. Occasional alcohol. No illicit drugs. FAMILY HISTORY: Noncontributory ALLERGIES: Please see below. REVIEW OF SYSTEMS: HOME MEDICATIONS: Please see below. PHYSICAL EXAMINATION: Vitals: (see below) General: No acute distress, laying comfortably in bed. HEENT: Moist mucous membranes. Neck: No JVD or lymphadenopathy Cardiac: RRR, No murmurs Pulm: Clear to auscultation b/l. No wheezing, rhonchi Abd: NT/ND + BS Ext: No edema or cyanosis Neuro: Strength 5/5 BUE and RLE. 1-2/5 LLE. ( Baseline ~ 3/5 per pt) CN 2-12 intact with the exception of no left lateral movement of left eye ( baseline per pt). Horizontal diplopia, otherwise visual field intact. LABORATORY DATA: See below. IMAGING: MRI brain 10/11/16 with possible subacute lacunar infarcts right parietal and right temporal occipital. MRI brain 10/11/16 no acute findings. CXR 10/11/16 IMPRESSION: There is no acute cardiopulmonary disease. MICROBIOLOGY: Please see below. ASSESSMENT/PLAN: 1. Left lower extremity weakness as well as diplopia with a possible subacute lacunar infarcts on MRI.- Patient's had a history of subarachnoid hemorrhage, as well as Bactrim meningitis. He has been worked up by his neurologist for possible subacute infarct recently. He was planned to have EVA once scheduled by Dr. Haas/Honey's office. He was also supposed to have a 30 day Holter monitor , however has not received yet. Patient sustained a mechanical fall while ramp in his wheelchair. CT C-spine pending. We will observe the patient on telemetry. Neuro checks every 4 hours. On aspirin/Plavix. Will need to entertain the possibility of starting the patient on anticoagulation; neurology will be consulted. Consider cardiology consultation for a EVA on this admission. Echocardiogram with bubble study ordered. 2. History of CAD status post PCI. On aspirin/statin/beta shari 3. Hypertension- controlled continue home meds 4. Insulin-dependent diabetes mellitus- continue Levemir. Hold metformin. Sliding scale insulin. 5. History of COPD- stable. Continue nebs. 6. History of GERD- on PPI 7. Hyperlipidemia on statin 8. Chronic neck/back pain DVT prophylaxis- SCDs Prognosis guarded. Patient followed by Dr. Anish Wilkerson starting 10/12/16 7 AM. Vital Signs Vital Signs Date Time Temp Pulse Resp B/P (MAP) Pulse Ox O2 Delivery O2 Flow Rate FiO2 10/11/16 16:54 16 10/11/16 16:45 74 97 10/11/16 14:15 10/11/16 13:15 99.2 Room Air Laboratory Data Labs 24H Laboratory Tests 2 10/11/16 14:04: White Blood Count 9.1, Red Blood Count 4.80, Hemoglobin 14.6, Hematocrit 42.2, Mean Corpuscular Volume 88.0, Mean Corpuscular Hemoglobin 30.4, Mean Corpuscular Hemoglobin Concent 34.6, Red Cell Distribution Width 13.8, Platelet Count 230, Neutrophils (%) (Auto) 60.2, Lymphocytes (%) (Auto) 27.3, Monocytes ( %) (Auto) 7.7H, Eosinophils (%) (Auto) 2.5, Basophils (%) (Auto) 0.5, Neutrophils # (Auto) 5.5, Lymphocytes # (Auto) 2.7, Monocytes # (Auto) 0.7, Eosinophils # (Auto) 0.2, Basophils # (Auto) 0.0, Large Unclassified Cells % 1.8 , Large Unclassified Cells # 0.2, Prothrombin Time 13.0, Prothromb Time International Ratio 0.97, Activated Partial Thromboplast Time 26.4L, Anion Gap 10, Glomerular Filtration Rate > 60.0, Lactic Acid Level 1.8, Calcium Level 8.8 , Magnesium Level 1.8, Aspartate Amino Transf (AST/SGOT) 14L, Alanine Aminotransferase (ALT/SGPT) 29, Alkaline Phosphatase 68, Total Bilirubin 0.4, Direct Bilirubin 0.1, Total Creatine Kinase 51, Creatine Kinase MB 1.0, Creatine Kinase MB Relative Index 1.96, Troponin I < 0.02, Total Protein 6.9, Albumin 3.7, Albumin/Globulin Ratio 1.16, Thyroid Stimulating Hormone (TSH) 0.494, Free Thyroxine 0.84 CBC/BMP Laboratory Tests 10/11/16 14:04 Red Blood Count 4.80, Mean Corpuscular Volume 88.0, Mean Corpuscular Hemoglobin 30.4, Mean Corpuscular Hemoglobin Concent 34.6, Red Cell Distribution Width 13.8 , Neutrophils (%) (Auto) 60.2, Lymphocytes (%) (Auto) 27.3, Monocytes (%) (Auto ) 7.7 H, Eosinophils (%) (Auto) 2.5, Basophils (%) (Auto) 0.5, Neutrophils # ( Auto) 5.5, Lymphocytes # (Auto) 2.7, Monocytes # (Auto) 0.7, Eosinophils # (Auto ) 0.2, Basophils # (Auto) 0.0 Home Medications Scheduled Aspirin (Aspirin EC) 81 Mg Tabec, 81 MG PO DAILY Atorvastatin Calcium (Atorvastatin Calcium) 20 Mg Tab, 20 MG PO QHS Carvedilol (Carvedilol) 12.5 Mg Tab, 12.5 MG PO BID DOSE CHANGED AT [facility] WAS 6.25MG BID Clopidogrel Bisulfate (Plavix) 75 Mg Tab, 75 MG PO DAILY Docusate Sodium (Docusate Sodium) 100 Mg Cap, 100 MG PO BID Duloxetine HCl (Cymbalta) 20 Mg Cap, 20 MG PO BID Insulin Detemir (Levemir) 1 Units/0.01 Ml Susp, 10 UNITS SC QAM NEW DOSING STARTED 10/11 Insulin Detemir (Levemir) 1 Units/0.01 Ml Susp, 28 UNITS SC QHS Metformin Hydrochloride (Metformin HCl) 500 Mg Tab, 500 MG PO BID DOSE CHANGED AT [facility] WAS 1000MG BID Tamsulosin Hydrochloride (Flomax) 0.4 Mg Cap, 0.8 MG PO QHS Trazodone HCl (Trazodone HCl) 100 Mg Tab, 100 MG PO QHS Scheduled PRN Acetaminophen (Acetaminophen) 325 Mg Tab, 650 MG PO Q4H PRN for PAIN Albuterol Sulfate (Proair Hfa) 108 Mcg/Act Aer, 2 PUFF INH Q4H PRN for SHORTNESS OF BREATH Calcium Carbonate (Calcium Carbonate) 500 Mg Chw, 500 MG PO TID PRN for HEARTBURN Omeprazole (Omeprazole) 40 Mg Cap, 40 MG PO DAILY PRN for HEARTBURN Allergies Coded Allergies: Bee Venom (Verified Allergy, Severe, ANAPHYLAXIS, 02/01/15) Erythromycin (Unverified Allergy, Mild, HIVES, 06/14/12) Fentanyl (Unverified Allergy, Mild, HIVES, 06/14/12) Pregabalin (Verified Allergy, Unknown, ITCHING, 02/01/15) GRANT HER MD Oct 11, 2016 17:41
[2016-10-11] MEDS ORDERED: GLUCAGON FOR INJ 1 MG VIAL (J1610) SC PRN (18:30)
[2016-10-11] MEDS ORDERED: DEXTROSE 50% 50 ML SYRINGE IV PRN (18:30)
[2016-10-11] MEDS ORDERED: ALBUTEROL 90 MCG/ACT 8GM HFA INHALER INH PRN (18:30)
[2016-10-11] MEDS ORDERED: CALCIUM CARBONATE 500 MG CHEW U/D PO PRN (18:30)
[2016-10-11] MEDS ORDERED: OMEPRAZOLE 20 MG CAP PO PRN (18:30)
[2016-10-11] MEDS ORDERED: GLUCOSE 4 GM CHEW TABLET PO PRN (18:30)
--- NOTE | 2016-10-11 18:40 | REPUSA ---
CT of the cervical spine Clinical history: Pain. Technique: Multiple axial CT images were obtained through the cervical spine without administration o f contrast. Coronal and sagittal 3-D reconstructed images were also obtained. Comparison: 08/08/2016. Findings: The cervical vertebral bodies are in satisfactory positioning and alignment. No fractures or dislocat ions are demonstrated. The odontoid process is intact. Intervertebral disc spaces are moderately narr owed at C5/C6 and C6/C7, with small disc osteophyte complexes noted. Disc protrusions at C4/C5, C5/C6 , C6/C7, and C7/T1 are grossly stable, with varying degrees of central canal narrowing and neural for aminal narrowing. There is no evidence of facet subluxation. The cervical cranial junction is intact. The surrounding soft tissues are within normal limits. Impression: 1. No acute fracture or traumatic injury. 2. Disc bulges and protrusion from C4 through T1 as described, causing varying degrees of central can al stenosis and neural foraminal narrowing. This appears grossly stable since the prior MRI of 017.
[2016-10-11] MEDS: ACETAMINOPHEN TAB 650MG DOSE (2X325MG) PO PRN (19:25)
--- NOTE | 2016-10-11 19:34 | ECGEPIP ---
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
[2016-10-11 20:30] VITALS: BP 122/78
[2016-10-11] MEDS ORDERED: SLF 3 ML SYR IV PRN (20:45)
[2016-10-11] MEDS: HumaLOG INSULIN (NovoLOG) PER UNIT SC SCH (21:00)
[2016-10-11] MEDS: ATORVASTATIN 20 MG TAB PO SCH (21:28)
[2016-10-11] MEDS: TAMSULOSIN 0.4 MG CAP PO SCH (21:28)
[2016-10-11] MEDS: DOCUSATE SODIUM 100 MG CAP PO SCH (21:29)
[2016-10-11] MEDS: traZODone 100 MG TAB PO SCH (21:29)
[2016-10-11] MEDS: CARVedilol 12.5 MG TAB PO SCH (21:29)
[2016-10-11] MEDS: LEVEMIR (INSULIN DETEMIR) 1 UNITS/0.01ML SC SCH (21:40)
[2016-10-11] MEDS: DULoxetine 20 MG CAP (CYMBALTA) PO SCH (22:43)
[2016-10-11] MEDS: SLF 3 ML SYR IV SCH (22:44)
[2016-10-11 23:59] VITALS: BP 115/71
[2016-10-12] VITALS (7 sets, daily range): BP systolic 113–158; BP diastolic 60–93
[2016-10-12] MEDS: SLF 3 ML SYR IV SCH ×3 (05:50→21:21)
[2016-10-12 06:39] LABS: BASO # 0.1 K/mm3 (0.0-0.2); BASO % 0.7 % (0.0-1.0); EOS # 0.3 K/mm3 (0.0-0.50); EOS % 3.4 % (0.0-3.0); LARGE UNSTAINED CELL # 0.2 K/mm3 (0.0-0.4); LARGE UNSTAINED CELL % 2.8 % (0.0-4.0); LYMPH # 2.9 K/mm3 (1.5-4.5); LYMPH % 33.6 % (24.0-44.0); MEAN CORPUSCULAR HGB CONC 33.7 g/dl (32.0-36.5); MEAN CORPUSCULAR VOLUME 88.9 fl (80.0-96.0); MONO # 0.7 K/mm3 (0.0-0.8); MONO % 9.4 % (0.0-5.0); NEUTROPHILS # 3.9 K/mm3 (1.8-7.7); PLATELET COUNT, AUTOMATED 223 k/mm3 (150-450); RED CELL DISTRIBUTION WIDTH 13.7 % (11.5-14.5); WHITE BLOOD COUNT 7.8 K/mm3 (4.0-10.0)
[2016-10-12 06:41] LABS: ANION GAP 9 MEQ/L (8-16); BLOOD UREA NITROGEN 19 MG/DL (7-18); CALCIUM LEVEL 8.7 MG/DL (8.5-10.1); CARBON DIOXIDE LEVEL 25 MEQ/L (21-32); CHLORIDE LEVEL 106 MEQ/L (98-107); GLOMERULAR FILTRATION RATE > 60.0 (>56); GLUCOSE, FASTING 237 MG/DL (70-105); POTASSIUM SERUM 3.6 MEQ/L (3.5-5.1); SODIUM LEVEL 140 MEQ/L (136-145)
--- NOTE | 2016-10-12 07:12 | REP ---
REASON: Recent fall. COMPARISON: 04/15/2016 TECHNIQUE: MIP reformatted 3D images of the [place] of [place] and proximal intracranial vasculature were obtained. The source images were obtained in the axial scan plane using gradient-echo technique. FINDINGS: There is no evidence of an aneurysm or AVM. Perfusion to the hemispheres is symmetric. There is no evidence of significant signal decrease that would be considered consistent with an area of occlusion or severe stenosis. IMPRESSION: Unremarkable brain MRA. There has been no significant change from the prior exam. Developmental changes are again noted status quo. Signed by Juancho Fitzgerald DO 10/12/2016 10:57 A
--- NOTE | 2016-10-12 07:17 | REP ---
REASON FOR EXAM: Fall. The patient has a headache. COMPARISON: 04/15/2016 There is significant motion artifact on all images markedly decreasing the detail and sensitivity of the exam. The prior exam is within normal limits for the patient's age. Today's exam shows a tiny focus of hypersignal in the left centrum semiovale at the cerebral convexities without an ADC low signal correlate. There is also a small hypersignal focus in the gorman radiata of the right temporo-occipital region on the DWI images which is without a low signal ADC correlate. There are no other changes from the prior exam. There is no evidence of an intracranial hemorrhage and there is no evidence of a shift of the midline structures. Numerable scans were repeated and motion artifact persists. There is no change in the ventricles or sulci. IMPRESSION: Markedly limited exam as described above. The hypersignal foci seen on the DWI images are of uncertain significance since there are no ADC low signal correlates. The findings could represent tiny subacute lacunar infarcts. This would need to be correlated clinically with appropriate followup if necessary. Signed by Juancho Fitzgerald DO 10/12/2016 10:58 A
--- NOTE | 2016-10-12 07:55 | IPNPDOC ---
Text Note Date of Service The patient was seen on 10/12/16. NOTE Inpatient Progress Note This is a 48-year-old male past history of subarachnoid hemorrhage in July 2016 at [facility], prior subarachnoid hemorrhage, history of bacterial meningitis in 08/21/2016, hypertension, CAD status post PCI, COPD, insulin-dependent diabetes mellitus, GERD, hypertension, insomnia, chronic neck and back pain, pulmonary nodules who presents status post fall. Patient was apparently in his wheelchair, going up a ramp when he fell backwards onto his head. After his subarachnoid hemorrhage, patient was noted baseline left lower extremity weakness. Patient also states he had baseline diplopia; however both have progressively worsened since his fall. Patient presents to [facility] complaining of these complaints with MRI notable for a possible tiny subacute infarcts. Dr. Welch was called in the emergency department recommended admission given his significant comorbidities. Subjective: No new medical complaints today. Still complains of LLE weakness, blurry vision. Objective: Vitals: (see below) General: No acute distress, laying comfortably in bed. HEENT: Moist mucous membranes. Neck: No JVD or lymphadenopathy Cardiac: RRR, +S1S2 Pulm: Clear to auscultation b/l. No wheezing, rhonchi Abd: NT/ND + BS Ext: No edema or cyanosis Neuro: Diminished strength LLE. ( Baseline ~ 3/5 per pt) CN 2-12 intact with the exception of no left lateral movement of left eye ( baseline per pt). Horizontal diplopia, otherwise visual field intact. LABORATORY DATA: See below. IMAGING: MRI brain 10/11/16 with possible subacute lacunar infarcts right parietal and right temporal occipital. MRI brain 10/11/16 no acute findings. CXR 10/11/16 IMPRESSION: There is no acute cardiopulmonary disease. MICROBIOLOGY: Please see below. ASSESSMENT/PLAN: 1. Left lower extremity weakness/vision changes - possible acute/chronic - MRI shows possible multiple subacute lacunar infarcts - Hx SAH, bacterial meningitis - plan was for o/p EVA, Holter - Dr. Haas/Honey - still pending - CT spine no acute changes - continue ASA/Plavix - neurology c/s pending - likely EVA during hospital stay - TTE with bubble study pending 2. Fall - appears to have been mechanical fall, patient lost control of wheelchair while on ramp 3. CAD s/p PCI - continue ASA/statin/BB 4. HTN - continue home regimen 5. IDDM - continue basal and sliding scale insulin 6. COPD - continue nebs 7. GERD - continue PPI 8. Hyperlipidemia - continue statin therapy 9Chronic neck/back pain DVT prophylaxis- SCDs Prognosis guarded. VS,Fishbone, I+O VS, Fishbone, I+O Laboratory Tests 10/11/16 14:04 Red Blood Count 4.80, Mean Corpuscular Volume 88.0, Mean Corpuscular Hemoglobin 30.4, Mean Corpuscular Hemoglobin Concent 34.6, Red Cell Distribution Width 13.8 , Neutrophils (%) (Auto) 60.2, Lymphocytes (%) (Auto) 27.3, Monocytes (%) (Auto ) 7.7 H, Eosinophils (%) (Auto) 2.5, Basophils (%) (Auto) 0.5, Neutrophils # ( Auto) 5.5, Lymphocytes # (Auto) 2.7, Monocytes # (Auto) 0.7, Eosinophils # (Auto ) 0.2, Basophils # (Auto) 0.0 10/12/16 04:37 Red Blood Count 4.58, Mean Corpuscular Volume 88.9, Mean Corpuscular Hemoglobin 30.0, Mean Corpuscular Hemoglobin Concent 33.7, Red Cell Distribution Width 13.7 , Neutrophils (%) (Auto) 50.0, Lymphocytes (%) (Auto) 33.6, Monocytes (%) (Auto ) 9.4 H, Eosinophils (%) (Auto) 3.4 H, Basophils (%) (Auto) 0.7, Neutrophils # ( Auto) 3.9, Lymphocytes # (Auto) 2.9, Monocytes # (Auto) 0.7, Eosinophils # (Auto ) 0.3, Basophils # (Auto) 0.1, Calcium Level 8.7, Total Creatine Kinase 43 Vital Signs Date Time Temp Pulse Resp B/P (MAP) Pulse Ox O2 Delivery O2 Flow Rate FiO2 10/12/16 04:45 97.1 68 18 158/93 (114) 96 Room Air I&O- Last 24 Hours up to 6 AM 10/12/16 06:00 Intake Total 0 ml Output Total 200 ml Balance -200 ml SARIKA SOTO MD Oct 12, 2016 07:55
[2016-10-12] MEDS: LEVEMIR (INSULIN DETEMIR) 1 UNITS/0.01ML SC SCH ×2 (08:22→20:46)
[2016-10-12] MEDS: DULoxetine 20 MG CAP (CYMBALTA) PO SCH ×2 (08:23→20:39)
[2016-10-12] MEDS: HumaLOG INSULIN (NovoLOG) PER UNIT SC SCH ×4 (08:23→20:41)
[2016-10-12] MEDS: CARVedilol 12.5 MG TAB PO SCH ×2 (08:24→21:20)
[2016-10-12] MEDS: DOCUSATE SODIUM 100 MG CAP PO SCH ×2 (08:24→20:39)
[2016-10-12] MEDS: CLOPIDOGREL 75 MG TAB PO SCH (08:24)
[2016-10-12] MEDS: ASPIRIN 81 MG ENTERIC TAB PO SCH (08:24)
[2016-10-12] MEDS: ACETAMINOPHEN TAB 650MG DOSE (2X325MG) PO PRN (16:08)
[2016-10-12] MEDS: TAMSULOSIN 0.4 MG CAP PO SCH (20:39)
[2016-10-12] MEDS: traZODone 100 MG TAB PO SCH (20:39)
[2016-10-12] MEDS: ATORVASTATIN 20 MG TAB PO SCH (20:40)
[2016-10-13 05:12] VITALS: BP 107/57
[2016-10-13] MEDS: SLF 3 ML SYR IV SCH ×3 (05:18→20:41)
[2016-10-13 05:34] LABS: MEAN CORPUSCULAR HEMOGLOBIN 30.3 pg (27.0-33.0); MEAN CORPUSCULAR HGB CONC 33.8 g/dl (32.0-36.5); MEAN CORPUSCULAR VOLUME 89.5 fl (80.0-96.0); RED CELL DISTRIBUTION WIDTH 13.8 % (11.5-14.5); WHITE BLOOD COUNT 7.8 K/mm3 (4.0-10.0)
[2016-10-13 05:46] LABS: ANION GAP 7 MEQ/L (8-16); BLOOD UREA NITROGEN 15 MG/DL (7-18); CALCIUM LEVEL 9.4 MG/DL (8.5-10.1); CARBON DIOXIDE LEVEL 29 MEQ/L (21-32); CHLORIDE LEVEL 106 MEQ/L (98-107); CREATININE FOR GFR 0.65 MG/DL (0.70-1.30); GLOMERULAR FILTRATION RATE > 60.0 (>56); GLUCOSE, FASTING 136 MG/DL (70-105); POTASSIUM SERUM 3.8 MEQ/L (3.5-5.1); SODIUM LEVEL 142 MEQ/L (136-145)
[2016-10-13] MEDS: DOCUSATE SODIUM 100 MG CAP PO SCH ×2 (07:52→20:36)
[2016-10-13] MEDS: ASPIRIN 81 MG ENTERIC TAB PO SCH (07:52)
[2016-10-13] MEDS: CLOPIDOGREL 75 MG TAB PO SCH (07:52)
[2016-10-13] MEDS: DULoxetine 20 MG CAP (CYMBALTA) PO SCH ×2 (07:53→20:36)
[2016-10-13] MEDS: CARVedilol 12.5 MG TAB PO SCH ×2 (07:53→20:36)
[2016-10-13] MEDS: HumaLOG INSULIN (NovoLOG) PER UNIT SC SCH ×4 (07:54→20:39)
[2016-10-13] MEDS: LEVEMIR (INSULIN DETEMIR) 1 UNITS/0.01ML SC SCH ×2 (07:54→20:39)
[2016-10-13 08:00] VITALS: BP 113/60
[2016-10-13 12:00] VITALS: BP 113/74
--- NOTE | 2016-10-13 15:14 | IPNPDOC ---
Text Note Date of Service The patient was seen on 10/13/16. NOTE Subjective: Patient is a 48 year old male with a PMHx of SAH (07/2016), Hx of bacterial meningitis (08/2016), HTN, CAD s/p PCI, COPD, IDDM2, GERD, Chronic neck & back pain and Pulmonary nodules who presented to the ER after a fall from his wheelchair. Patient has sustained head trauma. He has noted that there was worsening of his left lower leg weakness. Imaging in the ER was consistent with subacute infarcts. Patient was seen and examined at the bedside. He notes improvement of his weakness of his left leg, now at baseline. Objective: Vitals (See below) General: Lying in bed, no acute distress, comfortable, AAOx3 HEENT: NC, AT CVS: RRR, +S1S2 Lungs: Fair air entry b/l, -w/r/r Abdomen: Soft, ND, NT, +BSx4 Extremities: - Edema, - Calf tenderness Neuro: 4/5 strength on LLE; 5/5 all else Assessment and plan: 1. Left lower extremity weakness - possibly 2/2 subacute infarction - Clinically has improvement in weakness, now at baseline - Hx of SAH and bacterial meningitis - Has followed with Neurology as an outpatient; was advised to f/u with Cardiology for EVA and Holter monitor - CT head 10/11: unremarkable; SAH previously has resolved - MRI brain 10/11: tiny subacute lacunar infarcts and unremarkable brain MRA - Cervical CT 10/11: no acute fracture / traumatic injury - c/w ASA and Plavix - Neurology following; appreciate their input - Awaiting results of TTE with bubble study - Discussed with Cardiology; will prepare for possible EVA tomorrow 2. Mechanical fall - no fractures noted 3. CAD s/p PCI - continue ASA, Atorvastatin and Carvedilol 4. HTN - BP well controlled - c/w Carvedilol 5. IDDM - c/w ISS and Levemir 10 in AM and 28 QHS 6. COPD - c/w duonebs 7. Depression - c/w Duloxetine 8. BPH - c/w Tamsulosin 9. DLP - c/w Atorvastatin 10. Chronic neck & back pain - c/w Tylenol 11. GERD - c/w omeprazole 12. DVT prophylaxis - c/w SCDs VS,Fishbone, I+O VS, Fishbone, I+O Laboratory Tests 10/13/16 05:04 Red Blood Count 4.66, Mean Corpuscular Volume 89.5, Mean Corpuscular Hemoglobin 30.3, Mean Corpuscular Hemoglobin Concent 33.8, Red Cell Distribution Width 13.8 , Calcium Level 9.4 Vital Signs Date Time Temp Pulse Resp B/P (MAP) Pulse Ox O2 Delivery O2 Flow Rate FiO2 10/13/16 12:00 96.8 72 18 113/74 (87) 96 Room Air I&O- Last 24 Hours up to 6 AM 10/13/16 06:00 Intake Total 680 ml Output Total 2025 ml Balance -1345 ml LATASHA CARRILLO MD Oct 13, 2016 15:14
[2016-10-13 16:00] VITALS: BP 116/78
[2016-10-13] MEDS: SYSTANE ULTRA EYE OU SCH ×2 (17:51→20:37)
[2016-10-13 19:57] VITALS: BP 127/68
[2016-10-13] MEDS: traZODone 100 MG TAB PO SCH (20:36)
[2016-10-13] MEDS: TAMSULOSIN 0.4 MG CAP PO SCH (20:36)
[2016-10-13] MEDS: ATORVASTATIN 20 MG TAB PO SCH (20:36)
[2016-10-13] MEDS: SYSTANE EYE OS SCH ×2 (20:37→20:41)
--- NOTE | 2016-10-13 21:03 | IPN ---
DATE: 10/13/2016 Dr. Kumar has asked me to perform transesophageal echocardiogram on Mr. Ornelas for evaluation of stroke. I met with the patient and his family at bedside. I explained the rationale for the procedure and its potential risk, including the risk of injury to esophagus and aspiration pneumonia. The patient's and his family's questions were answered. He signed appropriate consent. The patient was put nothing by mouth and I put a formal order for transesophageal echocardiogram to the computer. Tentatively, we will schedule procedure tomorrow. The hour will have to be finalized in the morning.
[2016-10-13 23:26] VITALS: BP 116/68
[2016-10-14 04:38] VITALS: BP 115/66
[2016-10-14] MEDS: SLF 3 ML SYR IV SCH ×3 (04:43→21:52)
[2016-10-14 05:57] LABS: MEAN CORPUSCULAR HEMOGLOBIN 30.6 pg (27.0-33.0); MEAN CORPUSCULAR VOLUME 90.1 fl (80.0-96.0); RED CELL DISTRIBUTION WIDTH 13.7 % (11.5-14.5); WHITE BLOOD COUNT 7.2 K/mm3 (4.0-10.0)
[2016-10-14 06:16] LABS: ANION GAP 7 MEQ/L (8-16); BLOOD UREA NITROGEN 11 MG/DL (7-18); CALCIUM LEVEL 9.1 MG/DL (8.5-10.1); CARBON DIOXIDE LEVEL 30 MEQ/L (21-32); CHLORIDE LEVEL 105 MEQ/L (98-107); CREATININE FOR GFR 0.75 MG/DL (0.70-1.30); GLOMERULAR FILTRATION RATE > 60.0 (>56); GLUCOSE, FASTING 212 MG/DL (70-105); POTASSIUM SERUM 4.2 MEQ/L (3.5-5.1); SODIUM LEVEL 142 MEQ/L (136-145)
[2016-10-14] MEDS: HumaLOG INSULIN (NovoLOG) PER UNIT SC SCH ×4 (07:30→21:00)
[2016-10-14 08:00] VITALS: BP 113/60
[2016-10-14] MEDS: DOCUSATE SODIUM 100 MG CAP PO SCH ×2 (08:16→21:42)
[2016-10-14] MEDS: ASPIRIN 81 MG ENTERIC TAB PO SCH (08:16)
[2016-10-14] MEDS: DULoxetine 20 MG CAP (CYMBALTA) PO SCH ×2 (08:16→21:42)
[2016-10-14] MEDS: CLOPIDOGREL 75 MG TAB PO SCH (08:16)
[2016-10-14] MEDS: CARVedilol 12.5 MG TAB PO SCH ×2 (08:17→21:42)
[2016-10-14] MEDS: LEVEMIR (INSULIN DETEMIR) 1 UNITS/0.01ML SC SCH ×2 (08:17→21:00)
[2016-10-14] MEDS: SYSTANE ULTRA EYE OU SCH ×3 (08:18→21:47)
[2016-10-14] MEDS: GABAPENTIN 100 MG CAP PO SCH ×3 (11:52→21:43)
[2016-10-14 12:00] VITALS: BP 108/69
--- NOTE | 2016-10-14 13:34 | IPNPDOC ---
Text Note Date of Service The patient was seen on 10/14/16. NOTE Subjective: Patient is a 48 year old male with a PMHx of SAH (07/2016), Hx of bacterial meningitis (08/2016), HTN, CAD s/p PCI, COPD, IDDM2, GERD, Chronic neck & back pain and Pulmonary nodules who presented to the ER after a fall from his wheelchair. Patient has sustained head trauma. He has noted that there was worsening of his left lower leg weakness. Imaging in the ER was consistent with subacute infarcts. Patient was seen and examined at the bedside. He notes that his leg strength is at baseline. He is planned for an EVA to be performed this afternoon. Objective: Vitals (See below) General: Lying in bed, no acute distress, comfortable, AAOx3 HEENT: NC, AT CVS: RRR, +S1S2 Lungs: Fair air entry b/l, -w/r/r Abdomen: Soft, ND, NT, +BSx4 Extremities: - Edema, - Calf tenderness Neuro: 4/5 strength on LLE; 5/5 all else Assessment and plan: 1. Left lower extremity weakness - possibly 2/2 subacute infarction - Clinically has improvement in weakness, now at baseline - Hx of SAH and bacterial meningitis - Has followed with Neurology as an outpatient; was advised to f/u with Cardiology for EVA and Holter monitor - CT head 10/11: unremarkable; SAH previously has resolved - MRI brain 10/11: tiny subacute lacunar infarcts and unremarkable brain MRA - Cervical CT 10/11: no acute fracture / traumatic injury - c/w ASA and Plavix - Neurology following; appreciate their input - Will be going for EVA today with Dr. Méndez 2. Mechanical fall - no fractures noted 3. CAD s/p PCI - continue ASA, Atorvastatin and Carvedilol 4. HTN - BP well controlled - c/w Carvedilol 5. IDDM - c/w ISS and Levemir 10 in AM and 28 QHS 6. COPD - c/w duonebs 7. Depression - c/w Duloxetine 8. BPH - c/w Tamsulosin 9. DLP - c/w Atorvastatin 10. Chronic neck & back pain - Will start Gabapentin for neuropathic pain - c/w Tylenol 11. GERD - c/w omeprazole 12. DVT prophylaxis - c/w SCDs VS,Fishbone, I+O VS, Fishbone, I+O Laboratory Tests 10/14/16 05:25 Red Blood Count 4.73, Mean Corpuscular Volume 90.1, Mean Corpuscular Hemoglobin 30.6, Mean Corpuscular Hemoglobin Concent 34.0, Red Cell Distribution Width 13.7 , Calcium Level 9.1 Vital Signs Date Time Temp Pulse Resp B/P (MAP) Pulse Ox O2 Delivery O2 Flow Rate FiO2 10/14/16 12:00 97.6 59 18 108/69 (82) 98 Room Air I&O- Last 24 Hours up to 6 AM 10/14/16 06:00 Intake Total 1080 ml Output Total 2400 ml Balance -1320 ml LATASHA CARRILLO MD Oct 14, 2016 13:34
[2016-10-14] MEDS ORDERED: MIDAZOLAM INJ 2 MG/2 ML VIAL (J2250) As Ordered ONE ×2 (14:36→14:38)
[2016-10-14] MEDS ORDERED: LIDOCAINE VISCOUS 2% SOLN 15ML UDC As Ordered ONE (14:41)
[2016-10-14] MEDS ORDERED: fentaNYL 100 MCG/2 ML INJECTION (J3010) As Ordered ONE (14:44)
[2016-10-14 16:00] VITALS: BP 114/75
[2016-10-14 20:00] VITALS: BP 136/77
[2016-10-14] MEDS: ATORVASTATIN 20 MG TAB PO SCH (21:43)
[2016-10-14] MEDS: traZODone 100 MG TAB PO SCH (21:46)
[2016-10-14] MEDS: TAMSULOSIN 0.4 MG CAP PO SCH (21:46)
[2016-10-14] MEDS: SYSTANE EYE OS SCH (21:47)
[2016-10-15] VITALS: BP 106/53
[2016-10-15 04:00] VITALS: BP 111/57
--- NOTE | 2016-10-15 05:15 | RO ---
DATE OF PROCEDURE: 10/14/2016 PROCEDURE: Transesophageal echocardiogram. INDICATION: Cerebrovascular accident. BRIEF HISTORY: Mr. Ornelas is a 56-year-old man who presents with stroke. I was asked by attending physician, Dr. Kumar, to perform transesophageal echocardiogram. I met with the patient and his family the night before the procedure and explained the rationale and potential complications. He did sign the appropriate consent. PROCEDURE NOTE: The procedure was performed in endoscopy suite. Patient was nothing by mouth for over 12 hours. His posterior pharynx was anesthetized using Cetacaine spray and viscus lidocaine after appropriate time out. He was then sedated using total 6 mg of IV Versed and 50 mcg of IV fentanyl. The probe was introduced into esophagus and later stomach without difficulty. After appropriate images were obtained it was withdrawn. There were no immediate complications and patient well tolerated the procedure well. His blood pressure became slightly soft during the procedure (domenica 89 mmHg systolic) and consequently 500 mL bolus of normal saline was administered with prompt resolution. FINDINGS: Left ventricle is of normal contractility with estimated ejection fraction (EF) 60-65%. Right ventricle is not dilated either. Both atria appear normal. Left atrial appendage is relatively small and free of thrombus. There is normal flow in both right and left-sided pulmonary veins. Atrial septum is intact. There is no evidence for shunt based on 2-D imaging, color Doppler imaging and after injection of agitated saline. Aortic root and visualized segment of aortic arch and thoracic aorta are free of significant atherosclerosis. Tricuspid, pulmonic and mitral valves are also normal. There is trivial mitral and trivial tricuspid insufficiency. I was not able to obtain adequate assessment of pulmonary artery pressure. CONCLUSION: 1. Normal left ventricular (LV) systolic function. 2. No significant valvular disease. 3. Left atrial appendage is free of thrombus. 4. Intact atrial septum. 5. No significant thoracic aortic atherosclerosis. COMMENT: Subacute bacterial endocarditis (SBE) prophylaxis is not recommended. Essentially normal echocardiogram. Patient will return to progressive care unit (PCU) bed and will be allowed to eat after approximately 60 minutes. [facility]
[2016-10-15] MEDS: SLF 3 ML SYR IV SCH (05:43)
[2016-10-15 05:52] LABS: MEAN CORPUSCULAR HEMOGLOBIN 30.1 pg (27.0-33.0); MEAN CORPUSCULAR HGB CONC 34.1 g/dl (32.0-36.5); MEAN CORPUSCULAR VOLUME 88.4 fl (80.0-96.0); RED CELL DISTRIBUTION WIDTH 13.8 % (11.5-14.5); WHITE BLOOD COUNT 7.1 K/mm3 (4.0-10.0)
[2016-10-15 06:41] LABS: ANION GAP 6 MEQ/L (8-16); BLOOD UREA NITROGEN 10 MG/DL (7-18); CARBON DIOXIDE LEVEL 28 MEQ/L (21-32); CHLORIDE LEVEL 107 MEQ/L (98-107); CREATININE FOR GFR 0.79 MG/DL (0.70-1.30); GLOMERULAR FILTRATION RATE > 60.0 (>56); GLUCOSE, FASTING 215 MG/DL (70-105); POTASSIUM SERUM 4.2 MEQ/L (3.5-5.1); SODIUM LEVEL 141 MEQ/L (136-145)
[2016-10-15] MEDS: HumaLOG INSULIN (NovoLOG) PER UNIT SC SCH (07:30)
[2016-10-15 08:00] VITALS: BP 125/67
[2016-10-15] MEDS: LEVEMIR (INSULIN DETEMIR) 1 UNITS/0.01ML SC SCH (09:00)
[2016-10-15] MEDS ORDERED: GABA-279 PO (09:05)
[2016-10-15] MEDS: CLOPIDOGREL 75 MG TAB PO SCH (09:09)
[2016-10-15] MEDS: DULoxetine 20 MG CAP (CYMBALTA) PO SCH (09:09)
[2016-10-15] MEDS: SYSTANE ULTRA EYE OU SCH (09:09)
[2016-10-15 09:10] VITALS: BP 111/57
[2016-10-15] MEDS: ASPIRIN 81 MG ENTERIC TAB PO SCH (09:10)
[2016-10-15] MEDS: GABAPENTIN 100 MG CAP PO SCH (09:10)
[2016-10-15] MEDS: CARVedilol 12.5 MG TAB PO SCH (09:10)
[2016-10-15] MEDS: DOCUSATE SODIUM 100 MG CAP PO SCH (09:10)
--- NOTE | 2016-10-15 16:33 | DSES ---
DATE OF ADMISSION: 10/11/2016 DATE OF DISCHARGE: 10/15/2016 PRIMARY CARE PHYSICIAN: Dr. Ramila Stewart REFERRING PHYSICIAN: None. CONSULTING PHYSICIAN: Dr. Méndez, Dr. Welch CONDITION ON DISCHARGE: Stable. FINAL DIAGNOSIS: Left lower extremity weakness, possibly secondary to subacute infarction. PROCEDURES: Patient had a transesophageal echo done by Dr. Méndez, which was negative. HISTORY OF PRESENT ILLNESS: Patient is a 56-year-old male with a past medical history of subarachnoid hemorrhage in July 2016, history of bacterial meningitis in August 2016, hypertension, coronary artery disease, status post percutaneous coronary intervention (PCI), chronic obstructive pulmonary disease (COPD), insulin-dependent diabetes mellitus, type 2, gastroesophageal reflux disease (GERD), chronic neck and back pain, and pulmonary nodules who presented to the emergency room (ER) after a fall from his wheelchair. Patient had sustained head trauma. He has noted that there is worsening of his left lower extremity leg weakness. Imaging in the ER was consistent with subacute infarction. HOSPITAL COURSE: 1. Left lower extremity weakness, possibly secondary to subacute infarction. Clinically has improvement in his weakness. Now is at his baseline with some mild residual weakness from his prior subarachnoid hemorrhage. Has followed with neurology as an outpatient and has been advised to followup with cardiology for a transesophageal echocardiogram and Holter monitor. CT scan on October 11 was unremarkable. Subarachnoid hemorrhage previously had resolved. MRI October 11 revealed tiny subacute lacunar infarcts and unremarkable brain MRA. Cervical CT on October 11 revealed no acute fractures or traumatic injury. He is continued on aspirin and Plavix. Neurology was consulted. We appreciate their input. Case was discussed with cardiology, and patient had a transesophageal echocardiogram performed, which was negative. Upon discharge, patient has been set up for a Holter monitor to be continued as an outpatient for the next 30 days and will followup with cardiology as an outpatient as well as neurology and primary care provider. 2. Mechanical fall. No fractures noted. 3. Coronary artery disease, status post PCI. Continue with aspirin, atorvastatin, and carvedilol as well as Plavix. 4. Hypertension. Blood pressure remains well controlled. Continue with carvedilol. 5. Insulin-dependent diabetes mellitus, type 2. Continue with insulin sliding scale and Levemir 10 units in the morning and 28 units in the evening. 6. COPD. Continue with DuoNeb. 7. Depression. Continue with duloxetine. 8. Benign prostatic hypertrophy (BPH). Continue with tamsulosin. 9. Dyslipidemia. Continue with atorvastatin. 10. Chronic neck and back pain. Patient has been started with gabapentin for neuropathic pain, and this has improved his symptoms. Will continue with Tylenol as needed. 11. GERD. Continue with omeprazole. 12. Deep vein thrombosis (DVT) prophylaxis. Continue with sequential compression devices. DISCHARGE MEDICATIONS: Patient will be discharged on the following medication list: - gabapentin 100 mg by mouth three times a day - Tylenol 650 mg by mouth every 4 hours as needed for pain - albuterol two puffs inhaled every 4 hours as needed for shortness of breath - aspirin 81 mg by mouth daily - atorvastatin 200 mg by mouth at bedtime - calcium carbonate 500 mg by mouth three times a day - carvedilol 12.5 mg by mouth twice a day - Plavix 75 mg by mouth daily - docusate sodium 100 mg by mouth twice a day - duloxetine 20 mg by mouth twice a day - Levemir 10 units in the morning and 28 units in the evening - metformin 500 mg by mouth twice a day - omeprazole 40 mg by mouth daily - tamsulosin 0.8 mg by mouth at bedtime - trazodone 100 mg by mouth at bedtime DISCHARGE INSTRUCTIONS: Patient has been advised to followup with his primary care provider, neurology, and cardiology within the next 7 days. He has been advised to remain compliant with treatment plan and medications and return to the emergency room if he experiences any problems. TIME SPENT ON DISCHARGE: 35 minutes.
== END 2016-10-15 12:48 | disposition home or self-care (01) | DRG 66 ==
LOC: M ED 13:15 → M ED INP 18:04 → M PCU 20:26
PROVIDERS: ADMIT Internal Medicine; ATTEND Internal Medicine
DX: I63.9 Cerebral infarction, unspecified (principal); I10 Essential (primary) hypertension; I25.10 Atherosclerotic heart disease of native coronary artery without angina pectoris; J44.9 Chronic obstructive pulmonary disease, unspecified; E11.9 Type 2 diabetes mellitus without complications; K21.9 Gastro-esophageal reflux disease without esophagitis; R91.8 Other nonspecific abnormal finding of lung field; F32.9 Major depressive disorder, single episode, unspecified; N40.0 Benign prostatic hyperplasia without lower urinary tract symptoms; E78.5 Hyperlipidemia, unspecified; M54.5 Low back pain; M54.2 Cervicalgia; Z79.82 Long term (current) use of aspirin; Z79.899 Other long term (current) drug therapy; Z79.4 Long term (current) use of insulin; Z88.8 Allergy status to other drugs, medicaments and biological substances; Z88.1 Allergy status to other antibiotic agents; Z91.038 Other insect allergy status

== ENCOUNTER → 2016-11-12 | Outpatient (RCR) | payer MEDICARE ==
[~2016-11-12] MED LIST changes: +GABA-279 PO; +VERA40TA PO
== END ==
LOC: M OT 10-26 09:42 → M PT 10-28 10:22
PROVIDERS: ATTEND Family Medicine
DX: Z51.89 Encounter for other specified aftercare (principal); I63.9 Cerebral infarction, unspecified
CPT/HCPCS: 97110; 97116; G8978; G8979; G8984; G8985; G8986

== ENCOUNTER 2016-11-25 04:05 | Inpatient (IN) | payer OTHER, MEDICARE ==
[~2016-11-25] VITALS: Ht 170.2 cm; Wt 97.0 kg
[~2016-11-25 04:05] MED LIST changes: -VERA40TA PO
[2016-11-25] MEDS ORDERED: CARV6.25 PO (04:29)
[2016-11-25] MEDS ORDERED: VERA40TA PO (04:29)
[2016-11-25 04:52] LABS: BASO # 0.1 K/mm3 (0.0-0.2); BASO % 0.9 % (0.0-1.0); EOS # 0.4 K/mm3 (0.0-0.50); EOS % 4.6 % (0.0-3.0); LARGE UNSTAINED CELL # 0.2 K/mm3 (0.0-0.4); LARGE UNSTAINED CELL % 2.4 % (0.0-4.0); LYMPH # 2.7 K/mm3 (1.5-4.5); LYMPH % 34.6 % (24.0-44.0); MEAN CORPUSCULAR HEMOGLOBIN 29.9 pg (27.0-33.0); MEAN CORPUSCULAR HGB CONC 34.5 g/dl (32.0-36.5); MEAN CORPUSCULAR VOLUME 86.5 fl (80.0-96.0); MONO # 0.6 K/mm3 (0.0-0.8); MONO % 7.8 % (0.0-5.0); NEUTROPHILS # 3.9 K/mm3 (1.8-7.7); NEUTROPHILS % 49.7 % (36.0-66.0); PLATELET COUNT, AUTOMATED 236 k/mm3 (150-450); RED CELL DISTRIBUTION WIDTH 13.4 % (11.5-14.5); WHITE BLOOD COUNT 7.8 K/mm3 (4.0-10.0)
[2016-11-25 05:14] LABS: ALBUMIN 3.7 GM/DL (3.2-5.2); ALBUMIN/GLOBULIN RATIO 1.12 (1.00-1.93); ALKALINE PHOSPHATASE 63 U/L (45-117); ALT/SGPT 31 U/L (12-78); ANION GAP 8 MEQ/L (8-16); AST/SGOT 12 U/L (15-37); BILIRUBIN,DIRECT 0.2 MG/DL (0.0-0.2); BILIRUBIN,TOTAL 0.5 MG/DL (0.2-1.0); BLOOD UREA NITROGEN 14 MG/DL (7-18); CALCIUM LEVEL 8.9 MG/DL (8.5-10.1); CARBON DIOXIDE LEVEL 25 MEQ/L (21-32); CHLORIDE LEVEL 109 MEQ/L (98-107); CREATININE FOR GFR 0.69 MG/DL (0.70-1.30); GLOMERULAR FILTRATION RATE > 60.0 (>56); GLUCOSE, FASTING 212 MG/DL (70-105); POTASSIUM SERUM 3.8 MEQ/L (3.5-5.1); SODIUM LEVEL 142 MEQ/L (136-145)
--- NOTE | 2016-11-25 05:42 | REPUSA ---
CLINICAL HISTORY: Dizziness and vomiting. COMMENTS: Single view of the chest reveals no evidence of active pleural or pulmonary parenchymal abnormality. The heart, mediastinum and pulmonary vessels appear normal. IMPRESSION: NORMAL CHEST. Thank you for your kind referral of this patient.
[2016-11-25] MEDS ORDERED: GABA-279 PO (07:33)
[2016-11-25] MEDS ORDERED: INSUHUMDS SC (07:33)
[2016-11-25] MEDS ORDERED: ACETAMINOPHEN TAB 650MG DOSE (2X325MG) PO PRN (10:15)
[2016-11-25] MEDS ORDERED: CALCIUM CARBONATE 500 MG CHEW U/D PO PRN (10:15)
[2016-11-25] MEDS ORDERED: ONDANSETRON 4MG/2ML VIAL (J2405) IV PRN (10:15)
[2016-11-25] MEDS ORDERED: ONDANSETRON 4 MG TAB (S0181) PO PRN (10:15)
[2016-11-25] MEDS ORDERED: ACETAMINOPHEN 325 MG TAB PO PRN (10:15)
[2016-11-25] MEDS ORDERED: ALBUTEROL 90 MCG/ACT 8GM HFA INHALER INH PRN (10:15)
[2016-11-25] MEDS: CLOPIDOGREL 75 MG TAB PO SCH (10:51)
[2016-11-25] MEDS: ATORVASTATIN 20 MG TAB PO SCH (10:51)
[2016-11-25] MEDS: CARVedilol 6.25 MG TAB PO SCH ×2 (10:51→21:30)
[2016-11-25] MEDS: ASPIRIN 81 MG ENTERIC TAB PO SCH (10:51)
[2016-11-25] MEDS: DOCUSATE SODIUM 100 MG CAP PO SCH ×2 (10:51→21:29)
[2016-11-25] MEDS: VERAPAMIL 40 MG TAB PO SCH ×2 (10:52→21:31)
[2016-11-25] MEDS: GABAPENTIN 100 MG CAP PO SCH ×3 (11:31→21:29)
[2016-11-25] MEDS: DULoxetine 20 MG CAP (CYMBALTA) PO SCH ×2 (12:34→21:28)
[2016-11-25] MEDS ORDERED: GLUCAGON FOR INJ 1 MG VIAL (J1610) SC PRN (15:15)
[2016-11-25] MEDS ORDERED: DEXTROSE 50% 50 ML SYRINGE IV PRN (15:15)
[2016-11-25] MEDS ORDERED: GLUCOSE 4 GM CHEW TABLET PO PRN (15:15)
[2016-11-25 16:00] VITALS: BP_SYST 103; BP_SYST 104; BP_SYST 109; BP_DIAS 55; BP_DIAS 60; BP_DIAS 67
[2016-11-25] MEDS: POLYVINYL ALCOHOL OPHTH SOLN 15 ML(LIQUITEARS) OU SCH ×2 (16:00→21:28)
[2016-11-25] MEDS: HumaLOG INSULIN (NovoLOG) PER UNIT SC SCH ×2 (16:55→21:00)
--- NOTE | 2016-11-25 17:41 | HPEPDOC ---
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 He states that he woke up approximately 3:30 AM to go to the bathroom. He noticed that he felt a little bit lightheaded, and the next thing he remembers is waking up on the floor after going to the bathroom. He was able to pull himself up but he noticed that he felt dizzy again, and as he was standing by the sink with his next to him, he passed out again. He states that his did not mention whether or not he had any sort of shaking or jerking movements. He did not have any incontinence or tongue injuries. The patient has been admitted for syncope before. He states that he did obtain a EVA with Dr. Honey child, and per the patient report, it was unremarkable. He also states that he finished wearing a Holter monitor approximately last week, but has not yet heard the results of that. He states that at home he has a quad cane, walker, and wheelchair that he uses to get around. Past medical history: Subarachnoid hemorrhage in July 2016, bacterial meningitis in August 2016, hypertension, CAD status post PCI, COPD, diabetes mellitus type 2 , GERD, chronic neck and back pain secondary to spinal stenosis with neuropathy , pulmonary nodules, history of multiple falls and syncope, history of CVA with left lower extremity weakness and diplopia Past surgical history: Intrathecal pump implanted and removed, although surgery bilaterally, carpal tunnel surgery bilaterally, cardiac stent Family history: Alzheimer's, lung cancer, diabetes mellitus Social history: The patient quit smoking approximately 10 years ago. He only drinks occasional alcohol and does not use any drugs Allergies: Bee venom, erythromycin, pregabalin Review of systems: General: Negative for fever and chills Eyes: Negative for vision changes and ocular discharge ENT: Negative for sore throat and nose bleed Cardiovascular: Negative for chest pain and palpitations Respiratory: Positive for cough and shortness of breath GI: Positive for nausea, negative for vomiting, diarrhea, constipation Musculoskeletal: Positive for chronic neck and back pain Skin: Negative for rash Neuro: Positive for headache, dizziness, also positive for chronic numbness of his bilateral feet Psych: Negative for depression and suicidal ideation Endocrine: Negative for polyuria : Negative for dysuria Heme: Negative for bleeding Home meds: See below Physical exam: Vital signs: Vital Sign - Last 24 Hours 11/25/16 11/25/16 11/25/16 11/25/16 04:35 04:49 04:50 05:05 Temp 96.1 Pulse 60 64 60 62 Resp 18 B/P (MAP) 131/82 (98) 131/82 (98) 139/82 (101) 123/71 (88) Pulse Ox 97 95 95 97 O2 Delivery Room Air 11/25/16 11/25/16 11/25/16 11/25/16 05:19 05:20 05:21 05:23 Pulse 58 63 73 71 B/P (MAP) 118/71 (87) 122/75 (91) 118/74 (89) 118/71 (87) 122/75 (91) 118/74 (89) Pulse Ox 97 11/25/16 11/25/16 11/25/16 11/25/16 05:35 05:50 06:05 06:20 Pulse 58 60 56 58 B/P (MAP) 121/75 (90) 128/84 (99) 128/74 (92) 108/65 (79) Pulse Ox 97 97 96 97 11/25/16 11/25/16 11/25/16 11/25/16 06:35 06:50 07:05 07:20 Pulse 58 54 54 60 B/P (MAP) 119/57 (77) 122/71 (88) 110/65 (80) 110/64 (79) Pulse Ox 96 96 96 97 11/25/16 11/25/16 11/25/16 11/25/16 07:35 07:50 08:05 08:20 Pulse 56 54 60 70 B/P (MAP) 120/67 (84) 108/60 (76) 129/72 (91) 128/85 (99) Pulse Ox 96 96 95 96 11/25/16 11/25/16 11/25/1617 08:35 10:33 10:35 10:50 Pulse 72 68 64 B/P (MAP) 135/91 (106) 138/89 (105) Pulse Ox 97 98 11/25/16 11/25/16 11/25/16 11/25/16 11:05 11:15 11:20 11:30 Pulse 60 64 B/P (MAP) 111/55 (73) 112/57 (75) Pulse Ox 97 11/25/16 11/25/16 11/25/16 11/25/16 11:35 11:45 11:50 12:00 Pulse 66 78 B/P (MAP) 116/66 (83) 104/67 (79) Pulse Ox 96 96 11/25/16 11/25/16 11/25/16 11/25/16 12:05 12:20 12:30 12:36 Pulse 64 78 79 B/P (MAP) 99/68 (78) 114/72 (86) Pulse Ox 96 95 96 11/25/16 11/25/16 11/25/16 11/25/16 12:45 13:00 13:15 13:30 Pulse 68 78 62 66 B/P (MAP) 111/65 (80) 123/61 (81) 117/70 (86) 133/83 (100) Pulse Ox 95 96 96 96 11/25/16 11/25/16 11/25/16 11/25/16 13:45 14:00 14:15 14:45 Pulse 58 80 70 62 B/P (MAP) 135/85 (102) 130/80 (97) 124/77 (93) Pulse Ox 96 97 96 95 11/25/16 11/25/16 16:00 16:00 Temp 97.6 Pulse 68 68 72 86 Resp 18 B/P (MAP) 104/60 (75) 104/60 (75) 109/67 (81) 103/55 (71) Pulse Ox 95 O2 Delivery Room Air Gen.: awake, alert, no acute distress Eyes: Extraocular movements intact, normal sclera ENT: Moist mucous membranes Cardiovascular: RRR, no murmurs rubs or gallops Lungs: clear to auscultation bilaterally, no rales, rhonchi, or wheeze Abdomen: Soft, NT/ND, normal BS Extremities: No peripheral edema Neuro: alert and oriented 3, normal speech, no arm drift, no facial droop, intact finger to nose, weakness in his left lower extremity which he states is chronic, otherwise no focal deficits noted Psych: Normal mood with congruent affect Labs and radiology: See below CBC, coags, CMP, troponin, chest x-ray, CT of the head are unremarkable Assessment and plan: 56-year-old male with subarachnoid hemorrhage in July 2016, bacterial meningitis in August 2016, hypertension, CAD status post PCI, COPD, diabetes mellitus type 2 , GERD, chronic neck and back pain secondary to spinal stenosis with neuropathy , pulmonary nodules, history of multiple falls and syncope, history of CVA with left lower extremity weakness and diplopia who presented to the emergency department after passing out twice last night. 1. Syncope: This is not the first time the patient has been worked up for syncope. MRI of the carotids in April of this year showed no significant stenosis, and transthoracic echo also in April of this year showed a normal EF with grade 1 diastolic dysfunction. At this time, we will hold off on repeating those studies. We will monitor the patient on telemetry and continue to trend his troponins. We also will check an MRI, and given the multiple prior insults to his head, we will also check an EEG. We will check orthostatics and monitor him with neuro checks. We will consult his primary insecticide sprayer Dr. Haas , and we will also consult his primary neurology group. We will ask physical therapy to work with the patient. 2. Hypertension: Continue home beta shari and verapamil. 3. CAD status post PCI: The patient currently denies any chest pain. His initial troponin is negative but we'll continue to trend these. We'll continue home aspirin, statin, Plavix, beta shari. 4. Diabetes mellitus type 2: Continue home Levemir. Sliding scale insulin while in-house. We will hold metformin during admission. 5. Chronic neck and back pain secondary to spinal stenosis with neuropathy: Continue home Cymbalta, Neurontin, trazodone. 6. History of CVA with left lower extremity weakness and diplopia: Continue aspirin and statin. Continue blood pressure control. DVT prophylaxis: SCDs Dispo: admit as an inpatient to the service of Dr. Roxanne Flores CODE STATUS: Full code Vital Signs Vital Signs Date Time Temp Pulse Resp B/P (MAP) Pulse Ox O2 Delivery O2 Flow Rate FiO2 11/25/16 16:00 68 104/60 (75) 72 109/67 (81) 86 103/55 (71) 11/25/16 16:00 97.6 18 95 Room Air Laboratory Data Labs 24H Laboratory Tests 2 11/25/16 04:36: White Blood Count 7.8, Red Blood Count 5.17, Hemoglobin 15.4, Hematocrit 44.7, Mean Corpuscular Volume 86.5, Mean Corpuscular Hemoglobin 29.9, Mean Corpuscular Hemoglobin Concent 34.5, Red Cell Distribution Width 13.4, Platelet Count 236, Neutrophils (%) (Auto) 49.7, Lymphocytes (%) (Auto) 34.6, Monocytes ( %) (Auto) 7.8H, Eosinophils (%) (Auto) 4.6H, Basophils (%) (Auto) 0.9, Neutrophils # (Auto) 3.9, Lymphocytes # (Auto) 2.7, Monocytes # (Auto) 0.6, Eosinophils # (Auto) 0.4, Basophils # (Auto) 0.1, Large Unclassified Cells % 2.4 , Large Unclassified Cells # 0.2, Prothrombin Time 13.3, Prothromb Time International Ratio 1.00, Activated Partial Thromboplast Time 24.1L, Anion Gap 8 , Glomerular Filtration Rate > 60.0, Calcium Level 8.9, Aspartate Amino Transf ( AST/SGOT) 12L, Alanine Aminotransferase (ALT/SGPT) 31, Alkaline Phosphatase 63, Total Bilirubin 0.5, Direct Bilirubin 0.2, Total Creatine Kinase 70, Creatine Kinase MB 1.3, Creatine Kinase MB Relative Index 1.85, Troponin I < 0.02, Total Protein 7.0, Albumin 3.7, Albumin/Globulin Ratio 1.12 11/25/16 10:41: Bedside Glucose (Misc Panel) 178H 11/25/16 12:05: Total Creatine Kinase 67, Creatine Kinase MB 1.1, Creatine Kinase MB Relative Index 1.64, Troponin I < 0.02 11/25/16 16:28: Bedside Glucose (Misc Panel) 243H CBC/BMP Laboratory Tests 11/25/16 04:36 Red Blood Count 5.17, Mean Corpuscular Volume 86.5, Mean Corpuscular Hemoglobin 29.9, Mean Corpuscular Hemoglobin Concent 34.5, Red Cell Distribution Width 13.4 , Neutrophils (%) (Auto) 49.7, Lymphocytes (%) (Auto) 34.6, Monocytes (%) (Auto ) 7.8 H, Eosinophils (%) (Auto) 4.6 H, Basophils (%) (Auto) 0.9, Neutrophils # ( Auto) 3.9, Lymphocytes # (Auto) 2.7, Monocytes # (Auto) 0.6, Eosinophils # (Auto ) 0.4, Basophils # (Auto) 0.1 Home Medications Scheduled Aspirin (Aspirin EC) 81 Mg Tabec, 81 MG PO DAILY Atorvastatin Calcium (Atorvastatin Calcium) 20 Mg Tab, 20 MG PO Q2D TAKES IN THE AFTERNOON Carvedilol (Carvedilol) 6.25 Mg Tab, 1 TAB PO BID Clopidogrel Bisulfate (Plavix) 75 Mg Tab, 75 MG PO DAILY Docusate Sodium (Docusate Sodium) 100 Mg Cap, 100 MG PO BID Duloxetine HCl (Cymbalta) 20 Mg Cap, 20 MG PO BID Gabapentin (Gabapentin) 100 Mg Cap, 100 MG PO TID Insulin Detemir (Levemir) 1 Units/0.01 Ml Susp, 28 UNITS SC QHS take if blood sugar is greater than 150. Insulin Human Lispro (Humalog) 1 Units/0.01 Ml Inj, 0 SC AC PER SLIDING SCALE Metformin Hydrochloride (Metformin HCl) 500 Mg Tab, 500 MG PO BID Tamsulosin Hydrochloride (Flomax) 0.4 Mg Cap, 0.8 MG PO QHS Trazodone HCl (Trazodone HCl) 100 Mg Tab, 100 MG PO QHS Verapamil HCl (Verapamil HCl) 40 Mg Tab, 20 MG PO BID Scheduled PRN Acetaminophen (Acetaminophen) 325 Mg Tab, 650 MG PO Q4H PRN for PAIN Albuterol Sulfate (Proair Hfa) 108 Mcg/Act Aer, 2 PUFF INH Q4H PRN for SHORTNESS OF BREATH Calcium Carbonate (Calcium Carbonate) 500 Mg Chw, 500 MG PO TID PRN for HEARTBURN Allergies Coded Allergies: Bee Venom (Verified Allergy, Severe, ANAPHYLAXIS, 02/01/15) Erythromycin (Unverified Allergy, Mild, HIVES, 06/14/12) Pregabalin (Verified Allergy, Unknown, ITCHING, 02/01/15) ROXANNE FLORES Nov 25, 2016 17:41
[2016-11-25 18:45] VITALS: BP 142/75
[2016-11-25 20:00] VITALS: BP_SYST 131; BP_SYST 138; BP_SYST 139; BP_DIAS 70; BP_DIAS 71; BP_DIAS 78
[2016-11-25] MEDS ORDERED: SYSTANE EYE DROPS (PATIENT'S OWN MED) OU SCH (21:00)
[2016-11-25] MEDS: traZODone 100 MG TAB PO SCH (21:28)
[2016-11-25] MEDS: TAMSULOSIN 0.4 MG CAP PO SCH (21:29)
[2016-11-25] MEDS: LEVEMIR (INSULIN DETEMIR) 1 UNITS/0.01ML SC SCH (21:42)
[2016-11-26] VITALS (7 sets, daily range): BP systolic 118–136; BP diastolic 55–80
[2016-11-26 06:03] LABS: BASO # 0.1 K/mm3 (0.0-0.2); EOS # 0.3 K/mm3 (0.0-0.50); EOS % 3.8 % (0.0-3.0); LARGE UNSTAINED CELL # 0.2 K/mm3 (0.0-0.4); LARGE UNSTAINED CELL % 2.3 % (0.0-4.0); LYMPH # 2.6 K/mm3 (1.5-4.5); MEAN CORPUSCULAR HEMOGLOBIN 29.6 pg (27.0-33.0); MEAN CORPUSCULAR HGB CONC 33.2 g/dl (32.0-36.5); MEAN CORPUSCULAR VOLUME 89.4 fl (80.0-96.0); MONO # 0.7 K/mm3 (0.0-0.8); MONO % 8.6 % (0.0-5.0); NEUTROPHILS # 4.5 K/mm3 (1.8-7.7); NEUTROPHILS % 55.3 % (36.0-66.0); PLATELET COUNT, AUTOMATED 210 k/mm3 (150-450); RED CELL DISTRIBUTION WIDTH 13.9 % (11.5-14.5); WHITE BLOOD COUNT 8.2 K/mm3 (4.0-10.0)
[2016-11-26 06:21] LABS: ANION GAP 8 MEQ/L (8-16); BLOOD UREA NITROGEN 11 MG/DL (7-18); CALCIUM LEVEL 8.9 MG/DL (8.5-10.1); CARBON DIOXIDE LEVEL 25 MEQ/L (21-32); CHLORIDE LEVEL 110 MEQ/L (98-107); CREATININE FOR GFR 0.62 MG/DL (0.70-1.30); GLOMERULAR FILTRATION RATE > 60.0 (>56); GLUCOSE, FASTING 175 MG/DL (70-105); MAGNESIUM LEVEL 1.8 MG/DL (1.8-2.4); POTASSIUM SERUM 3.8 MEQ/L (3.5-5.1); SODIUM LEVEL 143 MEQ/L (136-145)
--- NOTE | 2016-11-26 07:38 | ECGEPIP ---
Stationary ECG Study [facility] - ED Test Date: 2016-11-25 Pat Name: JULIANNE AUGUSTINE Department: Room: - Gender: M [employer]: : 1960 Requested By: JACKIE Diane Order Number: [id number] Reading MD: Wanda Marshall Measurements Intervals [place] Rate: 63 P: 44 [place]: 148 QRS: -1 QRSD: 145 T: -3 QT: 427 QTc: 440 Interpretive Statements SINUS RHYTHM BASELINE ARTIFACT LIMITS INTERPRETATION RIGHT BUNDLE BRANCH BLOCK DECREASED RATE 10/11/16 Electronically Signed On 11-26-2016 7:37:51 EDT by Wanda Marshall
[2016-11-26] MEDS: GABAPENTIN 100 MG CAP PO SCH ×3 (08:36→21:07)
[2016-11-26] MEDS: DOCUSATE SODIUM 100 MG CAP PO SCH ×2 (08:36→21:07)
[2016-11-26] MEDS: POLYVINYL ALCOHOL OPHTH SOLN 15 ML(LIQUITEARS) OU SCH ×3 (08:36→21:08)
[2016-11-26] MEDS: CLOPIDOGREL 75 MG TAB PO SCH (08:37)
[2016-11-26] MEDS: CARVedilol 6.25 MG TAB PO SCH ×2 (08:37→21:06)
[2016-11-26] MEDS: DULoxetine 20 MG CAP (CYMBALTA) PO SCH ×2 (08:37→21:07)
[2016-11-26] MEDS: ASPIRIN 81 MG ENTERIC TAB PO SCH (08:37)
--- NOTE | 2016-11-26 08:37 | REP ---
MRI BRAIN WITHOUT CONTRAST: 11/25/2016. COMPARISON: CT brain 11/25/2016, MRI brain 10/11/2016. CLINICAL HISTORY: Syncope, prior CVA. TECHNIQUE: Sagittal T1 with axial T1, T2, FLAIR, diffusion weighted images and ADC mapping sequences. FINDINGS: Lateral ventricles are midline, symmetric, mildly dilated and without displacement. They are proportionate to the mild cerebral atrophy and are unchanged. I see no periventricular significant white matter changes with a few punctate deep central and subcortical white matter hyperintense foci. These findings are visible now with the imaging improvements in that there was no motion artifact on today's study compared to previous. Nonetheless, these are mild and without confluent signal changes. The basal ganglia were symmetric and grossly intact. There are a few dilated perivascular spaces of Virchow. Cortical stripe is preserved. Atrophy is greatest in the temporal lobes. There is no vascular territory infarct, intracranial hemorrhage, mass, mass effect or edema. There are a few hyperintense foci in the diffusion weighted images, one in the posterior occipital lobe on the right and the other in the high posterior right frontal lobe near the vertex in the subcortical regions without corresponding dark signal on the ADC mapping sequences. These are unchanged from the September study and may reflect some focal ischemia but are not acute. Brainstem was grossly intact. The cerebellum shows no atrophy or mass. The seventh/eighth cranial nerve complexes are symmetric and normal. No mass in the CP angles. Basal cisterns are preserved. Mastoids are intact. Sinuses show some minor mucosal thickening in the right maxillary and bilateral ethmoid air cells. The visible frontal and sphenoid sinuses were clear. Globes and other intraorbital contents were unremarkable. Corpus callosum, optic chiasm, pituitary were grossly intact. There is no cerebellar tonsillar ectopia. IMPRESSION: 1. Some ventriculomegaly with mild atrophy, unchanged from prior studies. 2. Some minor deep white matter and subcortical changes with hyperintense T2 and FLAIR foci as nonspecific findings likely small vessel disease. Additionally, there is a stable appearance on diffusion images of right occipital and left posterior frontal subcortical white matter hyperintense foci without corresponding decreased signal on the ADC mapping sequences. This may reflect some chronic ischemia as they are unchanged from the previous study. 3. No definite acute infarct, intracranial hemorrhage, mass or mass effect. Signed by Albert Lo MD 11/26/2016 10:18 A
[2016-11-26] MEDS: HumaLOG INSULIN (NovoLOG) PER UNIT SC SCH ×4 (08:38→21:00)
[2016-11-26] MEDS: VERAPAMIL 40 MG TAB PO SCH ×2 (09:47→21:07)
--- NOTE | 2016-11-26 13:46 | IPNPDOC ---
Date Seen The patient was seen on 11/26/16. Progress Note Hospitalist Progress Note Subjective: Patient states he's feeling well today and has had no further episodes of syncope Objective: Physical Exam: Vitals: Vital Sign - Last 24 Hours 11/25/16 11/25/16 11/25/16 11/25/16 14:00 14:15 14:45 16:00 Temp 97.6 Pulse 80 70 62 68 Resp 18 B/P (MAP) 130/80 (97) 124/77 (93) 104/60 (75) Pulse Ox 97 96 95 95 O2 Delivery Room Air 11/25/16 11/25/16 11/25/16 11/25/16 16:00 18:45 20:00 20:00 Temp 97.4 97.2 Pulse 68 70 65 65 72 75 86 82 Resp 18 20 B/P (MAP) 104/60 (75) 142/75 (97) 138/71 (93) 138/71 (93) 109/67 (81) 139/78 (98) 103/55 (71) 131/70 (90) Pulse Ox 98 98 O2 Delivery Room Air Room Air 11/25/16 11/25/16 11/26/16 11/26/16 21:30 21:31 00:00 04:00 Temp 97.5 96.2 Pulse 65 65 64 68 Resp 18 18 B/P (MAP) 131/70 131/70 121/55 (77) 118/59 (78) Pulse Ox 96 96 O2 Delivery Room Air Room Air 11/26/16 11/26/16 11/26/16 11/26/16 08:00 08:23 08:37 10:00 Temp 97.4 Pulse 67 65 66 70 63 Resp 18 B/P (MAP) 136/80 (98) 133/82 135/65 (88) 132/72 (92) 130/72 (91) Pulse Ox 97 O2 Delivery Room Air Room Air Gen.: awake, alert, no acute distress Eyes: Extraocular movements intact, normal sclera ENT: Moist mucous membranes Cardiovascular: RRR, no murmurs rubs or gallops Lungs: clear to auscultation bilaterally, no rales, rhonchi, or wheeze Abdomen: Soft, NT/ND, normal BS Extremities: No peripheral edema Neuro: alert and oriented 3, normal speech Psych: Normal mood with congruent affect Labs and Imaging: Laboratory Tests 11/26/16 05:27 Red Blood Count 4.95, Mean Corpuscular Volume 89.4, Mean Corpuscular Hemoglobin 29.6, Mean Corpuscular Hemoglobin Concent 33.2, Red Cell Distribution Width 13.9 , Neutrophils (%) (Auto) 55.3, Lymphocytes (%) (Auto) 29.0, Monocytes (%) (Auto ) 8.6 H, Eosinophils (%) (Auto) 3.8 H, Basophils (%) (Auto) 1.0, Neutrophils # ( Auto) 4.5, Lymphocytes # (Auto) 2.6, Monocytes # (Auto) 0.7, Eosinophils # (Auto ) 0.3, Basophils # (Auto) 0.1, Calcium Level 8.9, Total Creatine Kinase 54 Assessment and Plan: 56-year-old male with subarachnoid hemorrhage in July 2016, bacterial meningitis in August 2016, hypertension, CAD status post PCI, COPD, diabetes mellitus type 2 , GERD, chronic neck and back pain secondary to spinal stenosis with neuropathy , pulmonary nodules, history of multiple falls and syncope, 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 1. Syncope: This is not the first time the patient has been worked up for syncope. MRI of the carotids in April of this year showed no significant stenosis, and transthoracic echo also in April of this year showed a normal EF with grade 1 diastolic dysfunction. At this time, we will hold off on repeating those studies. We will monitor the patient on telemetry; troponins have been negative. MRI brain and EEG are pending. Orthostatics are negative. His primary phlebotomist medical lab assistant Dr. Haas has seen him on this admission, and states that his outpatient Holter monitor was unrevealing, but he plans to do an implantable loop recorder as an outpatient; otherwise no changes. His primary neurology group has seen him on this admission and recommends continuing ASA, plavix, as well as following up the EEG and having continued outpatient follow up. PT to work with the patient. 2. Hypertension: Continue home beta shari and verapamil. 3. CAD status post PCI: The patient currently denies any chest pain. His initial troponin is negative but we'll continue to trend these. We'll continue home aspirin, statin, Plavix, beta shari. 4. Diabetes mellitus type 2: Continue home Levemir. Sliding scale insulin while in-house. We will hold metformin during admission. 5. Chronic neck and back pain secondary to spinal stenosis with neuropathy: Continue home Cymbalta, Neurontin, trazodone. 6. History of CVA with left lower extremity weakness and diplopia: Continue aspirin, plavix, and statin. Continue blood pressure control. DVT prophylaxis: SCDs Dispo: pending EEG results and PT clearance VS, I&O, 24H, Fishbone Vital Signs/I&O Vital Signs Date Time Temp Pulse Resp B/P (MAP) Pulse Ox O2 Delivery O2 Flow Rate FiO2 11/26/16 10:00 66 135/65 (88) 70 132/72 (92) 63 130/72 (91) 11/26/16 08:23 97.4 18 97 Room Air I&O- Last 24 Hours up to 6 AM 11/26/16 05:59 Intake Total 100 ml Output Total 500 ml Balance -400 ml Laboratory Data 24H LABS Laboratory Tests 2 11/25/16 16:28: Bedside Glucose (Misc Panel) 243H 11/25/16 19:56: Total Creatine Kinase 70, Creatine Kinase MB 1.0, Creatine Kinase MB Relative Index 1.42, Troponin I < 0.02 11/25/16 21:23: Bedside Glucose (Misc Panel) 179H 11/26/16 05:27: Total Creatine Kinase 54, Creatine Kinase MB 1.0, Creatine Kinase MB Relative Index 1.85, Troponin I < 0.02, White Blood Count 8.2, Red Blood Count 4.95, Hemoglobin 14.7, Hematocrit 44.2, Mean Corpuscular Volume 89.4, Mean Corpuscular Hemoglobin 29.6, Mean Corpuscular Hemoglobin Concent 33.2, Red Cell Distribution Width 13.9, Platelet Count 210, Neutrophils (%) (Auto) 55.3, Lymphocytes (%) (Auto) 29.0, Monocytes (%) (Auto) 8.6H, Eosinophils (%) (Auto) 3.8H, Basophils (%) (Auto) 1.0, Neutrophils # (Auto) 4.5, Lymphocytes # (Auto) 2.6, Monocytes # (Auto) 0.7, Eosinophils # (Auto) 0.3, Basophils # (Auto) 0.1, Large Unclassified Cells % 2.3, Large Unclassified Cells # 0.2, Anion Gap 8, Glomerular Filtration Rate > 60.0, Blood Urea Nitrogen 11, Creatinine 0.62L, Sodium Level 143, Potassium Level 3.8, Chloride Level 110H, Carbon Dioxide Level 25, Calcium Level 8.9, Magnesium Level 1.8 11/26/16 11:40: Bedside Glucose (Misc Panel) 243H CBC/BMP Laboratory Tests 11/26/16 05:27 Red Blood Count 4.95, Mean Corpuscular Volume 89.4, Mean Corpuscular Hemoglobin 29.6, Mean Corpuscular Hemoglobin Concent 33.2, Red Cell Distribution Width 13.9 , Neutrophils (%) (Auto) 55.3, Lymphocytes (%) (Auto) 29.0, Monocytes (%) (Auto ) 8.6 H, Eosinophils (%) (Auto) 3.8 H, Basophils (%) (Auto) 1.0, Neutrophils # ( Auto) 4.5, Lymphocytes # (Auto) 2.6, Monocytes # (Auto) 0.7, Eosinophils # (Auto ) 0.3, Basophils # (Auto) 0.1, Calcium Level 8.9, Total Creatine Kinase 54 DAKOTA PAGAN Nov 26, 2016 13:46
[2016-11-26] MEDS ORDERED: SLF 3 ML SYR IV PRN (17:00)
[2016-11-26] MEDS: TAMSULOSIN 0.4 MG CAP PO SCH (21:06)
[2016-11-26] MEDS: traZODone 100 MG TAB PO SCH (21:08)
[2016-11-26] MEDS: LEVEMIR (INSULIN DETEMIR) 1 UNITS/0.01ML SC SCH (21:10)
[2016-11-26] MEDS: SLF 3 ML SYR IV SCH (22:00)
[2016-11-27] VITALS: BP 110/59
[2016-11-27 04:00] VITALS: BP 119/71
[2016-11-27 05:29] LABS: BASO # 0.1 K/mm3 (0.0-0.2); EOS # 0.3 K/mm3 (0.0-0.50); LARGE UNSTAINED CELL # 0.2 K/mm3 (0.0-0.4); LARGE UNSTAINED CELL % 2.9 % (0.0-4.0); LYMPH # 2.3 K/mm3 (1.5-4.5); LYMPH % 30.9 % (24.0-44.0); MEAN CORPUSCULAR HEMOGLOBIN 30.3 pg (27.0-33.0); MEAN CORPUSCULAR HGB CONC 34.1 g/dl (32.0-36.5); MEAN CORPUSCULAR VOLUME 88.7 fl (80.0-96.0); MONO # 0.6 K/mm3 (0.0-0.8); MONO % 8.3 % (0.0-5.0); NEUTROPHILS # 3.9 K/mm3 (1.8-7.7); NEUTROPHILS % 52.9 % (36.0-66.0); PLATELET COUNT, AUTOMATED 231 k/mm3 (150-450); RED CELL DISTRIBUTION WIDTH 13.5 % (11.5-14.5); WHITE BLOOD COUNT 7.3 K/mm3 (4.0-10.0)
[2016-11-27 05:47] LABS: ANION GAP 6 MEQ/L (8-16); BLOOD UREA NITROGEN 11 MG/DL (7-18); CALCIUM LEVEL 8.6 MG/DL (8.5-10.1); CARBON DIOXIDE LEVEL 27 MEQ/L (21-32); CHLORIDE LEVEL 107 MEQ/L (98-107); CREATININE FOR GFR 0.74 MG/DL (0.70-1.30); GLOMERULAR FILTRATION RATE > 60.0 (>56); GLUCOSE, FASTING 193 MG/DL (70-105); MAGNESIUM LEVEL 1.9 MG/DL (1.8-2.4); POTASSIUM SERUM 3.7 MEQ/L (3.5-5.1); SODIUM LEVEL 140 MEQ/L (136-145)
[2016-11-27] MEDS: SLF 3 ML SYR IV SCH ×2 (05:57→14:05)
[2016-11-27 08:00] VITALS: BP 110/68
[2016-11-27] MEDS: CLOPIDOGREL 75 MG TAB PO SCH (08:08)
[2016-11-27] MEDS: GABAPENTIN 100 MG CAP PO SCH ×2 (08:08→16:42)
[2016-11-27 08:09] VITALS: BP 119/71
[2016-11-27] MEDS: CARVedilol 6.25 MG TAB PO SCH (08:09)
[2016-11-27] MEDS: ATORVASTATIN 20 MG TAB PO SCH (08:09)
[2016-11-27] MEDS: DULoxetine 20 MG CAP (CYMBALTA) PO SCH (08:10)
[2016-11-27] MEDS: DOCUSATE SODIUM 100 MG CAP PO SCH (08:10)
[2016-11-27] MEDS: ASPIRIN 81 MG ENTERIC TAB PO SCH (08:10)
[2016-11-27] MEDS: HumaLOG INSULIN (NovoLOG) PER UNIT SC SCH ×3 (08:11→17:30)
[2016-11-27] MEDS: POLYVINYL ALCOHOL OPHTH SOLN 15 ML(LIQUITEARS) OU SCH ×2 (08:12→16:43)
[2016-11-27] MEDS ORDERED: INFLUENZA QUADRIVALENT PF VACCINE 0.5ML SYRINGE (90686) IM ONE (09:00)
[2016-11-27 12:00] VITALS: BP 122/64
[2016-11-27 16:00] VITALS: BP 126/72
--- NOTE | 2016-11-27 17:27 | DS.PDOC ---
Discharge Summary General Date of Admission Nov 25, 2016 at 10:01 Date of Discharge 11/27/2016 Discharge Summary DISCHARGE SUMMARY DATE OF ADMISSION: 11/25/2016 DATE OF DISCHARGE: 11/27/2016 PRIMARY CARE PHYSICIAN: Ramila Stewart DISCHARGE DIAGNOS(E)S: Syncope HPI & HOSPITAL COURSE: 56-year-old male with subarachnoid hemorrhage in July 2016, bacterial meningitis in August 2016, hypertension, CAD status post PCI, COPD, diabetes mellitus type 2 , GERD, chronic neck and back pain secondary to spinal stenosis with neuropathy , pulmonary nodules, history of multiple falls and syncope, 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 1. Syncope: This is not the first time the patient has been worked up for syncope. MRI of the carotids in April of this year showed no significant stenosis, and transthoracic echo also in April of this year showed a normal EF with grade 1 diastolic dysfunction. At this time, we will hold off on repeating those studies. We have monitored the patient on telemetry with no remarkable findings; troponins have been negative. MRI brain is negative for acute findings. EEG was normal. Orthostatics are negative. His primary wire stripper Dr. Haas has seen him on this admission, and states that his outpatient Holter monitor was unrevealing, but he plans to do an implantable loop recorder as an outpatient; otherwise no changes. His primary neurology group has seen him on this admission and recommends continuing ASA, plavix, as well as having continued outpatient follow up. Cardiology and neurology also both agree he can stop the verapamil. PT cleared the patient to go home. 2. Hypertension: Continue home beta shari. 3. CAD status post PCI: The patient currently denies any chest pain. Troponins were unremarkable. We'll continue home aspirin, statin, Plavix, beta shari. 4. Diabetes mellitus type 2: Continue home Levemir. Sliding scale insulin while in-house. We will hold metformin during admission. 5. Chronic neck and back pain secondary to spinal stenosis with neuropathy: Continue home Cymbalta, Neurontin, trazodone. 6. History of CVA with left lower extremity weakness and diplopia: Continue aspirin, plavix, and statin. Continue blood pressure control. DVT prophylaxis: SCDs PHYSICAL EXAMINATION ON DISCHARGE: VITAL SIGNS: Vital Sign - Last 24 Hours 11/26/16 11/26/16 11/26/1617 20:00 20:02 21:06 21:07 Temp 98.9 Pulse 81 81 81 Resp 16 B/P (MAP) 133/65 (87) 133/65 133/65 Pulse Ox 96 O2 Delivery Room Air Room Air 11/27/16 11/27/16 11/27/16 11/27/16 00:00 00:00 04:00 08:00 Temp 97.7 97.8 97.3 Pulse 56 51 63 Resp 19 16 18 B/P (MAP) 110/59 (76) 119/71 (87) 110/68 (82) Pulse Ox 98 98 98 O2 Delivery Room Air Room Air Room Air Room Air 11/27/16 11/27/16 11/27/16 11/27/16 08:00 08:09 12:00 12:00 Temp 97.5 Pulse 71 57 Resp 18 B/P (MAP) 119/71 122/64 (83) Pulse Ox 94 O2 Delivery Room Air Room Air Room Air Gen.: awake, alert, no acute distress Eyes: Extraocular movements intact, normal sclera ENT: Moist mucous membranes Cardiovascular: RRR, no murmurs rubs or gallops Lungs: clear to auscultation bilaterally, no rales, rhonchi, or wheeze Abdomen: Soft, NT/ND, normal BS Extremities: No peripheral edema Neuro: alert and oriented 3, normal speech Psych: Normal mood with congruent affect DISPOSITION: Home with resumption of outpatient PT DISCHARGE INSTRUCTIONS: Follow-up with PCP within one week. Follow-up Dr. Haas in one week. Follow-up Dr. Welch in 1-2 weeks. If symptoms return, or if you experience worsening of your symptoms, please call your doctor or return to the emergency department. ITEMS THAT NEED OUTPATIENT FOLLOWUP: Patient will be getting a loop recorder with Dr. Haas Patient was seen and examined by me on the day of discharge, and I spent a total time of greater than than 30 minutes on this discharge. Vital Signs/I&Os Vital Signs Date Time Temp Pulse Resp B/P (MAP) Pulse Ox O2 Delivery O2 Flow Rate FiO2 11/27/16 12:00 97.5 57 18 122/64 (83) 94 Room Air I&O- Last 24 Hours up to 6 AM 11/27/16 06:00 Intake Total 860 ml Output Total 550 ml Balance 310 ml Laboratory Data Labs 24H Laboratory Tests 2 11/26/16 20:54: Bedside Glucose (Misc Panel) 194H 11/27/16 05:18: White Blood Count 7.3, Red Blood Count 4.86, Hemoglobin 14.7, Hematocrit 43.1, Mean Corpuscular Volume 88.7, Mean Corpuscular Hemoglobin 30.3, Mean Corpuscular Hemoglobin Concent 34.1, Red Cell Distribution Width 13.5, Platelet Count 231, Neutrophils (%) (Auto) 52.9, Lymphocytes (%) (Auto) 30.9, Monocytes ( %) (Auto) 8.3H, Eosinophils (%) (Auto) 4.0H, Basophils (%) (Auto) 1.0, Neutrophils # (Auto) 3.9, Lymphocytes # (Auto) 2.3, Monocytes # (Auto) 0.6, Eosinophils # (Auto) 0.3, Basophils # (Auto) 0.1, Large Unclassified Cells % 2.9 , Large Unclassified Cells # 0.2, Anion Gap 6L, Glomerular Filtration Rate > 60.0, Blood Urea Nitrogen 11, Creatinine 0.74, Sodium Level 140, Potassium Level 3.7, Chloride Level 107, Carbon Dioxide Level 27, Calcium Level 8.6, Magnesium Level 1.9 11/27/16 11:34: Bedside Glucose (Misc Panel) 204H CBC/BMP Laboratory Tests 11/27/16 05:18 Red Blood Count 4.86, Mean Corpuscular Volume 88.7, Mean Corpuscular Hemoglobin 30.3, Mean Corpuscular Hemoglobin Concent 34.1, Red Cell Distribution Width 13.5 , Neutrophils (%) (Auto) 52.9, Lymphocytes (%) (Auto) 30.9, Monocytes (%) (Auto ) 8.3 H, Eosinophils (%) (Auto) 4.0 H, Basophils (%) (Auto) 1.0, Neutrophils # ( Auto) 3.9, Lymphocytes # (Auto) 2.3, Monocytes # (Auto) 0.6, Eosinophils # (Auto ) 0.3, Basophils # (Auto) 0.1, Calcium Level 8.6 FSBS Laboratory Tests Test 11/26/16 20:54 11/27/16 11:34 Range/Units Bedside Glucose (Misc Panel) 194 204 70-105 MG/DL Discharge Medications Scheduled Aspirin (Aspirin EC) 81 Mg Tabec, 81 MG PO DAILY, (Reported) Atorvastatin Calcium (Atorvastatin Calcium) 20 Mg Tab, 20 MG PO Q2D, (Reported) TAKES IN THE AFTERNOON Carvedilol (Carvedilol) 6.25 Mg Tab, 1 TAB PO BID, (Reported) Clopidogrel Bisulfate (Plavix) 75 Mg Tab, 75 MG PO DAILY, (Reported) Docusate Sodium (Docusate Sodium) 100 Mg Cap, 100 MG PO BID, (Reported) Duloxetine HCl (Cymbalta) 20 Mg Cap, 20 MG PO BID, (Reported) Gabapentin (Gabapentin) 100 Mg Cap, 100 MG PO TID, (Reported) Insulin Detemir (Levemir) 1 Units/0.01 Ml Susp, 28 UNITS SC QHS, (Reported) take if blood sugar is greater than 150. Insulin Human Lispro (Humalog) 1 Units/0.01 Ml Inj, 0 SC AC, (Reported) PER SLIDING SCALE Metformin Hydrochloride (Metformin HCl) 500 Mg Tab, 500 MG PO BID, (Reported) Tamsulosin Hydrochloride (Flomax) 0.4 Mg Cap, 0.8 MG PO QHS, (Reported) Trazodone HCl (Trazodone HCl) 100 Mg Tab, 100 MG PO QHS, (Reported) Verapamil HCl (Verapamil HCl) 40 Mg Tab, 20 MG PO BID, (Reported) Scheduled PRN Acetaminophen (Acetaminophen) 325 Mg Tab, 650 MG PO Q4H PRN for PAIN, (Reported) Albuterol Sulfate (Proair Hfa) 108 Mcg/Act Aer, 2 PUFF INH Q4H PRN for SHORTNESS OF BREATH, (Reported) Calcium Carbonate (Calcium Carbonate) 500 Mg Chw, 500 MG PO TID PRN for HEARTBURN, (Reported) Allergies Coded Allergies: Bee Venom (Verified Allergy, Severe, ANAPHYLAXIS, 02/01/15) Erythromycin (Unverified Allergy, Mild, HIVES, 06/14/12) Pregabalin (Verified Allergy, Unknown, ITCHING, 02/01/15) DAKOTA PAGAN Nov 27, 2016 17:27
--- NOTE | 2016-11-27 18:48 | EEG ---
DATE OF PROCEDURE: 11/26/2016 REFERRING PHYSICIAN: Roxanne Lim MD DIAGNOSIS: Syncope. EEG #: [id number] HISTORY: The patient is a 56-year-old man who was admitted at [facility] due to a passing out spell. He passed out at night when he was trying to go to restroom. This EEG was done to rule out epileptic potential. He is currently taking Plavix, aspirin, verapamil, carvedilol, Lipitor, Cymbalta, Neurontin, Flomax, trazodone, insulin. TECHNICAL DESCRIPTION: This digital EEG was recorded by 21 scalp, ear and two EKG electrodes and was reviewed in bipolar and referential montages following reformatting in 10-20 international electrode placement system. INTERPRETATION: The patient was noted to be in awake and drowsy states during this EEG. Resting awake background rhythm consisted of 9 Hz alpha activity measuring 50-40 microvolts in amplitude, which was symmetric and reactive to eye opening. Attenuation of posterior dominant rhythm was seen during transition into drowsiness. Stage I and II sleep were reviewed and was symmetric bilaterally. Hyperventilation elicited mild theta slowing of background rhythm. Photic stimulation remained unremarkable. EKG revealed normal sinus rhythm. QRS complexes seen to be broad in character. No focal, lateralizing or epileptiform abnormalities were seen. No clinical or electrographic seizures were recorded. CONCLUSION: This EEG in awake, drowsy states, stage I and II sleep is within normal limits.
--- NOTE | 2016-11-27 20:29 | IPN ---
DATE: 11/27/2016 Mr. Jian Ornelas was seen earlier today. He was sitting up in bed in no acute distress at rest and having breakfast. He denies any chest pain or shortness of breath or palpitations. There has not been any arrhythmias. He denies any dizziness. He was seen by neurology and had EEG done, report is pending. He was initially admitted after one episode of syncope. He has been having those episodes starting earlier this year, and after the first one he had cardiac evaluation, which was followed by percutaneous transluminal coronary angioplasty (PTCA)/SAL to the ramus and proximal to mid LAD. Left ventricular ejection fraction is normal. In the month of July of this year, he came to the emergency room with neck pain and was found to have an intracranial bleed, subarachnoid, and he was transferred to [facility]. Further diagnostics revealed meningitis and he was told at [facility] that it was probably the cause of the bleeding. He also was admitted in the month of September with manifestation of TIA/CVA, and he had a transesophageal echocardiogram that revealed a normal global left ventricular systolic function, no significant valvular heart disease. There was no thrombus in the left anterior appendages. No intraatrial septal defect and no evidence of significant thoracic aortic atherosclerosis. PHYSICAL EXAMINATION: The patient is alert and oriented, in no acute distress at rest, and his vital signs this morning reveal a blood pressure of 126/72 with a pulse of 62, respirations 18, and his maximum temperature is 97.9 degrees Fahrenheit with an oxygen saturation of 95% on room air. Examination of the head is normocephalic, atraumatic. NECK: Supple. No jugular venous distention (JVD). LUNGS: Clear bilaterally to auscultation without any wheezing or crackles. HEART: Revealed normal S1, S2 without gallops. The PMI is not displaced. There is no rub. ABDOMEN: Soft and nontender. EXTREMITIES: Reveal no pedal edema. NEUROLOGIC EXAMINATION: Revealed minimal left sided weakness. LABORATORY DATA: Complete blood count (CBC) done today revealed a WBC of 7.3, hemoglobin 14.7, hematocrit 43.1, and platelets 231,000. Basic metabolic panel (BMP) revealed a sodium of 140, potassium 3.7, chloride 107, CO2 of 27, BUN 11, creatinine 0.74 and GFR more than 60. Fasting glucose 193, calcium 8.6. Serum magnesium is 1.9. Troponin is less than 0.02. Mr. Jian Ornelas seems to be stable from a cardiac point of view and there are no other issues and pending result of the EEG, he can be discharged home and I will follow him as an outpatient. He will call this coming Wednesday to set up an appointment and the immediate plan is to proceed with a nuclear stress test and he will be referred for an implantable loop recorder in view of his syncope. This was discussed with him. He has agreed. This will be discussed with his hospitalist. The verapamil was discontinued earlier today. He may continue with beta shari. Please do not hesitate to call if there are any questions. JENNIFER
--- NOTE | 2016-12-08 20:49 | CR ---
DATE OF CONSULTATION: 11/25/2016 REFERRING PROVIDER: Dr. Roxanne Flores. REASON FOR CONSULTATION: Syncope. HISTORY OF PRESENT ILLNESS: A 56-year-old male well known by the office and was recently admitted here at [facility] for cerebrovascular accident (CVA). At that time, the patient had a transesophageal echocardiogram done that revealed no intracardiac shunt. He was on telemetry and it revealed no atrial fibrillation or atrial flutter. He had a monitor technician done as an outpatient and there was also no atrial fibrillation of atrial flutter. He has been doing fairly well at home and on the night prior to coming to the hospital, he woke up and was going to the bathroom when suddenly he felt dizzy and when waking up, he was on the floor. There was no sustained palpitation, chest pain. He managed to call his and while standing in the bathroom with his , he began to develop lightheadedness and almost passed out. Once again, there was no sustained palpitation, chest pain. There is no diaphoresis. There is no loss of strength control, tongue biting. He was brought to the emergency room (ER) and was admitted for further management and monitoring. In view of his underlying cardiac history, cardiology consult was called. When I saw Mr. Jian Ornelas on that evening 11/25/2016, he was lying supine in bed in no acute distress at rest and his was at bedside. He denies any chest pain or shortness of breath or palpitations. There is no orthopnea or paroxysmal nocturnal dyspnea (PND). There is no new focal manifestation. He denies any bleeding. He has no cough or hemoptysis or fever. When he passed out, he was not having any pain. Denies any dysuria, polyuria or hematuria. There is no active swelling or redness of the joints. He has a past medical history positive for coronary artery disease with percutaneous transluminal coronary angioplasty (PTCA )/drug-eluting stent to the ramus and [id number] left anterior descending (LAD) earlier this year at [facility], hypertension, hyperlipidemia, chronic obstructive pulmonary disease (COPD), diabetes mellitus, gastroesophageal reflux disease (GERD), arthritis with degenerative joint disease and degenerative disc disease. In the spring, he was found to have a subarachnoid bleed and was treated in [place], [place], at [facility], and at that time, he bled because of bacterial meningitis. He also was diagnosed this year with recurrent episode of transient ischemic attack (TIA) and cerebrovascular accident (CVA) with residual left-sided weakness. He is being monitored by neurology in [facility]. There is no history of significant valvular heart disease, left ventricular systolic dysfunction, kidney disease, thyroid disorders, liver disease, sudden cardiac . There is no history of connective tissue disorder. No vasculitis. He does have a history of anxiety/depression, insomnia. He also has a history of benign prostatic hypertrophy. MEDICATIONS AT HOME - aspirin 81 mg by mouth daily - atorvastatin 20 mg by mouth every other day - carvedilol one tablet of 6.25 mg by mouth twice a day - Plavix 75 mg by mouth daily - docusate sodium 100 mg by mouth twice a day - duloxetine 20 mg by mouth twice a day - gabapentin 100 mg by mouth three times a day - Levemir insulin as directed - Humalog also as directed - metformin 500 mg by mouth twice a day - tamsulosin 0.8 mg by mouth before food - trazodone 100 mg by mouth at bedtime - verapamil 20 mg by mouth twice a day - he also takes ProAir as needed - calcium carbonate 400 mg three times a day for heartburn as needed - Tylenol 650 mg every four hours as needed for pain PAST MEDICAL HISTORY: Positive for intrathecal pump implanted that was later removed, bilateral cataract removal surgery, otherwise unremarkable. FAMILY HISTORY: Positive for diabetes mellitus, coronary artery disease, and Alzheimer's dementia. SOCIAL HISTORY: The patient lives with his and he denies any smoking or ethyl alcohol (EtOH ) abuse. He has a brother who lives in [facility] and very supportive. ADVANCE DIRECTIVES: Patient is FULL CODE. ALLERGIES: 1. BEE VENOM. 2. ERYTHROMYCIN. 3. LYRICA. PHYSICAL EXAMINATION: The patient is alert and oriented in no acute distress at rest, and his vital signs when I saw him revealed a blood pressure of 142/75, with pulse of 70, respirations 18, and the maximum temperature was 97.4 degrees Fahrenheit with oxygen saturation of 98% on room air. HEENT: Atraumatic. NECK: Supple. No jugular venous distention (JVD) or carotid bruits. LUNGS: Clear bilaterally on auscultation without any wheezing or crackles. HEART: Examination revealed normal S1, S2 without gallops. The point of maximum impulse (PMI) is not displaced. There is no rub. I could not appreciate any murmurs. ABDOMEN: Is unremarkable. EXTREMITIES: Reveal no pedal edema. No cyanosis or clubbing. NEUROLOGIC: Examination revealed minimal left-sided weakness. LABORATORY DATA: CBC on 11/25/2016, revealed a WBC of 7.8, hemoglobin 16.4, hematocrit 44.7, and platelets 226,000. BMP revealed a sodium of 142, potassium 3.8, chloride 109, CO2 25, BUN 14, creatinine 0.69, GFR more than 60, fasting glucose 212, calcium 8.9. Liver enzymes revealed a total bilirubin of 0.5, direct bilirubin 0.2, AST 12, ALT 31, and alkaline phosphatase 63. Total protein 7.0, album 3.7. Serum troponin times two have been negative, less than 0.02. PT was 13.3, with an INR of 1.00, and a PTT of 24.0. IMAGING: Echocardiogram on admission revealed normal sinus rhythm at 63 beats per minute, left bundle branch block, and there was artifact noted on the baseline. Chest x-ray done on 11/25/2016, revealed no acute disease process. Head CT done on 11/25/2016, revealed no evidence of acute intracranial pathology. MRI of the brain on 11/25/2016, revealed some ventriculomegaly with mild atrophy but no acute infarct, intracranial bleed, mass effect. There are findings consistent with small vessel disease and manifestation of chronic ischemia. IMPRESSION: Syncope in this 56-year-old male with above medical problems. Seems to be related to an episode of hypotension. I am concerned about ella or tachyarrhythmia but more bradyarrhythmia, but so far telemetry has been negative. We should discuss with neurology, to probably discontinue the verapamil. I will continue current medications and I will monitor telemetry along with you. He is planning an EEG. So far, ischemia is being ruled out. He has been having recurrent syncope or near syncope. His telemetry on prior admission, as well as recent monitor technician done as outpatient were negative. He should continue to followup with neurology and I will reassess his underlying coronary artery disease upon discharge. When he was found the past to have underlying coronary artery disease (CAD), he was having episodes of syncope or near syncope and some atypical chest pain. He was checked for orthostatic drop in his blood pressure and so far, nondiagnostic. His cardiac medications were reviewed, and I will continue the same, but I believe we can discontinue the verapamil but will need to discuss that with neurology as mentioned above. Once again, I think this syncope and near syncope is probably related to a hypotensive episode, but will continue to look for any arrhythmias. It was a pleasure to participate in the care of Mr. Jian Ornelas for his underlying cardiac condition. He appears to be stable from a cardiac point of view and please do not hesitate to call if any changes. Otherwise, I will see him again this coming Wednesday. If needed, we will ask Dr. Méndez to see him on 11/26/2016. Case was discussed with admitting attending/hospitalist. JENNIFER
== END 2016-11-27 18:44 | disposition home or self-care (01) | DRG 312 ==
LOC: M ED 04:05 → M ED INP 10:01 → M PCU 18:39
PROVIDERS: ADMIT Hospitalist; ATTEND Hospitalist
DX: R55 Syncope and collapse (principal); I10 Essential (primary) hypertension; I25.10 Atherosclerotic heart disease of native coronary artery without angina pectoris; J44.9 Chronic obstructive pulmonary disease, unspecified; E11.9 Type 2 diabetes mellitus without complications; M48.00 Spinal stenosis, site unspecified; K21.9 Gastro-esophageal reflux disease without esophagitis; R91.8 Other nonspecific abnormal finding of lung field; R29.6 Repeated falls; Z95.9 Presence of cardiac and vascular implant and graft, unspecified; Z87.891 Personal history of nicotine dependence; Z88.1 Allergy status to other antibiotic agents; Z88.8 Allergy status to other drugs, medicaments and biological substances; Z91.030 Bee allergy status; Z86.73 Personal history of transient ischemic attack (TIA), and cerebral infarction without residual deficits; Z79.82 Long term (current) use of aspirin; Z79.4 Long term (current) use of insulin; Z79.899 Other long term (current) drug therapy; Z79.02 Long term (current) use of antithrombotics/antiplatelets

== ENCOUNTER 2016-12-10 09:07 | Outpatient (RCR) | payer OTHER, MEDICARE | END 2016-12-12 | LOC: M PT 09:07 | PROVIDERS: ATTEND Family Medicine | DX: Z51.89 Encounter for other specified aftercare (principal); I63.9 Cerebral infarction, unspecified ==

== ENCOUNTER → 2016-12-10 | Outpatient (CLI) | payer OTHER, MEDICARE ==
[~2016-12-10] MED LIST changes: +VERA40TA PO
--- NOTE | 2016-12-10 12:06 | REP ---
LEFT HIP, TWO VIEWS: HISTORY: Hip pain. There is no acute fracture or dislocation. The joint space is normal in appearance. IMPRESSION: There is no acute fracture or dislocation. Signed by Anish Harkins MD 12/10/2016 12:08 P
== END ==
LOC: M WUC 10:17
PROVIDERS: ATTEND Family Medicine
DX: M25.559 Pain in unspecified hip (principal)

== ENCOUNTER 2017-01-27 09:11 | Outpatient (RCR) | payer OTHER, MEDICARE | END 2017-02-11 | LOC: M PT 09:11 | PROVIDERS: ATTEND Family Medicine | DX: Z51.89 Encounter for other specified aftercare (principal); I63.9 Cerebral infarction, unspecified | CPT/HCPCS: 97110; 97112; 97116; G8978; G8979; G8980 ==

== ENCOUNTER → 2017-01-29 | Outpatient (CLI) | payer MEDICARE, OTHER ==
[2017-01-29 13:25] LABS: BASO # 0.1 10^3/uL (0.0-0.2); BASO % 0.9 % (0.0-1.0); EOS # 0.3 10^3/uL (0.0-0.50); EOS % 3.2 % (0.0-3.0); IMMATURE GRANULOCYTE % 0.9 % (0-0); LYMPH # 2.4 10^3/uL (1.5-4.5); LYMPH % 29.8 % (24.0-44.0); MEAN CORPUSCULAR HEMOGLOBIN 29.3 pg (27.0-33.0); MEAN CORPUSCULAR HGB CONC 33.2 g/dl (32.0-36.5); MEAN CORPUSCULAR VOLUME 88.3 fl (80.0-96.0); MONO # 0.9 10^3/uL (0.0-0.8); MONO % 10.9 % (0.0-5.0); NEUTROPHILS # 4.4 10^3/uL (1.8-7.7); NEUTROPHILS % 54.3 % (36.0-66.0); PLATELET COUNT, AUTOMATED 248 10^3/uL (150-450); RED CELL DISTRIBUTION WIDTH 13.4 % (11.5-14.5); WHITE BLOOD COUNT 8.1 10^3/uL (4.0-10.0)
[2017-01-29 13:41] LABS: ALBUMIN 3.8 GM/DL (3.2-5.2); ALBUMIN/GLOBULIN RATIO 1.15 (1.00-1.93); ALKALINE PHOSPHATASE 65 U/L (45-117); ALT/SGPT 33 U/L (12-78); ANION GAP 7 MEQ/L (8-16); AST/SGOT 15 U/L (7-37); BILIRUBIN,TOTAL 0.5 MG/DL (0.2-1.0); BLOOD UREA NITROGEN 13 MG/DL (7-18); CALCIUM LEVEL 9.2 MG/DL (8.5-10.1); CARBON DIOXIDE LEVEL 29 MEQ/L (21-32); CHLORIDE LEVEL 104 MEQ/L (98-107); CHOLESTEROL LEVEL 214 MG/DL (<200); CREATININE FOR GFR 0.91 MG/DL (0.70-1.30); GLOMERULAR FILTRATION RATE > 60.0 (>56); GLUCOSE, FASTING 276 MG/DL (70-105); POTASSIUM SERUM 4.8 MEQ/L (3.5-5.1); SODIUM LEVEL 140 MEQ/L (136-145); TOTAL PROTEIN 7.1 GM/DL (6.4-8.2); TRIGLYCERIDES LEVEL 66 MG/DL (<150)
== END ==
LOC: M WUC 10:06
PROVIDERS: ATTEND Family Medicine
DX: E11.42 Type 2 diabetes mellitus with diabetic polyneuropathy (principal)

== ENCOUNTER 2017-02-23 10:54 | Day surgery (SDC) | payer MEDICARE, OTHER ==
[~2017-02-23] VITALS: Ht 170.2 cm; Wt 98.5 kg
[2017-02-23] MEDS ORDERED: LR 1,000 ML IV ONE (11:00)
[2017-02-23] MEDS ORDERED: MIDAZOLAM INJ 2 MG/2 ML VIAL (J2250) As Ordered ONE (12:39)
[2017-02-23] MEDS ORDERED: fentaNYL 100 MCG/2 ML INJECTION (J3010) As Ordered ONE (12:39)
[2017-02-23] MEDS ORDERED: LIDOCAINE 2% INJ 100 MG/5 ML SDV (FOR ANES.) As Ordered ONE (12:39)
[2017-02-23] MEDS ORDERED: PROPOFOL 200 MG/20 ML VIAL As Ordered ONE (12:39)
[2017-02-23] MEDS ORDERED: MUPIROCIN 2% OINT 22 GM TUBE As Ordered ONE (12:59)
[2017-02-23] MEDS ORDERED: LIDOCAINE 1% SDV INJ 30 ML VIAL As Ordered ONE (12:59)
[2017-02-23] MEDS ORDERED: ISOVUE-300 61% 50ML VIAL (Q9967) As Ordered ONE ×2 (12:59→13:00)
[2017-02-23] MEDS ORDERED: VANCOMYCIN 1000 MG/20 ML VIAL (J3370) As Ordered ONE (13:00)
--- NOTE | 2017-02-23 15:54 | REP ---
C-ARM VIEW CHEST: C-arm view of the chest is performed during placement of a pacemaker. Atrial and ventricular leads appear to be in good position. 11 minutes and 3 seconds of fluoroscopy time was utilized for the procedure. Signed by Dwight Thurman MD 02/24/2017 09:05 A
--- NOTE | 2017-02-23 16:30 | REP ---
SINGLE VIEW CHEST: Single view of the chest is performed and compared to prior study of 11/25/2016. Left dual lead pace maker has been placed with atrial and ventricular leads appearing to be in good position. The heart is not enlarged. There is no pneumothorax. No acute infiltrate is seen. IMPRESSION: Left dual lead pacemaker placed with no pneumothorax. Signed by Dwight Thurman MD 02/24/2017 09:06 A
[2017-02-23 16:55] VITALS: BP 111/74
[2017-02-23] MEDS ORDERED: fentaNYL 100 MCG/2 ML INJECTION (J3010) IV PRN (17:00)
[2017-02-23] MEDS ORDERED: NORCO, ANEXSIA 5/325MG TABLET (HYDROcodone/ACETAMINOPHEN) PO PRN (17:00)
[2017-02-23] MEDS ORDERED: LR 1,000 ML IV SCH (17:00)
[2017-02-23] MEDS ORDERED: ONDANSETRON 4MG/2ML VIAL (J2405) IV PRN (17:00)
[2017-02-23 17:25] VITALS: BP 114/69
[2017-02-23] MEDS: HumaLOG INSULIN (NovoLOG) PER UNIT SC SCH (17:30)
[2017-02-23] MEDS: ACETAMINOPHEN TAB 650MG DOSE (2X325MG) PO PRN (18:06)
[2017-02-23 18:25] VITALS: BP 139/77
--- NOTE | 2017-02-23 19:12 | RO ---
DATE OF PROCEDURE: 02/23/2017 PREPROCEDURE DIAGNOSIS: Syncope associated with right bundle branch block. POSTPROCEDURE DIAGNOSIS: Syncope associated with right bundle branch block. FINDINGS: Syncope associated with right bundle branch block. PROCEDURE: Implantation of dual-chamber pacemaker (Medtronic), left subclavian venogram, implant of TYRX absorbable antimicrobial envelope. SURGEON: Aj Lamar MD CURATOR OF MANUSCRIPTS: None. ANESTHESIA: Lidocaine 1% local/monitored anesthetic care. No specimens. Estimated blood loss: Less than 10 mL. No blood products replaced. No drains. No complications. DESCRIPTION OF PROCEDURE: The patient was prepped and draped over the left pectoral region. 3M Ioban film was applied. A left subclavian venogram was injected via a vein in the antecubital fossa region times two, the first using a total volume of 20 mL and the second using a total volume of 15 mL. The contrast media injected was a dilution consisting of three parts contrast to one part normal saline. These were used in real time to obtain venous access into the left subclavian vein with a micropuncture needle. This was then guidewire exchanged for a guidewire that came with one of the #7-[place] Islander sheaths. Next, incision was made with a PEAK PlasmaBlade approximately 3 inches in length and 1 cm below the skin entry site of the guidewire, roughly parallel to the left clavicle. The guidewire was then pulled through the skin into the incision site. Next, another micropuncture needle was used to gain a separate venous access into the left subclavian vein at the level of the pectoral muscle, more lateral to the guidewire entry of the first guidewire and using the first guidewire as a fluoroscopic marker. This was then guidewire exchanged for a guidewire that came with the other #7-[place] Islander sheath. Next, the #7-[place] Islander sheath with introducer was placed over the more lateral of the guidewires and was used for vein access for the right ventricle lead. The right ventricle lead was placed first position, likely position mid septum. However, this turned out to not be a satisfactory position with regards to R waves, and, therefore, the lead was repositioned somewhere closer to the right ventricle apex where it was secured with a total of 10 turns and then was found to be electrically and anatomically satisfactory and without diaphragm stimulation by palpation on either side at 10 volts high output pacing. Next, the #7-[place]er sheath was broken apart and removed, and the ventricle lead was secured to the pectoral muscle using the supplied tie-down sleeve using three individual sutures consisting of #0 Ethibond to secure it to the muscle. Next, another #7-[place] Islander sheath was placed over the more medial of the guidewires and was used for vein access for the right atrial lead. The right atrial lead was difficult to find a satisfactory position and seemed to want to enter into the right ventricle. I placed a sideways curve on a preformed reyes J stylet and was able to place the right atrial lead in a position probably representing the right atrial appendage. This was secured with a total of 10 turns. This position was found to be electrically and anatomically satisfactory and without diaphragm stimulation palpable on either side of the diaphragm at high output pacing. Next, the #7-[place] Islander sheath was broken apart, and the atrial lead was then secured to the pectoral muscle using three individual sutures consisting of #0 Ethibond to secure it to the pectoral muscle. Next, another #0 Ethibond suture was placed in the pectoral muscle to serve as a tie-down. The TYRX antimicrobial envelope (medium size) was cut into six pieces and placed into the floor of the pocket. The excess lead material was then placed underneath the pacemaker and placed along with the pacemaker into the pacemaker pocket. I observed that some of the pacemaker lead was riding over the top of the pacemaker pulse generator; therefore, I snipped and removed the tie-down for the pulse generator and repositioned the leads coiled underneath the pacemaker pulse generator with the pacemaker pulse generator on top and re-secured again to the pectoral muscle using an #0 Ethibond suture. Next, the deep layer was closed using individual sutures consisting of #2-0 Vicryl. The skin was then closed using leigh ann. The patient tolerated the procedure well without any immediate complications. The antimicrobial envelope used was a TYRX absorbable antimicrobial envelope (medium) with reference number [id number]. The pacemaker pulse generator implanted was a Medtronic Advisa DR TUCKER, model A2DR01. It had serial number [id number]. The right atrial lead implanted was a Medtronic model 4071-52 cm with serial number [id number]. Testing of the right atrial lead in bipolar configuration in the operating room showed a capture threshold of 1.0 volts at 0.5 milliseconds with a lead impedance of 703 ohms and P wave amplitude of 4.1 millivolts and slew rate of 1.2 volts per second. The right ventricle lead implanted was a Medtronic model 4076-58 cm with serial number [id number]. Final testing in the operating room for the right ventricle lead in bipolar configuration showed a capture threshold of 0.4 volts at 0.5 milliseconds with a lead impedance of 680 ohms and R wave amplitude of 11.6 millivolts and slew rate of 4.0 volts per second. Copy To: Dr. Bo Stewart
[2017-02-23 19:25] VITALS: BP 119/73
[2017-02-23 20:35] VITALS: BP 121/73
[2017-02-23] MEDS ORDERED: HumaLOG INSULIN (NovoLOG) PER UNIT SC SCH (21:00)
[2017-02-23] MEDS ORDERED: traZODone 100 MG TAB PO SCH (21:00)
[2017-02-23] MEDS ORDERED: LEVEMIR (INSULIN DETEMIR) 1 UNITS/0.01ML SC SCH (21:00)
[2017-02-23] MEDS ORDERED: ATORVASTATIN 20 MG TAB PO SCH (21:00)
[2017-02-23] MEDS: DULoxetine 20 MG CAP (CYMBALTA) PO SCH (21:19)
[2017-02-23] MEDS: ASCORBIC ACID 250 MG TAB PO SCH (21:19)
[2017-02-23] MEDS: GABAPENTIN 100 MG CAP PO SCH (21:19)
[2017-02-23] MEDS: CARVedilol 6.25 MG TAB PO SCH (21:20)
[2017-02-23 23:59] VITALS: BP 133/68
[2017-02-24 04:00] VITALS: BP 142/75
[2017-02-24 08:00] VITALS: BP 125/79
--- NOTE | 2017-02-24 08:02 | REP ---
PA and lateral chest: Comparison is 02/23/2017. There is a dual-chamber pacemaker, unchanged. There are surgical clips adjacent to the pacemaker pack, unchanged. There is no pneumothorax or pleural fluid collection. Lung franklin are clear. Cardiac size normal. The yovany, mediastinum, and bony thorax are unremarkable. Impression: Pacemaker. No pneumothorax. Signed by Dwight Dailey MD 02/24/2017 07:53 A
[2017-02-24] MEDS: GABAPENTIN 100 MG CAP PO SCH ×2 (08:26→17:48)
[2017-02-24] MEDS: DULoxetine 20 MG CAP (CYMBALTA) PO SCH (08:26)
[2017-02-24 08:27] VITALS: BP 125/79
[2017-02-24] MEDS: CARVedilol 6.25 MG TAB PO SCH (08:27)
[2017-02-24] MEDS: ASCORBIC ACID 250 MG TAB PO SCH (08:28)
[2017-02-24] MEDS: metFORMIN (GLUCOPHAGE) 500 MG TAB PO SCH ×2 (08:28→17:48)
[2017-02-24] MEDS: HumaLOG INSULIN (NovoLOG) PER UNIT SC SCH ×3 (08:30→17:49)
[2017-02-24] MEDS ORDERED: DOCUSATE SODIUM 100 MG CAP PO SCH (09:00)
[2017-02-24] MEDS ORDERED: MULTIVITAMINS/MINERALS THERAP 1 TAB PO SCH (09:00)
[2017-02-24] MEDS ORDERED: CLOPIDOGREL 75 MG TAB PO SCH (09:00)
[2017-02-24] MEDS ORDERED: TAMSULOSIN 0.4 MG CAP PO SCH (09:00)
[2017-02-24] MEDS ORDERED: VITAMIN D 1,000 INTERNATIONAL UNITS TABLET PO SCH (09:00)
[2017-02-24 12:00] VITALS: BP 126/93
[2017-02-24] MEDS: ACETAMINOPHEN TAB 650MG DOSE (2X325MG) PO PRN (15:01)
[2017-02-24 16:00] VITALS: BP 127/70
--- NOTE | 2017-02-24 19:50 | ECGEPIP ---
Stationary ECG Study [facility] Test Date: 2017-02-23 Pat Name: JULIANNE AUGUSTINE Department: Room: [place] [address] Gender: M Humanities Instructor: JONH : 1960 Requested By: Aj Lamar Order Number: [id number] Reading MD: Aj Lamar Measurements Intervals [place] Rate: 69 P: 31 AL: 164 QRS: 15 QRSD: 120 T: 5 QT: 387 QTc: 417 Interpretive Statements SINUS RHYTHM RIGHT BUNDLE BRANCH BLOCK Low precordial voltages and poor R-wave progression. No significant change compared with 11/25/2016. Electronically Signed On 02-24-2017 19:50:07 EST by Aj Lamar
== END 2017-02-24 18:40 | disposition home or self-care (01) ==
LOC: M SDC 10:54 → M PCU 16:45 → M SDC 02-24 18:40
PROVIDERS: ATTEND Internal Medicine Cardiovascular Disease
DX: R55 Syncope and collapse (principal); I45.19 Other right bundle-branch block; I25.10 Atherosclerotic heart disease of native coronary artery without angina pectoris; I11.9 Hypertensive heart disease without heart failure; R00.2 Palpitations; E78.00 Pure hypercholesterolemia, unspecified; E11.9 Type 2 diabetes mellitus without complications; J44.9 Chronic obstructive pulmonary disease, unspecified; E66.09 Other obesity due to excess calories; Z68.35 Body mass index [BMI] 35.0-35.9, adult; Z95.5 Presence of coronary angioplasty implant and graft; G47.30 Sleep apnea, unspecified; N40.0 Benign prostatic hyperplasia without lower urinary tract symptoms; Z79.899 Other long term (current) drug therapy; Z79.02 Long term (current) use of antithrombotics/antiplatelets; Z79.4 Long term (current) use of insulin; Z88.1 Allergy status to other antibiotic agents; Z88.8 Allergy status to other drugs, medicaments and biological substances; Z91.030 Bee allergy status; Z86.73 Personal history of transient ischemic attack (TIA), and cerebral infarction without residual deficits
CPT/HCPCS: 33208; 71010; 71020; 76000; 93005; C1721; C1882; C1898; J0690; J2250; J3010; Q9967

== ENCOUNTER → 2017-05-11 | Outpatient (CLI) | payer MEDICARE, OTHER ==
[2017-05-11 12:55] LABS: ESTIMATED AVERAGE GLUCOSE 183 MG/DL (60-110)
== END ==
LOC: M WUC 09:26
DX: E11.42 Type 2 diabetes mellitus with diabetic polyneuropathy (principal)
CPT/HCPCS: 83036

== ENCOUNTER → 2017-07-23 | Outpatient (REF) | payer OTHER, MEDICARE ==
[2017-07-23 16:44] LABS: APPEARANCE, URINE CLEAR (CLEAR); BACTERIA, URINE AUTO NEGATIVE (NEGATIVE); BILIRUBIN, URINE AUTO NEGATIVE (NEGATIVE); BLOOD, URINE BLOOD NEGATIVE (NEGATIVE); COLOR, URINE YELLOW (YELLOW); GLUCOSE, URINE (UA) AUTO 3+ mg/dL (NEGATIVE); KETONE, URINE AUTO NEGATIVE (NEGATIVE); LEUKOCYTE ESTERASE, URINE AUTO NEGATIVE (NEGATIVE); MUCUS, URINE SMALL (NEGATIVE); NITRITE, URINE AUTO NEGATIVE (NEGATIVE); PROTEIN, URINE AUTO NEGATIVE (NEGATIVE); RBC, URINE AUTO 1 /HPF (0-3); SPECIFIC GRAVITY URINE AUTO 1.024 (1.002-1.035); SQUAMOUS EPITHELIAL CELL UR AU 0 /HPF (0-6); UROBILINOGEN, URINE AUTO 0.2 mg/dL (0.0-2.0); WBC, URINE AUTO 0 /HPF (0-3)
== END ==
LOC: M LAB REF 16:18
DX: R35.0 Frequency of micturition (principal)

== ENCOUNTER → 2017-08-13 | Outpatient (CLI) | payer OTHER, MEDICARE ==
[2017-08-13 17:32] LABS: PROSTATIC SPECIFIC AG MONITOR 0.14 NG/ML (< 4.0)
== END ==
LOC: M WUC 11:58
DX: Z12.5 Encounter for screening for malignant neoplasm of prostate (principal)

== ENCOUNTER 2017-10-07 17:05 | Inpatient (IN) | payer OTHER, MEDICARE ==
[~2017-10-07 17:05] MED LIST changes: -/ESCI20TA OR; -/GLIP10TAB OR; -/INSULEV; -/INSULEV SQ; -ACET1TAB17 PO; -ADV250INH INH; +ALBUTEROL 90 MCG/ACT 8GM HFA INHALER INH; -ALPR0.25 OR; -AMLO2.5T PO; -AMPI2INJ2 IV; -ASPI81TA83 OR; -ASPI81TAEC PO; -ATOR1TAB21 PO; -BACL1TAB9 PO; -BETH10TA4 PO; -BISA10SU5 PR; -BYDU1INJ SC; -CALC500C16 PO; +CALCIUM CARBONATE 500 MG CHEW U/D PO; -CARV12.5 PO; -CARV6.25 OR; -CARV6.25 PO; -CEFT2INJ4 IV; -COLA100C2 OR; -CYMB1CAP4 PO; +DEXTROSE 50% 50 ML SYRINGE IV; -DILA2TAB6 PO; -DOCU100C16 PO; +FLEET ENEMA PR; -FLOM5CAP PO; -FURO20TA2 OR; -FURO20TA2 PO; -GABA-279 PO; -GLIP10TA6 PO; -GLIP5TAB8 PO; -GLUC1000 OR; +GLUCAGON FOR INJ 1 MG VIAL (J1610) SC; +GLUCOSE 4 GM CHEW TABLET PO; -INSUDET SC; -INSUHUMDS SC; -KEPP1TAB PO; -LISI-542 PO; -LOVE1INJ SC; -METF10004 PO; -METF500T13 PO; -MORPHINE IR PO; -MS C15TA5 OR; -NAPR500T3 PO; -NOVOLOG100 MG/ML SC; -OMEP20CA3 PO; -OMEP20TA7 OR; -OMEP40CA2 PO; +ONDANSETRON 4 MG TAB (S0181) PO; +ONDANSETRON 4MG/2ML VIAL (J2405) IM; -OXYC-517 PO; -PERC5TAB8 OR; -PLAV1TAB2 PO; -PRAV20TA2 OR; -PROAAER10 INH; -SENN1TAB10 PO; -SENN8.6T5 OR; +SIMETHICONE 80 MG CHEW TAB PO; -TRAZ10TA PO; -VANC1VLAD IV; -VERA40TA PO; -VITA200015 PO; -fiber gummies PO
[2017-10-07] MEDS: metFORMIN (GLUCOPHAGE) 500 MG TAB PO (18:36)
[2017-10-07] MEDS: oxyCODONE 5MG TAB PO ×2 (18:37→22:51)
[2017-10-07 20:57] LABS: BEDSIDE GLUCOSE 255 MG/DL (70-105)
[2017-10-07] MEDS: ALBUTEROL SULFATE 2.5 MG/0.5 ML INH NEB SOLN NEB (21:00)
[2017-10-07] MEDS: SENOKOT S TAB PO (21:36)
[2017-10-07] MEDS: DULoxetine 20 MG CAP (CYMBALTA) PO (21:36)
[2017-10-07] MEDS: DOCUSATE SODIUM 100 MG CAP PO (21:37)
[2017-10-07] MEDS: CARVedilol 6.25 MG TAB PO (21:37)
[2017-10-07] MEDS: GABAPENTIN 300 MG CAP PO (21:37)
[2017-10-07] MEDS: LEVEMIR (INSULIN DETEMIR) 1 UNITS/0.01ML SC (21:38)
[2017-10-07] MEDS: HumaLOG INSULIN (NovoLOG) PER UNIT SC (21:38)
[2017-10-07] MEDS: traZODone 100 MG TAB PO (22:50)
[2017-10-08] MEDS: ALBUTEROL SULFATE 2.5 MG/0.5 ML INH NEB SOLN NEB ×6 (04:00→22:36)
[2017-10-08] MEDS: oxyCODONE 5MG TAB PO ×4 (06:09→20:25)
[2017-10-08 06:59] LABS: BASO # 0.1 10^3/uL (0.0-0.2); BASO % 0.5 % (0.0-1.0); EOS # 0.2 10^3/uL (0.0-0.50); EOS % 1.6 % (0.0-3.0); HEMATOCRIT 42.9 % (42.0-52.0); HEMOGLOBIN 14.2 g/dl (13.5-17.5); IMMATURE GRANULOCYTE % 0.9 % (0-3.0); LYMPH # 4.1 10^3/uL (1.5-4.5); LYMPH % 30.4 % (24.0-44.0); MEAN CORPUSCULAR HEMOGLOBIN 29.6 pg (27.0-33.0); MEAN CORPUSCULAR HGB CONC 33.1 g/dl (32.0-36.5); MEAN CORPUSCULAR VOLUME 89.4 fl (80.0-96.0); MONO # 1.7 10^3/uL (0.0-0.8); MONO % 12.5 % (0.0-5.0); NEUTROPHILS # 7.2 10^3/uL (1.8-7.7); NEUTROPHILS % 54.1 % (36.0-66.0); PLATELET COUNT, AUTOMATED 229 10^3/uL (150-450); RED CELL DISTRIBUTION WIDTH 13.4 % (11.5-14.5); WHITE BLOOD COUNT 13.4 10^3/uL (4.0-10.0)
[2017-10-08 07:24] LABS: ALBUMIN 3.3 GM/DL (3.2-5.2); ALBUMIN/GLOBULIN RATIO 0.83 (1.00-1.93); ALKALINE PHOSPHATASE 60 U/L (45-117); ALT/SGPT 18 U/L (12-78); ANION GAP 6 MEQ/L (8-16); AST/SGOT 10 U/L (7-37); BILIRUBIN,TOTAL 0.6 MG/DL (0.2-1.0); BLOOD UREA NITROGEN 11 MG/DL (7-18); CALCIUM LEVEL 8.8 MG/DL (8.5-10.1); CARBON DIOXIDE LEVEL 32 MEQ/L (21-32); CHLORIDE LEVEL 104 MEQ/L (98-107); CREATININE FOR GFR 0.82 MG/DL (0.70-1.30); GLOMERULAR FILTRATION RATE > 60.0 (>56); GLUCOSE, FASTING 129 MG/DL (70-100); POTASSIUM SERUM 3.9 MEQ/L (3.5-5.1); SODIUM LEVEL 142 MEQ/L (136-145); TOTAL PROTEIN 7.3 GM/DL (6.4-8.2)
[2017-10-08] MEDS: VITAMIN D 1,000 INTERNATIONAL UNITS TABLET PO (08:32)
[2017-10-08] MEDS: oxyBUTYnin *DITROPAN XL* 5 MG TABCR PO (08:32)
[2017-10-08] MEDS: DULoxetine 20 MG CAP (CYMBALTA) PO ×2 (08:32→20:24)
[2017-10-08] MEDS: GABAPENTIN 300 MG CAP PO ×3 (08:32→20:22)
[2017-10-08] MEDS: DOCUSATE SODIUM 100 MG CAP PO ×2 (08:33→20:24)
[2017-10-08] MEDS: OMEPRAZOLE 20 MG CAP PO (08:33)
[2017-10-08] MEDS: metFORMIN (GLUCOPHAGE) 500 MG TAB PO ×2 (08:33→17:24)
[2017-10-08] MEDS: CARVedilol 6.25 MG TAB PO ×2 (08:33→20:24)
[2017-10-08] MEDS: HumaLOG INSULIN (NovoLOG) PER UNIT SC ×4 (08:34→21:30)
[2017-10-08] MEDS: BISACODYL 5 MG TAB PO (08:35)
[2017-10-08] MEDS: MOM 30ML SUSPENSION UDC PO (08:35)
[2017-10-08] MEDS: tiZANidine 4 MG TAB PO (08:37)
[2017-10-08 11:36] LABS: BEDSIDE GLUCOSE 190 MG/DL (70-105)
[2017-10-08 16:32] LABS: BEDSIDE GLUCOSE 184 MG/DL (70-105)
[2017-10-08] MEDS: CEPACOL LOZENGE PO (17:26)
[2017-10-08 19:29] LABS: BEDSIDE GLUCOSE 146 MG/DL (70-105)
[2017-10-08] MEDS: TAMSULOSIN 0.4 MG CAP PO (20:22)
[2017-10-08] MEDS: traZODone 100 MG TAB PO (20:23)
[2017-10-08] MEDS: SENOKOT S TAB PO (20:23)
[2017-10-08] MEDS: LEVEMIR (INSULIN DETEMIR) 1 UNITS/0.01ML SC (20:25)
[2017-10-09] MEDS: tiZANidine 4 MG TAB PO ×2 (00:09→20:32)
[2017-10-09 05:17] LABS: BEDSIDE GLUCOSE 171 MG/DL (70-105)
[2017-10-09] MEDS: oxyCODONE 5MG TAB PO ×3 (05:41→20:30)
[2017-10-09] MEDS: ALBUTEROL SULFATE 2.5 MG/0.5 ML INH NEB SOLN NEB ×4 (07:33→20:00)
[2017-10-09] MEDS: DULoxetine 20 MG CAP (CYMBALTA) PO ×2 (08:43→20:32)
[2017-10-09] MEDS: ATORVASTATIN 20 MG TAB PO (08:43)
[2017-10-09] MEDS: metFORMIN (GLUCOPHAGE) 500 MG TAB PO (08:43)
[2017-10-09] MEDS: HumaLOG INSULIN (NovoLOG) PER UNIT SC ×5 (08:43→21:00)
[2017-10-09] MEDS: GABAPENTIN 300 MG CAP PO ×3 (08:44→20:32)
[2017-10-09] MEDS: OMEPRAZOLE 20 MG CAP PO (08:44)
[2017-10-09] MEDS: oxyBUTYnin *DITROPAN XL* 5 MG TABCR PO (08:46)
[2017-10-09] MEDS: CARVedilol 6.25 MG TAB PO ×2 (08:47→20:32)
[2017-10-09] MEDS: VITAMIN D 1,000 INTERNATIONAL UNITS TABLET PO (08:47)
[2017-10-09] MEDS: DOCUSATE SODIUM 100 MG CAP PO ×2 (08:47→20:32)
[2017-10-09] MEDS: CEPACOL LOZENGE PO (09:07)
[2017-10-09 11:29] LABS: BEDSIDE GLUCOSE 190 MG/DL (70-105)
[2017-10-09 12:51] LABS: MEAN CORPUSCULAR HEMOGLOBIN 29.6 pg (27.0-33.0); MEAN CORPUSCULAR HGB CONC 33.3 g/dl (32.0-36.5); MEAN CORPUSCULAR VOLUME 88.9 fl (80.0-96.0); PLATELET COUNT, AUTOMATED 240 10^3/uL (150-450); RED BLOOD COUNT 5.06 10^6/uL (4.30-6.10); RED CELL DISTRIBUTION WIDTH 13.2 % (11.5-14.5); WHITE BLOOD COUNT 13.2 10^3/uL (4.0-10.0)
[2017-10-09 13:01] LABS: INR 1.02; PROTHROMBIN TIME 13.5 SECONDS (12.1-14.4)
[2017-10-09 13:03] LABS: D-DIMER QUANT 1256.4 ng/ml (<500)
[2017-10-09 13:13] LABS: ALBUMIN 3.3 GM/DL (3.2-5.2); ALBUMIN/GLOBULIN RATIO 0.77 (1.00-1.93); ALKALINE PHOSPHATASE 68 U/L (45-117); ALT/SGPT 19 U/L (12-78); ANION GAP 7 MEQ/L (8-16); AST/SGOT 9 U/L (7-37); BILIRUBIN,TOTAL 0.7 MG/DL (0.2-1.0); BLOOD UREA NITROGEN 12 MG/DL (7-18); C REACTIVE PROTEIN QUANTITATIV 5.23 MG/DL (0.00-0.30); CARBON DIOXIDE LEVEL 26 MEQ/L (21-32); CHLORIDE LEVEL 103 MEQ/L (98-107); CK-MB VALUE MASS < 1.0 NG/ML (<3.6); CPK CREATINE PHOSPHOKINASE 87 U/L (39-308); CREATININE FOR GFR 0.75 MG/DL (0.70-1.30); GLOMERULAR FILTRATION RATE > 60.0 (>56); GLUCOSE, FASTING 182 MG/DL (70-100); MAGNESIUM LEVEL 2.1 MG/DL (1.8-2.4); MB/CK RELATIVE INDEX 1.14 (< OR =4); POTASSIUM SERUM 4.1 MEQ/L (3.5-5.1); SODIUM LEVEL 136 MEQ/L (136-145); TOTAL PROTEIN 7.6 GM/DL (6.4-8.2); TROPONIN I < 0.02 NG/ML (< 0.10)
[2017-10-09] MEDS: NS 1,000 ML IV ×2 (14:00→15:00)
[2017-10-09] MEDS ORDERED: ISOVUE-370 76% 100ML VIAL (Q9967) As Ordered (14:02)
[2017-10-09 17:07] LABS: BEDSIDE GLUCOSE 142 MG/DL (70-105)
[2017-10-09 18:54] LABS: CK-MB VALUE MASS 1.1 NG/ML (<3.6); CPK CREATINE PHOSPHOKINASE 90 U/L (39-308); MB/CK RELATIVE INDEX 1.22 (< OR =4); TROPONIN I < 0.02 NG/ML (< 0.10)
[2017-10-09 20:21] LABS: BEDSIDE GLUCOSE 224 MG/DL (70-105)
[2017-10-09] MEDS: TAMSULOSIN 0.4 MG CAP PO (20:32)
[2017-10-09] MEDS: traZODone 100 MG TAB PO (20:32)
[2017-10-09] MEDS: SENOKOT S TAB PO (20:33)
[2017-10-09] MEDS: LEVEMIR (INSULIN DETEMIR) 1 UNITS/0.01ML SC (21:00)
[2017-10-10] MEDS: tiZANidine 4 MG TAB PO ×2 (06:27→22:50)
[2017-10-10 06:31] LABS: BEDSIDE GLUCOSE 152 MG/DL (70-105)
[2017-10-10 06:52] LABS: HEMATOCRIT 41.3 % (42.0-52.0); HEMOGLOBIN 14.1 g/dl (13.5-17.5); MEAN CORPUSCULAR HEMOGLOBIN 29.4 pg (27.0-33.0); MEAN CORPUSCULAR HGB CONC 34.1 g/dl (32.0-36.5); PLATELET COUNT, AUTOMATED 245 10^3/uL (150-450); RED CELL DISTRIBUTION WIDTH 13.2 % (11.5-14.5); WHITE BLOOD COUNT 11.6 10^3/uL (4.0-10.0)
[2017-10-10 07:04] LABS: ANION GAP 8 MEQ/L (8-16); BLOOD UREA NITROGEN 11 MG/DL (7-18); C REACTIVE PROTEIN QUANTITATIV 5.59 MG/DL (0.00-0.30); CALCIUM LEVEL 8.6 MG/DL (8.5-10.1); CARBON DIOXIDE LEVEL 30 MEQ/L (21-32); CHLORIDE LEVEL 101 MEQ/L (98-107); CREATININE FOR GFR 0.65 MG/DL (0.70-1.30); GLOMERULAR FILTRATION RATE > 60.0 (>56); GLUCOSE, FASTING 149 MG/DL (70-100); MAGNESIUM LEVEL 2.2 MG/DL (1.8-2.4); POTASSIUM SERUM 4.2 MEQ/L (3.5-5.1); SODIUM LEVEL 139 MEQ/L (136-145)
[2017-10-10] MEDS: ALBUTEROL SULFATE 2.5 MG/0.5 ML INH NEB SOLN NEB ×4 (08:00→20:02)
[2017-10-10] MEDS: GABAPENTIN 300 MG CAP PO ×3 (08:16→21:32)
[2017-10-10] MEDS: HumaLOG INSULIN (NovoLOG) PER UNIT SC ×4 (08:16→21:34)
[2017-10-10] MEDS: DOCUSATE SODIUM 100 MG CAP PO ×2 (08:16→21:30)
[2017-10-10] MEDS: oxyCODONE 5MG TAB PO ×4 (08:16→22:52)
[2017-10-10] MEDS: OMEPRAZOLE 20 MG CAP PO (08:17)
[2017-10-10] MEDS: VITAMIN D 1,000 INTERNATIONAL UNITS TABLET PO (08:17)
[2017-10-10] MEDS: oxyBUTYnin *DITROPAN XL* 5 MG TABCR PO (08:33)
[2017-10-10] MEDS: DULoxetine 20 MG CAP (CYMBALTA) PO ×2 (08:33→21:36)
[2017-10-10] MEDS: CEPACOL LOZENGE PO ×2 (08:34→21:33)
[2017-10-10] MEDS: CARVedilol 6.25 MG TAB PO ×2 (08:34→21:32)
[2017-10-10 11:33] LABS: BEDSIDE GLUCOSE 198 MG/DL (70-105)
[2017-10-10 17:05] LABS: BEDSIDE GLUCOSE 130 MG/DL (70-105)
[2017-10-10 20:30] LABS: BEDSIDE GLUCOSE 300 MG/DL (70-105)
[2017-10-10] MEDS: TAMSULOSIN 0.4 MG CAP PO (21:32)
[2017-10-10] MEDS: traZODone 100 MG TAB PO (21:32)
[2017-10-10] MEDS: SENOKOT S TAB PO (21:32)
[2017-10-10] MEDS: LEVEMIR (INSULIN DETEMIR) 1 UNITS/0.01ML SC (21:34)
[2017-10-11] MEDS: ALBUTEROL SULFATE 2.5 MG/0.5 ML INH NEB SOLN NEB ×7 (03:49→23:50)
[2017-10-11 06:03] LABS: BEDSIDE GLUCOSE 178 MG/DL (70-105)
[2017-10-11 06:19] LABS: HEMATOCRIT 41.2 % (42.0-52.0); MEAN CORPUSCULAR HEMOGLOBIN 29.4 pg (27.0-33.0); MEAN CORPUSCULAR VOLUME 86.6 fl (80.0-96.0); PLATELET COUNT, AUTOMATED 255 10^3/uL (150-450); RED BLOOD COUNT 4.76 10^6/uL (4.30-6.10); WHITE BLOOD COUNT 10.6 10^3/uL (4.0-10.0)
[2017-10-11 06:43] LABS: ANION GAP 6 MEQ/L (8-16); BLOOD UREA NITROGEN 11 MG/DL (7-18); C REACTIVE PROTEIN QUANTITATIV 5.68 MG/DL (0.00-0.30); CALCIUM LEVEL 8.6 MG/DL (8.5-10.1); CARBON DIOXIDE LEVEL 29 MEQ/L (21-32); CHLORIDE LEVEL 104 MEQ/L (98-107); CREATININE FOR GFR 0.75 MG/DL (0.70-1.30); GLOMERULAR FILTRATION RATE > 60.0 (>56); GLUCOSE, FASTING 178 MG/DL (70-100); MAGNESIUM LEVEL 1.9 MG/DL (1.8-2.4); POTASSIUM SERUM 4.5 MEQ/L (3.5-5.1); SODIUM LEVEL 139 MEQ/L (136-145)
[2017-10-11] MEDS: HumaLOG INSULIN (NovoLOG) PER UNIT SC ×4 (07:41→21:00)
[2017-10-11] MEDS: MIRALAX *UNIT DOSE* 17GM PACKET PO (07:41)
[2017-10-11] MEDS: OMEPRAZOLE 20 MG CAP PO (07:41)
[2017-10-11] MEDS: ATORVASTATIN 20 MG TAB PO (07:42)
[2017-10-11] MEDS: oxyBUTYnin *DITROPAN XL* 5 MG TABCR PO (07:42)
[2017-10-11] MEDS: DOCUSATE SODIUM 100 MG CAP PO ×2 (07:42→20:26)
[2017-10-11] MEDS: GABAPENTIN 300 MG CAP PO ×3 (07:42→20:27)
[2017-10-11] MEDS: CARVedilol 6.25 MG TAB PO ×2 (07:42→20:27)
[2017-10-11] MEDS: DULoxetine 20 MG CAP (CYMBALTA) PO ×2 (07:42→20:26)
[2017-10-11] MEDS: VITAMIN D 1,000 INTERNATIONAL UNITS TABLET PO (07:42)
[2017-10-11] MEDS: oxyCODONE 5MG TAB PO ×4 (07:43→21:45)
[2017-10-11] MEDS: tiZANidine 4 MG TAB PO ×2 (09:24→21:44)
[2017-10-11] MEDS: ACETAMINOPHEN TAB 650MG DOSE (2X325MG) PO ×2 (11:20→20:28)
[2017-10-11 11:50] LABS: BEDSIDE GLUCOSE 181 MG/DL (70-105)
[2017-10-11] MEDS: metFORMIN (GLUCOPHAGE) 500 MG TAB PO ×2 (13:00→17:34)
[2017-10-11 16:35] LABS: BEDSIDE GLUCOSE 122 MG/DL (70-105)
[2017-10-11 19:56] LABS: BEDSIDE GLUCOSE 152 MG/DL (70-105)
[2017-10-11] MEDS: SENOKOT S TAB PO (20:26)
[2017-10-11] MEDS: traZODone 100 MG TAB PO (20:26)
[2017-10-11] MEDS: TAMSULOSIN 0.4 MG CAP PO (20:27)
[2017-10-11] MEDS: LEVEMIR (INSULIN DETEMIR) 1 UNITS/0.01ML SC (20:28)
[2017-10-12] MEDS: ALBUTEROL SULFATE 2.5 MG/0.5 ML INH NEB SOLN NEB ×5 (03:31→20:50)
[2017-10-12 06:46] LABS: HEMATOCRIT 39.4 % (42.0-52.0); HEMOGLOBIN 13.4 g/dl (13.5-17.5); MEAN CORPUSCULAR HEMOGLOBIN 29.9 pg (27.0-33.0); MEAN CORPUSCULAR VOLUME 87.9 fl (80.0-96.0); PLATELET COUNT, AUTOMATED 236 10^3/uL (150-450); RED BLOOD COUNT 4.48 10^6/uL (4.30-6.10); RED CELL DISTRIBUTION WIDTH 13.1 % (11.5-14.5); WHITE BLOOD COUNT 9.3 10^3/uL (4.0-10.0)
[2017-10-12 07:14] LABS: ANION GAP 9 MEQ/L (8-16); BLOOD UREA NITROGEN 12 MG/DL (7-18); C REACTIVE PROTEIN QUANTITATIV 4.93 MG/DL (0.00-0.30); CALCIUM LEVEL 8.7 MG/DL (8.5-10.1); CARBON DIOXIDE LEVEL 28 MEQ/L (21-32); CHLORIDE LEVEL 102 MEQ/L (98-107); CREATININE FOR GFR 0.76 MG/DL (0.70-1.30); GLOMERULAR FILTRATION RATE > 60.0 (>56); GLUCOSE, FASTING 158 MG/DL (70-100); MAGNESIUM LEVEL 1.9 MG/DL (1.8-2.4); POTASSIUM SERUM 4.4 MEQ/L (3.5-5.1); SODIUM LEVEL 139 MEQ/L (136-145)
[2017-10-12] MEDS: MIRALAX *UNIT DOSE* 17GM PACKET PO (08:43)
[2017-10-12] MEDS: DOCUSATE SODIUM 100 MG CAP PO ×2 (09:00→20:06)
[2017-10-12] MEDS: metFORMIN (GLUCOPHAGE) 500 MG TAB PO ×2 (09:04→17:24)
[2017-10-12] MEDS: GABAPENTIN 300 MG CAP PO ×3 (09:04→20:07)
[2017-10-12] MEDS: oxyCODONE 5MG TAB PO ×4 (09:04→21:34)
[2017-10-12] MEDS: CARVedilol 6.25 MG TAB PO ×2 (09:05→20:07)
[2017-10-12] MEDS: OMEPRAZOLE 20 MG CAP PO (09:05)
[2017-10-12] MEDS: oxyBUTYnin *DITROPAN XL* 5 MG TABCR PO (09:06)
[2017-10-12] MEDS: CLOPIDOGREL 75 MG TAB PO (09:06)
[2017-10-12] MEDS: DULoxetine 20 MG CAP (CYMBALTA) PO ×2 (09:06→20:06)
[2017-10-12] MEDS: ASPIRIN 81 MG ENTERIC TAB PO (09:06)
[2017-10-12] MEDS: tiZANidine 4 MG TAB PO ×2 (09:06→21:33)
[2017-10-12] MEDS: VITAMIN D 1,000 INTERNATIONAL UNITS TABLET PO (09:06)
[2017-10-12] MEDS: HumaLOG INSULIN (NovoLOG) PER UNIT SC ×4 (09:07→20:53)
[2017-10-12] MEDS: BISACODYL 5 MG TAB PO (09:08)
[2017-10-12 11:56] LABS: BEDSIDE GLUCOSE 165 MG/DL (70-105)
[2017-10-12 17:04] LABS: BEDSIDE GLUCOSE 134 MG/DL (70-105)
[2017-10-12 20:03] LABS: BEDSIDE GLUCOSE 182 MG/DL (70-105)
[2017-10-12] MEDS: ACETAMINOPHEN TAB 650MG DOSE (2X325MG) PO (20:06)
[2017-10-12] MEDS: traZODone 100 MG TAB PO (20:06)
[2017-10-12] MEDS: TAMSULOSIN 0.4 MG CAP PO (20:07)
[2017-10-12] MEDS: SENOKOT S TAB PO (20:07)
[2017-10-12] MEDS: LEVEMIR (INSULIN DETEMIR) 1 UNITS/0.01ML SC (20:08)
[2017-10-13] MEDS: ALBUTEROL SULFATE 2.5 MG/0.5 ML INH NEB SOLN NEB ×6 (01:19→20:05)
[2017-10-13] MEDS: oxyCODONE 5MG TAB PO ×4 (06:30→21:12)
[2017-10-13 06:36] LABS: HEMATOCRIT 40.9 % (42.0-52.0); HEMOGLOBIN 13.5 g/dl (13.5-17.5); MEAN CORPUSCULAR HEMOGLOBIN 29.4 pg (27.0-33.0); MEAN CORPUSCULAR VOLUME 89.1 fl (80.0-96.0); PLATELET COUNT, AUTOMATED 250 10^3/uL (150-450); RED BLOOD COUNT 4.59 10^6/uL (4.30-6.10); WHITE BLOOD COUNT 8.6 10^3/uL (4.0-10.0)
[2017-10-13 06:56] LABS: ANION GAP 6 MEQ/L (8-16); BLOOD UREA NITROGEN 9 MG/DL (7-18); CARBON DIOXIDE LEVEL 31 MEQ/L (21-32); CHLORIDE LEVEL 103 MEQ/L (98-107); CREATININE FOR GFR 0.81 MG/DL (0.70-1.30); GLOMERULAR FILTRATION RATE > 60.0 (>56); GLUCOSE, FASTING 188 MG/DL (70-100); POTASSIUM SERUM 4.4 MEQ/L (3.5-5.1); SODIUM LEVEL 140 MEQ/L (136-145)
[2017-10-13] MEDS: MIRALAX *UNIT DOSE* 17GM PACKET PO (08:16)
[2017-10-13] MEDS: GABAPENTIN 300 MG CAP PO ×4 (08:16→21:12)
[2017-10-13] MEDS: DOCUSATE SODIUM 100 MG CAP PO (08:16)
[2017-10-13] MEDS: MOM 30ML SUSPENSION UDC PO (08:16)
[2017-10-13] MEDS: ATORVASTATIN 20 MG TAB PO (08:16)
[2017-10-13] MEDS: HumaLOG INSULIN (NovoLOG) PER UNIT SC ×4 (08:16→20:10)
[2017-10-13] MEDS: OMEPRAZOLE 20 MG CAP PO (08:16)
[2017-10-13] MEDS: oxyBUTYnin *DITROPAN XL* 5 MG TABCR PO (08:17)
[2017-10-13] MEDS: CLOPIDOGREL 75 MG TAB PO (08:17)
[2017-10-13] MEDS: ASPIRIN 81 MG ENTERIC TAB PO (08:17)
[2017-10-13] MEDS: metFORMIN (GLUCOPHAGE) 500 MG TAB PO ×2 (08:17→17:11)
[2017-10-13] MEDS: VITAMIN D 1,000 INTERNATIONAL UNITS TABLET PO (08:17)
[2017-10-13] MEDS: CARVedilol 6.25 MG TAB PO ×2 (08:17→21:12)
[2017-10-13] MEDS: DULoxetine 20 MG CAP (CYMBALTA) PO ×2 (08:17→21:12)
[2017-10-13] MEDS: BISACODYL 5 MG TAB PO ×2 (08:18→12:18)
[2017-10-13] MEDS ORDERED: BISACODYL 5 MG TAB PO (11:00)
[2017-10-13] MEDS: tiZANidine 4 MG TAB PO ×2 (11:09→21:11)
[2017-10-13 12:03] LABS: BEDSIDE GLUCOSE 159 MG/DL (70-105)
[2017-10-13 17:04] LABS: BEDSIDE GLUCOSE 168 MG/DL (70-105)
[2017-10-13 19:30] LABS: BEDSIDE GLUCOSE 185 MG/DL (70-105)
[2017-10-13] MEDS: traZODone 100 MG TAB PO (21:12)
[2017-10-13] MEDS: TAMSULOSIN 0.4 MG CAP PO (21:13)
[2017-10-13] MEDS: LEVEMIR (INSULIN DETEMIR) 1 UNITS/0.01ML SC (21:13)
[2017-10-13] MEDS: SENOKOT S TAB PO (21:13)
[2017-10-14] MEDS: ALBUTEROL SULFATE 2.5 MG/0.5 ML INH NEB SOLN NEB ×6 (03:32→20:04)
[2017-10-14 06:11] LABS: BEDSIDE GLUCOSE 112 MG/DL (70-105)
[2017-10-14] MEDS: HumaLOG INSULIN (NovoLOG) PER UNIT SC ×4 (08:06→20:59)
[2017-10-14] MEDS: CLOPIDOGREL 75 MG TAB PO (08:06)
[2017-10-14] MEDS: OMEPRAZOLE 20 MG CAP PO (08:06)
[2017-10-14] MEDS: GABAPENTIN 300 MG CAP PO ×4 (08:06→21:02)
[2017-10-14] MEDS: ASPIRIN 81 MG ENTERIC TAB PO (08:06)
[2017-10-14] MEDS: MIRALAX *UNIT DOSE* 17GM PACKET PO (08:06)
[2017-10-14] MEDS: oxyBUTYnin *DITROPAN XL* 5 MG TABCR PO (08:07)
[2017-10-14] MEDS: BISACODYL 5 MG TAB PO (08:07)
[2017-10-14] MEDS: DULoxetine 20 MG CAP (CYMBALTA) PO ×2 (08:07→20:57)
[2017-10-14] MEDS: VITAMIN D 1,000 INTERNATIONAL UNITS TABLET PO (08:07)
[2017-10-14] MEDS: CARVedilol 6.25 MG TAB PO ×2 (08:07→20:59)
[2017-10-14] MEDS: tiZANidine 4 MG TAB PO ×2 (08:07→21:07)
[2017-10-14] MEDS: metFORMIN (GLUCOPHAGE) 500 MG TAB PO ×2 (08:08→17:23)
[2017-10-14] MEDS: oxyCODONE 5MG TAB PO ×4 (08:09→20:59)
[2017-10-14 12:28] LABS: BEDSIDE GLUCOSE 137 MG/DL (70-105)
[2017-10-14] MEDS: BISACODYL 10 MG SUPP PR (14:53)
[2017-10-14 16:27] LABS: BEDSIDE GLUCOSE 152 MG/DL (70-105)
[2017-10-14 20:19] LABS: BEDSIDE GLUCOSE 166 MG/DL (70-105)
[2017-10-14] MEDS: SENOKOT S TAB PO (20:56)
[2017-10-14] MEDS: TAMSULOSIN 0.4 MG CAP PO (20:56)
[2017-10-14] MEDS: traZODone 100 MG TAB PO (20:57)
[2017-10-14] MEDS: LEVEMIR (INSULIN DETEMIR) 1 UNITS/0.01ML SC (21:27)
[2017-10-15] MEDS: ALBUTEROL SULFATE 2.5 MG/0.5 ML INH NEB SOLN NEB ×6 (01:10→20:45)
[2017-10-15 06:56] LABS: BEDSIDE GLUCOSE 165 MG/DL (70-105)
[2017-10-15] MEDS: HumaLOG INSULIN (NovoLOG) PER UNIT SC ×4 (07:47→20:42)
[2017-10-15] MEDS: GABAPENTIN 300 MG CAP PO ×4 (07:47→21:10)
[2017-10-15] MEDS: ATORVASTATIN 20 MG TAB PO (07:47)
[2017-10-15] MEDS: CLOPIDOGREL 75 MG TAB PO (07:48)
[2017-10-15] MEDS: oxyCODONE 5MG TAB PO ×4 (07:48→21:08)
[2017-10-15] MEDS: OMEPRAZOLE 20 MG CAP PO (07:48)
[2017-10-15] MEDS: ASPIRIN 81 MG ENTERIC TAB PO (07:48)
[2017-10-15] MEDS: VITAMIN D 1,000 INTERNATIONAL UNITS TABLET PO (07:48)
[2017-10-15] MEDS: DULoxetine 20 MG CAP (CYMBALTA) PO ×2 (07:49→21:07)
[2017-10-15] MEDS: CARVedilol 6.25 MG TAB PO ×2 (07:49→21:09)
[2017-10-15] MEDS: metFORMIN (GLUCOPHAGE) 500 MG TAB PO ×2 (07:49→17:00)
[2017-10-15] MEDS: oxyBUTYnin *DITROPAN XL* 5 MG TABCR PO (07:49)
[2017-10-15] MEDS: MIRALAX *UNIT DOSE* 17GM PACKET PO ×3 (07:50→07:51)
[2017-10-15] MEDS: BISACODYL 5 MG TAB PO (07:50)
[2017-10-15 12:18] LABS: BEDSIDE GLUCOSE 135 MG/DL (70-105)
[2017-10-15] MEDS: tiZANidine 4 MG TAB PO ×2 (12:24→21:07)
[2017-10-15 16:31] LABS: BEDSIDE GLUCOSE 175 MG/DL (70-105)
[2017-10-15 20:14] LABS: BEDSIDE GLUCOSE 247 MG/DL (70-105)
[2017-10-15] MEDS: SENOKOT S TAB PO (21:07)
[2017-10-15] MEDS: traZODone 100 MG TAB PO (21:07)
[2017-10-15] MEDS: TAMSULOSIN 0.4 MG CAP PO (21:07)
[2017-10-15] MEDS: LEVEMIR (INSULIN DETEMIR) 1 UNITS/0.01ML SC (21:08)
[2017-10-15] MEDS: HYDROCORTISONE 1% CREAM 30 GM TOP (21:30)
[2017-10-16] MEDS: ALBUTEROL SULFATE 2.5 MG/0.5 ML INH NEB SOLN NEB ×3 (03:55→08:12)
[2017-10-16 06:23] LABS: BEDSIDE GLUCOSE 200 MG/DL (70-105)
[2017-10-16] MEDS: tiZANidine 4 MG TAB PO (06:23)
[2017-10-16] MEDS: oxyCODONE 5MG TAB PO (06:24)
[2017-10-16] MEDS: MIRALAX *UNIT DOSE* 17GM PACKET PO (08:07)
[2017-10-16] MEDS: DULoxetine 20 MG CAP (CYMBALTA) PO (08:08)
[2017-10-16] MEDS: CLOPIDOGREL 75 MG TAB PO (08:08)
[2017-10-16] MEDS: VITAMIN D 1,000 INTERNATIONAL UNITS TABLET PO (08:08)
[2017-10-16] MEDS: ASPIRIN 81 MG ENTERIC TAB PO (08:08)
[2017-10-16] MEDS: BISACODYL 5 MG TAB PO (08:08)
[2017-10-16] MEDS: OMEPRAZOLE 20 MG CAP PO (08:08)
[2017-10-16] MEDS: GABAPENTIN 300 MG CAP PO (08:08)
[2017-10-16] MEDS: metFORMIN (GLUCOPHAGE) 500 MG TAB PO (08:08)
[2017-10-16] MEDS: oxyBUTYnin *DITROPAN XL* 5 MG TABCR PO (08:09)
[2017-10-16] MEDS: CARVedilol 6.25 MG TAB PO (08:09)
[2017-10-16] MEDS: HumaLOG INSULIN (NovoLOG) PER UNIT SC (08:10)
== END 2017-10-16 09:25 | disposition home health service (06) | DRG 948 ==
LOC: M PM&R 17:05
PROVIDERS: Physical Medicine & Rehabilitation
DX: R53.81 Other malaise (principal); I50.30 Unspecified diastolic (congestive) heart failure; I69.154 Hemiplegia and hemiparesis following nontraumatic intracerebral hemorrhage affecting left non-dominant side; K59.00 Constipation, unspecified; R51 Headache; N32.81 Overactive bladder; F41.9 Anxiety disorder, unspecified; E11.40 Type 2 diabetes mellitus with diabetic neuropathy, unspecified; E55.9 Vitamin D deficiency, unspecified; Z98.1 Arthrodesis status; R13.11 Dysphagia, oral phase; R91.8 Other nonspecific abnormal finding of lung field; I45.10 Unspecified right bundle-branch block; R07.81 Pleurodynia; R33.9 Retention of urine, unspecified; N40.0 Benign prostatic hyperplasia without lower urinary tract symptoms; J44.9 Chronic obstructive pulmonary disease, unspecified; I25.10 Atherosclerotic heart disease of native coronary artery without angina pectoris; G47.00 Insomnia, unspecified; F32.9 Major depressive disorder, single episode, unspecified; E11.51 Type 2 diabetes mellitus with diabetic peripheral angiopathy without gangrene; K21.9 Gastro-esophageal reflux disease without esophagitis; E78.5 Hyperlipidemia, unspecified; I11.0 Hypertensive heart disease with heart failure; G47.33 Obstructive sleep apnea (adult) (pediatric); Z87.891 Personal history of nicotine dependence; Z79.82 Long term (current) use of aspirin; Z79.4 Long term (current) use of insulin; Z79.02 Long term (current) use of antithrombotics/antiplatelets; Z88.1 Allergy status to other antibiotic agents; Z88.8 Allergy status to other drugs, medicaments and biological substances; Z91.030 Bee allergy status; Z95.0 Presence of cardiac pacemaker

== ENCOUNTER 2017-12-24 09:09 | Emergency (ER) | payer OTHER, MEDICARE ==
[2017-12-24] MEDS: MORPHINE 4 MG/ML 1ML VIAL/SYRINGE (J2270) IV (09:57)
[2017-12-24 10:05] LABS: BASO # 0.1 10^3/uL (0.0-0.2); BASO % 0.7 % (0.0-1.0); EOS # 0.2 10^3/uL (0.0-0.50); EOS % 2.7 % (0.0-3.0); HEMATOCRIT 42.8 % (42.0-52.0); HEMOGLOBIN 14.2 g/dl (13.5-17.5); IMMATURE GRANULOCYTE % 0.4 % (0-3.0); LYMPH # 2.6 10^3/uL (1.5-4.5); MEAN CORPUSCULAR HGB CONC 33.2 g/dl (32.0-36.5); MEAN CORPUSCULAR VOLUME 87.5 fl (80.0-96.0); MONO # 0.9 10^3/uL (0.0-0.8); MONO % 11.1 % (0.0-5.0); NEUTROPHILS # 4.5 10^3/uL (1.8-7.7); NEUTROPHILS % 54.1 % (36.0-66.0); PLATELET COUNT, AUTOMATED 230 10^3/uL (150-450); RED BLOOD COUNT 4.89 10^6/uL (4.30-6.10); RED CELL DISTRIBUTION WIDTH 13.6 % (11.5-14.5); WHITE BLOOD COUNT 8.2 10^3/uL (4.0-10.0)
[2017-12-24 10:16] LABS: INR 0.97
[2017-12-24 10:17] LABS: PARTIAL THROMBOPLASTIN TIME 28.7 SECONDS (25.4-37.6)
[2017-12-24 10:19] LABS: D-DIMER QUANT 1153.1 ng/ml (<500)
[2017-12-24 10:33] LABS: ALBUMIN 3.8 GM/DL (3.2-5.2); ALBUMIN/GLOBULIN RATIO 1.23 (1.00-1.93); ALKALINE PHOSPHATASE 67 U/L (45-117); ALT/SGPT 28 U/L (12-78); ANION GAP 9 MEQ/L (8-16); AST/SGOT 15 U/L (7-37); BILIRUBIN,DIRECT 0.2 MG/DL (0.0-0.2); BILIRUBIN,TOTAL 0.4 MG/DL (0.2-1.0); BLOOD UREA NITROGEN 13 MG/DL (7-18); CARBON DIOXIDE LEVEL 28 MEQ/L (21-32); CHLORIDE LEVEL 104 MEQ/L (98-107); CPK CREATINE PHOSPHOKINASE 164 U/L (39-308); CREATININE FOR GFR 0.72 MG/DL (0.70-1.30); GLOMERULAR FILTRATION RATE > 60.0 (>56); GLUCOSE, FASTING 168 MG/DL (70-100); MB/CK RELATIVE INDEX 1.28 (< OR =4); POTASSIUM SERUM 4.3 MEQ/L (3.5-5.1); SODIUM LEVEL 141 MEQ/L (136-145); TOTAL PROTEIN 6.9 GM/DL (6.4-8.2); TROPONIN I < 0.02 NG/ML (< 0.10)
[2017-12-24] MEDS ORDERED: ISOVUE-370 76% 100ML VIAL (Q9967) As Ordered (10:53)
== END 2017-12-24 13:11 | disposition home or self-care (01) ==
LOC: M ED 09:09
DX: M54.6 Pain in thoracic spine (principal); R91.8 Other nonspecific abnormal finding of lung field; I25.10 Atherosclerotic heart disease of native coronary artery without angina pectoris; I11.9 Hypertensive heart disease without heart failure; E78.5 Hyperlipidemia, unspecified; F32.9 Major depressive disorder, single episode, unspecified; G47.30 Sleep apnea, unspecified; M48.061 Spinal stenosis, lumbar region without neurogenic claudication; F41.9 Anxiety disorder, unspecified; J44.9 Chronic obstructive pulmonary disease, unspecified; I45.10 Unspecified right bundle-branch block; N40.0 Benign prostatic hyperplasia without lower urinary tract symptoms; M47.812 Spondylosis without myelopathy or radiculopathy, cervical region; M21.379 Foot drop, unspecified foot; Z95.5 Presence of coronary angioplasty implant and graft; Z95.0 Presence of cardiac pacemaker; Z88.1 Allergy status to other antibiotic agents; Z88.8 Allergy status to other drugs, medicaments and biological substances; Z91.030 Bee allergy status; Z79.899 Other long term (current) drug therapy; Z98.1 Arthrodesis status; Z79.82 Long term (current) use of aspirin; Z79.02 Long term (current) use of antithrombotics/antiplatelets; Z79.4 Long term (current) use of insulin
CPT/HCPCS: J2270

== ENCOUNTER → 2018-01-17 | Outpatient (CLI) | payer OTHER | LOC: M SLEEP 19:48 | DX: G47.33 Obstructive sleep apnea (adult) (pediatric) (principal) | CPT/HCPCS: 95811 ==

== ENCOUNTER 2018-02-09 11:01 | Emergency (ER) | payer OTHER ==
[2018-02-09] MEDS: diazePAM 5 MG TAB PO (11:35)
[2018-02-09] MEDS: PERCOCET 5MG/325MG TAB PO (11:36)
== END 2018-02-09 13:09 | disposition home or self-care (01) ==
LOC: M ED 11:01
DX: M54.42 Lumbago with sciatica, left side (principal); M51.26 Other intervertebral disc displacement, lumbar region; I10 Essential (primary) hypertension; E11.9 Type 2 diabetes mellitus without complications; E78.00 Pure hypercholesterolemia, unspecified; J44.9 Chronic obstructive pulmonary disease, unspecified; Z86.79 Personal history of other diseases of the circulatory system; I69.398 Other sequelae of cerebral infarction; H53.9 Unspecified visual disturbance; R20.0 Anesthesia of skin; Z95.5 Presence of coronary angioplasty implant and graft; Z87.891 Personal history of nicotine dependence; Z79.899 Other long term (current) drug therapy; Z79.02 Long term (current) use of antithrombotics/antiplatelets; Z79.82 Long term (current) use of aspirin; Z79.4 Long term (current) use of insulin; Z79.51 Long term (current) use of inhaled steroids; Z88.1 Allergy status to other antibiotic agents; Z88.8 Allergy status to other drugs, medicaments and biological substances; Z91.030 Bee allergy status
CPT/HCPCS: 72131

== ENCOUNTER 2018-02-12 19:55 | Emergency (ER) | payer OTHER ==
[2018-02-12] MEDS: PERCOCET 5MG/325MG TAB PO (21:15)
== END 2018-02-12 23:44 | disposition home or self-care (01) ==
LOC: M ED 19:55
DX: M54.42 Lumbago with sciatica, left side (principal); M46.1 Sacroiliitis, not elsewhere classified; Z88.1 Allergy status to other antibiotic agents; Z88.8 Allergy status to other drugs, medicaments and biological substances; Z91.030 Bee allergy status; Z79.899 Other long term (current) drug therapy; Z79.02 Long term (current) use of antithrombotics/antiplatelets; Z79.82 Long term (current) use of aspirin; Z79.4 Long term (current) use of insulin; Z79.51 Long term (current) use of inhaled steroids
CPT/HCPCS: 73502

== ENCOUNTER 2018-05-03 16:45 | Emergency (ER) | payer OTHER ==
[~2018-05-03] VITALS: Ht 170.2 cm; Wt 100.0 kg
[~2018-05-03 16:45] MED LIST changes: +/ESCI20TA OR; +/GLIP10TAB OR; +/INSULEV; +/INSULEV SQ; +ACET1TAB55 PO; +ADV250INH INH; +ADV500INH INH; -ALBUTEROL 90 MCG/ACT 8GM HFA INHALER INH; +ALPR0.25 OR; +AMLO2.5T3 PO; +AMPI2INJ2 IV; +ASPI81TA83 OR; +ASPI81TAEC PO; +ATOR1TAB21 PO; +BACL1TAB9 PO; +BETH10TA4 PO; +BISA10SU5 PR; +BYDU1INJ SC; +CALC500C16 PO; -CALCIUM CARBONATE 500 MG CHEW U/D PO; +CARV12.5 PO; +CARV6.25 OR; +CARV6.25 PO; +CEFT2INJ4 IV; +CEPA1LOZ5 MT; +COLA100C2 OR; +CYMB1CAP4 PO; +CYMB60CA3 PO; -DEXTROSE 50% 50 ML SYRINGE IV; +DILA2TAB6 PO; +DOCU100C16 PO; -FLEET ENEMA PR; +FLOM0.4C39 PO; +FURO20TA2 OR; +FURO20TA2 PO; +GABA-1171 PO; +GABA600T4 PO; +GLIP10TA6 PO; +GLIP5TAB8 PO; +GLUC1000 OR; -GLUCAGON FOR INJ 1 MG VIAL (J1610) SC; -GLUCOSE 4 GM CHEW TABLET PO; +INSUDET SC; +INSUHUMDS SC; +KEPP1TAB PO; +LISI-542 PO; +LOVE1INJ SC; +METF10004 PO; +METF500T13 PO; +MILKSUS5 PO; +MORPHINE IR PO; +MS C15TA5 OR; +NAPR-885 PO; +NORCOTAB PO; +NOVOLOG100 MG/ML SC; +OMEP20CA3 PO; +OMEP20TA7 OR; +OMEP40CA2 PO; -ONDANSETRON 4 MG TAB (S0181) PO; -ONDANSETRON 4MG/2ML VIAL (J2405) IM; +OXYB5TAB10 PO; +OXYC-517 PO; +PERC5TAB12 PO; +PERC5TAB8 OR; +PLAV1TAB2 PO; +PRAV20TA2 OR; +PROAAER10 INH; +SENN1TAB10 PO; +SENN8.6C PO; +SENN8.6T5 OR; -SIMETHICONE 80 MG CHEW TAB PO; +TIZA4CAP PO; +TRAZ10TA PO; +VALI5TAB PO; +VANC1VLAD IV; +VERA40TA PO; +VITA200015 PO; +VITA200016 PO; +fiber gummies PO
--- NOTE | 2018-05-03 17:51 | REP ---
CT of the brain without IV contrast: Comparison is 11/25/2016. There is no hemorrhage. There is no edema, mass effect or midline shift. The cortical stripe is unremarkable. The visualized paranasal sinuses and mastoid air cells are clear. Impression: There is no hemorrhage, acute infarct or mass. There is no interval change. Electronically Signed by Dwight Dailey MD 05/03/2018 05:42 P
--- NOTE | 2018-05-03 18:25 | REP ---
Cervical spine CT: Study comparison is 10/11/2016. Axial images are acquired helical scanning and a reformatted sagittal coronal projections. The skull base, C1-C2 are unremarkable except for osteoarthritis at the Rico and odontoid process. This is unchanged. There has been interim multilevel anterior discectomy with a stabilization plate spanning C3 - C7. There are intervertebral disc spacers at C3-4, C4-5, C5-6 and C6-7. Vertebral body heights, interspacing alignment are normal except for disc space narrowing indicating degenerative disc disease at C7-T1. This is unchanged. The prevertebral soft tissues are mildly thickened diffusely as an interval change. The facets are normally aligned. There are no posterior element fractures. There is moderate bony neural foraminal encroachment on the left at C 03/04. MRI would be more sensitive in identifying nerve root compression of the spinal cord abnormalities. Impression: Interval multilevel anterior discectomy. Moderate bony neural foraminal encroachment on the left at C3-4. Consider MRI follow up. Electronically Signed by Dwight Dailey MD 05/03/2018 06:16 P
[2018-05-03] MEDS ORDERED: NS 500 ML IV ONE (19:00)
[2018-05-03] MEDS ORDERED: diphenhydrAMINE INJ 50MG/ML VIAL (J1200) IV STA (19:00)
[2018-05-03] MEDS ORDERED: METOCLOPRAMIDE INJ 10MG/2ML VIAL (J2765) IV ONE (19:00)
[2018-05-03] MEDS ORDERED: MORPHINE 4 MG/ML 1ML VIAL/SYRINGE (J2270) IV PRN (20:30)
[2018-05-03 20:58] LABS: BLOOD UREA NITROGEN 11 MG/DL (7-18); CARBON DIOXIDE LEVEL 24 MEQ/L (21-32); CHLORIDE LEVEL 105 MEQ/L (98-107); CREATININE FOR GFR 0.59 MG/DL (0.70-1.30); GLOMERULAR FILTRATION RATE > 60.0 (>56); GLUCOSE, FASTING 119 MG/DL (70-100); POTASSIUM SERUM 4.7 MEQ/L (3.5-5.1); SODIUM LEVEL 138 MEQ/L (136-145)
[2018-05-03] MEDS ORDERED: PERC5TAB12 PO (21:51)
[2018-05-03 21:58] VITALS: BP 144/84
[2018-05-03] MEDS ORDERED: OXYCODONE/APAP 5MG/325MG(BULK FOR ED) 1 TABLET PO ONE (22:00)
--- NOTE | 2018-05-09 19:43 | ED PDOC ---
Post-Departure Follow-Up dr carbone faxed formal report of ct c spine for fu Ankur Figueroa MD May 09, 2018 19:43
== END 2018-05-03 22:04 | disposition home or self-care (01) ==
LOC: M ED 16:45
DX: G44.229 Chronic tension-type headache, not intractable (principal); M54.2 Cervicalgia; G89.29 Other chronic pain; R20.0 Anesthesia of skin; R53.1 Weakness; Z86.73 Personal history of transient ischemic attack (TIA), and cerebral infarction without residual deficits; Z98.1 Arthrodesis status; Z86.79 Personal history of other diseases of the circulatory system; Z88.1 Allergy status to other antibiotic agents; Z91.030 Bee allergy status; Z88.8 Allergy status to other drugs, medicaments and biological substances; Z79.899 Other long term (current) drug therapy; Z79.82 Long term (current) use of aspirin; Z79.4 Long term (current) use of insulin; Z79.51 Long term (current) use of inhaled steroids
CPT/HCPCS: 70450; 72125; 80048; 96374; 96375; 99284; J1200; J2270; J2765

== ENCOUNTER → 2018-06-07 | Outpatient (CLI) | payer OTHER ==
--- NOTE | 2018-06-07 13:52 | REP ---
CERVICAL SPINE, FIVE VIEWS: HISTORY: Foramina stenosis. COMPARISON: 12/26/2014 COMPARISON: CT 05/03/2018 The cervical spine is visualized from C1 to the C5-6 level in the lateral radiographs. The patient is status post C3 to C7 anterior spinal fusion. A fixation plate and bone graft material are present. There is no acute fracture or subluxation. The C2-3 intervertebral disc is normal in height. IMPRESSION: The patient is status post C3 to C7 anterior spinal fusion. There is anatomic alignment. Electronically Signed by Anish Harkins MD 06/07/2018 01:57 P
== END ==
LOC: M RAD 10:49
PROVIDERS: ATTEND Neurological Surgery
DX: M50.30 Other cervical disc degeneration, unspecified cervical region (principal); M99.81 Other biomechanical lesions of cervical region; M47.12 Other spondylosis with myelopathy, cervical region; M43.22 Fusion of spine, cervical region

== ENCOUNTER → 2018-08-12 | Outpatient (RCR) | payer OTHER ==
[~2018-08-12] MED LIST changes: -/ESCI20TA OR; -/INSULEV; -/INSULEV SQ; -CEPA1LOZ5 MT; +CEPALOZ8 MT; +HYDR-3715 PO; +LEVE0.01; +LEVE0.01 SQ; +LEXA1TAB2 OR; -NORCOTAB PO
== END ==
LOC: M PT 07-27 14:19
PROVIDERS: ATTEND Physician Assistant
DX: M47.12 Other spondylosis with myelopathy, cervical region (principal); M50.30 Other cervical disc degeneration, unspecified cervical region; M99.81 Other biomechanical lesions of cervical region

== ENCOUNTER 2018-09-06 13:43 | Outpatient (RCR) | payer OTHER | END 2018-09-11 | LOC: M PT 13:43 | PROVIDERS: ATTEND Physician Assistant | DX: M47.12 Other spondylosis with myelopathy, cervical region (principal); M50.30 Other cervical disc degeneration, unspecified cervical region ==

== ENCOUNTER → 2018-10-12 | Outpatient (RCR) | payer OTHER ==
[~2018-10-12] MED LIST changes: -OMEP20CA3 PO; +OMEP20CA4 PO
== END ==
LOC: M PT 09-12 15:05
PROVIDERS: ATTEND Physician Assistant
DX: Z51.89 Encounter for other specified aftercare (principal); M47.12 Other spondylosis with myelopathy, cervical region

== ENCOUNTER 2018-11-08 14:23 | Outpatient (RCR) | payer OTHER | END 2018-11-12 | LOC: M PT 14:23 | PROVIDERS: ATTEND Physician Assistant | DX: Z51.89 Encounter for other specified aftercare (principal); M47.12 Other spondylosis with myelopathy, cervical region; M99.81 Other biomechanical lesions of cervical region; M50.30 Other cervical disc degeneration, unspecified cervical region ==

== ENCOUNTER → 2019-04-01 | Outpatient (CLI) | payer OTHER ==
[~2019-04-01] MED LIST changes: +OMEP1CAP73 PO; -OMEP20CA4 PO; -OMEP40CA2 PO; +OMEP40CA97 PO; -TRAZ10TA PO; +TRAZ1TAB12 PO
[2019-04-01 13:11] LABS: HEMATOCRIT 45.8 % (42.0-52.0); HEMOGLOBIN 14.1 g/dl (13.5-17.5); MEAN CORPUSCULAR HEMOGLOBIN 28.1 pg (27.0-33.0); MEAN CORPUSCULAR HGB CONC 30.8 g/dl (32.0-36.5); MEAN CORPUSCULAR VOLUME 91.4 fl (80.0-96.0); PLATELET COUNT, AUTOMATED 237 10^3/uL (150-450); RED BLOOD COUNT 5.01 10^6/uL (4.30-6.10); WHITE BLOOD COUNT 7.8 10^3/uL (4.0-10.0)
[2019-04-01 13:25] LABS: ALBUMIN 3.8 GM/DL (3.2-5.2); ALT/SGPT 31 U/L (12-78); BILIRUBIN,TOTAL 0.4 MG/DL (0.2-1.0); BLOOD UREA NITROGEN 13 MG/DL (7-18); CALCIUM LEVEL 8.7 MG/DL (8.8-10.2); CARBON DIOXIDE LEVEL 29 MEQ/L (21-32); CHLORIDE LEVEL 106 MEQ/L (98-107); CHOLESTEROL LEVEL 125 MG/DL (<200); CHOLESTEROL RISK RATIO 2.717 (<5); CREATININE FOR GFR 0.76 MG/DL (0.70-1.30); GLOMERULAR FILTRATION RATE > 60.0 (>49); GLUCOSE, FASTING 198 MG/DL (70-100); HDL CHOLESTEROL 46 MG/DL (>40); LDL CHOLESTEROL 68 MG/DL (<100); NON-HDL-C 79 MG/DL; POTASSIUM SERUM 4.8 MEQ/L (3.5-5.1); SODIUM LEVEL 141 MEQ/L (136-145); TOTAL PROTEIN 7.2 GM/DL (6.4-8.2); TRIGLYCERIDES LEVEL 54 MG/DL (<150)
== END ==
LOC: M WUC 09:27
PROVIDERS: ATTEND Physician Assistant
DX: I10 Essential (primary) hypertension (principal)

== ENCOUNTER 2019-05-08 18:23 | Emergency (ER) | payer OTHER ==
[~2019-05-08] VITALS: Ht 170.2 cm; Wt 101.8 kg
[2019-05-08] MEDS ORDERED: COLA100C5 PO (20:14)
[2019-05-08] MEDS ORDERED: MAGN500T12 PO (20:14)
[2019-05-08] MEDS ORDERED: LIDOCAINE 2% MDV 20 ML VIAL SC ONE (20:45)
[2019-05-08] MEDS ORDERED: CEPHALEXIN 500 MG CAP PO ONE (20:45)
[2019-05-08] MEDS ORDERED: KEFL500C17 PO (21:25)
[2019-05-08 21:32] VITALS: BP 124/74
== END 2019-05-08 21:33 | disposition home or self-care (01) ==
LOC: M ED 18:23
DX: S61.012A Laceration without foreign body of left thumb without damage to nail, initial encounter (principal); W31.2XXA Contact with powered woodworking and forming machines, initial encounter; Y92.019 Unspecified place in single-family (private) house as the place of occurrence of the external cause; E11.9 Type 2 diabetes mellitus without complications; J44.1 Chronic obstructive pulmonary disease with (acute) exacerbation; I63.9 Cerebral infarction, unspecified; Z88.1 Allergy status to other antibiotic agents; Z88.3 Allergy status to other anti-infective agents; Z91.030 Bee allergy status; Z79.51 Long term (current) use of inhaled steroids; Z79.84 Long term (current) use of oral hypoglycemic drugs; Z79.899 Other long term (current) drug therapy

== ENCOUNTER → 2019-11-21 | Outpatient (CLI) | payer OTHER ==
[~2019-11-21] MED LIST changes: +COLA100C5 PO; +KEFL500C17 PO; +MAGN500T12 PO
[2019-11-21 18:55] LABS: HEMOGLOBIN A1c 8.2 %
== END ==
LOC: M WUC 13:55
PROVIDERS: ATTEND Physician Assistant
DX: E11.65 Type 2 diabetes mellitus with hyperglycemia (principal); Z79.4 Long term (current) use of insulin

== ENCOUNTER → 2020-02-20 | Outpatient (CLI) | payer SELFPAY | LOC: M LABSMTC 12:37 | PROVIDERS: ATTEND Pediatrics | DX: Z11.59 Encounter for screening for other viral diseases (principal) ==

== ENCOUNTER → 2020-06-04 | Outpatient (CLI) | payer OTHER ==
[~2020-06-04] MED LIST changes: +ASPI-569 PO; -ASPI81TAEC PO; -LISI-542 PO; +LISI-898 PO
[2020-06-04 16:50] LABS: HEMOGLOBIN A1c 8.5 %
[2020-06-04 17:07] LABS: ALT/SGPT 32 U/L (12-78); BILIRUBIN,TOTAL 0.6 MG/DL (0.2-1.0); BLOOD UREA NITROGEN 14 MG/DL (7-18); CALCIUM LEVEL 9.3 MG/DL (8.8-10.2); CARBON DIOXIDE LEVEL 29 MEQ/L (21-32); CHLORIDE LEVEL 105 MEQ/L (98-107); CHOLESTEROL LEVEL 127 MG/DL (<200); CHOLESTEROL RISK RATIO 2.591 (<5); CREATININE FOR GFR 0.79 MG/DL (0.70-1.30); GLOMERULAR FILTRATION RATE > 60.0 (>49); GLUCOSE, FASTING 124 MG/DL (70-100); HDL CHOLESTEROL 49 MG/DL (>40); LDL CHOLESTEROL 67 MG/DL (<100); NON-HDL-C 78 MG/DL; POTASSIUM SERUM 4.5 MEQ/L (3.5-5.1); SODIUM LEVEL 139 MEQ/L (136-145); TOTAL PROTEIN 7.5 GM/DL (6.4-8.2); TRIGLYCERIDES LEVEL 56 MG/DL (<150)
== END ==
LOC: M WUC 14:23
PROVIDERS: ATTEND Physician Assistant Medical
DX: E11.42 Type 2 diabetes mellitus with diabetic polyneuropathy (principal); E78.2 Mixed hyperlipidemia

== ENCOUNTER → 2020-11-02 | Outpatient (CLI) | payer OTHER ==
[~2020-11-02] MED LIST changes: +OMEP40CA4 PO; -OMEP40CA97 PO
[2020-11-02 13:18] LABS: HEMOGLOBIN A1c 7.5 %
== END ==
LOC: M LAB 11:45
PROVIDERS: ATTEND Family Medicine
DX: E11.65 Type 2 diabetes mellitus with hyperglycemia (principal)

== ENCOUNTER → 2020-11-03 | Outpatient (REF) | payer OTHER ==
[2020-11-03 16:46] LABS: MALB URINE SIEMENS 17.2 MG/L; MAU/CREAT RATIO 7.5 MCG/MG (0.0-30.0)
== END ==
LOC: M LAB REF 16:02
PROVIDERS: ATTEND Family Medicine
DX: E11.65 Type 2 diabetes mellitus with hyperglycemia (principal)

== ENCOUNTER 2020-11-29 12:41 | Outpatient (CLI) | payer OTHER ==
[2020-11-29] VITALS (7 sets, daily range): BP systolic 96–135; BP diastolic 62–72
[~2020-11-29 12:41] MED LIST changes: +ALBUTEROL 90 MCG/ACT 8GM HFA INHALER INH PRN; +ALBUTEROL SULFATE 2.5 MG/0.5 ML INH NEB SOLN INH PRN; -AMPI2INJ2 IV; +AMPI2INJ3 IV; -CYMB60CA3 PO; +CYMB60CA4 PO; +EPINEPHrine INJ 1 MG/ML 1ML AMP IM PRN; -LISI-898 PO; +LISI5TAB11 PO; +NS 1,000 ML IV SCH; +diphenhydrAMINE 50MG/ML VIAL (J1200) IV PRN; +methylPREDNISolone 125MG 2ML VIAL IV PRN
[2020-11-29] MEDS ORDERED: CASIRIVIMAB/IMDEVIMAB 1,200 MG in NS 250 ML IV ONE (15:00)
== END 2020-11-29 17:00 | disposition home or self-care (01) ==
LOC: M OPCLI4PR 12:41 → M OPCLI4 12:41 → M 4MAIN 12:56 → M OPCLI4 17:00
PROVIDERS: ATTEND Nurse Practitioner Family
DX: U07.1 COVID-19 (principal); Z88.1 Allergy status to other antibiotic agents; Z91.030 Bee allergy status; Z88.8 Allergy status to other drugs, medicaments and biological substances

== ENCOUNTER → 2020-12-06 | Outpatient (CLI) | payer OTHER ==
[~2020-12-06] MED LIST changes: -ALBUTEROL 90 MCG/ACT 8GM HFA INHALER INH PRN; -ALBUTEROL SULFATE 2.5 MG/0.5 ML INH NEB SOLN INH PRN; +AMPI2INJ2 IV; -AMPI2INJ3 IV; +CYMB60CA3 PO; -CYMB60CA4 PO; -EPINEPHrine INJ 1 MG/ML 1ML AMP IM PRN; +LISI-898 PO; -LISI5TAB11 PO; -NS 1,000 ML IV SCH; -diphenhydrAMINE 50MG/ML VIAL (J1200) IV PRN; -methylPREDNISolone 125MG 2ML VIAL IV PRN
--- NOTE | 2020-12-06 11:21 | REP ---
INDICATION: PERSONAL HISTORY NICOTINE DEPENDENCE. COMPARISON: 12/24/2017 THE LATEST PRIOR A CT ANGIO CHEST TECHNIQUE: Axial noncontrast images from the thoracic inlet to the upper abdomen using low-dose lung screening technique (LDCT). PER THE PROTOCOL ONLY LUNG WINDOW IMAGES WERE SENT TO THE READ STATION FOR INTERPRETATION. FINDINGS: There is a 6 mm pleural base nodule in the left lower lobe. The lung franklin are otherwise clear. Grossly, the mediastinum and pulmonary yovany are within normal limits. Grossly, the imaged upper abdomen and imaged osseous structures are within normal limits. IMPRESSION: 6 mm sized nodule in the left lower lobe. According to the revised Fleischner society criteria this represents a category 2 lesion since it was present on the 12/24/2017 exam and is completely unchanged. Follow-up as per the revised Fleischner society criteria. <Electronically signed by Juancho Fitzgerald > 12/06/20 [id number]
== END ==
LOC: M RAD 10:51
PROVIDERS: ATTEND Family Medicine
DX: Z12.2 Encounter for screening for malignant neoplasm of respiratory organs (principal); Z87.891 Personal history of nicotine dependence; R91.1 Solitary pulmonary nodule

== ENCOUNTER → 2021-05-12 | Outpatient (CLI) | payer OTHER ==
[~2021-05-12] MED LIST changes: -AMPI2INJ2 IV; +AMPI2INJ3 IV; -CYMB60CA3 PO; +CYMB60CA4 PO; -LISI-898 PO; +LISI5TAB11 PO
[2021-05-12 19:41] LABS: BASO # 0.1 10^3/uL (0.0-0.2); BASO % 1.1 % (0.0-1.0); EOS # 0.3 10^3/uL (0.0-0.5); EOS % 3.4 % (0.0-3.0); HEMATOCRIT 44.6 % (42.0-52.0); HEMOGLOBIN 14.5 g/dl (13.5-17.5); LYMPH # 2.8 10^3/uL (1.5-5.0); MEAN CORPUSCULAR HEMOGLOBIN 28.9 pg (27.0-33.0); MEAN CORPUSCULAR HGB CONC 32.5 g/dl (32.0-36.5); MONO % 11.1 % (2.0-8.0); NEUTROPHILS % 54.1 % (36.0-66.0); PLATELET COUNT, AUTOMATED 264 10^3/uL (150-450); RED BLOOD COUNT 5.01 10^6/uL (4.30-6.10); WHITE BLOOD COUNT 9.2 10^3/uL (4.0-10.0)
[2021-05-12 19:51] LABS: ALT/SGPT 37 U/L (12-78); BILIRUBIN,TOTAL 0.5 MG/DL (0.2-1.0); BLOOD UREA NITROGEN 12 MG/DL (7-18); CALCIUM LEVEL 9.4 MG/DL (8.8-10.2); CARBON DIOXIDE LEVEL 32 MEQ/L (21-32); CHLORIDE LEVEL 106 MEQ/L (98-107); CHOLESTEROL LEVEL 129 MG/DL (<200); CHOLESTEROL RISK RATIO 2.931 (<5); CREATININE FOR GFR 0.84 MG/DL (0.70-1.30); GLOMERULAR FILTRATION RATE > 60.0 (>49); GLUCOSE, FASTING 121 MG/DL (70-100); HDL CHOLESTEROL 44 MG/DL (>40); LDL CHOLESTEROL 38 MG/DL (<100); NON-HDL-C 85 MG/DL; POTASSIUM SERUM 4.9 MEQ/L (3.5-5.1); SODIUM LEVEL 141 MEQ/L (136-145); TOTAL PROTEIN 7.3 GM/DL (6.4-8.2); TRIGLYCERIDES LEVEL 233 MG/DL (<150)
== END ==
LOC: M WUC 14:42
PROVIDERS: ATTEND Nurse Practitioner Family
DX: E11.65 Type 2 diabetes mellitus with hyperglycemia (principal); I10 Essential (primary) hypertension; E78.2 Mixed hyperlipidemia; I63.9 Cerebral infarction, unspecified

== ENCOUNTER → 2021-05-15 | Outpatient (REF) | payer OTHER ==
[2021-05-15 14:29] LABS: MALB URINE SIEMENS 8.2 MG/L; MAU/CREAT RATIO 4.8 MCG/MG (0.0-30.0)
== END ==
LOC: M LAB REF 12:39
PROVIDERS: ATTEND Nurse Practitioner Family
DX: E11.65 Type 2 diabetes mellitus with hyperglycemia (principal); I10 Essential (primary) hypertension; E78.2 Mixed hyperlipidemia; I63.9 Cerebral infarction, unspecified

== ENCOUNTER 2021-09-29 13:04 | Emergency (ER) | payer OTHER ==
[~2021-09-29] VITALS: Ht 170.2 cm; Wt 98.6 kg
[~2021-09-29 13:04] MED LIST changes: +BENZ1LOZ9 MT; -CEPALOZ8 MT
[2021-09-29] MEDS ORDERED: GABA-282 (13:23)
[2021-09-29] MEDS ORDERED: UBRO50TA (13:23)
[2021-09-29] MEDS ORDERED: METH-1164 (13:23)
[2021-09-29 13:53] LABS: BASO # 0.1 10^3/uL (0.0-0.2); BASO % 0.7 % (0.0-1.0); EOS # 0.2 10^3/uL (0.0-0.5); EOS % 1.9 % (0.0-3.0); HEMATOCRIT 43.3 % (42.0-52.0); LYMPH # 2.4 10^3/uL (1.5-5.0); LYMPH % 27.2 % (24.0-44.0); MEAN CORPUSCULAR HEMOGLOBIN 28.8 pg (27.0-33.0); MEAN CORPUSCULAR HGB CONC 32.3 g/dl (32.0-36.5); MEAN CORPUSCULAR VOLUME 89.1 fl (80.0-96.0); MONO # 0.8 10^3/uL (0.0-0.8); MONO % 9.5 % (2.0-8.0); NEUTROPHILS # 5.3 10^3/uL (1.5-8.5); NEUTROPHILS % 60.2 % (36.0-66.0); PLATELET COUNT, AUTOMATED 225 10^3/uL (150-450); RED BLOOD COUNT 4.86 10^6/uL (4.30-6.10); WHITE BLOOD COUNT 8.8 10^3/uL (4.0-10.0)
[2021-09-29 14:05] LABS: INR 1.03; PARTIAL THROMBOPLASTIN TIME 29.2 SECONDS (25.9-37.0)
[2021-09-29 14:18] LABS: BLOOD UREA NITROGEN 11 MG/DL (7-18); CALCIUM LEVEL 9.4 MG/DL (8.8-10.2); CARBON DIOXIDE LEVEL 29 MEQ/L (21-32); CHLORIDE LEVEL 107 MEQ/L (98-107); CREATININE FOR GFR 0.82 MG/DL (0.70-1.30); GLOMERULAR FILTRATION RATE > 60.0 (>49); GLUCOSE, FASTING 119 MG/DL (70-100); POTASSIUM SERUM 4.8 MEQ/L (3.5-5.1); SODIUM LEVEL 139 MEQ/L (136-145)
[2021-09-29 14:27] LABS: CK-MB VALUE MASS 1.6 NG/ML (<3.6); MB/CK RELATIVE INDEX 1.52 (< OR =4)
[2021-09-29] MEDS ORDERED: ACETAMINOPHEN 500 MG TAB PO ONE (15:05)
[2021-09-29] MEDS ORDERED: diphenhydrAMINE 50MG/ML VIAL (J1200) IV ONE (15:05)
[2021-09-29] MEDS ORDERED: NS 1,000 ML IV ONE (15:05)
[2021-09-29] MEDS ORDERED: dexameTHASONE 4 MG/ML 1ML VIAL (J1100 PER 1MG) IV ONE (15:05)
[2021-09-29] MEDS ORDERED: METOCLOPRAMIDE INJ 10MG/2ML VIAL (J2765 PER 1) IV ONE (15:05)
[2021-09-29] MEDS ORDERED: ISOVUE-370 76% 100ML VIAL As Ordered ONE (15:16)
[2021-09-29] MEDS ORDERED: KETOROLAC 30 MG/ML 1ML VIAL IV ONE (17:05)
[2021-09-29] MEDS ORDERED: MAG SULF 1GM/100ML (MAG RUN) 1 GM in IV 1 EA IV ONE (17:05)
[2021-09-29 19:36] VITALS: BP 130/84
== END 2021-09-29 20:56 | disposition home or self-care (01) ==
LOC: M ED 13:04
DX: R51.9 Headache, unspecified (principal); E11.9 Type 2 diabetes mellitus without complications; E78.5 Hyperlipidemia, unspecified; Z87.891 Personal history of nicotine dependence; Z86.73 Personal history of transient ischemic attack (TIA), and cerebral infarction without residual deficits; Z91.030 Bee allergy status; Z88.1 Allergy status to other antibiotic agents; Z95.0 Presence of cardiac pacemaker; Z95.5 Presence of coronary angioplasty implant and graft
CPT/HCPCS: 70450; 70496; 70498; 71045; 80048; 82550; 82553; 84484; 85025; 85610; 85730; 86850; 86900; 86901; 93005; 93041; 94760; 96361; 96374; 96375; 99285; J1100; J1200; J1885; J2765; J3475; Q9967

== ENCOUNTER → 2021-10-31 | Outpatient (CLI) | payer OTHER ==
[~2021-10-31] MED LIST changes: +GABA-282; +METH-1164; +UBRO50TA
[2021-10-31 16:54] LABS: HEMOGLOBIN A1c 8.2 %
== END ==
LOC: M LAB 14:33
PROVIDERS: ATTEND Nurse Practitioner Family
DX: E11.65 Type 2 diabetes mellitus with hyperglycemia (principal)

== ENCOUNTER → 2021-11-21 | Outpatient (CLI) | payer OTHER ==
[2021-11-21 15:40] LABS: BLOOD UREA NITROGEN 13 MG/DL (7-18); CALCIUM LEVEL 9.7 MG/DL (8.8-10.2); CARBON DIOXIDE LEVEL 25 MEQ/L (21-32); CHLORIDE LEVEL 107 MEQ/L (98-107); CREATININE FOR GFR 0.78 MG/DL (0.70-1.30); GLOMERULAR FILTRATION RATE > 60.0 (>49); GLUCOSE, FASTING 94 MG/DL (70-100); POTASSIUM SERUM 4.7 MEQ/L (3.5-5.1); SODIUM LEVEL 136 MEQ/L (136-145)
== END ==
LOC: M LAB 13:11
PROVIDERS: ATTEND Physician Assistant
DX: E11.65 Type 2 diabetes mellitus with hyperglycemia (principal)

== ENCOUNTER → 2021-12-25 | Outpatient (CLI) | payer OTHER | LOC: M RAD 17:24 | PROVIDERS: ATTEND Nurse Practitioner Family | DX: Z87.891 Personal history of nicotine dependence (principal); R91.1 Solitary pulmonary nodule ==

== ENCOUNTER 2022-01-13 10:24 | Emergency (ER) | payer OTHER ==
[~2022-01-13] VITALS: Ht 170.2 cm; Wt 101.8 kg
[~2022-01-13 10:24] MED LIST changes: +CLOP75TA99 PO; -PLAV1TAB2 PO
[2022-01-13] MEDS ORDERED: LIDOCAINE 5% (LIDODERM) PATCH TD ONE (14:35)
[2022-01-13] MEDS ORDERED: diazePAM 5MG TABLET PO ONE (14:35)
[2022-01-13 14:55] VITALS: BP 137/73
[2022-01-13] MEDS ORDERED: LIDO5DIS41 TD (15:42)
[2022-01-13] MEDS ORDERED: CYCL5TAB PO (15:42)
== END 2022-01-13 16:01 | disposition home or self-care (01) ==
LOC: M ED 10:24
DX: R07.9 Chest pain, unspecified (principal); E11.9 Type 2 diabetes mellitus without complications; I10 Essential (primary) hypertension; E78.5 Hyperlipidemia, unspecified; F17.200 Nicotine dependence, unspecified, uncomplicated; K21.9 Gastro-esophageal reflux disease without esophagitis; Z95.5 Presence of coronary angioplasty implant and graft; Z95.0 Presence of cardiac pacemaker; Z91.030 Bee allergy status; Z88.1 Allergy status to other antibiotic agents; Z88.8 Allergy status to other drugs, medicaments and biological substances; Z79.82 Long term (current) use of aspirin; Z79.51 Long term (current) use of inhaled steroids; Z79.4 Long term (current) use of insulin; Z79.811 Long term (current) use of aromatase inhibitors; Z79.899 Other long term (current) drug therapy

== ENCOUNTER 2022-02-23 13:07 | Emergency (ER) | payer OTHER ==
[~2022-02-23] VITALS: Ht 170.2 cm; Wt 102.7 kg
[2022-02-23 13:07] VITALS: BP 151/69
[~2022-02-23 13:07] MED LIST changes: +CYCL5TAB PO; +LIDO5DIS41 TD
== END 2022-02-23 22:42 | disposition left against medical advice (07) ==
LOC: M ED 13:07
DX: Z53.21 Procedure and treatment not carried out due to patient leaving prior to being seen by health care provider (principal)

== ENCOUNTER → 2022-03-03 | Outpatient (CLI) | payer OTHER | LOC: M RAD 14:27 | PROVIDERS: ATTEND Nurse Practitioner Family | DX: M25.552 Pain in left hip (principal); M54.50 Low back pain, unspecified; W00.0XXD Fall on same level due to ice and snow, subsequent encounter ==

== ENCOUNTER → 2022-03-05 | Outpatient (CLI) | payer OTHER | LOC: M RAD 16:54 | PROVIDERS: ATTEND Nurse Practitioner Family | DX: M25.552 Pain in left hip (principal); W00.0XXA Fall on same level due to ice and snow, initial encounter ==

== ENCOUNTER 2022-07-08 13:43 | Outpatient (RCR) | payer OTHER ==
[2022-07-09] MEDS ORDERED: LIDO5DIS41 TD (16:39)
== END 2022-07-12 ==
LOC: M PT 13:43
PROVIDERS: ATTEND Student in an Organized Health Care Education/Training Program
DX: M54.59 Other low back pain (principal)

== ENCOUNTER 2022-07-09 13:10 | Emergency (ER) | payer OTHER ==
[~2022-07-09] VITALS: Ht 170.2 cm; Wt 101.8 kg
[2022-07-09] MEDS ORDERED: NS 500 ML IV ONE (14:25)
[2022-07-09] MEDS ORDERED: MORPHINE 2 MG/ML 1ML VIAL IV ONE (14:25)
[2022-07-09 14:48] LABS: BASO # 0.1 10^3/uL (0.0-0.2); BASO % 0.8 % (0.0-1.0); EOS # 0.1 10^3/uL (0.0-0.5); EOS % 1.4 % (0.0-3.0); HEMATOCRIT 47.3 % (42.0-52.0); HEMOGLOBIN 15.4 g/dl (13.5-17.5); LYMPH # 2.3 10^3/uL (1.5-5.0); LYMPH % 22.8 % (24.0-44.0); MEAN CORPUSCULAR HEMOGLOBIN 29.3 pg (27.0-33.0); MEAN CORPUSCULAR HGB CONC 32.6 g/dl (32.0-36.5); MEAN CORPUSCULAR VOLUME 89.9 fl (80.0-96.0); MONO # 0.9 10^3/uL (0.0-0.8); NEUTROPHILS # 6.7 10^3/uL (1.5-8.5); NEUTROPHILS % 65.5 % (36.0-66.0); PLATELET COUNT, AUTOMATED 253 10^3/uL (150-450); RED BLOOD COUNT 5.26 10^6/uL (4.30-6.10); WHITE BLOOD COUNT 10.3 10^3/uL (4.0-10.0)
[2022-07-09 15:25] LABS: BILIRUBIN,DIRECT 0.2 MG/DL (<0.4); BILIRUBIN,TOTAL 0.6 MG/DL (0.3-1.2); TOTAL PROTEIN 7.1 G/DL (5.7-8.2)
[2022-07-09] MEDS ORDERED: ISOVUE-370 76% 100ML VIAL As Ordered ONE (15:41)
[2022-07-09] MEDS ORDERED: LIDO5DIS41 TD (16:39)
[2022-07-09 17:04] VITALS: BP 146/78
== END 2022-07-09 17:13 | disposition home or self-care (01) ==
LOC: M ED 13:10
DX: S20.212A Contusion of left front wall of thorax, initial encounter (principal); W01.0XXA Fall on same level from slipping, tripping and stumbling without subsequent striking against object, initial encounter; I45.10 Unspecified right bundle-branch block; I10 Essential (primary) hypertension; M51.36 Other intervertebral disc degeneration, lumbar region; J44.9 Chronic obstructive pulmonary disease, unspecified; Z87.891 Personal history of nicotine dependence; Z86.79 Personal history of other diseases of the circulatory system; Z91.030 Bee allergy status; Z88.1 Allergy status to other antibiotic agents; Z88.8 Allergy status to other drugs, medicaments and biological substances; Y92.009 Unspecified place in unspecified non-institutional (private) residence as the place of occurrence of the external cause
CPT/HCPCS: 71101; 71260; 74177; 80047; 80076; 83690; 85025; 93005; 96374; 99284; Q9967

== ENCOUNTER 2022-08-06 11:00 | Outpatient (RCR) | payer OTHER | END 2022-08-12 | LOC: M PT 11:00 | PROVIDERS: ATTEND Student in an Organized Health Care Education/Training Program | DX: M54.17 Radiculopathy, lumbosacral region (principal) ==

== ENCOUNTER 2022-08-30 09:08 | Observation (INO) | payer OTHER ==
[~2022-08-30] VITALS: Ht 170.2 cm; Wt 98.7 kg
[~2022-08-30 09:08] MED LIST changes: -GABA-282; +GABA-282 PO; -UBRO50TA; +UBRO50TA PO
[2022-08-30] MEDS ORDERED: IPRATROPIUM 0.5MG/ALBUTEROL 2.5MG INH SOL UD 3ML (DUONEB) NEB ONE (10:10)
[2022-08-30] MEDS ORDERED: methylPREDNISolone 125MG 2ML VIAL IV ONE (10:10)
[2022-08-30] MEDS ORDERED: ALBUTEROL SULFATE 2.5MG/0.5ML INH NEB SOLN INH ONE (10:10)
[2022-08-30 10:49] LABS: BASO # 0.1 10^3/uL (0.0-0.2); BASO % 0.4 % (0.0-1.0); HEMATOCRIT 45.1 % (42.0-52.0); HEMOGLOBIN 14.9 g/dl (13.5-17.5); LYMPH # 1.2 10^3/uL (1.5-5.0); LYMPH % 5.5 % (24.0-44.0); MEAN CORPUSCULAR HEMOGLOBIN 28.7 pg (27.0-33.0); MEAN CORPUSCULAR VOLUME 86.7 fl (80.0-96.0); MONO % 8.1 % (2.0-8.0); NEUTROPHILS # 18.9 10^3/uL (1.5-8.5); NEUTROPHILS % 85.5 % (36.0-66.0); PLATELET COUNT, AUTOMATED 237 10^3/uL (150-450); WHITE BLOOD COUNT 22.1 10^3/uL (4.0-10.0)
[2022-08-30 11:16] LABS: CK-MB VALUE MASS < 1.0 NG/ML (<3.6)
[2022-08-30 11:17] LABS: MONO # 1.8 10^3/uL (0.0-0.8)
[2022-08-30 11:18] LABS: ALBUMIN 4.1 G/DL (3.2-5.2); ALKALINE PHOSPHATASE 78 U/L (46-116); ALT/SGPT 29 U/L (7.0-40); AST/SGOT 28 U/L (<34); BILIRUBIN,DIRECT 0.3 MG/DL (<0.4); BLOOD UREA NITROGEN 15 MG/DL (9-23); CALCIUM LEVEL 9.3 MG/DL (8.3-10.6); CARBON DIOXIDE LEVEL 25 MMOL/L (20-31); CHLORIDE LEVEL 104 MMOL/L (98-107); CREATININE FOR GFR 0.76 MG/DL (0.70-1.30); GLOMERULAR FILTRATION RATE > 60.0 (>49); GLUCOSE, FASTING 189 MG/DL (74-106); POTASSIUM SERUM 4.5 MMOL/L (3.5-5.1); SODIUM LEVEL 139 MMOL/L (136-145); TOTAL PROTEIN 6.8 G/DL (5.7-8.2)
[2022-08-30 11:22] LABS: CPK CREATINE PHOSPHOKINASE 103 U/L (46-171); MB/CK RELATIVE INDEX 0.97 (< OR =4)
[2022-08-30] MEDS ORDERED: cefTRIAXone SOD 2 GM in D5W MINI-BAG PLUS 50 ML IV ONE (11:50)
[2022-08-30] MEDS ORDERED: LIDOCAINE 2% 5ML JELLY UROJET TOP ONE (11:50)
[2022-08-30] MEDS ORDERED: NS 1,000 ML IV ONE (11:55)
[2022-08-30] MEDS ORDERED: ISOVUE-370 76% 100ML VIAL As Ordered ONE (11:56)
[2022-08-30 12:21] LABS: CK-MB VALUE MASS < 1.0 NG/ML (<3.6)
[2022-08-30 12:23] LABS: CPK CREATINE PHOSPHOKINASE 96 U/L (46-171); MB/CK RELATIVE INDEX 1.04 (< OR =4)
[2022-08-30] MEDS ORDERED: ACETAMINOPHEN TAB 650MG DOSE (2X325MG) PO ONE (12:50)
[2022-08-30] MEDS ORDERED: DEXTROSE 50% 50ML SYRINGE IV PRN (13:50)
[2022-08-30] MEDS ORDERED: GLUCAGON INJ 1MG VIAL SC PRN (13:50)
[2022-08-30] MEDS ORDERED: GLUCOSE 4GM CHEW TABLET PO PRN (13:50)
[2022-08-30] MEDS ORDERED: ACETAMINOPHEN TAB 650MG DOSE (2X325MG) PO PRN (13:50)
[2022-08-30] MEDS ORDERED: MOM 30ML SUSPENSION UDC PO PRN (13:50)
[2022-08-30] MEDS ORDERED: VITA200012 PO (14:09)
[2022-08-30] MEDS ORDERED: VENTAER INH (14:09)
[2022-08-30] MEDS ORDERED: ASPI-655 PO (14:09)
[2022-08-30] MEDS ORDERED: CARV12.5 PO (14:09)
[2022-08-30] MEDS ORDERED: DOXYCYCLINE HYCLATE 100MG TABLET PO ONE (14:15)
[2022-08-30] MEDS ORDERED: ESSE250T PO (14:18)
[2022-08-30] MEDS ORDERED: JARD1TAB PO (14:18)
[2022-08-30] MEDS ORDERED: INSUHUMDS SC (14:18)
[2022-08-30] MEDS ORDERED: SEMA1PEN2 SC (14:18)
[2022-08-30] MEDS ORDERED: TRAZ-257 PO (14:18)
[2022-08-30] MEDS ORDERED: OMEP40CA5 PO (14:18)
[2022-08-30] MEDS ORDERED: INSUDET SC (14:18)
[2022-08-30] MEDS ORDERED: METF-839 PO (14:18)
[2022-08-30] MEDS ORDERED: FLOM0.4C39 PO (14:18)
[2022-08-30] MEDS ORDERED: HOME MED LIST COMPLETE! XX SCH (14:20)
[2022-08-30 15:07] LABS: INR 0.99; PROTHROMBIN TIME 13.3 SECONDS (12.5-14.5)
[2022-08-30] MEDS ORDERED: ALBUTEROL 90 MCG/ACT 8GM HFA INHALER INH PRN (15:55)
[2022-08-30] MEDS: DULoxetine 30MG CAPSULE (CYMBALTA) PO SCH (17:11)
[2022-08-30] MEDS: MAGNESIUM OXIDE 400MG TAB (MAG-OX) PO SCH (17:11)
[2022-08-30] MEDS: OMEPRAZOLE 20MG CAP PO SCH (17:11)
[2022-08-30] MEDS: ATORVASTATIN 20 MG TAB PO SCH (17:11)
[2022-08-30] MEDS: GABAPENTIN 300 MG CAP PO SCH ×2 (17:11→22:44)
[2022-08-30] MEDS: ASPIRIN 81MG CHEW TABLET PO SCH (17:12)
[2022-08-30] MEDS: TAMSULOSIN 0.4 MG CAP PO SCH (17:12)
[2022-08-30] MEDS: INSULIN LISPRO (NovoLOG) PER UNIT SC SCH (17:40)
[2022-08-30] MEDS ORDERED: RIVAROXABAN 10MG TAB (XARELTO) PO SCH (18:00)
[2022-08-30 19:00] VITALS: BP 151/75; TEMP 96.1; O2SAT 93
[2022-08-30] MEDS: ADVAIR HFA 230/21MCG INHALER INH SCH (19:19)
[2022-08-30] MEDS ORDERED: LEVEMIR (INSULIN DETEMIR) 1 UNITS/0.01ML SC SCH (21:00)
[2022-08-30] MEDS ORDERED: INSULIN LISPRO (NovoLOG) PER UNIT SC SCH (21:00)
[2022-08-30] MEDS ORDERED: traZODone 100 MG TAB PO SCH (21:00)
[2022-08-30 21:25] VITALS: BP 142/63; TEMP 96.3; O2SAT 94
[2022-08-30] MEDS: DOCUSATE SODIUM 100MG CAPSULE PO SCH (22:45)
[2022-08-30] MEDS: DOXYCYCLINE HYCLATE 100MG TABLET PO SCH (22:45)
[2022-08-30] MEDS: CARVedilol 12.5 MG TAB PO SCH (22:45)
[2022-08-31 06:08] LABS: BASO % 0.1 % (0.0-1.0); HEMATOCRIT 43.5 % (42.0-52.0); HEMOGLOBIN 14.1 g/dl (13.5-17.5); LYMPH # 1.1 10^3/uL (1.5-5.0); LYMPH % 5.1 % (24.0-44.0); MEAN CORPUSCULAR HEMOGLOBIN 28.6 pg (27.0-33.0); MEAN CORPUSCULAR HGB CONC 32.4 g/dl (32.0-36.5); MEAN CORPUSCULAR VOLUME 88.2 fl (80.0-96.0); MONO # 1.2 10^3/uL (0.0-0.8); MONO % 5.5 % (2.0-8.0); NEUTROPHILS # 18.6 10^3/uL (1.5-8.5); NEUTROPHILS % 88.6 % (36.0-66.0); PLATELET COUNT, AUTOMATED 241 10^3/uL (150-450); RED BLOOD COUNT 4.93 10^6/uL (4.30-6.10)
[2022-08-31 06:16] VITALS: BP 157/74; TEMP 95.6; O2SAT 95
[2022-08-31 06:37] LABS: BLOOD UREA NITROGEN 21 MG/DL (9-23); CALCIUM LEVEL 9.6 MG/DL (8.3-10.6); CARBON DIOXIDE LEVEL 24 MMOL/L (20-31); CHLORIDE LEVEL 107 MMOL/L (98-107); CREATININE FOR GFR 0.71 MG/DL (0.70-1.30); GLOMERULAR FILTRATION RATE > 60.0 (>49); GLUCOSE, FASTING 235 MG/DL (74-106); POTASSIUM SERUM 4.2 MMOL/L (3.5-5.1); SODIUM LEVEL 140 MMOL/L (136-145)
[2022-08-31] MEDS: ADVAIR HFA 230/21MCG INHALER INH SCH (07:23)
[2022-08-31] MEDS: TAMSULOSIN 0.4 MG CAP PO SCH (08:41)
[2022-08-31] MEDS: ASPIRIN 81MG CHEW TABLET PO SCH (08:41)
[2022-08-31] MEDS: ATORVASTATIN 20 MG TAB PO SCH (08:43)
[2022-08-31] MEDS: DOCUSATE SODIUM 100MG CAPSULE PO SCH (08:43)
[2022-08-31] MEDS: DOXYCYCLINE HYCLATE 100MG TABLET PO SCH (08:43)
[2022-08-31] MEDS: GABAPENTIN 300 MG CAP PO SCH (08:43)
[2022-08-31] MEDS: DULoxetine 30MG CAPSULE (CYMBALTA) PO SCH (08:43)
[2022-08-31] MEDS: MAGNESIUM OXIDE 400MG TAB (MAG-OX) PO SCH (08:43)
[2022-08-31] MEDS: INSULIN LISPRO (NovoLOG) PER UNIT SC SCH ×2 (08:43→12:00)
[2022-08-31] MEDS: OMEPRAZOLE 20MG CAP PO SCH (08:44)
[2022-08-31 08:48] VITALS: BP 133/76
[2022-08-31] MEDS: CARVedilol 12.5 MG TAB PO SCH (08:48)
[2022-08-31] MEDS ORDERED: LEVEMIR (INSULIN DETEMIR) 1 UNITS/0.01ML SC SCH (09:00)
[2022-08-31] MEDS ORDERED: AMOX875T2 PO (10:18)
[2022-08-31] MEDS ORDERED: cefTRIAXone SOD 1 GM in D5W MINI-BAG PLUS 50 ML IV SCH (14:00)
[2022-09-02 16:08] LABS: BODY FLUID CULTURE Not indicated. (.); LEGIONELLA ANTIGEN URINE Negative (Negative); ORGANISM ID Not indicated. (.); SPECIMEN SOURCE Urine (.); URINE STREP PNEUMONIAE ANTIGEN Negative (Negative)
== END 2022-08-31 12:45 | disposition home or self-care (01) ==
LOC: M ED 09:08 → M ED INP 09:09 → M MS5PR 18:55
PROVIDERS: ADMIT Student in an Organized Health Care Education/Training Program; ATTEND Student in an Organized Health Care Education/Training Program
DX: J18.9 Pneumonia, unspecified organism (principal); E11.9 Type 2 diabetes mellitus without complications; Z79.4 Long term (current) use of insulin; J44.9 Chronic obstructive pulmonary disease, unspecified; I25.10 Atherosclerotic heart disease of native coronary artery without angina pectoris; I10 Essential (primary) hypertension; F32.A Depression, unspecified; N40.0 Benign prostatic hyperplasia without lower urinary tract symptoms; K76.0 Fatty (change of) liver, not elsewhere classified; Z79.899 Other long term (current) drug therapy; Z79.84 Long term (current) use of oral hypoglycemic drugs; Z79.82 Long term (current) use of aspirin; Z91.030 Bee allergy status; Z88.1 Allergy status to other antibiotic agents; Z88.8 Allergy status to other drugs, medicaments and biological substances
CPT/HCPCS: 36415; 51701; 71045; 71046; 71275; 74177; 80048; 80076; 81001; 82550; 82553; 83605; 83880; 84145; 84484; 85025; 85610; 87040; 87449; 87486; 87581; 87633; 87641; 87798; 87899; 93005; 94640; 96365; 96375; 97161; 99285; J0696; J1815; J2930; Q9967

== ENCOUNTER → 2023-01-09 | Outpatient (CLI) | payer OTHER ==
[~2023-01-09] MED LIST changes: +AMOX875T2 PO; +ASPI-655 PO; +ESSE250T PO; +GLIP5TAB17 PO; -GLIP5TAB8 PO; +JARD1TAB PO; +METF-839 PO; +OMEP40CA5 PO; -OXYB5TAB10 PO; +OXYB5TAB11 PO; +SEMA1PEN2 SC; +TRAZ-257 PO; +VENTAER INH; +VITA200012 PO
[2023-01-09 11:33] LABS: CREATININE, URINE 79.5 MG/DL
== END ==
LOC: M LAB 10:36
PROVIDERS: ATTEND Family Medicine
DX: E11.65 Type 2 diabetes mellitus with hyperglycemia (principal)

== ENCOUNTER 2023-03-07 22:33 | Inpatient (IN) | payer OTHER ==
[~2023-03-07] VITALS: Ht 170.2 cm; Wt 93.2 kg
[2023-03-07] MEDS ORDERED: methylPREDNISolone 125MG 2ML VIAL IV ONE (23:05)
[2023-03-07] MEDS: IPRATROPIUM 0.5MG/ALBUTEROL 2.5MG INH SOL UD 3ML (DUONEB) NEB PRN ×3 (23:17→23:28)
[2023-03-07 23:31] LABS: ABG BASE EXCESS 1.3 (-2.0-2.0); ABG HCO3 25.7 MMOL/L (22.0-26.0); ABG PARTIAL PRESSURE CO2 40.2 mmHg (35.0-45.0); ABG PARTIAL PRESSURE O2 76.9 mmHg (75.0-100.0); ABG STANDARD HCO3 25.6 MMOL/L. (22.0-26.0); ABG pH (ARTERIAL) 7.424 UNITS (7.350-7.450)
[2023-03-07 23:34] LABS: BASO % 0.5 % (0.0-1.0); EOS # 0.1 10^3/uL (0.0-0.5); EOS % 1.6 % (0.0-3.0); HEMATOCRIT 42.9 % (42.0-52.0); LYMPH # 0.3 10^3/uL (1.5-5.0); LYMPH % 3.9 % (24.0-44.0); MEAN CORPUSCULAR HEMOGLOBIN 28.6 pg (27.0-33.0); MEAN CORPUSCULAR HGB CONC 32.6 g/dl (32.0-36.5); MEAN CORPUSCULAR VOLUME 87.7 fl (80.0-96.0); MONO % 11.6 % (2.0-8.0); NEUTROPHILS # 6.8 10^3/uL (1.5-8.5); NEUTROPHILS % 81.8 % (36.0-66.0); PLATELET COUNT, AUTOMATED 197 10^3/uL (150-450); RED BLOOD COUNT 4.89 10^6/uL (4.30-6.10); WHITE BLOOD COUNT 8.3 10^3/uL (4.0-10.0)
[2023-03-07 23:48] LABS: D-DIMER QUANT < 0.27 ug/mL (<0.5)
[2023-03-08] VITALS (20 sets, daily range): BP systolic 102–120; BP diastolic 50–72; TEMP 96.6–97.9; O2SAT 84–97
[2023-03-08 00:01] LABS: CPK CREATINE PHOSPHOKINASE 94 U/L (46-171)
[2023-03-08 00:02] LABS: ALBUMIN 3.8 G/DL (3.2-5.2); ALKALINE PHOSPHATASE 73 U/L (46-116); ALT/SGPT 20 U/L (7.0-40); AST/SGOT 16 U/L (<34); BILIRUBIN,DIRECT 0.2 MG/DL (<0.4); BILIRUBIN,TOTAL 0.4 MG/DL (0.3-1.2); BLOOD UREA NITROGEN 19 MG/DL (9-23); CALCIUM LEVEL 9.6 MG/DL (8.3-10.6); CARBON DIOXIDE LEVEL 27 MMOL/L (20-31); CHLORIDE LEVEL 103 MMOL/L (98-107); CK-MB VALUE MASS < 1.0 NG/ML (<3.6); CREATININE FOR GFR 0.77 MG/DL (0.70-1.30); GLOMERULAR FILTRATION RATE > 60.0 (>49); GLUCOSE, FASTING 126 MG/DL (74-106); MB/CK RELATIVE INDEX 1.06 (< OR =4); POTASSIUM SERUM 3.9 MMOL/L (3.5-5.1); SODIUM LEVEL 136 MMOL/L (136-145); TOTAL PROTEIN 6.5 G/DL (5.7-8.2)
[2023-03-08 00:04] LABS: THYROID STIMULATING HORMONE 0.617 uIU/ML (0.55-4.78)
[2023-03-08 01:16] LABS: CK-MB VALUE MASS < 1.0 NG/ML (<3.6)
[2023-03-08 01:17] LABS: CPK CREATINE PHOSPHOKINASE 85 U/L (46-171); MB/CK RELATIVE INDEX 1.17 (< OR =4)
[2023-03-08] MEDS ORDERED: [UNRECOGNIZED DRUG - REMARK] (01:39)
[2023-03-08] MEDS ORDERED: MAGN400T35 PO (01:48)
[2023-03-08] MEDS ORDERED: B-2100TA PO (01:48)
[2023-03-08] MEDS ORDERED: THERTAB52 PO (01:48)
[2023-03-08] MEDS ORDERED: HOME MED LIST COMPLETE! XX SCH (01:50)
[2023-03-08] MEDS ORDERED: MAALOX 30 ML SUSP *UDC PO PRN (02:35)
[2023-03-08] MEDS ORDERED: MOM 30ML SUSPENSION UDC PO PRN (02:35)
[2023-03-08] MEDS ORDERED: ACETAMINOPHEN TAB 650MG DOSE (2X325MG) PO PRN (02:35)
[2023-03-08] MEDS ORDERED: DEXTROSE 50% 50ML SYRINGE IV PRN (03:00)
[2023-03-08] MEDS ORDERED: GLUCAGON INJ 1MG VIAL SC PRN (03:00)
[2023-03-08] MEDS ORDERED: GLUCOSE 4GM CHEW TABLET PO PRN (03:00)
[2023-03-08 03:03] LABS: FIBRINOGEN 351 MG/DL (268-480)
[2023-03-08 03:11] LABS: LDH LACTATE DEHYDROGENASE 188 U/L (120-246)
[2023-03-08 03:14] LABS: FERRITIN 29.9 NG/ML (10.5-307.3)
[2023-03-08] MEDS ORDERED: REMDESIVIR 200 MG in NS 250 ML IV ONE (05:00)
[2023-03-08] MEDS ORDERED: metFORMIN (GLUCOPHAGE) 500MG TAB PO SCH (08:00)
[2023-03-08] MEDS: PANTOPRAZOLE 40MG TAB (PROTONIX) PO SCH (08:47)
[2023-03-08] MEDS: DOCUSATE SODIUM 100MG CAPSULE PO SCH ×2 (08:47→21:03)
[2023-03-08] MEDS: ASPIRIN 81MG CHEW TABLET PO SCH (08:47)
[2023-03-08] MEDS: GABAPENTIN 300 MG CAP PO SCH ×3 (08:47→21:03)
[2023-03-08] MEDS: ENOXAPARIN 40MG/0.4ML SYRINGE (J1650 PER 10MG) SC SCH (08:47)
[2023-03-08] MEDS: CARVedilol 12.5 MG TAB PO SCH ×2 (08:48→21:00)
[2023-03-08] MEDS: INSULIN LISPRO (NovoLOG) PER UNIT SC SCH ×3 (08:51→17:45)
[2023-03-08] MEDS ORDERED: cefTRIAXone SOD 1 GM in D5W MINI-BAG PLUS 50 ML IV SCH (09:00)
[2023-03-08] MEDS: ADVAIR HFA 230/21MCG INHALER INH SCH ×2 (09:09→20:14)
[2023-03-08] MEDS: IPRATROPIUM 0.5MG/ALBUTEROL 2.5MG INH SOL UD 3ML (DUONEB) NEB SCH ×3 (09:09→20:00)
[2023-03-08 10:00] LABS: PROCALCITONIN 0.08 ng/ml
[2023-03-08 11:10] LABS: ALBUMIN 3.7 G/DL (3.2-5.2); ALKALINE PHOSPHATASE 76 U/L (46-116); ALT/SGPT 23 U/L (7.0-40); AST/SGOT 19 U/L (<34); BILIRUBIN,TOTAL 0.5 MG/DL (0.3-1.2); BLOOD UREA NITROGEN 23 MG/DL (9-23); CALCIUM LEVEL 9.4 MG/DL (8.3-10.6); CARBON DIOXIDE LEVEL 22 MMOL/L (20-31); CHLORIDE LEVEL 103 MMOL/L (98-107); CREATININE FOR GFR 0.72 MG/DL (0.70-1.30); GLOMERULAR FILTRATION RATE > 60.0 (>49); GLUCOSE, FASTING 199 MG/DL (74-106); SODIUM LEVEL 138 MMOL/L (136-145); TOTAL PROTEIN 6.7 G/DL (5.7-8.2)
[2023-03-08 11:20] LABS: BASO % 0.3 % (0.0-1.0); EOS # 0.2 10^3/uL (0.0-0.5); EOS % 2.4 % (0.0-3.0); HEMATOCRIT 44.3 % (42.0-52.0); HEMOGLOBIN 14.1 g/dl (13.5-17.5); LYMPH # 0.4 10^3/uL (1.5-5.0); LYMPH % 5.5 % (24.0-44.0); MEAN CORPUSCULAR HEMOGLOBIN 28.3 pg (27.0-33.0); MEAN CORPUSCULAR HGB CONC 31.8 g/dl (32.0-36.5); MONO # 0.3 10^3/uL (0.0-0.8); MONO % 3.5 % (2.0-8.0); NEUTROPHILS # 6.9 10^3/uL (1.5-8.5); NEUTROPHILS % 87.2 % (36.0-66.0); PLATELET COUNT, AUTOMATED 213 10^3/uL (150-450); RED BLOOD COUNT 4.98 10^6/uL (4.30-6.10); WHITE BLOOD COUNT 7.9 10^3/uL (4.0-10.0)
[2023-03-08] MEDS: ALBUTEROL 90 MCG/ACT 8GM HFA INHALER INH PRN (20:14)
[2023-03-08] MEDS ORDERED: ATORVASTATIN 20 MG TAB PO SCH (21:00)
[2023-03-08] MEDS ORDERED: DULoxetine 30MG CAPSULE (CYMBALTA) PO SCH (21:00)
[2023-03-08] MEDS ORDERED: TAMSULOSIN 0.4 MG CAP PO SCH (21:00)
[2023-03-08] MEDS ORDERED: MAGNESIUM OXIDE 400MG TAB (MAG-OX) PO SCH (21:00)
[2023-03-08] MEDS ORDERED: INSULIN LISPRO (NovoLOG) PER UNIT SC SCH (21:00)
[2023-03-08] MEDS ORDERED: traZODone 100 MG TAB PO SCH (21:00)
[2023-03-09] VITALS (11 sets, daily range): BP systolic 94; BP diastolic 56; TEMP 97.5; O2SAT 93–96
[2023-03-09] MEDS: ALBUTEROL 90 MCG/ACT 8GM HFA INHALER INH PRN ×2 (01:58→07:59)
[2023-03-09] MEDS: IPRATROPIUM 0.5MG/ALBUTEROL 2.5MG INH SOL UD 3ML (DUONEB) NEB SCH ×2 (01:59→07:59)
[2023-03-09] MEDS ORDERED: REMDESIVIR 100 MG in NS 250 ML IV SCH (05:00)
[2023-03-09 06:38] LABS: HEMATOCRIT 41.9 % (42.0-52.0); HEMOGLOBIN 13.6 g/dl (13.5-17.5); MEAN CORPUSCULAR HEMOGLOBIN 28.5 pg (27.0-33.0); MEAN CORPUSCULAR HGB CONC 32.5 g/dl (32.0-36.5); MEAN CORPUSCULAR VOLUME 87.8 fl (80.0-96.0); PLATELET COUNT, AUTOMATED 203 10^3/uL (150-450); RED BLOOD COUNT 4.77 10^6/uL (4.30-6.10); WHITE BLOOD COUNT 11.9 10^3/uL (4.0-10.0)
[2023-03-09 07:07] LABS: ALBUMIN 3.3 G/DL (3.2-5.2); ALKALINE PHOSPHATASE 71 U/L (46-116); ALT/SGPT 23 U/L (7.0-40); AST/SGOT 24 U/L (<34); BILIRUBIN,DIRECT 0.1 MG/DL (<0.4); BILIRUBIN,TOTAL 0.3 MG/DL (0.3-1.2); BLOOD UREA NITROGEN 28 MG/DL (9-23); CALCIUM LEVEL 9.2 MG/DL (8.3-10.6); CARBON DIOXIDE LEVEL 24 MMOL/L (20-31); CHLORIDE LEVEL 106 MMOL/L (98-107); CREATININE FOR GFR 0.73 MG/DL (0.70-1.30); GLOMERULAR FILTRATION RATE > 60.0 (>49); GLUCOSE, FASTING 200 MG/DL (74-106); POTASSIUM SERUM 4.2 MMOL/L (3.5-5.1); SODIUM LEVEL 139 MMOL/L (136-145)
[2023-03-09] MEDS: ADVAIR HFA 230/21MCG INHALER INH SCH (07:59)
[2023-03-09] MEDS: PANTOPRAZOLE 40MG TAB (PROTONIX) PO SCH (08:25)
[2023-03-09] MEDS: INSULIN LISPRO (NovoLOG) PER UNIT SC SCH ×2 (08:25→11:48)
[2023-03-09] MEDS: DOCUSATE SODIUM 100MG CAPSULE PO SCH (08:25)
[2023-03-09] MEDS: ENOXAPARIN 40MG/0.4ML SYRINGE (J1650 PER 10MG) SC SCH (08:26)
[2023-03-09] MEDS: ASPIRIN 81MG CHEW TABLET PO SCH (08:26)
[2023-03-09] MEDS: GABAPENTIN 300 MG CAP PO SCH (08:26)
[2023-03-09] MEDS ORDERED: predniSONE 20 MG TAB PO SCH (09:00)
[2023-03-09] MEDS ORDERED: guaiFENesin ER TABLET 600 MG TAB PO SCH (09:00)
[2023-03-09] MEDS ORDERED: [UNRECOGNIZED DRUG - CODE] INJ (11:10)
[2023-03-09] MEDS ORDERED: PRED20TA PO (11:11)
[2023-03-09] MEDS ORDERED: PRED10TA2 PO ×3 (11:21→13:06)
== END 2023-03-09 13:07 | disposition home or self-care (01) | DRG 178 ==
LOC: M ED 22:33 → M ED INP 03-08 02:33 → M PCU 03-08 04:45
PROVIDERS: ADMIT Internal Medicine; ATTEND Internal Medicine
DX: U07.1 COVID-19 (principal); M47.12 Other spondylosis with myelopathy, cervical region; J44.1 Chronic obstructive pulmonary disease with (acute) exacerbation; G47.33 Obstructive sleep apnea (adult) (pediatric); E11.9 Type 2 diabetes mellitus without complications; I10 Essential (primary) hypertension; G62.9 Polyneuropathy, unspecified; N40.0 Benign prostatic hyperplasia without lower urinary tract symptoms; F39 Unspecified mood [affective] disorder; Z91.030 Bee allergy status; Z88.8 Allergy status to other drugs, medicaments and biological substances; Z79.899 Other long term (current) drug therapy; Z79.82 Long term (current) use of aspirin; Z86.73 Personal history of transient ischemic attack (TIA), and cerebral infarction without residual deficits; I25.10 Atherosclerotic heart disease of native coronary artery without angina pectoris; E78.5 Hyperlipidemia, unspecified; K44.9 Diaphragmatic hernia without obstruction or gangrene; M19.90 Unspecified osteoarthritis, unspecified site; I45.10 Unspecified right bundle-branch block; F32.A Depression, unspecified

== ENCOUNTER → 2023-04-23 | Outpatient (CLI) | payer OTHER ==
[~2023-04-23] MED LIST changes: +B-2100TA PO; +MAGN400T35 PO; +PRED10TA2 PO; +PRED20TA PO; +THERTAB52 PO; +[UNRECOGNIZED DRUG - CODE] INJ; +[UNRECOGNIZED DRUG - REMARK]
== END ==
LOC: M SOG 07:57
PROVIDERS: ATTEND Orthopaedic Surgery
DX: M54.50 Low back pain, unspecified (principal)

== ENCOUNTER → 2023-07-13 | Outpatient (CLI) | payer OTHER ==
[~2023-07-13] MED LIST changes: -OXYB5TAB11 PO; +OXYB5TAB14 PO
[2023-07-13 13:11] LABS: BASO # 0.1 10^3/uL (0.0-0.2); BASO % 0.9 % (0.0-1.0); EOS # 0.2 10^3/uL (0.0-0.5); EOS % 2.6 % (0.0-3.0); HEMATOCRIT 46.9 % (42.0-52.0); HEMOGLOBIN 15.4 g/dl (13.5-17.5); LYMPH # 2.2 10^3/uL (1.5-5.0); LYMPH % 23.3 % (24.0-44.0); MEAN CORPUSCULAR HEMOGLOBIN 29.2 pg (27.0-33.0); MEAN CORPUSCULAR HGB CONC 32.8 g/dl (32.0-36.5); MONO % 10.3 % (2.0-8.0); NEUTROPHILS # 5.9 10^3/uL (1.5-8.5); NEUTROPHILS % 62.4 % (36.0-66.0); PLATELET COUNT, AUTOMATED 282 10^3/uL (150-450); RED BLOOD COUNT 5.27 10^6/uL (4.30-6.10); WHITE BLOOD COUNT 9.4 10^3/uL (4.0-10.0)
[2023-07-13 13:32] LABS: ALBUMIN 3.8 G/DL (3.2-5.2); ALKALINE PHOSPHATASE 77 U/L (46-116); ALT/SGPT 23 U/L (7.0-40); AST/SGOT 16 U/L (<34); BILIRUBIN,TOTAL 0.5 MG/DL (0.3-1.2); BLOOD UREA NITROGEN 19 MG/DL (9-23); CALCIUM LEVEL 9.6 MG/DL (8.3-10.6); CARBON DIOXIDE LEVEL 26 MMOL/L (20-31); CHLORIDE LEVEL 105 MMOL/L (98-107); CHOLESTEROL LEVEL 181 MG/DL (<200); CREATININE FOR GFR 0.66 MG/DL (0.70-1.30); CREATININE, URINE 67.1 MG/DL; GLOMERULAR FILTRATION RATE > 60.0 (>49); GLUCOSE, FASTING 127 MG/DL (74-106); HDL CHOLESTEROL 53.1 MG/DL (>40); LDL CHOLESTEROL 112.5 MG/DL (<100); MAU/CREAT RATIO 4.4 MCG/MG (0.0-30.0); NON-HDL-C 127.9 MG/DL; POTASSIUM SERUM 4.6 MMOL/L (3.5-5.1); SODIUM LEVEL 139 MMOL/L (136-145); TOTAL PROTEIN 7.1 G/DL (5.7-8.2); TRIGLYCERIDES LEVEL 77 MG/DL (<150)
[2023-07-13 14:17] LABS: HEMOGLOBIN A1c 7.5 % (4.0-6.0)
== END ==
LOC: M LAB 11:07
PROVIDERS: ATTEND Family Medicine
DX: E11.65 Type 2 diabetes mellitus with hyperglycemia (principal)

== ENCOUNTER 2024-02-19 09:14 | Emergency (ER) | payer MEDICAID, OTHER ==
[~2024-02-19] VITALS: Ht 170.2 cm; Wt 92.4 kg
[~2024-02-19 09:14] MED LIST changes: -ADV250INH INH; +ADVA1AER9 INH; -CYCL5TAB PO; +CYCL5TAB4 PO; +GABA-1172 PO; +GABA-1490 PO; -GABA-282 PO; -GABA600T4 PO; +GLIP10TA15 PO; -GLIP10TA6 PO
[2024-02-19] MEDS: LIDOCAINE 5% (LIDODERM) PATCH TD ONE (09:50)
[2024-02-19] MEDS: IBUPROFEN 600MG TAB PO ONE (09:50)
[2024-02-19] MEDS: diazePAM 5MG TABLET PO ONE (09:50)
[2024-02-19] MEDS: GABAPENTIN 300 MG CAP PO ONE (09:55)
[2024-02-19 11:32] VITALS: BP 122/69; TEMP 98.4; O2SAT 95
[2024-02-19] MEDS ORDERED: VALI2TAB PO (11:33)
[2024-02-19] MEDS ORDERED: LIDO5DIS41 TOP (11:33)
== END 2024-02-19 11:57 | disposition home or self-care (01) ==
LOC: M ED 09:14
DX: M51.16 Intervertebral disc disorders with radiculopathy, lumbar region (principal); I25.2 Old myocardial infarction; G43.909 Migraine, unspecified, not intractable, without status migrainosus; N40.0 Benign prostatic hyperplasia without lower urinary tract symptoms; I10 Essential (primary) hypertension; K76.0 Fatty (change of) liver, not elsewhere classified; J44.9 Chronic obstructive pulmonary disease, unspecified; F41.9 Anxiety disorder, unspecified; Z95.0 Presence of cardiac pacemaker; Z91.030 Bee allergy status; Z88.1 Allergy status to other antibiotic agents; Z88.8 Allergy status to other drugs, medicaments and biological substances; Z79.52 Long term (current) use of systemic steroids; Z79.82 Long term (current) use of aspirin; Z79.4 Long term (current) use of insulin; Z79.02 Long term (current) use of antithrombotics/antiplatelets; Z79.899 Other long term (current) drug therapy

== ENCOUNTER → 2024-04-10 | Outpatient (CLI) | payer OTHER ==
[~2024-04-10] MED LIST changes: -ADV500INH INH; +ADVA1AER10 INH; +LIDO5DIS41 TOP; +VALI2TAB PO
== END ==
LOC: M RAD 12:14
PROVIDERS: ATTEND Neurological Surgery
DX: M50.00 Cervical disc disorder with myelopathy, unspecified cervical region (principal); M51.17 Intervertebral disc disorders with radiculopathy, lumbosacral region; Z98.1 Arthrodesis status

== ENCOUNTER → 2024-05-09 | Outpatient (CLI) | payer OTHER, MEDICARE | LOC: M RAD 13:05 | PROVIDERS: ATTEND Physician Assistant | DX: I65.23 Occlusion and stenosis of bilateral carotid arteries (principal) ==

== ENCOUNTER → 2024-10-31 | Outpatient (CLI) | payer MEDICARE, OTHER ==
[~2024-10-31] MED LIST changes: -ESSE250T PO; -FLOM0.4C39 PO; +LIDO1ADH93 TD; +LIDO1ADH93 TOP; -LIDO5DIS41 TD; -LIDO5DIS41 TOP; +MAGN250T17 PO; +MAGN400O74 PO; -MILKSUS5 PO; +TAMS-18 PO
== END ==
LOC: M RAD 09:32
PROVIDERS: ATTEND Physician Assistant
DX: I70.203 Unspecified atherosclerosis of native arteries of extremities, bilateral legs (principal); R00.2 Palpitations

== ENCOUNTER 2025-02-07 10:41 | Day surgery (SDC) | payer OTHER ==
[~2025-02-07] VITALS: Ht 170.2 cm; Wt 85.9 kg
[~2025-02-07 10:41] MED LIST changes: +ALBU8.5H; -ASPI-655 PO; +ASPI-737 PO; +ATOR40TA75 PO; +DULO1CAP6 PO; +GNPTAB36 PO; +INSU100I40 SQ; +IPRA3SP INH; +JARD1TAB3 PO; +LIDOCAINE 2% 100 MG/5 ML SDV (FOR ANES.) As Ordered ONE; +NITR0.4S14 SL; +TAMS1CAP17 PO; +VITA100T15 PO
[2025-02-07 13:05] VITALS: BP 123/62; TEMP 97.2; O2SAT 96
== END 2025-02-07 13:08 | disposition home or self-care (01) ==
LOC: M OPP 10:41
PROVIDERS: ATTEND Surgery
DX: Z12.11 Encounter for screening for malignant neoplasm of colon (principal); D12.6 Benign neoplasm of colon, unspecified; Z95.5 Presence of coronary angioplasty implant and graft; Z95.0 Presence of cardiac pacemaker; Z86.73 Personal history of transient ischemic attack (TIA), and cerebral infarction without residual deficits; G47.30 Sleep apnea, unspecified; Z88.1 Allergy status to other antibiotic agents; Z88.5 Allergy status to narcotic agent; Z88.8 Allergy status to other drugs, medicaments and biological substances; Z91.030 Bee allergy status; Z79.82 Long term (current) use of aspirin; Z79.4 Long term (current) use of insulin; Z79.84 Long term (current) use of oral hypoglycemic drugs; Z79.899 Other long term (current) drug therapy; J44.9 Chronic obstructive pulmonary disease, unspecified